=== PATIENT | male | born 1940 | race African-American/Black ===

== ENCOUNTER → 2017-06-23 | Outpatient (CLI) | payer MEDICARE, OTHER ==
--- NOTE | 2017-06-23 10:25 | RADIOLOGY REPORT (SQ) ---
EXAM DESCRIPTION: MRI HEAD WITHOUT COMPLETED DATE/TIME: 06/23/2017 10:13 am REASON FOR STUDY: CEREBRAL INFARCTION, UNSPECIFIED I63.9 CEREBRAL INFARCTION, UNSPECIFIED M48.06 S LYLE STENOSIS, LUMBAR REGION COMPARISON: 02/18/2015. TECHNIQUE: Multiplanar imaging includes non-contrasted T1, T2, FLAIR, and diffusion with ADC map seq uences. Images stored on PACS. LIMITATIONS: None. FINDINGS: ANATOMY: No anomalies. Normal vascular flow voids. Pituitary fossa normal. CSF SPACES: Atrophy induced prominence of ventricles and CSF spaces. CEREBRUM: High signal intensity lesions scattered throughout the white matter on FLAIR imaging with d istribution suggesting micro-vascular ischemic changes. Stable old right frontal lobe infarct. No e vidence of hemorrhage, mass, or extraaxial fluid collection. POSTERIOR FOSSA: No signal alteration. No hemorrhage. No edema, masses or mass effect. Internal ramiro tory canals, cerebello-pontine angles, mastoids normal. DIFFUSION IMAGING: Negative for acute or sub-acute infarction. ORBITS: No masses. Globes normal. PARANASAL SINUSES: No fluid levels. Mild mucosal thickening. OTHER: No other significant finding. IMPRESSION: ATROPHY AND CHRONIC MICRO-VASCULAR ISCHEMIC CHANGES. 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 NO SIGNIFICANT CHANGE AND ACUTE FINDINGS. EVIDENCE OF ACUTE STROKE: NO. TECHNICAL DOCUMENTATION: JOB ID: [id number] [employer]- All Rights Reserved
== END ==
LOC: RAD 09:00
PROVIDERS: ATTEND Internal Medicine
DX: I63.9 Cerebral infarction, unspecified (principal); M48.06 Spinal stenosis, lumbar region
CPT/HCPCS: 70551

== ENCOUNTER → 2018-04-26 | Outpatient (CLI) | payer MEDICARE, OTHER ==
--- NOTE | 2018-04-26 10:30 | RADIOLOGY REPORT (SQ) ---
EXAM DESCRIPTION: ANKLE LEFT AP/LATERAL COMPLETED DATE/TIME: 04/26/2018 9:43 am REASON FOR STUDY: PAIN IN LT ANKLE JTS OF LT FOOT,PAIN IN LT KNEE M25.572 PAIN IN LEFT ANKLE AND J OINTS OF LEFT FOOT M25.562 PAIN IN LEFT KNEE COMPARISON: None. NUMBER OF VIEWS: Three views. TECHNIQUE: AP, lateral, and oblique radiographic images acquired of the left ankle. LIMITATIONS: None. FINDINGS: MINERALIZATION: Normal. BONES: No acute fracture or dislocation. No worrisome bone lesions. JOINTS: No effusions. SOFT TISSUES: Soft tissue swelling more prominent laterally. OTHER: No other significant finding. IMPRESSION: Soft tissue swelling with no fracture. TECHNICAL DOCUMENTATION: JOB ID: [id number] [employer]- All Rights Reserved Reading location - IP/workstation name: [email or web address]
--- NOTE | 2018-04-26 10:34 | RADIOLOGY REPORT (SQ) ---
EXAM DESCRIPTION: KNEE LEFT 2 VIEWS COMPLETED DATE/TIME: 04/26/2018 9:44 am REASON FOR STUDY: PAIN IN LT ANKLE JTS OF LT FOOT,PAIN IN LT KNEE M25.572 PAIN IN LEFT ANKLE AND J OINTS OF LEFT FOOT M25.562 PAIN IN LEFT KNEE COMPARISON: None. NUMBER OF VIEWS: Two views. TECHNIQUE: AP and lateral radiographic images acquired of the left knee. LIMITATIONS: None. FINDINGS: MINERALIZATION: Normal. BONES: No acute fracture or dislocation. No worrisome bone lesions. JOINT: No effusion. SOFT TISSUES: No soft tissue swelling. No radio-opaque foreign body. OTHER: No other significant finding. IMPRESSION: NEGATIVE STUDY OF THE LEFT KNEE. NO RADIOGRAPHIC EVIDENCE OF ACUTE INJURY. TECHNICAL DOCUMENTATION: JOB ID: [id number] [employer]- All Rights Reserved Reading location - IP/workstation name: [email or web address]
== END ==
LOC: OD 09:07
PROVIDERS: ATTEND Internal Medicine
DX: M25.572 Pain in left ankle and joints of left foot (principal)

== ENCOUNTER → 2018-09-25 | Outpatient (CLI) | payer MEDICARE, OTHER ==
--- NOTE | 2018-09-25 13:14 | RADIOLOGY REPORT (SQ) ---
EXAM DESCRIPTION: CT ABD/PELVIS NO ORAL OR IV COMPLETED DATE/TIME: 09/25/2018 12:59 pm REASON FOR STUDY: R31.9 HEMATURIA, UNSPECIFIED R31.9 HEMATURIA, UNSPECIFIED COMPARISON: 11/19/2009. TECHNIQUE: CT scan of the abdomen and pelvis performed without intravenous or oral contrast. Images reviewed with lung, soft tissue, and bone windows. Reconstructed coronal and sagittal MPR images revi ewed. All images stored on PACS. All CT scanners at this facility use dose modulation, iterative reconstruction, and/or weight based d osing when appropriate to reduce radiation dose to as low as reasonably achievable (ALARA). [facility]: Dose Right [facility]: CareDose [facility]: Dose Right [facility]: Teradose 4D [facility]: [employer] RADIATION DOSE: CT Rad equipment meets quality standard of care and radiation dose reduction techniq ues were employed. CTDIvol: 13.4 mGy. DLP: 707 mGy-cm.mGy. LIMITATIONS: None. FINDINGS: LOWER CHEST: No significant findings. No nodules or infiltrates. NON-CONTRASTED LIVER, SPLEEN, ADRENALS: Evaluation limited by lack of IV contrast. No identified sign ificant masses. PANCREAS: No masses. No peripancreatic inflammatory changes. GALLBLADDER: No identified stones by CT criteria. No inflammatory changes to suggest cholecystitis. RIGHT KIDNEY AND URETER: No suspicious masses. Assessment limited by lack of IV contrast. No signif icant calcifications. No hydronephrosis or hydroureter. LEFT KIDNEY AND URETER: No suspicious masses. Assessment limited by lack of IV contrast. No signifi cant calcifications. No hydronephrosis or hydroureter. AORTA AND RETROPERITONEUM: No aneurysm. No retroperitoneal masses or adenopathy. BOWEL AND PERITONEAL CAVITY: Scattered diverticuli in the descending and sigmoid colon. No obvious m asses or inflammatory changes. No free fluid. APPENDIX: Normal. PELVIS, BLADDER, AND ABDOMINAL WALL:No abnormal masses. No free fluid. Bladder normal. BONES: No significant findings. OTHER: No other significant finding. IMPRESSION: DIVERTICULOSIS. NO CT FINDINGS OF DIVERTICULITIS. NO OTHER SIGNIFICANT OR ACUTE PROCES S IN THE ABDOMEN OR PELVIS. COMMENT: Quality ID # [id number]: Final reports with documentation of one or more dose reduction techniques (e.g., Automated exposure control, adjustment of the mA and/or kV according to patient size, use of iterative reconstruction technique) TECHNICAL DOCUMENTATION: JOB ID: [id number] [employer]- All Rights Reserved Reading location - IP/workstation name: [email or web address]
== END ==
LOC: RAD 15:17
PROVIDERS: ATTEND Internal Medicine
DX: K57.30 Diverticulosis of large intestine without perforation or abscess without bleeding (principal); R31.9 Hematuria, unspecified
CPT/HCPCS: 74176

== ENCOUNTER → 2018-10-22 | Outpatient (CLI) | payer MEDICARE, OTHER ==
--- NOTE | 2018-10-22 13:29 | RADIOLOGY REPORT (SQ) ---
EXAM DESCRIPTION: CT ABD/PELVIS COMBO COMPLETED DATE/TIME: 10/22/2018 12:54 pm REASON FOR STUDY: N41.1 CHRONIC PROSTATITIS R30.0 DYSURIA N40.1 BENIGN PROSTATIC HYPERPLASIA R31.0 GROSS HEMATURIA N41.1 CHRONIC PROSTATITIS R30.0 DYSURIA COMPARISON: 09/25/2018 TECHNIQUE: CT scan of the abdomen and pelvis performed with and without intravenous contrast, and wi thout oral contrast. Contrasted imaging performed helical scanning technique and dynamic intravenous contrast injection. Images reviewed with lung, soft tissue, and bone windows. Reconstructed coronal a nd sagittal MPR images reviewed. Delayed images for evaluation of the urinary system also acquired. A ll images stored on PACS. All CT scanners at this facility use dose modulation, iterative reconstruction, and/or weight based d osing when appropriate to reduce radiation dose to as low as reasonably achievable (ALARA). [facility]: Dose Right [facility]: CareDose [facility]: Dose Right [facility]: Teradose 4D [facility]: [employer] CONTRAST TYPE AND DOSE: contrast/concentration: Isovue 350.00 mg/ml; Total Contrast Delivered: 100.0 ml; Total Saline Delivered: 72.0 ml RENAL FUNCTION: Creatinine 0.9 GFR 94 RADIATION DOSE: CT Rad equipment meets quality standard of care and radiation dose reduction techniq ues were employed. CTDIvol: 17.8 - 20.3 mGy. DLP: 3196 mGy-cm. . LIMITATIONS: None. FINDINGS: NON-CONTRASTED IMAGING: No significant renal or bladder calcifications. No other significa nt organ calcifications. POST-CONTRASTED IMAGING: LOWER CHEST: No significant findings. No nodules or infiltrates. LIVER: Normal size. No masses. No dilated ducts. SPLEEN: Normal size. No focal lesions. PANCREAS: No masses. No significant calcifications. No adjacent inflammation or peripancreatic fluid collections. Pancreatic duct not dilated. GALLBLADDER: No identified stones by CT criteria. No inflammatory changes to suggest cholecystitis. ADRENAL GLANDS: No significant masses or asymmetry. RIGHT KIDNEY AND URETER: No solid masses. No significant calcifications. No hydronephrosis or hyd roureter. LEFT KIDNEY AND URETER: No solid masses. No significant calcifications. No hydronephrosis or hydr oureter. AORTA AND VESSELS: No aneurysm. No dissection. Renal arteries, SMA, celiac without stenosis. RETROPERITONEUM: No retroperitoneal adenopathy, hemorrhage or masses. BOWEL AND PERITONEAL CAVITY: Sigmoid diverticulosis. No acute inflammation. APPENDIX: Normal. PELVIS: The prostate gland is enlarged. Urinary bladder is unremarkable. ABDOMINAL WALL: No masses. No hernias. BONES: No significant or acute findings. OTHER: No other significant finding. IMPRESSION: 1. No acute findings. 2. Diverticulosis coli. 3. Prostatic enlargement. TECHNICAL DOCUMENTATION: JOB ID: [id number] Quality ID # [id number]: Final reports with documentation of one or more dose reduction techniques (e.g., Au tomated exposure control, adjustment of the mA and/or kV according to patient size, use of iterative reconstruction technique) 2010 [employer]- All Rights Reserved Reading location - IP/workstation name: [email or web address]
== END ==
LOC: RAD 14:10
PROVIDERS: ATTEND Urology
DX: N41.1 Chronic prostatitis (principal); K57.30 Diverticulosis of large intestine without perforation or abscess without bleeding; N40.2 Nodular prostate without lower urinary tract symptoms; R30.0 Dysuria; R97.20 Elevated prostate specific antigen [PSA]
CPT/HCPCS: 74178; 82565

== ENCOUNTER 2019-03-17 14:37 | Emergency (ER) | payer MEDICARE, OTHER ==
[2019-03-17 14:56] VITALS: BP 125/69
--- NOTE | 2019-03-17 15:20 | ER Document Report ---
ED GI/ - General Chief Complaint: Needs Urinary Cath Replaced Stated Complaint: CATHETER LEAKING Time Seen by Provider: 03/17/19 15:05 Primary Care Provider: LEO GARCIA MD [Primary Care Provider] - Follow up tomorrow Mode of Arrival: Ambulatory Information source: Patient Notes: 78-year-old male presented to ED for leaking Clark catheter. He states he was just discharged on 18th of this month which is 3 days ago. He states that today he noticed that his Clark was leaking. He states they just put a Clark in on the . He states he does not know of any pulling or tugging he is done to his catheter. There is a small amount of drainage in his diaper. Is alert oriented respirations regular and unlabored speaking in full sentences. TRAVEL OUTSIDE OF THE [place] IN LAST 30 DAYS: No - HPI Patient complains to provider of: Clark catheter problem Onset: This morning Timing/Duration: Intermittent Quality of pain: No pain Pain Level: Denies Associated symptoms: Other Exacerbated by: Movement, Walking - Clark leaking Relieved by: Denies Similar symptoms previously: Yes Recently seen / treated by doctor: Yes - Related Data Allergies/Adverse Reactions: lisinopril [Lisinopril] Adverse Reaction (Unknown, Verified 03/17/19 14:42) Aarhwbk-Dzo-Wdz Reductase Inhibitor Adverse Reaction (Unknown, Verified 03/17/19 14:42) Past Medical History - General Information source: Patient - Social History Smoking Status: Former Smoker Cigarette use (# per day): No Frequency of alcohol use: Occasional Drug Abuse: None Family History: Reviewed & Not Pertinent - Past Medical History Cardiac Medical History: Reports: Hx Atrial Fibrillation, Hx Hypercholesterolemia, Hx Hypertension, Hx Heart Murmur Pulmonary Medical History: Reports: Hx Bronchitis EENT Medical History: Reports: None Neurological Medical History: Reports: None Endocrine Medical History: Reports: Hx Diabetes Mellitus Type 2 Renal/ Medical History: Reports: Hx Benign Prostatic Hyperplasia Malignancy Medical History: Reports None GI Medical History: Reports: Hx Gastroesophageal Reflux Disease Musculoskeletal Medical History: Reports Hx Arthritis Skin Medical History: Reports None Psychiatric Medical History: Reports: Hx Depression, Hx Post Traumatic Stress Disorder Traumatic Medical History: Reports: None Infectious Medical History: Reports: None Surgical Hx: Negative Past Surgical History: Reports: None - Immunizations Immunizations up to date: Yes Hx Diphtheria, Pertussis, Tetanus Vaccination: Yes Review of Systems - Review of Systems Constitutional: No symptoms reported EENT: No symptoms reported Cardiovascular: No symptoms reported Respiratory: No symptoms reported Gastrointestinal: No symptoms reported Genitourinary: Other - Clark leaking Male Genitourinary: No symptoms reported Musculoskeletal: No symptoms reported Skin: No symptoms reported Hematologic/Lymphatic: No symptoms reported Neurological/Psychological: No symptoms reported Physical Exam - Vital signs Vitals: Temp Pulse Resp BP Pulse Ox 97.8 F 98 18 125/69 100 03/17/19 14:54 03/17/19 14:54 03/17/19 14:54 03/17/19 14:54 03/17/19 14:54 Interpretation: Normal - General General appearance: Appears well, Alert - HEENT Head: Normocephalic, Atraumatic Eyes: Normal Pupils: PERRL - Respiratory Respiratory status: No respiratory distress Chest status: Nontender Breath sounds: Normal Chest palpation: Normal - Cardiovascular Rhythm: Regular Heart sounds: Normal auscultation Murmur: No - Abdominal Inspection: Normal Distension: No distension Bowel sounds: Normal Tenderness: Nontender Organomegaly: No organomegaly - Genitourinary Notes: Catheter in place and leaking. Tried irrigating the catheter and it did definitely leak around the catheter. - Back Back: Normal, Nontender - Extremities General upper extremity: Normal inspection, Nontender, Normal color, Normal ROM, Normal temperature General lower extremity: Normal inspection, Nontender, Normal color, Normal ROM, Normal temperature, Normal weight bearing. No: Ayanna's sign - Neurological Neuro grossly intact: Yes Cognition: Normal Orientation: AAOx4 [place] Coma Scale Eye Opening: Spontaneous Oscar Coma Scale Verbal: Oriented Oscar Coma Scale Motor: Obeys Commands [place] Coma Scale Total: 15 Speech: Normal Motor strength normal: LUE, RUE, LLE, RLE Sensory: Normal - Psychological Associated symptoms: Normal affect, Normal mood - Skin Skin Temperature: Warm Skin Moisture: Dry Skin Color: Normal Course - Re-evaluation Re-evalutation: 03/17/19 16:32 Clark catheter was removed and a new 18 coud catheter replaced new bag and leg bag had patient states it is feels much better. Patient was instructed on use of leg bag and change from leg bag to bedside bag while at home. Patient verbalized understanding of instructions and patient was discharged home. - Vital Signs Vital signs: Temp Pulse Resp BP Pulse Ox 97.8 F 98 18 125/69 100 03/17/19 14:54 03/17/19 14:54 03/17/19 14:54 03/17/19 14:54 03/17/19 14:54 Discharge - Discharge Clinical Impression: Encounter for Clark catheter replacement, clark leaking Condition: Stable Disposition: HOME, SELF-CARE Additional Instructions: Clark Catheter Care Tube Position: Keep the catheter connected to the drainage tubing at all times. Avoid pulling on the catheter. Keep the drainage tube taped to the mid- thigh, on top of your leg (not underneath it). Be sure there are no kinks or loops in the tube. Keep the drainage bag below the bladder. When in bed, the drainage bag should hang below the abdomen but should not lie on the floor. The drainage bag has hooks at the top so it can be hung on a chair or bed. Daily Cleaning: Wash your hands with soap and water before and after caring for your catheter. Twice a day, clean yourself where the catheter goes into the urethra. Use a warm, soapy wash cloth to clean around the urethral opening and the first few inches of the catheter. Females should wash from front to back to decrease the risk of infection from fecal material. After washing with soap, rinse the area with water. Do not put powder around the catheter. Apply ointment only if instructed by your doctor or nurse. Follow up if you develop fever or chills, flank or abdominal pain, blood in the urine, or if urine is not draining into the catheter. Please change your Clark tubing from the bedside bag to the leg bag during the day and then from the leg bag to the bedside drainage bag at night. This will decrease the pulling and tugging on the catheter. FOLLOW-UP CARE: If you have been referred to a physician for follow-up care, call the physicians office for an appointment as you were instructed or within the next two days. If you experience worsening or a significant change in your symptoms, notify the physician immediately or return to the Emergency Department at any time for re-evaluation. Follow-up with your primary care and your urologist as you have been instructed when you were discharged from the hospital. Referrals: LEO GARCIA MD [Primary Care Provider] - Follow up tomorrow
== END 2019-03-17 17:08 | disposition home or self-care (01) ==
LOC: ER 14:37
DX: T83.038A Leakage of other urinary catheter, initial encounter (principal); X58.XXXA Exposure to other specified factors, initial encounter; I48.91 Unspecified atrial fibrillation; E78.00 Pure hypercholesterolemia, unspecified; I10 Essential (primary) hypertension; E11.9 Type 2 diabetes mellitus without complications
CPT/HCPCS: 99283; C1758

== ENCOUNTER 2019-03-19 18:25 | Inpatient (IN) | payer MEDICARE, OTHER ==
[2019-03-19] MEDS ORDERED: (PENDING PHARMACY ID) (Losartan/Hydrochlorothiazide [Losartan-Hctz 50-12.5 Mg Tab] 1 EACH) PO SCH (21:30)
[2019-03-19] MEDS ORDERED: CARVEDILOL PHOSPHATE 40 MG PO SCH (21:30)
[2019-03-19] MEDS ORDERED: (PENDING PHARMACY ID) (Pravastatin Sodium [Pravachol] 40 MG) PO SCH (22:00)
[2019-03-19] MEDS ORDERED: CIPROFLOXACIN HCL 500 MG TABLET PO SCH (22:00)
[2019-03-19 22:10] LABS: MEAN CORPUSCULAR HEMOGLOBIN 27.4 pg (27.0-33.4); MEAN CORPUSCULAR HGB CONC 34.8 g/dL (32.0-36.0); MEAN CORPUSCULAR VOLUME 79 fl (80-97); PLATELET COUNT 183 10^3/uL (150-450); RED CELL DISTRIBUTION WIDTH 15.7 % (11.5-14.0); WHITE BLOOD COUNT 5.5 10^3/uL (4.0-10.5)
[2019-03-19 22:32] LABS: ALANINE AMINOTRANSFERASE 18 U/L (21-72); ALBUMIN 3.6 g/dL (3.5-5.0); ALKALINE PHOSPHATASE 60 U/L (38-126); ANION GAP 13 (5-19); ASPARTATE AMINO TRANSFERASE 16 U/L (17-59); BILIRUBIN,DIRECT 0.3 mg/dL (0.0-0.4); BILIRUBIN,TOTAL 0.4 mg/dL (0.2-1.3); BLOOD UREA NITROGEN 34 mg/dL (7-20); CALCIUM 8.2 mg/dL (8.4-10.2); CARBON DIOXIDE 27 mmol/L (22-30); CHLORIDE 98 mmol/L (98-107); GLUCOSE 110 mg/dL (75-110); POTASSIUM 3.2 mmol/L (3.6-5.0); SODIUM 137.7 mmol/L (137-145); TOTAL PROTEIN 6.2 g/dL (6.3-8.2)
[2019-03-19] MEDS: ATORVASTATIN CALCIUM 10 MG TABLET PO SCH (23:16)
[2019-03-19 23:54] LABS: PROTHROMBIN TIME 42.9 SEC (11.4-15.4)
[2019-03-20 00:02] LABS: INTERNATIONAL RATION (INR) 4.26; PARTIAL THROMBOPLASTIN TIME 131.3 SEC (23.5-35.8)
[2019-03-20] MEDS ORDERED: PHYTONADIONE INJ 10 MG/1 ML AMPULE SUBCUT ONE (04:15)
--- NOTE | 2019-03-20 06:32 | RADIOLOGY REPORT (SQ) ---
EXAM DESCRIPTION: US RETROPERITONEUM LIMITED COMPLETED DATE/TME: 03/20/2019 00:00 CLINICAL HISTORY: 78 years, Male, ACUTE KIDNEY FAILURE COMPARISON: CT dated 03/14/2019 TECHNIQUE: Grayscale and color images of the retroperitoneum LIMITATIONS: None. FINDINGS: The visualized portions of the abdominal aorta and IVC appear unremarkable. Both kidneys are normal in size, shape, and echotexture. The right kidney measures 11.2 x 7.0 x 5.2 cm. The left kidney measures 12.1 x 7.8 x 7.0 cm. There is mild right and moderate left hydronephrosis. A Lundy catheter is noted within the urinary bladder. There is a lobulated mass along the base of the urinary bladder which measures approximately 3.2 x 2.2 x 1.4 cm. IMPRESSION: Lobulated mass along the base of the bladder, likely from the prostate gland which may be causing an outlet obstruction. Mild right and moderate left hydronephrosis. copyright 2010 [employer]- All Rights Reserved
[2019-03-20] MEDS: HYDROCHLOROTHIAZIDE 12.5 MG TABLET PO SCH (09:33)
[2019-03-20] MEDS: LOSARTAN POTASSIUM 50 MG TABLET PO SCH (09:34)
[2019-03-20] MEDS: SITAGLIPTIN PHOSPHATE 50 MG TABLET PO SCH (09:35)
[2019-03-20] MEDS: FINASTERIDE 5 MG TABLET PO SCH (09:35)
[2019-03-20] MEDS ORDERED: TAMSULOSIN HCL 0.4 MG CAP.SR.24H PO SCH (10:00)
--- NOTE | 2019-03-20 14:02 | PDOC H&P ---
History of Present Illness Admission Date/PCP: 03/19/19 18:25 LEO GARCIA MD History of Present Illness: TRAVIS REYNOSO is a 78 year old male, he has a history of an enlarged prostate gland with obstructive uropathy, he was admitted initially on 03/14/2019 for evaluation of acute kidney injury, he had routine blood work done in the office last week Monday, the serum creatinine was 2.23, the blood work that was done in December, which was 2 months ago was normal, he was admitted for observation and evaluation of this acute kidney injury, a CT scan of the abdomen and pelvis without contrast was obtained, it demonstrated bilateral hydronephrosis and hydroureter with a masslike protrusion of the prostate gland into the base of the bladder. He was treated with insertion of Lundy catheter for relief of obstruction. He has multiple comorbid conditions including chronic atrial fibrillation on anticoagulation with Coumadin, history of CVA with residual weakness, type 2 diabetes mellitus. Since the Lundy catheter was inserted he has difficulty with urinary symptoms, hematuria, I saw him in the office on Monday when he came with his family, he was having difficulty with the Lundy catheter, I spoke to a urologist in [place], he was kind enough to see him in the office, he was seen in the office and the Lundy catheter was removed. He came to the office yesterday because of hematuria and not able to urinate, he was admitted directly from the office to the hospital, the blood work demonstrated a worsening serum creatinine, it was 3 the last time on discharged it was 2.23, the INR is also supratherapeutic, it was 4, he was given vitamin K 10 mg subcu and a three-way Lundy catheter was inserted for continuous bladder irrigation. He has a history of BPH for many years, the appearance of the mass is very suspicious for malignancy, I am calling [facility] urology to have [facility] management mostly because of the worseni ng kidney function and the fact that is having difficulty with the Lundy catheter. Past Medical History Cardiac Medical History: Reports: Atrial Fibrillation, Hyperlipidema, Hypertension, Heart Murmur Pulmonary Medical History: Reports: Bronchitis Neurological Medical History: Reports: Other - History of ischemic CVA many years ago Endocrine Medical History: Reports: Diabetes Mellitus Type 2 GI Medical History: Reports: Gastroesophageal Reflux Disease Musculoskeltal Medical History: Reports: Arthritis Psychiatric Medical History: Reports: Depression, Post Traumatic Stress Disorder Social History Smoking Status: Former Smoker Number of Years Smokin Frequency of Alcohol Use: Occasional Hx Recreational Drug Use: No Drugs: None Hx Prescription Drug Abuse: No Family History Family History: Reviewed & Not Pertinent Parental Family History Reviewed: Yes Children Family History Reviewed: Yes Sibling(s) Family History Reviewed.: Yes Medication/Allergy Home Medications: Aspirin [Aspirin 81 mg Chewable Tablet] 81 mg PO DAILY 05/29/12 Carvedilol Phosphate [Coreg CR 20 mg Ext. Release Capsule] 40 mg PO DAILY 05/29/12 Ciprofloxacin HCl [Cipro 500 mg Tablet] 500 mg PO BID MDD FILLED 03/12 FOR 10 DAY SUPPLY 05/29/12 Oxycodone HCl [Oxycontin] 15 mg PO Q8HP PRN 05/29/12 Warfarin Sodium [Coumadin 5 mg Tablet] 5 mg PO QHS 05/29/12 Pravastatin Sodium [Pravachol] 40 mg PO QHS 02/16/15 Tamsulosin HCl [Flomax] 0.4 mg PO DAILY 02/16/15 Furosemide [Lasix 40 mg Tablet] 40 mg PO QAM #30 tablet 02/24/15 Doxepin HCl [Silenor] 6 mg PO QHS 03/19/19 Finasteride [Proscar 5 mg Tablet] 5 mg PO DAILY 03/19/19 Gabapentin [Neurontin 300 mg Capsule] 300 mg PO Q8 03/19/19 Losartan/Hydrochlorothiazide [Losartan-Hctz 50-12.5 mg Tab] 1 each PO DAILY 03/19/19 Metformin HCl [Glucophage 500 mg Tablet] 1,000 mg PO BIDACBS 03/19/19 Sildenafil Citrate [Viagra] 100 mg PO ASDIR PRN 03/19/19 Sitagliptin Phosphate [Januvia 50 mg Tablet] 50 mg PO DAILY 03/19/19 Allergies/Adverse Reactions: lisinopril [Lisinopril] Adverse Reaction (Unknown, Verified 03/17/19 14:42) Euuuqni-Esg-Yqx Reductase Inhibitor Adverse Reaction (Unknown, Verified 03/17/19 14:42) Review of Systems Constitutional: ABSENT: chills, fever(s), headache(s), weight gain, weight loss Eyes: ABSENT: visual disturbances Ears: ABSENT: hearing changes Cardiovascular: ABSENT: chest pain, dyspnea on exertion, edema, orthropnea, palpitations Respiratory: ABSENT: cough, hemoptysis Gastrointestinal: ABSENT: abdominal pain, constipation, diarrhea, hematemesis, hematochezia, nausea, vomiting Genitourinary: PRESENT: difficulty urinating, hematuria. ABSENT: dysuria Musculoskeletal: ABSENT: joint swelling Integumentary: ABSENT: rash, wounds Neurological: ABSENT: abnormal gait, abnormal speech, confusion, dizziness, foca l weakness, syncope Psychiatric: ABSENT: anxiety, depression, homidical ideation, suicidal ideation Endocrine: ABSENT: cold intolerance, heat intolerance, menstrual abnormalities, polydipsia, polyuria Hematologic/Lymphatic: ABSENT: easy bleeding, easy bruising, lymphadenopathy Physical Exam Vital Signs: Temp Pulse Resp BP Pulse Ox 98.3 F 89 20 122/58 L 100 03/20/19 07:00 03/20/19 07:00 03/20/19 07:00 03/20/19 07:00 03/20/19 07:00 Intake & Output 03/19/19 03/20/19 03/21/19 06:59 06:59 06:59 Intake Total 412 Output Total 37691 Balance -9988 Weight 98.4 kg General appearance: PRESENT: no acute distress, well-developed, well-nourished Head exam: PRESENT: atraumatic, normocephalic Eye exam: PRESENT: conjunctiva pink, EOMI, PERRLA Ear exam: PRESENT: normal external ear exam Mouth exam: PRESENT: moist, tongue midline Neck exam: PRESENT: full ROM Cardiovascular exam: PRESENT: RRR, +S1, +S2 Pulses: PRESENT: normal dorsalis pedis pul, +2 pedal pulses bilateral Vascular exam: PRESENT: normal capillary refill GI/Abdominal exam: PRESENT: normal bowel sounds, soft Rectal exam: PRESENT: deferred Neurological exam: PRESENT: alert, CN II-XII grossly intact Psychiatric exam: PRESENT: appropriate affect, normal mood Skin exam: PRESENT: dry, intact, warm Results Laboratory Results: 03/19/19 21:57 03/19/19 21:57 03/19/19 03/19/19 21:57 21:57 WBC 5.5 RBC 3.30 L Hgb 9.0 L Hct 26.0 L MCV 79 L MCH 27.4 MCHC 34.8 RDW 15.7 H Plt Count 183 Sodium 137.7 Potassium 3.2 L Chloride 98 Carbon Dioxide 27 Anion Gap 13 BUN 34 H Creatinine 3.04 H Est GFR ( Amer) 24 L Est GFR (Non-Af Amer) 20 L Glucose 110 Calcium 8.2 L Total Bilirubin 0.4 AST 16 L ALT 18 L Alkaline Phosphatase 60 Total Protein 6.2 L Albumin 3.6 Impressions: Renal Ultrasound 03/20/19 00:00 IMPRESSION: Lobulated mass along the base of the bladder, likely from the prostate gland which may be causing an outlet obstruction. Mild right and moderate left hydronephrosis. copyright 2010 [employer]- All Rights Reserved Assessment & Plan - Diagnosis (1) Acute kidney injury Is this a current diagnosis for this admission?: Yes Plan: He has worsening acute kidney injury, this is most likely from obstructive uropathy (2) Obstructive uropathy Is this a current diagnosis for this admission?: Yes Plan: He has bilateral hydronephrosis this is from enlarged prostate gland (3) Prostate mass Is this a current diagnosis for this admission?: Yes (4) Warfarin-induced coagulopathy Is this a current diagnosis for this admission?: Yes Plan: , Give vitamin K 10 mg subcu (5) Hematuria Qualifiers: Hematuria type: gross Qualified Code(s): R31.0 - Gross hematuria Is this a current diagnosis for this admission?: Yes Plan: Start CDI
[2019-03-20 14:30] LABS: ABSOLUTE EOSINOPHILS # (AUTO) 0.1 10^3/uL (0.0-0.6); ABSOLUTE LYMPHOCYTES (AUTO) 0.7 10^3/uL (0.5-4.7); ABSOLUTE MONOCYTES (AUTO) 0.6 10^3/uL (0.1-1.4); ABSOLUTE NEUT (AUTO) 4.5 10^3/uL (1.7-8.2); BASOPHILS % (AUTO) 0.4 % (0-2); EOSINOPHILS % (AUTO) 1.2 % (0-6); HEMATOCRIT 24.4 % (37.9-51.0); HEMOGLOBIN 8.5 g/dL (13.5-17.0); LYMPHOCYTES % (AUTO) 11.6 % (13-45); MEAN CORPUSCULAR HEMOGLOBIN 27.1 pg (27.0-33.4); MEAN CORPUSCULAR HGB CONC 34.8 g/dL (32.0-36.0); MEAN CORPUSCULAR VOLUME 78 fl (80-97); MONOCYTES % (AUTO) 9.9 % (3-13); PLATELET COUNT 193 10^3/uL (150-450); RED BLOOD COUNT 3.13 10^6/uL (4.35-5.55); RED CELL DISTRIBUTION WIDTH 15.7 % (11.5-14.0); SEGMENTED NEUTROPHILS % (AUTO) 76.9 % (42-78); TOTAL CELLS COUNTED % (AUTO) 100 %; WHITE BLOOD COUNT 5.9 10^3/uL (4.0-10.5)
[2019-03-20 14:36] LABS: INTERNATIONAL RATION (INR) 3.27; PROTHROMBIN TIME 34.8 SEC (11.4-15.4)
[2019-03-20 15:05] LABS: ALANINE AMINOTRANSFERASE 16 U/L (21-72); ALBUMIN 3.2 g/dL (3.5-5.0); ALKALINE PHOSPHATASE 54 U/L (38-126); ANION GAP 7 (5-19); ASPARTATE AMINO TRANSFERASE 20 U/L (17-59); BILIRUBIN,DIRECT 0.3 mg/dL (0.0-0.4); BILIRUBIN,TOTAL 0.4 mg/dL (0.2-1.3); BLOOD UREA NITROGEN 32 mg/dL (7-20); CARBON DIOXIDE 30 mmol/L (22-30); CHLORIDE 101 mmol/L (98-107); GLUCOSE 152 mg/dL (75-110); SODIUM 138.3 mmol/L (137-145); TOTAL PROTEIN 6.2 g/dL (6.3-8.2)
[2019-03-20 15:14] LABS: POTASSIUM 2.9 mmol/L (3.6-5.0)
[2019-03-20] MEDS: OXYBUTYNIN CHLORIDE 5 MG TABLET PO SCH ×2 (15:21→22:38)
--- NOTE | 2019-03-20 15:51 | PDOC PROGRESS REPORT ---
Subjective Progress Note for:: 03/20/19 Subjective:: Patient was admitted for the management of acute worsening of serum creatinine consistent with acute kidney injury and also hematuria. I spoke to [facility] urology about this patient, my intent was to transfer him to [facility] but the [facility] urologist recommended that it is more appropriate for them to see him outpatient and that should continue the present management, he also stated that [facility] urology office will contact the patient to make arrangement for outpatient office visit Reason For Visit: HEMATURIA,OBSTURCTIVE UROPATHY,BPH Physical Exam Vital Signs: Temp Pulse Resp BP Pulse Ox 98.3 F 101 H 18 129/88 H 100 03/20/19 07:00 03/20/19 11:50 03/20/19 11:50 03/20/19 11:50 03/20/19 11:50 Intake & Output 03/19/19 03/20/19 03/21/19 06:59 06:59 06:59 Intake Total 412 Output Total 69527 Balance -9988 Weight 98.4 kg General appearance: PRESENT: no acute distress Eye exam: PRESENT: PERRLA Cardiovascular exam: PRESENT: +S1, +S2 GI/Abdominal exam: PRESENT: soft Neurological exam: PRESENT: alert Results Laboratory Results: 03/20/19 14:20 03/20/19 14:20 03/19/19 03/19/19 03/20/19 21:57 21:57 14:20 WBC 5.5 5.9 RBC 3.30 L 3.13 L Hgb 9.0 L 8.5 L Hct 26.0 L 24.4 L MCV 79 L 78 L MCH 27.4 27.1 MCHC 34.8 34.8 RDW 15.7 H 15.7 H Plt Count 183 193 Seg Neutrophils % 76.9 Lymphocytes % 11.6 L Monocytes % 9.9 Eosinophils % 1.2 Basophils % 0.4 Absolute Neutrophils 4.5 Absolute Lymphocytes 0.7 Absolute Monocytes 0.6 Absolute Eosinophils 0.1 Absolute Basophils 0.0 Sodium 137.7 Potassium 3.2 L Chloride 98 Carbon Dioxide 27 Anion Gap 13 BUN 34 H Creatinine 3.04 H Est GFR ( Amer) 24 L Est GFR (Non-Af Amer) 20 L Glucose 110 Calcium 8.2 L Total Bilirubin 0.4 AST 16 L ALT 18 L Alkaline Phosphatase 60 Total Protein 6.2 L Albumin 3.6 03/20/19 14:20 WBC RBC Hgb Hct MCV MCH MCHC RDW Plt Count Seg Neutrophils % Lymphocytes % Monocytes % Eosinophils % Basophils % Absolute Neutrophils Absolute Lymphocytes Absolute Monocytes Absolute Eosinophils Absolute Basophils Sodium 138.3 Potassium 2.9 L* Chloride 101 Carbon Dioxide 30 Anion Gap 7 BUN 32 H Creatinine 2.65 H Est GFR ( Amer) 28 L Est GFR (Non-Af Amer) 23 L Glucose 152 H Calcium 8.0 L Total Bilirubin 0.4 AST 20 ALT 16 L Alkaline Phosphatase 54 Total Protein 6.2 L Albumin 3.2 L Impressions: Renal Ultrasound 03/20/19 00:00 IMPRESSION: Lobulated mass along the base of the bladder, likely from the prostate gland which may be causing an outlet obstruction. Mild right and moderate left hydronephrosis. copyright 2010 [employer]- All Rights Reserved Assessment & Plan - Diagnosis (1) Acute kidney injury Is this a current diagnosis for this admission?: Yes Plan: The kidney injury is improving (2) Obstructive uropathy Is this a current diagnosis for this admission?: Yes (3) Prostate mass Is this a current diagnosis for this admission?: Yes (4) Warfarin-induced coagulopathy Is this a current diagnosis for this admission?: Yes Plan: INR is 3.27 (5) Hematuria Qualifiers: Hematuria type: gross Qualified Code(s): R31.0 - Gross hematuria Is this a current diagnosis for this admission?: Yes Plan: Continue CBI
[2019-03-20] MEDS: POTASSIUM CHLORIDE 20 MEQ/50 ML RTU IV SCH ×2 (18:14→19:42)
[2019-03-20] MEDS ORDERED: ACETAMINOPHEN 325 MG TABLET PO PRN (20:39)
[2019-03-20] MEDS ORDERED: RAPAFLO 8 MG PO SCH (21:00)
[2019-03-20] MEDS ORDERED: TAMSULOSIN HCL 0.4 MG CAP.SR.24H PO ONE (21:30)
[2019-03-20] MEDS: CARVEDILOL 12.5 MG TABLET PO SCH (22:38)
[2019-03-20] MEDS: ATORVASTATIN CALCIUM 10 MG TABLET PO SCH (22:38)
[2019-03-21] MEDS: POTASSIUM CHLORIDE 20 MEQ/50 ML RTU IV SCH (01:22)
[2019-03-21] MEDS ORDERED: POTASSIUM CHLORIDE 20 MEQ/50 ML RTU IV SCH (01:30)
[2019-03-21] MEDS: NORMAL SALINE 1000 ML 1,000 ML IV PRN ×2 (06:02→06:57)
[2019-03-21] MEDS: OXYBUTYNIN CHLORIDE 5 MG TABLET PO SCH ×2 (06:02→16:46)
[2019-03-21 10:16] LABS: ALANINE AMINOTRANSFERASE 17 U/L (21-72); ALBUMIN 3.5 g/dL (3.5-5.0); ALKALINE PHOSPHATASE 62 U/L (38-126); ANION GAP 10 (5-19); ASPARTATE AMINO TRANSFERASE 16 U/L (17-59); BILIRUBIN,DIRECT 0.3 mg/dL (0.0-0.4); BILIRUBIN,TOTAL 0.8 mg/dL (0.2-1.3); BLOOD UREA NITROGEN 25 mg/dL (7-20); CALCIUM 8.3 mg/dL (8.4-10.2); CARBON DIOXIDE 26 mmol/L (22-30); CHLORIDE 104 mmol/L (98-107); GLUCOSE 139 mg/dL (75-110); POTASSIUM 3.3 mmol/L (3.6-5.0); SODIUM 139.8 mmol/L (137-145); TOTAL PROTEIN 6.4 g/dL (6.3-8.2)
[2019-03-21] MEDS: CARVEDILOL 12.5 MG TABLET PO SCH (12:28)
[2019-03-21] MEDS: SITAGLIPTIN PHOSPHATE 50 MG TABLET PO SCH (12:29)
[2019-03-21] MEDS: HYDROCHLOROTHIAZIDE 12.5 MG TABLET PO SCH (12:29)
[2019-03-21] MEDS: FINASTERIDE 5 MG TABLET PO SCH (12:29)
[2019-03-21] MEDS: LOSARTAN POTASSIUM 50 MG TABLET PO SCH (12:30)
[2019-03-21] MEDS ORDERED: POTASSIUM CHLORIDE 10 MEQ CAPSULE.ER PO SCH (18:00)
[2019-03-21 18:36] VITALS: BP 122/58
--- NOTE | 2019-03-21 19:44 | PDOC DISCHARGE SUMMARY ---
General - Admit/Disc Date/PCP Admission Date/Primary Care Provider: 03/21/19 13:26 LEO GARCIA MD Discharge Date: 03/21/19 - Discharge Diagnosis (1) Acute kidney injury Is this a current diagnosis for this admission?: Yes (2) Obstructive uropathy Is this a current diagnosis for this admission?: Yes (3) Prostate mass Is this a current diagnosis for this admission?: Yes (4) Warfarin-induced coagulopathy Is this a current diagnosis for this admission?: Yes (5) Hematuria Is this a current diagnosis for this admission?: Yes - Additional Information Discharge Diet: As Tolerated, Diabetic Discharge Activity: Activity As Tolerated, Balance Activity w/Rest Prescriptions: Apixaban [Eliquis 2.5 mg Tablet] 2.5 mg PO BID #60 tablet Oxybutynin Chloride [Ditropan 5 mg Tablet] 5 mg PO Q8 #90 tablet Home Medications: Carvedilol Phosphate [Coreg CR 20 mg Ext. Release Capsule] 40 mg PO DAILY 05/29/12 Ciprofloxacin HCl [Cipro 500 mg Tablet] 500 mg PO BID MDD FILLED 03/12 FOR 10 DAY SUPPLY 05/29/12 Oxycodone HCl [Oxycontin] 15 mg PO Q8HP PRN 05/29/12 Pravastatin Sodium [Pravachol] 40 mg PO QHS 02/16/15 Tamsulosin HCl [Flomax] 0.4 mg PO DAILY 02/16/15 Doxepin HCl [Silenor] 6 mg PO QHS 03/19/19 Finasteride [Proscar 5 mg Tablet] 5 mg PO DAILY 03/19/19 Gabapentin [Neurontin 300 mg Capsule] 300 mg PO Q8 03/19/19 Losartan/Hydrochlorothiazide [Losartan-Hctz 50-12.5 mg Tab] 1 each PO DAILY 03/19/19 Sildenafil Citrate [Viagra] 100 mg PO ASDIR PRN 03/19/19 Sitagliptin Phosphate [Januvia 50 mg Tablet] 50 mg PO DAILY 03/19/19 Apixaban [Eliquis 2.5 mg Tablet] 2.5 mg PO BID #60 tablet 03/21/19 Oxybutynin Chloride [Ditropan 5 mg Tablet] 5 mg PO Q8 #90 tablet 03/21/19 History of Present Illness History of Present Illness: TRAVIS REYNOSO is a 78 year old male, he has a history of an enlarged prostate gland with obstructive uropathy, he was admitted initially on 03/14/2019 for evaluation of acute kidney injury, he had routine blood work done in the office last week Monday, the serum creatinine was 2.23, the blood work that was done in December, which was 2 months ago was normal, he was admitted for observation and evaluation of this acute kidney injury, a CT scan of the abdomen and pelvis without contrast was obtained, it demonstrated bilateral hydronephr osis and hydroureter with a masslike protrusion of the prostate gland into the base of the bladder. He was treated with insertion of Lundy catheter for relief of obstruction. He has multiple comorbid conditions including chronic atrial fibrillation on anticoagulation with Coumadin, history of CVA with residual weakness, type 2 diabetes mellitus. Since the Lundy catheter was inserted he has difficulty with urinary symptoms, hematuria, I saw him in the office on Monday when he came with his family, he was having difficulty with the Lundy catheter, I spoke to a urologist in [place], he was kind enough to see him in the office, he was seen in the office and the Lundy catheter was removed. He came to the office yesterday because of hematuria and not able to urinate, he was admitted directly from the office to the hospital, the blood work demonstrated a worsening serum creatinine, it was 3 the last time on discharged it was 2.23, the INR is also supratherapeutic, it was 4, he was given vitamin K 10 mg subcu and a three-way Lundy catheter was inserted for continuous bladder irrigation. He has a history of BPH for many years, the appearance of the mass is very suspicious for malignancy, I am calling [facility] urology to have him transferred to [facility] for definitive management mostly because of the worsening kidney function and the fact that is having difficulty with the Lundy catheter. Hospital Course Hospital Course: Patient was admitted for the management of acute kidney injury,Hematuria, obstructive uropathy,he was treated with IV fluid,There was improvement of the acute kidney injury. There was Coumadin induced coagulopathy,This was treated with vitamin K,I consulted [facility] urology with the intent To have patient trans andrew to [facility], the urologist recommended that the patient should continue to receive care here and they will be glad to follow patient outpatient,The serum creatinine improved from 3 to 2.5 Physical Exam Vital Signs: Temp Pulse Resp BP Pulse Ox 98.6 F 92 18 122/58 L 99 03/21/19 18:24 03/21/19 18:24 03/21/19 18:24 03/21/19 18:24 03/21/19 18:24 Intake & Output 03/20/19 03/21/19 03/22/19 06:59 06:59 06:59 Intake Total 412 1666 Output Total 30157 47408 Balance -2479 -13154 Weight 98.4 kg 98.4 kg General appearance: PRESENT: no acute distress, well-developed, well-nourished Head exam: PRESENT: atraumatic, normocephalic Eye exam: PRESENT: PERRLA Ear exam: PRESENT: normal external ear exam Mouth exam: PRESENT: moist, tongue midline Neck exam: PRESENT: full ROM Respiratory exam: PRESENT: clear to auscultation heather Cardiovascular exam: PRESENT: RRR, +S1, +S2 Vascular exam: PRESENT: normal capillary refill GI/Abdominal exam: PRESENT: normal bowel sounds, soft Rectal exam: PRESENT: deferred Neurological exam: PRESENT: alert, CN II-XII grossly intact Psychiatric exam: PRESENT: appropriate affect, normal mood Skin exam: PRESENT: dry, intact, warm Results Laboratory Results: 03/20/19 14:20 03/21/19 09:25 03/21/19 09:25 Sodium 139.8 Potassium 3.3 L Chloride 104 Carbon Dioxide 26 Anion Gap 10 BUN 25 H Creatinine 2.50 H Est GFR ( Amer) 30 L Est GFR (Non-Af Amer) 25 L Glucose 139 H Calcium 8.3 L Total Bilirubin 0.8 AST 16 L ALT 17 L Alkaline Phosphatase 62 Total Protein 6.4 Albumin 3.5 Impressions: Renal Ultrasound 03/20/19 00:00 IMPRESSION: Lobulated mass along the base of the bladder, likely from the prostate gland which may be causing an outlet obstruction. Mild right and moderate left hydronephrosis. copyright 2010 [employer]- All Rights Reserved Qualifiers - * PATIENT BEING DISCHARGED WITH ANY OF THE FOLLOWING DIAGNOSIS: No
== END 2019-03-21 20:20 | disposition home or self-care (01) | DRG 726 ==
LOC: 4S 18:25 → INTOOBSV 18:25 → OBSVTOIN 03-21 13:26
PROVIDERS: ADMIT Internal Medicine; ATTEND Internal Medicine
DX: N40.1 Benign prostatic hyperplasia with lower urinary tract symptoms (principal); N17.9 Acute kidney failure, unspecified; I69.359 Hemiplegia and hemiparesis following cerebral infarction affecting unspecified side; N13.8 Other obstructive and reflux uropathy; R31.9 Hematuria, unspecified; T45.515A Adverse effect of anticoagulants, initial encounter; I48.2 Chronic atrial fibrillation; E11.9 Type 2 diabetes mellitus without complications; E78.5 Hyperlipidemia, unspecified; I10 Essential (primary) hypertension; K21.9 Gastro-esophageal reflux disease without esophagitis; F32.9 Major depressive disorder, single episode, unspecified; F43.10 Post-traumatic stress disorder, unspecified; R31.0 Gross hematuria; Z79.891 Long term (current) use of opiate analgesic; Z79.899 Other long term (current) drug therapy; Z87.891 Personal history of nicotine dependence; Z79.82 Long term (current) use of aspirin; Z88.8 Allergy status to other drugs, medicaments and biological substances
CPT/HCPCS: 36415; 76775; 80048; 80053; 80076; 82962; 85025; 85027; 85610; 85730; C1758; J3430; J3480; J7030

== ENCOUNTER 2019-04-01 14:34 | Outpatient (CLI) | payer MEDICARE, OTHER ==
[~2019-04-01 14:34] MED LIST: ACETAMINOPHEN 325 MG TABLET PO PRN; DIPHENHYDRAMINE HCL 25 MG CAPSULE PO PRN; FUROSEMIDE INJ/PF 20 MG/2 ML SDV IV PRN
[2019-04-01 16:39] LABS: ABSOLUTE EOSINOPHILS # (AUTO) 0.1 10^3/uL (0.0-0.6); ABSOLUTE LYMPHOCYTES (AUTO) 0.7 10^3/uL (0.5-4.7); ABSOLUTE MONOCYTES (AUTO) 0.5 10^3/uL (0.1-1.4); ABSOLUTE NEUT (AUTO) 4.4 10^3/uL (1.7-8.2); BASOPHILS % (AUTO) 0.4 % (0-2); HEMATOCRIT 21.4 % (37.9-51.0); LYMPHOCYTES % (AUTO) 11.6 % (13-45); MEAN CORPUSCULAR HEMOGLOBIN 26.1 pg (27.0-33.4); MEAN CORPUSCULAR HGB CONC 33.3 g/dL (32.0-36.0); MEAN CORPUSCULAR VOLUME 78 fl (80-97); MONOCYTES % (AUTO) 9.1 % (3-13); PLATELET COUNT 303 10^3/uL (150-450); RED BLOOD COUNT 2.73 10^6/uL (4.35-5.55); RED CELL DISTRIBUTION WIDTH 15.3 % (11.5-14.0); SEGMENTED NEUTROPHILS % (AUTO) 76.9 % (42-78); TOTAL CELLS COUNTED % (AUTO) 100 %; WHITE BLOOD COUNT 5.7 10^3/uL (4.0-10.5)
[2019-04-01 16:42] LABS: HEMOGLOBIN 7.1 g/dL (13.5-17.0)
[2019-04-01 16:56] LABS: ANION GAP 11 (5-19); BLOOD UREA NITROGEN 47 mg/dL (7-20); CALCIUM 8.6 mg/dL (8.4-10.2); CARBON DIOXIDE 29 mmol/L (22-30); CHLORIDE 100 mmol/L (98-107); GLUCOSE 153 mg/dL (75-110); POTASSIUM 3.2 mmol/L (3.6-5.0); SODIUM 140.4 mmol/L (137-145)
[2019-04-01] MEDS ORDERED: IRON SUCROSE COMPLEX 200 MG in NORMAL SALINE 100 ML IV ONE (19:00)
--- NOTE | 2019-04-01 19:40 | PDOC H&P ---
History of Present Illness Admission Date/PCP: 04/01/19 14:34 LEO GARCIA MD History of Present Illness: TRAVIS REYNOSO is a 78 year old male, patient with severe anemia due to acute blood loss due to hematuria. He has obstructive uropathy with associated acute kidney injury due to enlarged prostate gland, he has indwelling Lundy catheter, he was admitted for blood transfusion because of hemoglobin of 7 he is very symptomatic, with shortness of breath and severe fatigue Past Medical History Cardiac Medical History: Reports: Atrial Fibrillation, Hyperlipidema, Hypertension, Heart Murmur Pulmonary Medical History: Reports: Bronchitis Endocrine Medical History: Reports: Diabetes Mellitus Type 2 GI Medical History: Reports: Gastroesophageal Reflux Disease Musculoskeltal Medical History: Reports: Arthritis Psychiatric Medical History: Reports: Depression, Post Traumatic Stress Disorder Infectious Medical History: Denies: HIV Social History Smoking Status: Former Smoker Frequency of Alcohol Use: Occasional Hx Recreational Drug Use: No Drugs: None Hx Prescription Drug Abuse: No Family History Family History: Reviewed & Not Pertinent Parental Family History Reviewed: Yes Children Family History Reviewed: Yes Sibling(s) Family History Reviewed.: Yes Medication/Allergy Home Medications: Carvedilol Phosphate [Coreg CR 20 mg Ext. Release Capsule] 40 mg PO DAILY 05/29/12 Ciprofloxacin HCl [Cipro 500 mg Tablet] 500 mg PO BID MDD FILLED 03/12 FOR 10 DAY SUPPLY 05/29/12 Oxycodone HCl [Oxycontin] 15 mg PO Q8HP PRN 05/29/12 Pravastatin Sodium [Pravachol] 40 mg PO QHS 02/16/15 Tamsulosin HCl [Flomax] 0.4 mg PO DAILY 02/16/15 Doxepin HCl [Silenor] 6 mg PO QHS 03/19/19 Finasteride [Proscar 5 mg Tablet] 5 mg PO DAILY 03/19/19 Gabapentin [Neurontin 300 mg Capsule] 300 mg PO Q8 03/19/19 Losartan/Hydrochlorothiazide [Losartan-Hctz 50-12.5 mg Tab] 1 each PO DAILY 03/19/19 Sildenafil Citrate [Viagra] 100 mg PO ASDIR PRN 03/19/19 Sitagliptin Phosphate [Januvia 50 mg Tablet] 50 mg PO DAILY 03/19/19 Apixaban [Eliquis 2.5 mg Tablet] 2.5 mg PO BID #60 tablet 03/21/19 Oxybutynin Chloride [Ditropan 5 mg Tablet] 5 mg PO Q8 #90 tablet 03/21/19 Allergies/Adverse Reactions: lisinopril [Lisinopril] Adverse Reaction (Unknown, Verified 03/17/19 14:42) Ulxbqgc-Ibv-Dql Reductase Inhibitor Adverse Reaction (Unknown, Verified 03/17/19 14:42) Review of Systems Constitutional: PRESENT: weakness Eyes: ABSENT: visual disturbances Ears: ABSENT: hearing changes Cardiovascular: ABSENT: chest pain, dyspnea on exertion, edema, orthropnea, palpitations Respiratory: ABSENT: cough, hemoptysis Gastrointestinal: ABSENT: abdominal pain, constipation, diarrhea, hematemesis, hematochezia, nausea, vomiting Genitourinary: PRESENT: hematuria. ABSENT: dysuria Musculoskeletal: ABSENT: joint swelling Integumentary: ABSENT: rash, wounds Neurological: ABSENT: abnormal gait, abnormal speech, confusion, dizziness, focal weakness, syncope Psychiatric: ABSENT: anxiety, depression, homidical ideation, suicidal ideation Endocrine: ABSENT: cold intolerance, heat intolerance, menstrual abnormalities, polydipsia, polyuria Hematologic/Lymphatic: ABSENT: easy bleeding, easy bruising, lymphadenopathy Physical Exam Vital Signs: Temp Pulse Resp BP Pulse Ox 98 F 77 16 116/53 L 100 04/01/19 19:05 04/01/19 19:05 04/01/19 19:05 04/01/19 19:05 04/01/19 19:05 Intake & Output 03/31/19 04/01/19 04/02/19 06:59 06:59 06:59 Intake Total 0 Output Total 640 Balance -640 Weight 217.3 kg General appearance: PRESENT: no acute distress, well-developed, well-nourished Head exam: PRESENT: atraumatic, normocephalic Eye exam: PRESENT: conjunctiva pink, EOMI, PERRLA Ear exam: PRESENT: normal external ear exam Mouth exam: PRESENT: moist, tongue midline Neck exam: PRESENT: full ROM Respiratory exam: PRESENT: clear to auscultation heather Cardiovascular exam: PRESENT: RRR, +S1, +S2 Pulses: PRESENT: normal dorsalis pedis pul, +2 pedal pulses bilateral Vascular exam: PRESENT: normal capillary refill GI/Abdominal exam: PRESENT: normal bowel sounds, soft Rectal exam: PRESENT: deferred Neurological exam: PRESENT: alert, awake, oriented to person, oriented to place, oriented to time, oriented to situation, CN II-XII grossly intact Psychiatric exam: PRESENT: appropriate affect, normal mood Skin exam: PRESENT: dry, intact, warm Results Laboratory Results: 04/01/19 16:20 04/01/19 16:20 04/01/19 04/01/19 04/01/19 16:20 16:20 16:40 WBC 5.7 RBC 2.73 L Hgb 7.1 L Hct 21.4 L MCV 78 L MCH 26.1 L MCHC 33.3 RDW 15.3 H Plt Count 303 Seg Neutrophils % 76.9 Lymphocytes % 11.6 L Monocytes % 9.1 Eosinophils % 2.0 Basophils % 0.4 Absolute Neutrophils 4.4 Absolute Lymphocytes 0.7 Absolute Monocytes 0.5 Absolute Eosinophils 0.1 Absolute Basophils 0.0 Sodium 140.4 Potassium 3.2 L Chloride 100 Carbon Dioxide 29 Anion Gap 11 BUN 47 H Creatinine 2.86 H Est GFR ( Amer) 26 L Est GFR (Non-Af Amer) 21 L Glucose 153 H Calcium 8.6 Blood Type O POSITIVE Antibody Screen NEGATIVE Assessment & Plan - Diagnosis (1) Anemia Qualifiers: Anemia type: other cause Other causes of anemia: acute posthemorrhagic Qualified Code(s): D62 - Acute posthemorrhagic anemia Is this a current diagnosis for this admission?: Yes Plan: Patient is admitted for blood transfusion (2) Hematuria Qualifiers: Hematuria type: unspecified type Qualified Code(s): R31.9 - Hematuria, unspecified Is this a current diagnosis for this admission?: Yes
[2019-04-01] MEDS ORDERED: OXYBUTYNIN CHLORIDE 5 MG TABLET PO ONE (23:30)
[2019-04-01] MEDS ORDERED: APIXABAN 2.5 MG TABLET PO ONE (23:30)
[2019-04-01] MEDS ORDERED: GABAPENTIN 300 MG CAPSULE PO ONE (23:30)
[2019-04-02] MEDS ORDERED: OXYBUTYNIN CHLORIDE 5 MG TABLET PO SCH (06:00)
[2019-04-02] MEDS ORDERED: GABAPENTIN 300 MG CAPSULE PO SCH (06:00)
[2019-04-02 07:07] LABS: ABSOLUTE EOSINOPHILS # (AUTO) 0.2 10^3/uL (0.0-0.6); ABSOLUTE LYMPHOCYTES (AUTO) 0.9 10^3/uL (0.5-4.7); ABSOLUTE MONOCYTES (AUTO) 0.7 10^3/uL (0.1-1.4); ABSOLUTE NEUT (AUTO) 5.7 10^3/uL (1.7-8.2); BASOPHILS % (AUTO) 0.3 % (0-2); EOSINOPHILS % (AUTO) 2.5 % (0-6); HEMATOCRIT 26.6 % (37.9-51.0); LYMPHOCYTES % (AUTO) 12.4 % (13-45); MEAN CORPUSCULAR HEMOGLOBIN 27.2 pg (27.0-33.4); MEAN CORPUSCULAR VOLUME 80 fl (80-97); MONOCYTES % (AUTO) 9.4 % (3-13); PLATELET COUNT 274 10^3/uL (150-450); RED BLOOD COUNT 3.32 10^6/uL (4.35-5.55); RED CELL DISTRIBUTION WIDTH 15.8 % (11.5-14.0); SEGMENTED NEUTROPHILS % (AUTO) 75.4 % (42-78); TOTAL CELLS COUNTED % (AUTO) 100 %; WHITE BLOOD COUNT 7.5 10^3/uL (4.0-10.5)
[2019-04-02 08:29] VITALS: BP 129/56
[2019-04-02] MEDS ORDERED: APIXABAN 2.5 MG TABLET PO SCH (10:00)
--- NOTE | 2019-04-02 18:07 | PDOC DISCHARGE SUMMARY ---
General - Admit/Disc Date/PCP Admission Date/Primary Care Provider: 04/01/19 14:34 LEO GARCIA MD Discharge Date: 04/02/19 - Discharge Diagnosis (1) Anemia Is this a current diagnosis for this admission?: Yes (2) Hematuria Is this a current diagnosis for this admission?: Yes - Additional Information Discharge Diet: As Tolerated Discharge Activity: Activity As Tolerated, Balance Activity w/Rest Home Medications: RX: Carvedilol Phosphate [Coreg CR 20 mg Ext. Release Capsule] 40 mg PO DAILY 05/29/12 RX: Ciprofloxacin HCl [Cipro 500 mg Tablet] 500 mg PO BID MDD FILLED 03/12 FOR 10 DAY SUPPLY 05/29/12 RX: Oxycodone HCl [Oxycontin] 15 mg PO Q8HP PRN 05/29/12 RX: Pravastatin Sodium [Pravachol] 40 mg PO QHS 02/16/15 RX: Tamsulosin HCl [Flomax] 0.4 mg PO DAILY 02/16/15 RX: Doxepin HCl [Silenor] 6 mg PO QHS 03/19/19 RX: Finasteride [Proscar 5 mg Tablet] 5 mg PO DAILY 03/19/19 RX: Gabapentin [Neurontin 300 mg Capsule] 300 mg PO Q8 03/19/19 RX: Losartan/Hydrochlorothiazide [Losartan-Hctz 50-12.5 mg Tab] 1 each PO DAILY 03/19/19 RX: Sildenafil Citrate [Viagra] 100 mg PO ASDIR PRN 03/19/19 RX: Sitagliptin Phosphate [Januvia 50 mg Tablet] 50 mg PO DAILY 03/19/19 Apixaban [Eliquis 2.5 mg Tablet] 2.5 mg PO BID #60 tablet 03/21/19 RX: Oxybutynin Chloride [Ditropan 5 mg Tablet] 5 mg PO Q8 #90 tablet 03/21/19 History of Present Illness History of Present Illness: TRAVIS REYNOSO is a 78 year old male, patient with severe anemia due to acute blood loss due to hematuria. He has obstructive uropathy with associated acute kidney injury due to enlarged prostate gland, he has indwelling Lundy catheter, he was admitted for blood transfusion because of hemoglobin of 7 he is very symptomatic, with shortness of breath and severe fatigue Hospital Course Hospital Course: Patient was admitted for the management of severe anemia, she was transfused with 3 units packed red blood cells Physical Exam Vital Signs: Temp Pulse Resp BP Pulse Ox 98.1 F 82 17 129/56 H 98 04/02/19 08:27 04/02/19 08:27 04/02/19 08:27 04/02/19 08:27 04/02/19 08:27 Intake & Output 04/01/19 04/02/19 04/03/19 06:59 06:59 06:59 Intake Total 1110 Output Total 2440 700 Balance -1330 -700 Weight 99.5 kg General appearance: PRESENT: no acute distress, well-developed, well-nourished Head exam: PRESENT: atraumatic, normocephalic Eye exam: PRESENT: conjunctiva pink, EOMI, PERRLA Ear exam: PRESENT: normal external ear exam Mouth exam: PRESENT: moist, tongue midline Neck exam: PRESENT: full ROM Respiratory exam: PRESENT: clear to auscultation heather Cardiovascular exam: PRESENT: RRR, +S1, +S2 Pulses: PRESENT: normal dorsalis pedis pul, +2 pedal pulses bilateral Vascular exam: PRESENT: normal capillary refill GI/Abdominal exam: PRESENT: normal bowel sounds, soft Rectal exam: PRESENT: deferred Neurological exam: PRESENT: alert, CN II-XII grossly intact Psychiatric exam: PRESENT: appropriate affect, normal mood Skin exam: PRESENT: dry, intact, warm Results Laboratory Results: 04/02/19 06:57 04/01/19 16:20 04/01/19 04/02/19 16:40 06:57 WBC 7.5 RBC 3.32 L Hgb 9.0 L Hct 26.6 L MCV 80 MCH 27.2 MCHC 34.0 RDW 15.8 H Plt Count 274 Seg Neutrophils % 75.4 Lymphocytes % 12.4 L Monocytes % 9.4 Eosinophils % 2.5 Basophils % 0.3 Absolute Neutrophils 5.7 Absolute Lymphocytes 0.9 Absolute Monocytes 0.7 Absolute Eosinophils 0.2 Absolute Basophils 0.0 Blood Type O POSITIVE Antibody Screen NEGATIVE Qualifiers - * PATIENT BEING DISCHARGED WITH ANY OF THE FOLLOWING DIAGNOSIS: No Acute Heart Failure Is this a Heart Failure Patient?: No
[2019-04-02] MEDS ORDERED: DOXEPIN 6 MG PO SCH ×2 (22:00)
== END 2019-04-02 10:55 | disposition home or self-care (01) ==
LOC: 4S 14:34 → UNDOADMOB 14:34 → II 14:34 → 4S 19:53 → II 04-02 10:55 → UNDODISOB 04-02 10:55 → EDSTATUS 04-08 09:12
PROVIDERS: ATTEND Internal Medicine
PROC: 30233N1 Transfusion of Nonautologous Red Blood Cells into Peripheral Vein, Percutaneous Approach (ICD-10-PCS; principal; 2019-04-01)
PROC: 30233N1 Transfusion of Nonautologous Red Blood Cells into Peripheral Vein, Percutaneous Approach (ICD-10-PCS; 2019-04-02)
PROC: 3E033GC Introduction of Other Therapeutic Substance into Peripheral Vein, Percutaneous Approach (ICD-10-PCS; 2019-04-02)
DX: D62 Acute posthemorrhagic anemia (principal); R31.9 Hematuria, unspecified; N13.8 Other obstructive and reflux uropathy; N40.1 Benign prostatic hyperplasia with lower urinary tract symptoms; N17.9 Acute kidney failure, unspecified; E11.9 Type 2 diabetes mellitus without complications; I10 Essential (primary) hypertension; I48.91 Unspecified atrial fibrillation; E78.5 Hyperlipidemia, unspecified; Z79.899 Other long term (current) drug therapy; Z87.891 Personal history of nicotine dependence; Z79.02 Long term (current) use of antithrombotics/antiplatelets; Z79.84 Long term (current) use of oral hypoglycemic drugs
CPT/HCPCS: 86900; 86901; 36415 ×2; 36430; 86850; 85025 ×2; 80048; 86920; G0378 ×2; G0379; P9016 ×2; A9270 ×6; J1756; J1940; J7050; 96365; 96374

== ENCOUNTER 2019-04-10 14:25 | Inpatient (IN) | payer MEDICARE, OTHER ==
--- NOTE | 2019-04-10 14:53 | ER Document Report ---
ED Medical Screen (RME) - General Chief Complaint: Urinary Problem Stated Complaint: URINARY PROBLEMS Time Seen by Provider: 04/10/19 14:48 Primary Care Provider: LEO GARCIA MD [Primary Care Provider] - Follow up as needed Mode of Arrival: Wheelchair Information source: Patient Notes: Patient presents emergency department with reports of urinary concerns. Reports he has an enlarged prostate. A catheter was placed 3 weeks ago. He has noticed decreased urine output this morning reports her worried that the Lundy is clogged. He follows up with a different urologist at the end of this month. Denies other symptoms such as fever vomiting diarrhea. Reports pressure in his abdomen with palpation I have greeted and performed a rapid initial assessment of this patient. A comprehensive ED assessment and evaluation of the patient, analysis of test results and completion of the medical decision making process will be conducted by additional ED providers. Dictation of this chart was performed using voice recognition software; therefore, there may be some unintended grammatical errors. TRAVEL OUTSIDE OF THE [place] IN LAST 30 DAYS: No - Related Data Allergies/Adverse Reactions: lisinopril [Lisinopril] Adverse Reaction (Unknown, Verified 04/10/19 14:29) Eyccqeb-Pqk-Ynw Reductase Inhibitor Adverse Reaction (Unknown, Verified 04/10/19 14:29) Past Medical History - Past Medical History Cardiac Medical History: Reports: Hx Atrial Fibrillation, Hx Hypercholesterolemia, Hx Hypertension, Hx Heart Murmur Denies: Hx Congestive Heart Failure, Hx Coronary Artery Disease, Hx Heart Attack, Hx Peripheral Vascular Disease, Hx Pulmonary Embolism Pulmonary Medical History: Reports: Hx Bronchitis Denies: Hx Asthma, Hx COPD, Hx Pneumonia, Hx Respiratory Failure, Hx Sleep Apnea, Hx Tuberculosis Neurological Medical History: Denies: Hx Seizures Endocrine Medical History: Reports: Hx Diabetes Mellitus Type 2. Denies: Hx Hyperthyroidism, Hx Hypothyroidism Renal/ Medical History: Reports: Hx Benign Prostatic Hyperplasia. Denies: Hx Peritoneal Dialysis Malignancy Medical History: Denies Hx Leukemia, Denies Hx Lung Cancer GI Medical History: Reports: Hx Gastroesophageal Reflux Disease. Denies: Hx Crohn's Disease, Hx Hiatal Hernia Musculoskeltal Medical History: Reports Hx Arthritis, Denies Hx Fibromyalgia, Denies Hx Systemic Lupus Erythematosus Psychiatric Medical History: Reports: Hx Depression, Hx Post Traumatic Stress Disorder Denies: Hx Bipolar Disorder, Hx Dementia Infectious Medical History: Denies: Hx HIV Past Surgical History: Denies: Hx Appendectomy, Hx Cholecystectomy, Hx Colostomy, Hx Coronary Artery Bypass Graft, Hx Gastric Bypass Surgery, Hx Herniorrhaphy, Hx Pacemaker, Hx Tonsillectomy - Immunizations Immunizations up to date: Yes Hx Diphtheria, Pertussis, Tetanus Vaccination: Yes Physical Exam - Vital signs Vitals: Temp Pulse Resp BP Pulse Ox 98.7 F 79 20 108/57 L 100 04/10/19 14:41 04/10/19 14:41 04/10/19 14:41 04/10/19 14:41 04/10/19 14:41 Course - Vital Signs Vital signs: Temp Pulse Resp BP Pulse Ox 98.7 F 79 20 108/57 L 100 04/10/19 14:41 04/10/19 14:41 04/10/19 14:41 04/10/19 14:41 04/10/19 14:41 Doctor's Discharge - Discharge Referrals: LEO GARCIA MD [Primary Care Provider] - Follow up as needed
[2019-04-10 18:02] LABS: AMORPHOUS SEDIMENT,URINE TRACE /HPF; APPEARANCE,URINE CLOUDY; BILIRUBIN,URINE NEGATIVE (NEGATIVE); COLOR,URINE AMBER; GLUCOSE, URINE NEGATIVE (NEGATIVE); KETONES,URINE NEGATIVE (NEGATIVE); LEUKOCYTE ESTERASE,URINE LARGE (NEGATIVE); NITRITE,URINE NEGATIVE (NEGATIVE); PROTEIN,URINE >=500 mg/dL (NEGATIVE); URINE SPECIFIC GRAVITY 1.009; UROBILINOGEN,URINE NEGATIVE mg/dL (<2.0)
[2019-04-10 18:17] LABS: ABSOLUTE EOSINOPHILS # (AUTO) 0.2 10^3/uL (0.0-0.6); ABSOLUTE LYMPHOCYTES (AUTO) 0.8 10^3/uL (0.5-4.7); ABSOLUTE MONOCYTES (AUTO) 0.5 10^3/uL (0.1-1.4); ABSOLUTE NEUT (AUTO) 4.4 10^3/uL (1.7-8.2); BASOPHILS % (AUTO) 0.3 % (0-2); EOSINOPHILS % (AUTO) 2.6 % (0-6); HEMATOCRIT 25.6 % (37.9-51.0); HEMOGLOBIN 8.7 g/dL (13.5-17.0); MEAN CORPUSCULAR HEMOGLOBIN 27.1 pg (27.0-33.4); MEAN CORPUSCULAR HGB CONC 34.1 g/dL (32.0-36.0); MEAN CORPUSCULAR VOLUME 80 fl (80-97); MONOCYTES % (AUTO) 9.2 % (3-13); PLATELET COUNT 185 10^3/uL (150-450); RED BLOOD COUNT 3.22 10^6/uL (4.35-5.55); RED CELL DISTRIBUTION WIDTH 15.5 % (11.5-14.0); SEGMENTED NEUTROPHILS % (AUTO) 74.9 % (42-78); TOTAL CELLS COUNTED % (AUTO) 100 %; WHITE BLOOD COUNT 5.8 10^3/uL (4.0-10.5)
[2019-04-10 18:42] LABS: ALANINE AMINOTRANSFERASE 20 U/L (21-72); ALKALINE PHOSPHATASE 56 U/L (38-126); ANION GAP 10 (5-19); ASPARTATE AMINO TRANSFERASE 12 U/L (17-59); BILIRUBIN,DIRECT 0.2 mg/dL (0.0-0.4); BILIRUBIN,TOTAL 0.5 mg/dL (0.2-1.3); BLOOD UREA NITROGEN 57 mg/dL (7-20); CALCIUM 8.1 mg/dL (8.4-10.2); CARBON DIOXIDE 27 mmol/L (22-30); CHLORIDE 103 mmol/L (98-107); GLUCOSE 97 mg/dL (75-110); POTASSIUM 3.8 mmol/L (3.6-5.0); SODIUM 140.3 mmol/L (137-145); TOTAL PROTEIN 5.7 g/dL (6.3-8.2)
--- NOTE | 2019-04-10 19:17 | ER Document Report ---
ED General - General Chief Complaint: Urinary Problem Stated Complaint: URINARY PROBLEMS Time Seen by Provider: 04/10/19 14:48 Mode of Arrival: Wheelchair Notes: 78-year-old male to the emergency department chief complaint of decreased urinary output. Patient states that he has an indwelling Lundy catheter. Noticed that he has been having any urine coming out for the last 2 days. Drinking plenty of fluids. Denies any significant pain. Has an indwelling Lundy catheter due to obstructive uropathy from an enlarged prostate. Being followed currently by Dr. العلي. Has been seen by specialists and is suppos ed to be seen at [facility]. TRAVEL OUTSIDE OF THE [place] IN LAST 30 DAYS: No - HPI Onset: Yesterday Onset/Duration: Gradual Quality of pain: No pain Severity: Moderate - Related Data Allergies/Adverse Reactions: lisinopril [Lisinopril] Adverse Reaction (Unknown, Verified 04/10/19 14:29) Aatadxk-Iot-Bei Reductase Inhibitor Adverse Reaction (Unknown, Verified 04/10/19 14:29) Past Medical History - General Information source: Patient - Social History Smoking Status: Never Smoker Frequency of alcohol use: None Drug Abuse: None Family History: Reviewed & Not Pertinent Patient has suicidal ideation: No Patient has homicidal ideation: No - Past Medical History Cardiac Medical History: Reports: Hx Atrial Fibrillation, Hx Hypercholesterolemia, Hx Hypertension, Hx Heart Murmur Denies: Hx Congestive Heart Failure, Hx Coronary Artery Disease, Hx Heart Attack, Hx Peripheral Vascular Disease, Hx Pulmonary Embolism Pulmonary Medical History: Reports: Hx Bronchitis Denies: Hx Asthma, Hx COPD, Hx Pneumonia, Hx Respiratory Failure, Hx Sleep Apnea, Hx Tuberculosis Neurological Medical History: Denies: Hx Seizures Endocrine Medical History: Reports: Hx Diabetes Mellitus Type 2. Denies: Hx Hyperthyroidism, Hx Hypothyroidism Renal/ Medical History: Reports: Hx Benign Prostatic Hyperplasia. Denies: Hx Peritoneal Dialysis Malignancy Medical History: Denies Hx Leukemia, Denies Hx Lung Cancer GI Medical History: Reports: Hx Gastroesophageal Reflux Disease. Denies: Hx Crohn's Disease, Hx Hiatal Hernia Musculoskeletal Medical History: Reports Hx Arthritis, Denies Hx Fibromyalgia, Denies Hx Systemic Lupus Erythematosus Psychiatric Medical History: Reports: Hx Depression, Hx Post Traumatic Stress Disorder Denies: Hx Bipolar Disorder, Hx Dementia Infectious Medical History: Denies: Hx HIV Past Surgical History: Denies: Hx Appendectomy, Hx Cholecystectomy, Hx Colostomy, Hx Coronary Artery Bypass Graft, Hx Gastric Bypass Surgery, Hx Herniorrhaphy, Hx Pacemaker, Hx Tonsillectomy - Immunizations Immunizations up to date: Yes Hx Diphtheria, Pertussis, Tetanus Vaccination: Yes Review of Systems - Review of Systems Notes: Constitutional: denies: Chills, Diaphoresis, Fever, Malaise, Weakness EENT: denies: Eye discharge, Blurred vision, Tearing, Double vision, Nose congestion, Nose discharge, Throat swelling, Mouth pain Cardiovascular: denies: Palpitations, Heart racing, Orthopnea, Dyspnea, Chest pain Respiratory: denies: Cough, Hurts to breathe, Wheezing, Shortness of breath Gastrointestinal: denies: Abdominal pain, Diarrhea, Nausea, Vomiting, Black stools, bright red blood in stool Genitourinary: denies: Burning, Dysuria, Discharge, Frequency, Flank pain, Hematuria. Decreased urinary output Musculoskeletal: denies: Joint pain, Joint swelling, Muscle pain, Muscle stiffness, back pain chronic lower extremity edema Hematologic/Lymphatic: denies: Anemia, Easy bleeding, Easy bruising, Blood clots Neurological/Psychological: denies: Confusion, Dementia, Depression, Loss of consciousness Skin: No lesions, no masses, no skin breakdown, no abscesses Physical Exam - Vital signs Vitals: Temp Pulse Resp BP Pulse Ox 98.7 F 79 20 108/57 L 100 04/10/19 14:41 04/10/19 14:41 04/10/19 14:41 04/10/19 14:41 04/10/19 14:41 Interpretation: Normal - General General appearance: Appears well, Alert - HEENT Head: Normocephalic, Atraumatic Eyes: Normal Pupils: PERRL - Respiratory Respiratory status: No respiratory distress Chest status: Nontender Breath sounds: Normal Chest palpation: Normal - Cardiovascular Rhythm: Regular Heart sounds: Normal auscultation Murmur: No - Abdominal Inspection: Normal Distension: No distension Bowel sounds: Normal Tenderness: Nontender Organomegaly: No organomegaly - Back Back: Normal, Nontender - Extremities General upper extremity: Normal inspection, Nontender, Normal color, Normal ROM, Normal temperature General lower extremity: Normal inspection, Nontender, Edema, Normal color, Normal ROM, Normal temperature. No: Ayanna's sign - Neurological Neuro grossly intact: Yes Cognition: Normal Orientation: AAOx4 [place] Coma Scale Eye Opening: Spontaneous [place] Coma Scale Verbal: Oriented [place] Coma Scale Motor: Obeys Commands [place] Coma Scale Total: 15 Speech: Normal Motor strength normal: LUE, RUE, LLE, RLE Sensory: Normal - Psychological Associated symptoms: Normal affect, Normal mood - Skin Skin Temperature: Warm Skin Moisture: Dry Skin Color: Normal Course - Re-evaluation Re-evalutation: 04/10/19 19:49 Bedside ultrasound performed to see if he had a dilated bladder. He has a decompressed bladder with a Lundy in place. A quick ultrasound of the right kidney did not show any signs of significant hydronephrosis. Patient's labs were returned which showed panic creatinine of over 6. This is a acute change. Ordered a CT scan of the abdomen and pelvis without contrast. Started on IV fluids. Consult the patient's primary care doctor. His electrolytes are unremarkable and his EKG does not show any significant pathology. Will admit f or IV hydration at this time. 04/10/19 19:50 Laboratory 04/10/19 04/10/19 04/10/19 17:25 18:05 18:05 WBC 5.8 RBC 3.22 L Hgb 8.7 L Hct 25.6 L MCV 80 MCH 27.1 MCHC 34.1 RDW 15.5 H Plt Count 185 Seg Neutrophils % 74.9 Lymphocytes % 13.0 Monocytes % 9.2 Eosinophils % 2.6 Basophils % 0.3 Absolute Neutrophils 4.4 Absolute Lymphocytes 0.8 Absolute Monocytes 0.5 Absolute Eosinophils 0.2 Absolute Basophils 0.0 Sodium 140.3 Potassium 3.8 Chloride 103 Carbon Dioxide 27 Anion Gap 10 BUN 57 H Creatinine 6.89 H Est GFR ( Amer) 9 L Est GFR (Non-Af Amer) 8 L Glucose 97 Calcium 8.1 L Total Bilirubin 0.5 Direct Bilirubin 0.2 Neonat Total Bilirubin Not Reportable Neonat Direct Bilirubin Not Reportable Neonat Indirect Bili Not Reportable AST 12 L ALT 20 L Alkaline Phosphatase 56 Total Protein 5.7 L Albumin 3.0 L Urine Color VIBHA Urine Appearance CLOUDY Urine pH 7.0 Ur Specific [place] 1.009 Urine Protein >=500 H Urine Glucose (UA) NEGATIVE Urine Ketones NEGATIVE Urine Blood MODERATE H Urine Nitrite NEGATIVE Urine Bilirubin NEGATIVE Urine Urobilinogen NEGATIVE Ur Leukocyte Esterase LARGE H Urine WBC (Auto) 19 Urine RBC (Auto) 9 Urine Bacteria (Auto) 1+ Amorphous Sediment Auto TRACE Urine Mucus (Auto) MOD Urine Ascorbic Acid NEGATIVE - Vital Signs Vital signs: Temp Pulse Resp BP Pulse Ox 97.6 F 79 18 125/76 95 04/10/19 19:12 04/10/19 14:41 04/10/19 20:35 04/10/19 20:35 04/10/19 20:35 - Laboratory Result Diagrams: 04/10/19 18:05 04/10/19 18:05 Laboratory results interpreted by me: 04/10/19 04/10/19 04/10/19 17:25 18:05 18:05 RBC 3.22 L Hgb 8.7 L Hct 25.6 L RDW 15.5 H BUN 57 H Creatinine 6.89 H Est GFR ( Amer) 9 L Est GFR (Non-Af Amer) 8 L Calcium 8.1 L AST 12 L ALT 20 L Creatine Kinase Total Protein 5.7 L Albumin 3.0 L Urine Protein >=500 H Urine Blood MODERATE H Ur Leukocyte Esterase LARGE H 04/10/19 18:05 RBC Hgb Hct RDW BUN Creatinine Est GFR ( Amer) Est GFR (Non-Af Amer) Calcium AST ALT Creatine Kinase 49 L Total Protein Albumin Urine Protein Urine Blood Ur Leukocyte Esterase Discharge - Discharge Clinical Impression: Acute renal failure Qualifiers: Acute renal failure type: unspecified Qualified Code(s): N17.9 - Acute kidney failure, unspecified Condition: Good Disposition: ADMITTED INPATIENT Admitting Provider: [facility] Admitted: [facility]
[2019-04-10] MEDS ORDERED: NORMAL SALINE 500 ML IV ONE (19:24)
[2019-04-10] MEDS ORDERED: NORMAL SALINE 1000 ML 1,000 ML IV ONE (19:28)
[2019-04-10 20:33] LABS: INTERNATIONAL RATION (INR) 1.34; PROTHROMBIN TIME 17.3 SEC (11.4-15.4)
[2019-04-10 20:34] LABS: PARTIAL THROMBOPLASTIN TIME 42.4 SEC (23.5-35.8)
[2019-04-10 20:41] LABS: LIPASE 56.4 U/L (23-300); PHOSPHORUS 6.4 mg/dL (2.5-4.5)
--- NOTE | 2019-04-10 20:42 | RADIOLOGY REPORT (SQ) ---
EXAM DESCRIPTION: CT ABDOMEN PELVIS WITHOUT IV CONTRAST COMPLETED DATE/TME: 04/10/2019 00:00 CLINICAL HISTORY: 78 years Male DECREASED URINE OUTPUT COMPARISON: 03/14/2019 TECHNIQUE: Contiguous axial images obtained through the abdomen and pelvis without IV contrast. Reformatted images obtained. This exam was performed according to our department optimization program which includes automated exposure control, adjustment of the mA and/or kv according to patient size and/or use of iterative reconstruction technique. FINDINGS: Basilar calcification in aorta and its branches including the coronary arteries. Small amount of atelectasis in the lung bases. The liver appears unremarkable. The spleen and pancreas appear unremarkable. No adrenal masses. There is bilateral hydronephrosis which is similar to the patient's previous examination. The urinary bladder is incompletely distended with a Lundy catheter in place and surrounding inflammatory changes. Prostate is enlarged. Hydronephrosis may be as a result of encroachment on the UVJ by the enlarged prostate. The possibility of underlying bladder mass with resultant ureteral obstruction is not excluded. The gallbladder is visualized. No aneurysmal dilatation of the aorta. No bowel obstruction. Unremarkable appendix. Diverticulosis without evidence of diverticulitis. No free pelvic fluid. IMPRESSION: There is mild bilateral hydronephrosis which is similar to the patient's previous examination. This could be as a result of the inflammation in the bladder, encroachment on the ureterovesical junction by enlarged prostate or the possibility of underlying bladder mass The urinary bladder is incompletely distended with surrounding inflammatory change which may reflect cystitis. Enlarged prostate Additional changes as above
[2019-04-10 20:57] LABS: FREE T4 (FREE THYROXINE) 0.9 ng/dL (0.78-2.19)
[2019-04-10 21:11] LABS: THYROID STIMULATING HORMONE 2.32 uIU/mL (0.47-4.68)
[2019-04-10 22:20] LABS: URINE AMPHETAMINES SCREEN NEGATIVE; URINE BARBITURATES SCREEN NEGATIVE; URINE BENZODIAZEPINES SCREEN NEGATIVE; URINE COCAINE SCREEN NEGATIVE; URINE MARIJUANA (THC) SCREEN NEGATIVE; URINE METHADONE SCREEN NEGATIVE; URINE PHENCYCLIDINE SCREEN NEGATIVE
[2019-04-11 06:33] LABS: ABSOLUTE EOSINOPHILS # (AUTO) 0.2 10^3/uL (0.0-0.6); ABSOLUTE LYMPHOCYTES (AUTO) 0.8 10^3/uL (0.5-4.7); ABSOLUTE MONOCYTES (AUTO) 0.5 10^3/uL (0.1-1.4); ABSOLUTE NEUT (AUTO) 4.3 10^3/uL (1.7-8.2); BASOPHILS % (AUTO) 0.5 % (0-2); HEMATOCRIT 23.1 % (37.9-51.0); MEAN CORPUSCULAR HEMOGLOBIN 26.7 pg (27.0-33.4); MEAN CORPUSCULAR HGB CONC 34.2 g/dL (32.0-36.0); MEAN CORPUSCULAR VOLUME 78 fl (80-97); MONOCYTES % (AUTO) 9.3 % (3-13); PLATELET COUNT 170 10^3/uL (150-450); RED BLOOD COUNT 2.97 10^6/uL (4.35-5.55); RED CELL DISTRIBUTION WIDTH 15.5 % (11.5-14.0); SEGMENTED NEUTROPHILS % (AUTO) 74.2 % (42-78); TOTAL CELLS COUNTED % (AUTO) 100 %; WHITE BLOOD COUNT 5.8 10^3/uL (4.0-10.5)
--- NOTE | 2019-04-11 06:34 | EKG REPORT ---
SEVERITY:- ABNORMAL ECG - ATRIAL FIBRILLATION LEFT AXIS DEVIATION : Confirmed by: Wally Hensley MD 11-Apr-2019 06:33:58
[2019-04-11 06:35] LABS: HEMOGLOBIN 7.9 g/dL (13.5-17.0)
[2019-04-11 06:38] LABS: INTERNATIONAL RATION (INR) 1.27; PROTHROMBIN TIME 16.6 SEC (11.4-15.4)
[2019-04-11 06:54] LABS: ALANINE AMINOTRANSFERASE 11 U/L (21-72); ALBUMIN 2.6 g/dL (3.5-5.0); ALKALINE PHOSPHATASE 52 U/L (38-126); ANION GAP 14 (5-19); ASPARTATE AMINO TRANSFERASE 12 U/L (17-59); BILIRUBIN,DIRECT 0.3 mg/dL (0.0-0.4); BILIRUBIN,TOTAL 0.5 mg/dL (0.2-1.3); BLOOD UREA NITROGEN 61 mg/dL (7-20); CALCIUM 7.6 mg/dL (8.4-10.2); CARBON DIOXIDE 22 mmol/L (22-30); CHLORIDE 105 mmol/L (98-107); CHOLESTEROL 104.02 mg/dL (0-200); GLUCOSE 118 mg/dL (75-110); POTASSIUM 3.3 mmol/L (3.6-5.0); SODIUM 140.7 mmol/L (137-145); TOTAL PROTEIN 5.2 g/dL (6.3-8.2); TRIGLYCERIDES 73 mg/dL (<150)
[2019-04-11 07:05] LABS: DIRECT LDL 59 mg/dL (<100)
[2019-04-11] MEDS ORDERED: DEXTROSE 40% GEL 15 GM TUBE PO PRN (10:00)
[2019-04-11] MEDS ORDERED: DEXTROSE 50%-WATER SYRINGE 25 GM/50 ML DOSE IV PRN (10:00)
[2019-04-11] MEDS ORDERED: DEXTROSE 40% GEL 15 GM TUBE X 2 PO PRN (10:00)
[2019-04-11] MEDS ORDERED: DEXTROSE 50%-WATER SYRINGE 12.5 GM/25 ML DOSE IV PRN (10:00)
[2019-04-11] MEDS ORDERED: GLUCAGON,HUMAN RECOMB 1 MG INJ IM PRN (10:00)
[2019-04-11] MEDS: FINASTERIDE 5 MG TABLET PO SCH (10:03)
[2019-04-11] MEDS ORDERED: OXYCODONE HCL IR 5 MG TABLET PO PRN (10:20)
[2019-04-11] MEDS: CEFTRIAXONE SODIUM 1,500 MG in DEXTROSE 5%-WATER 100 ML IV SCH (10:53)
[2019-04-11] MEDS: NORMAL SALINE 1000 ML 1,000 ML IV PRN ×2 (11:00→17:43)
[2019-04-11] MEDS: INSULIN LISPRO 100 UNIT/ML 3 ML VIAL SUBCUT SCH ×3 (11:56→22:45)
[2019-04-11 15:42] LABS: ANION GAP 12 (5-19); BLOOD UREA NITROGEN 59 mg/dL (7-20); CALCIUM 7.7 mg/dL (8.4-10.2); CARBON DIOXIDE 22 mmol/L (22-30); CHLORIDE 105 mmol/L (98-107); GLUCOSE 102 mg/dL (75-110); POTASSIUM 3.6 mmol/L (3.6-5.0); SODIUM 138.5 mmol/L (137-145)
[2019-04-11 19:07] LABS: ANION GAP 14 (5-19); BLOOD UREA NITROGEN 61 mg/dL (7-20); CALCIUM 7.6 mg/dL (8.4-10.2); CARBON DIOXIDE 20 mmol/L (22-30); CHLORIDE 106 mmol/L (98-107); GLUCOSE 96 mg/dL (75-110); POTASSIUM 3.7 mmol/L (3.6-5.0)
--- NOTE | 2019-04-11 20:11 | PDOC H&P ---
History of Present Illness Admission Date/PCP: 04/10/19 19:43 LEO GARCIA MD History of Present Illness: TRAVIS REYNOSO is a 78 year old male,He has obstructive uropathy with hydroureter and hydronephrosis due to enlarged prostate gland with associated acute kidney injury. He has indwelling Lundy catheter, is supposed to see urology at [facility] in few weeks time, he came to emergency room last night because of decreased urinary output. He stated that he has been having minimal urinary output in the urine bag for the last 2 days despite drinking adequately. The lab work that was done in the emergency room demonstrated serum creatinine of 6 but there was no acidosis there is no hyperkalemia, there is no evidence of volume overload, there is no indication for immediate renal replacement therapy.CAT scan of the abdomen and pelvis without IV contrast was obtained, it demonstrated bilateral hydronephrosis which was said to be similar to the prior examination, the urinary bladder is incompletely distended with a Lundy catheter in place and surrounding further changes there is an enlarged prostate gland Past Medical History Cardiac Medical History: Reports: Atrial Fibrillation, Hyperlipidema, Hypertension, Heart Murmur Pulmonary Medical History: Reports: Bronchitis Neurological Medical History: Reports: Ischemic CVA Endocrine Medical History: Reports: Diabetes Mellitus Type 2 GI Medical History: Reports: Gastroesophageal Reflux Disease Musculoskeltal Medical History: Reports: Arthritis Psychiatric Medical History: Reports: Depression, Post Traumatic Stress Disorder Social History Smoking Status: Former Smoker Frequency of Alcohol Use: Occasional Hx Recreational Drug Use: No Drugs: None Hx Prescription Drug Abuse: No - Advance Directive Resuscitation Status: Full Code Family History Family History: Reviewed & Not Pertinent Parental Family History Reviewed: Yes Children Family History Reviewed: Yes Sibling(s) Family History Reviewed.: Yes Medication/Allergy Home Medications: Apixaban [Eliquis 2.5 mg Tablet] 2.5 mg PO BID 04/10/19 Aspirin [Adult Low Dose Aspirin EC] 81 mg PO DAILY 04/10/19 Carvedilol Phosphate [Coreg CR 40 mg Ext. Release Capsule] 40 mg PO DAILY 04/10/19 Doxepin HCl [Silenor] 6 mg PO DAILY 04/10/19 Finasteride [Proscar 5 mg Tablet] 5 mg PO DAILY 04/10/19 Furosemide [Lasix 40 mg Tablet] 40 mg PO DAILY 04/10/19 Gabapentin [Neurontin 300 mg Capsule] 300 mg PO Q8 04/10/19 Losartan/Hydrochlorothiazide [Hyzaar 50-12.5 Tablet] 1 tab PO DAILY 04/10/19 Metformin HCl [Glucophage] 1,000 mg PO BID 04/10/19 Oxybutynin Chloride [Ditropan 5 mg Tablet] 5 mg PO Q8 04/10/19 Oxycodone HCl 15 mg PO Q8HP PRN 04/10/19 Pravastatin Sodium [Pravachol] 40 mg PO QPM 04/10/19 Silodosin [Rapaflo] 8 mg PO DAILY 04/10/19 Sitagliptin Phosphate [Januvia 50 mg Tablet] 50 mg PO DAILY 04/10/19 Tamsulosin HCl [Flomax 0.4 mg Cap.sr] 0.4 mg PO QPM 04/10/19 Allergies/Adverse Reactions: lisinopril [Lisinopril] Adverse Reaction (Unknown, Verified 04/10/19 14:29) Oyhfygv-Dul-Gqp Reductase Inhibitor Adverse Reaction (Unknown, Verified 04/10/19 14:29) Review of Systems Constitutional: ABSENT: chills, fever(s), headache(s), weight gain, weight loss Eyes: ABSENT: visual disturbances Ears: ABSENT: hearing changes Cardiovascular: ABSENT: chest pain, dyspnea on exertion, edema, orthropnea, palpitations Respiratory: ABSENT: cough, hemoptysis Gastrointestinal: ABSENT: abdominal pain, constipation, diarrhea, hematemesis, hematochezia, nausea, vomiting Genitourinary: PRESENT: difficulty urinating Musculoskeletal: ABSENT: joint swelling Integumentary: ABSENT: rash, wounds Neurological: ABSENT: abnormal gait, abnormal speech, confusion, dizziness, focal weakness, syncope Psychiatric: ABSENT: anxiety, depression, homidical ideation, suicidal ideation Endocrine: ABSENT: cold intolerance, heat intolerance, menstrual abnormalities, polydipsia, polyuria Hematologic/Lymphatic: ABSENT: easy bleeding, easy bruising, lymphadenopathy Physical Exam Vital Signs: Temp Pulse Resp BP Pulse Ox 97.8 F 82 18 126/68 H 100 04/11/19 15:24 04/11/19 15:24 04/11/19 15:24 04/11/19 15:24 04/11/19 15:24 Intake & Output 04/10/19 04/11/19 04/12/19 06:59 06:59 06:59 Intake Total 1500 1250 Output Total 0 50 Balance 1500 1200 Weight 99.9 kg General appearance: PRESENT: no acute distress, well-developed, well-nourished Head exam: PRESENT: atraumatic, normocephalic Eye exam: PRESENT: conjunctiva pink, EOMI, PERRLA Ear exam: PRESENT: normal external ear exam Mouth exam: PRESENT: moist, tongue midline Neck exam: PRESENT: full ROM Respiratory exam: PRESENT: clear to auscultation heather Cardiovascular exam: PRESENT: RRR, +S1, +S2 Vascular exam: PRESENT: normal capillary refill GI/Abdominal exam: PRESENT: normal bowel sounds, soft Rectal exam: PRESENT: deferred Neurological exam: PRESENT: alert, CN II-XII grossly intact Psychiatric exam: PRESENT: appropriate affect, normal mood Skin exam: PRESENT: dry, intact, warm Results Laboratory Results: 04/11/19 06:13 04/11/19 18:24 04/10/19 04/10/19 04/10/19 18:05 18:05 20:30 WBC RBC Hgb Hct MCV MCH MCHC RDW Plt Count Seg Neutrophils % Lymphocytes % Monocytes % Eosinophils % Basophils % Absolute Neutrophils Absolute Lymphocytes Absolute Monocytes Absolute Eosinophils Absolute Basophils Sodium Potassium Chloride Carbon Dioxide Anion Gap BUN Creatinine Est GFR ( Amer) Est GFR (Non-Af Amer) Glucose Calcium Phosphorus 6.4 H Magnesium 1.8 Total Bilirubin AST ALT Alkaline Phosphatase Ammonia Cancelled Total Protein Albumin Triglycerides Cholesterol LDL Cholesterol Direct VLDL Cholesterol HDL Cholesterol Amylase 69 Lipase 56.4 TSH 2.32 Free T4 0.90 04/10/19 04/11/19 04/11/19 22:23 06:13 06:13 WBC 5.8 RBC 2.97 L Hgb 7.9 L Hct 23.1 L MCV 78 L MCH 26.7 L MCHC 34.2 RDW 15.5 H Plt Count 170 Seg Neutrophils % 74.2 Lymphocytes % 13.0 Monocytes % 9.3 Eosinophils % 3.0 Basophils % 0.5 Absolute Neutrophils 4.3 Absolute Lymphocytes 0.8 Absolute Monocytes 0.5 Absolute Eosinophils 0.2 Absolute Basophils 0.0 Sodium 140.7 Potassium 3.3 L Chloride 105 Carbon Dioxide 22 Anion Gap 14 BUN 61 H Creatinine 7.39 H Est GFR ( Amer) 9 L Est GFR (Non-Af Amer) 7 L Glucose 118 H Calcium 7.6 L Phosphorus Magnesium Total Bilirubin 0.5 AST 12 L ALT 11 L Alkaline Phosphatase 52 Ammonia < 8.7 L Total Protein 5.2 L Albumin 2.6 L Triglycerides 73 Cholesterol 104.02 LDL Cholesterol Direct 59 VLDL Cholesterol 15.0 HDL Cholesterol 33 L Amylase Lipase TSH Free T4 04/11/19 04/11/19 14:39 18:24 WBC RBC Hgb Hct MCV MCH MCHC RDW Plt Count Seg Neutrophils % Lymphocytes % Monocytes % Eosinophils % Basophils % Absolute Neutrophils Absolute Lymphocytes Absolute Monocytes Absolute Eosinophils Absolute Basophils Sodium 138.5 140.0 Potassium 3.6 3.7 Chloride 105 106 Carbon Dioxide 22 20 L Anion Gap 12 14 BUN 59 H 61 H Creatinine 8.39 H 8.45 H Est GFR ( Amer) 8 L 7 L Est GFR (Non-Af Amer) 6 L 6 L Glucose 102 96 Calcium 7.7 L 7.6 L Phosphorus Magnesium Total Bilirubin AST ALT Alkaline Phosphatase Ammonia Total Protein Albumin Triglycerides Cholesterol LDL Cholesterol Direct VLDL Cholesterol HDL Cholesterol Amylase Lipase TSH Free T4 04/10/19 04/10/19 04/10/19 18:05 18:05 18:05 Creatine Kinase 49 L CK-MB (CK-2) 0.57 Troponin I < 0.012 04/11/19 04/11/19 00:29 06:13 Creatine Kinase CK-MB (CK-2) Troponin I < 0.012 < 0.012 Assessment & Plan - Diagnosis (1) Acute kidney injury Is this a current diagnosis for this admission?: Yes Plan: He has oliguric acute kidney injury probably due to ATN from obstructive uropathy, start Lasix infusion, normal saline 150 cc/hr. there is no immediate need for renal replacement therapy. (2) Obstructive uropathy Is this a current diagnosis for this admission?: Yes Plan: This is from an enlarged prostate gland with hydroureter and hydronephrosis
[2019-04-11] MEDS: NORMAL SALINE 250 ML with FUROSEMIDE 250 MG IV PRN ×2 (20:30)
[2019-04-11 23:39] LABS: ANION GAP 12 (5-19); BLOOD UREA NITROGEN 62 mg/dL (7-20); CALCIUM 7.7 mg/dL (8.4-10.2); CARBON DIOXIDE 21 mmol/L (22-30); CHLORIDE 107 mmol/L (98-107); GLUCOSE 109 mg/dL (75-110); POTASSIUM 3.8 mmol/L (3.6-5.0); SODIUM 139.5 mmol/L (137-145)
[2019-04-12] MEDS: NORMAL SALINE 1000 ML 1,000 ML IV PRN ×3 (00:47→13:38)
[2019-04-12 02:50] LABS: ANION GAP 14 (5-19); BLOOD UREA NITROGEN 61 mg/dL (7-20); CALCIUM 7.9 mg/dL (8.4-10.2); CARBON DIOXIDE 21 mmol/L (22-30); CHLORIDE 106 mmol/L (98-107); GLUCOSE 97 mg/dL (75-110); POTASSIUM 3.8 mmol/L (3.6-5.0); SODIUM 140.6 mmol/L (137-145)
[2019-04-12 07:34] LABS: ABSOLUTE EOSINOPHILS # (AUTO) 0.1 10^3/uL (0.0-0.6); ABSOLUTE LYMPHOCYTES (AUTO) 0.6 10^3/uL (0.5-4.7); ABSOLUTE MONOCYTES (AUTO) 0.5 10^3/uL (0.1-1.4); ABSOLUTE NEUT (AUTO) 4.4 10^3/uL (1.7-8.2); BASOPHILS % (AUTO) 0.3 % (0-2); EOSINOPHILS % (AUTO) 2.4 % (0-6); HEMATOCRIT 25.6 % (37.9-51.0); HEMOGLOBIN 8.7 g/dL (13.5-17.0); LYMPHOCYTES % (AUTO) 10.7 % (13-45); MEAN CORPUSCULAR HEMOGLOBIN 26.6 pg (27.0-33.4); MEAN CORPUSCULAR HGB CONC 33.9 g/dL (32.0-36.0); MEAN CORPUSCULAR VOLUME 79 fl (80-97); MONOCYTES % (AUTO) 8.9 % (3-13); PLATELET COUNT 181 10^3/uL (150-450); RED BLOOD COUNT 3.26 10^6/uL (4.35-5.55); RED CELL DISTRIBUTION WIDTH 15.3 % (11.5-14.0); SEGMENTED NEUTROPHILS % (AUTO) 77.7 % (42-78); TOTAL CELLS COUNTED % (AUTO) 100 %; WHITE BLOOD COUNT 5.6 10^3/uL (4.0-10.5)
[2019-04-12 07:43] LABS: INTERNATIONAL RATION (INR) 1.28; PROTHROMBIN TIME 16.7 SEC (11.4-15.4)
[2019-04-12 07:58] LABS: ALANINE AMINOTRANSFERASE 21 U/L (21-72); ALBUMIN 2.7 g/dL (3.5-5.0); ALKALINE PHOSPHATASE 54 U/L (38-126); ANION GAP 14 (5-19); ASPARTATE AMINO TRANSFERASE 12 U/L (17-59); BILIRUBIN,DIRECT 0.4 mg/dL (0.0-0.4); BILIRUBIN,TOTAL 0.5 mg/dL (0.2-1.3); BLOOD UREA NITROGEN 59 mg/dL (7-20); CALCIUM 7.7 mg/dL (8.4-10.2); CARBON DIOXIDE 19 mmol/L (22-30); CHLORIDE 108 mmol/L (98-107); GLUCOSE 86 mg/dL (75-110); POTASSIUM 3.6 mmol/L (3.6-5.0); SODIUM 140.8 mmol/L (137-145); TOTAL PROTEIN 5.4 g/dL (6.3-8.2)
[2019-04-12] MEDS: INSULIN LISPRO 100 UNIT/ML 3 ML VIAL SUBCUT SCH ×3 (07:59→16:50)
[2019-04-12] MEDS: FINASTERIDE 5 MG TABLET PO SCH (09:16)
[2019-04-12] MEDS: NORMAL SALINE 250 ML with FUROSEMIDE 250 MG IV PRN ×2 (09:16)
[2019-04-12] MEDS: CEFTRIAXONE SODIUM 1,500 MG in DEXTROSE 5%-WATER 100 ML IV SCH (09:25)
[2019-04-12 10:55] LABS: ANION GAP 12 (5-19); BLOOD UREA NITROGEN 62 mg/dL (7-20); CALCIUM 7.6 mg/dL (8.4-10.2); CARBON DIOXIDE 19 mmol/L (22-30); CHLORIDE 108 mmol/L (98-107); GLUCOSE 123 mg/dL (75-110); POTASSIUM 3.6 mmol/L (3.6-5.0); SODIUM 138.5 mmol/L (137-145)
--- NOTE | 2019-04-12 15:04 | PDOC CONSULTATION ---
Consultation Consult Date: 04/12/19 Provider Consulted: LEO GARCIA Consult reason:: I was asked by Dr. Garcia to see the patient because of worsening kidney function. History of Present Illness Admission Date/PCP: 04/10/19 19:43 LEO GARCIA MD History of Present Illness: TRAVIS REYNOSO is a 78 year old male with history of atrial fibrillation, hypertension, diabetes mellitus type 2, CVA, recent finding of hydronephrosis with enlarged prostate who presented in the emergency room 2 days ago because he has severely diminished urine output on his urine bag. According to Dr. Malia ricketts the patient's kidney function was normal sometimes in December 2018. In February 2019 he noted an elevation of creatinine to around [address] scan was obtained which showed bilateral hydronephrosis. A Lundy catheter was inserted however the patient started bleeding because he was on anticoagulation for his atrial fibrillation. He was referred to the urologist in [place] and the physician automotive service assistant saw the patient will remove the catheter because of the bleeding. Nothing further was done but the urology office unfortunately. Lundy catheter was reinserted and Dr. Garcia has been trying to get the patient to see a urologist at [facility] which so far has not happened until he presented here in the emergency room. When he presented 2 days ago he came in with more elevated BUN of 57 and a creatinine of 6.89. On March 21 he had a BUN of 25 and creatinine of 2.5. Today he has a BUN of 62 and creatinine of 9.19 with EGFR of only 7. He was started on a Lasix drip and made about 1200 mL of urine yesterday but today he is almost anuric. Patient has proteinuria on his urinalysis. He also has urinary tract infection with urine culture growing gram-negative red so far. Currently the patient is just complaining of discomfort due to the Lundy catheter. He does not have any appetite at all for the last couple months since all this problem started. He drinks about 750 mL of water daily. He feels tired and fatigued. Otherwise he denies any shortness of breath, nausea or vomiting. Past Medical History Cardiac Medical History: Reports: Atrial Fibrillation, Heart Murmur, Hyperlipidemia Pulmonary Medical History: Reports: Bronchitis Neurological Medical History: Reports: Ischemic CVA, Other - History of 2 CVA's in 2003. Restless leg syndrome Endocrine Medical History: Reports: Diabetes Mellitus Type 2 Renal/ Medical History: Reports: Benign Prostatic Hyperplasia GI Medical History: Reports: Gastroesophageal Reflux Disease Musculoskeltal Medical History: Reports: Arthritis Psychiatric Medical History: Reports: Depression, General Anxiety Disorder, Post Traumatic Stress Disorder Hematology Medical History: Reports Anemia Past Surgical History Past Surgical History: Reports: None Social History Information Source: Patient Smoking Status: Former Smoker Frequency of Alcohol Use: Occasional Hx Recreational Drug Use: No Drugs: None Hx Prescription Drug Abuse: No - Advance Directive Resuscitation Status: Full Code Family History Family History: Malignancy - Prostate cancer in his father, Other - CHF on his sister Parental Family History Reviewed: Yes Children Family History Reviewed: Unknown Sibling(s) Family History Reviewed.: Yes Medication/Allergy Home Medications: Apixaban [Eliquis 2.5 mg Tablet] 2.5 mg PO BID 04/10/19 Aspirin [Adult Low Dose Aspirin EC] 81 mg PO DAILY 04/10/19 Carvedilol Phosphate [Coreg CR 40 mg Ext. Release Capsule] 40 mg PO DAILY 04/10/19 Doxepin HCl [Silenor] 6 mg PO DAILY 04/10/19 Finasteride [Proscar 5 mg Tablet] 5 mg PO DAILY 04/10/19 Furosemide [Lasix 40 mg Tablet] 40 mg PO DAILY 04/10/19 Gabapentin [Neurontin 300 mg Capsule] 300 mg PO Q8 04/10/19 Losartan/Hydrochlorothiazide [Hyzaar 50-12.5 Tablet] 1 tab PO DAILY 04/10/19 Metformin HCl [Glucophage] 1,000 mg PO BID 04/10/19 Oxybutynin Chloride [Ditropan 5 mg Tablet] 5 mg PO Q8 04/10/19 Oxycodone HCl 15 mg PO Q8HP PRN 04/10/19 Pravastatin Sodium [Pravachol] 40 mg PO QPM 04/10/19 Silodosin [Rapaflo] 8 mg PO DAILY 04/10/19 Sitagliptin Phosphate [Januvia 50 mg Tablet] 50 mg PO DAILY 04/10/19 Tamsulosin HCl [Flomax 0.4 mg Cap.sr] 0.4 mg PO QPM 04/10/19 Allergies/Adverse Reactions: lisinopril [Lisinopril] Adverse Reaction (Unknown, Verified 04/10/19 14:29) Iebbodr-Two-Lgm Reductase Inhibitor Adverse Reaction (Unknown, Verified 04/10/19 14:29) Review of Systems All systems: reviewed and no additional remarkable complaints except as stated Review of Systems: Constitutional: ABSENT: chills, fever(s), headache(s), weight gain, weight loss; reports appetite loss and fatigue Eyes: ABSENT: visual disturbances Ears: ABSENT: hearing changes Cardiovascular: ABSENT: chest pain, dyspnea on exertion, edema, orthropnea, palpitations Respiratory: ABSENT: cough, dyspnea, hemoptysis Gastrointestinal: ABSENT: abdominal pain, constipation, diarrhea, hematemesis, hematochezia, nausea, vomiting Genitourinary: ABSENT: dysuria, hematuria; oligo anuria Musculoskeletal: ABSENT: joint swelling Integumentary: ABSENT: rash, wounds Neurological: ABSENT: abnormal gait, abnormal speech, confusion, dizziness, focal weakness, numbness, syncope Psychiatric: ABSENT: anxiety, depression Endocrine: ABSENT: cold intolerance, heat intolerance, polydipsia, polyuria Hematologic/Lymphatic: ABSENT: easy bleeding, easy bruising, lymphadenopathy Physical Exam Vital Signs: Temp Pulse Resp BP Pulse Ox 98.4 F 86 16 141/68 H 98 04/12/19 11:49 04/12/19 11:49 04/12/19 11:49 04/12/19 11:49 04/12/19 11:49 Intake & Output 04/11/19 04/12/19 04/13/19 06:59 06:59 06:59 Intake Total 1500 2490 2275 Output Total 0 1200 Balance 1500 1290 2275 Weight 99.9 kg 103 kg Exam: General appearance: No acute distress, cooperative, well-developed, well- nourished Head exam: PRESENT: atraumatic, normocephalic Eye exam: PRESENT: Conjunctiva pale, EOMI, PERRLA. ABSENT: conjunctival injection, scleral icterus Mouth exam: PRESENT: moist, neck supple, tongue midline Neck exam: PRESENT: full ROM. ABSENT: carotid bruit, JVD, lymphadenopathy, thyromegaly Respiratory exam: PRESENT: clear to auscultation bilaterally. ABSENT: rales, rhonchi, stridor, wheezes Cardiovascular exam: PRESENT: Irregularly irregular +S1, +S2. ABSENT: systolic murmur Pulses: PRESENT: normal radial pulses, normal dorsalis pedis pulses GI/Abdominal exam: PRESENT: normal bowel sounds, soft. Lundy catheter in place ABSENT: guarding, mass, tenderness Rectal exam: Deferred Extremities exam: PRESENT: full ROM. ABSENT: calf tenderness, pedal edema Musculoskeletal: PRESENT: full ROM. ABSENT: deformity Neurological exam: PRESENT: alert, Awake, Oriented to person, Oriented to place, Oriented to time, reflexes normal, CN II-XII grossly intact. ABSENT: motor sensory deficit Psychiatric exam: PRESENT: appropriate affect, normal mood. ABSENT: homicidal ideation, suicidal ideation Skin exam: PRESENT: intact, dry, warm. ABSENT: rash Results Laboratory Results: 04/12/19 06:47 04/12/19 10:24 04/11/19 04/11/19 04/11/19 14:39 18:24 22:52 WBC RBC Hgb Hct MCV MCH MCHC RDW Plt Count Seg Neutrophils % Lymphocytes % Monocytes % Eosinophils % Basophils % Absolute Neutrophils Absolute Lymphocytes Absolute Monocytes Absolute Eosinophils Absolute Basophils Sodium 138.5 140.0 139.5 Potassium 3.6 3.7 3.8 Chloride 105 106 107 Carbon Dioxide 22 20 L 21 L Anion Gap 12 14 12 BUN 59 H 61 H 62 H Creatinine 8.39 H 8.45 H 8.49 H Est GFR ( Amer) 8 L 7 L 7 L Est GFR (Non-Af Amer) 6 L 6 L 6 L Glucose 102 96 109 Calcium 7.7 L 7.6 L 7.7 L Total Bilirubin AST ALT Alkaline Phosphatase Total Protein Albumin 04/12/19 04/12/19 04/12/19 02:12 06:47 06:47 WBC 5.6 RBC 3.26 L Hgb 8.7 L Hct 25.6 L MCV 79 L MCH 26.6 L MCHC 33.9 RDW 15.3 H Plt Count 181 Seg Neutrophils % 77.7 Lymphocytes % 10.7 L Monocytes % 8.9 Eosinophils % 2.4 Basophils % 0.3 Absolute Neutrophils 4.4 Absolute Lymphocytes 0.6 Absolute Monocytes 0.5 Absolute Eosinophils 0.1 Absolute Basophils 0.0 Sodium 140.6 140.8 Potassium 3.8 3.6 Chloride 106 108 H Carbon Dioxide 21 L 19 L Anion Gap 14 14 BUN 61 H 59 H Creatinine 8.76 H 9.12 H Est GFR ( Amer) 7 L 7 L Est GFR (Non-Af Amer) 6 L 6 L Glucose 97 86 Calcium 7.9 L 7.7 L Total Bilirubin 0.5 AST 12 L ALT 21 Alkaline Phosphatase 54 Total Protein 5.4 L Albumin 2.7 L 04/12/19 10:24 WBC RBC Hgb Hct MCV MCH MCHC RDW Plt Count Seg Neutrophils % Lymphocytes % Monocytes % Eosinophils % Basophils % Absolute Neutrophils Absolute Lymphocytes Absolute Monocytes Absolute Eosinophils Absolute Basophils Sodium 138.5 Potassium 3.6 Chloride 108 H Carbon Dioxide 19 L Anion Gap 12 BUN 62 H Creatinine 9.19 H Est GFR ( Amer) 7 L Est GFR (Non-Af Amer) 6 L Glucose 123 H Calcium 7.6 L Total Bilirubin AST ALT Alkaline Phosphatase Total Protein Albumin 04/10/19 04/10/19 04/10/19 18:05 18:05 18:05 Creatine Kinase 49 L CK-MB (CK-2) 0.57 Troponin I < 0.012 04/11/19 04/11/19 00:29 06:13 Creatine Kinase CK-MB (CK-2) Troponin I < 0.012 < 0.012 Assessment & Plan - Diagnosis (1) Acute kidney injury Is this a current diagnosis for this admission?: Yes Plan: This is likely secondary to subacute obstructive uropathy with a finding of bilateral hydronephrosis. Given that the patient is already on Lundy catheter and is still oligo anuric the obstruction might be above the level of the bladder. Since we do not have urology service in the hospital the patient needs to be transferred as soon as possible. He may need a percutaneous nephrostomy tube to relieve the obstruction and to hopefully improve the kidney function without requiring renal replacement therapy. I have spoken to Dr. Garcia twice today regarding this recommendation. He is working on finding a tertiary care facility who can accept the patient as soon as possible. At this time there is no emergent need for renal replacement therapy but if he continues to be oligo- anuric he will not require it very soon. Unfortunately due to staffing issues in the hospital we are already on full capacity for dialysis patients at this point and if ever he would need renal replacement therapy he will not be able to be accommodated as well. (2) Obstructive uropathy Is this a current diagnosis for this admission?: Yes Plan: Associated with bilateral hydronephrosis with possible ureteral obstruction of unknown cause. (3) Urinary tract infection Is this a current diagnosis for this admission?: Yes Plan: Patient on ceftriaxone. (4) Metabolic acidosis Is this a current diagnosis for this admission?: Yes Plan: Monitor closely. Again this is due to AK I and obstructive uropathy. (6) Hyperphosphatemia Is this a current diagnosis for this admission?: Yes (7) Anemia Qualifiers: Anemia type: other cause Other causes of anemia: acute posthemorrhagic Qualified Code(s): D62 - Acute posthemorrhagic anemia Is this a current diagnosis for this admission?: Yes - Notes Notes: Thank you very much for this consultation. Discussed recommendation with Dr. Garcia. Also discussed assessment and recommendation with the patient and his stepson at bedside, Philippe. They understood the recommendations. - Time Time Spent: Greater than 70 Minutes
[2019-04-12 15:50] LABS: ANION GAP 14 (5-19); BLOOD UREA NITROGEN 61 mg/dL (7-20); CALCIUM 7.6 mg/dL (8.4-10.2); CARBON DIOXIDE 19 mmol/L (22-30); CHLORIDE 106 mmol/L (98-107); GLUCOSE 125 mg/dL (75-110); POTASSIUM 3.8 mmol/L (3.6-5.0); SODIUM 139.2 mmol/L (137-145)
--- NOTE | 2019-04-12 17:03 | PDOC TRANSFER SUMMARY ---
General Admission Date/PCP: 04/10/19 19:43 LEO GARCIA MD Resuscitation Status: Full Code - Transfer Diagnosis (1) Acute kidney injury Is this a current diagnosis for this admission?: Yes (2) Obstructive uropathy Is this a current diagnosis for this admission?: Yes (3) Chronic atrial fibrillation Is this a current diagnosis for this admission?: Yes (4) Prostate mass Is this a current diagnosis for this admission?: Yes - Transfer Medications Home Medications: Apixaban [Eliquis 2.5 mg Tablet] 2.5 mg PO BID 04/10/19 Aspirin [Adult Low Dose Aspirin EC] 81 mg PO DAILY 04/10/19 Carvedilol Phosphate [Coreg CR 40 mg Ext. Release Capsule] 40 mg PO DAILY Doxepin HCl [Silenor] 6 mg PO DAILY 04/10/19 Finasteride [Proscar 5 mg Tablet] 5 mg PO DAILY 04/10/19 Furosemide [Lasix 40 mg Tablet] 40 mg PO DAILY 04/10/19 Gabapentin [Neurontin 300 mg Capsule] 300 mg PO Q8 04/10/19 Losartan/Hydrochlorothiazide [Hyzaar 50-12.5 Tablet] 1 tab PO DAILY 04/10/19 Metformin HCl [Glucophage] 1,000 mg PO BID 04/10/19 Oxybutynin Chloride [Ditropan 5 mg Tablet] 5 mg PO Q8 04/10/19 Oxycodone HCl 15 mg PO Q8HP PRN 04/10/19 Pravastatin Sodium [Pravachol] 40 mg PO QPM 04/10/19 Silodosin [Rapaflo] 8 mg PO DAILY 04/10/19 Sitagliptin Phosphate [Januvia 50 mg Tablet] 50 mg PO DAILY 04/10/19 Tamsulosin HCl [Flomax 0.4 mg Cap.sr] 0.4 mg PO QPM 04/10/19 Transfer Medications: Current Medications Dextrose (Dextrose Inj 50% Syringe (25 Gm/50 Ml)) 12.5 gm IV PRN PRN; Protocol PRN Reason: FOR BG 50-69 IN ALERT PATIENT Stop: 05/11/19 09:59 Dextrose (Dextrose Inj 50% Syringe (25 Gm/50 Ml)) 25 gm IV PRN PRN; Protocol PRN Reason: PER PROTOCOL Stop: 05/11/19 09:59 Finasteride (Proscar 5 Mg Tablet) 5 mg PO DAILY [facility] Stop: 05/11/19 09:59 Last Admin: 04/12/19 09:16 Dose: 5 mg Documented by: Glucagon (Glucagen Inj 1 Mg Vial) 1 mg IM PRN PRN; Protocol PRN Reason: EVALUATE FOR BG < 70 Stop: 05/11/19 09:59 Glucose (Glutose 40% Gel 15 Gm Tube) 15 gm PO PRN PRN; Protocol PRN Reason: FOR BG 50-69 IN ALERT PATIENT Stop: 05/11/19 09:59 Glucose (Glutose 40% Gel 15 Gm Tube) 30 gm PO PRN PRN; Protocol PRN Reason: FOR BG < 50 IN ALERT PATIENT Stop: 05/11/19 09:59 Ceftriaxone Sodium 1,500 mg/ (Dextrose) 100 mls @ 200 mls/hr IV DAILY [facility] Stop: 04/18/19 09:59 Last Infusion: 04/12/19 10:56 Dose: Infused Documented by: Furosemide 250 mg/ Sodium (Chloride) 250 mls @ 20 mls/hr IV CONTINUOUS PRN PRN Reason: THIS MED IS NOT "PRN" Stop: 05/11/19 17:40 Last Admin: 04/12/19 09:16 Dose: 20 mg/hr, 20 mls/hr Documented by: Insulin Human Lispro (Humalog Insulin 100 Unit/1 Ml 3 Ml Vial) 0 - 12 unit [facility]; Protocol Stop: 05/11/19 10:59 Last Admin: 04/12/19 16:50 Dose: Not Given Documented by: Oxycodone HCl (Oxy-Ir 5 Mg Tablet) 15 mg PO Q8HP PRN PRN Reason: SEVERE PAIN Stop: 04/18/19 10:19 - Allergies Allergies/Adverse Reactions: lisinopril [Lisinopril] Adverse Reaction (Unknown, Verified 04/10/19 14:29) Lwgcccy-Yaz-Yed Reductase Inhibitor Adverse Reaction (Unknown, Verified 04/10/19 14:29) Hospital Course Hospital Course: Patient is a 78-year-old male with multiple comorbid conditions including chronic atrial fibrillation on chronic anticoagulation, history of CVA, history of BPH, 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 This was diagnosed back in February 2019, he has indwelling Lundy catheter, he was supposed to follow with [facility] urology the next few weeks, 2 days ago he developed oliguria/anuria, he came to the emergency room for evaluation of the symptoms.Initial blood work that was done demonstrated serum creatinine of 6 there was no acidosis there was no hyperkalemia there is no evidence of volume overload, a CAT scan of the abdomen and pelvis with IV contrast was obtained, it demonstrated bilateral hydronephrosis which was said to be similar to the prior examination, the urinary bladder is incompletely distended with a Lundy catheter in place. Patient was admitted to the hospital, he was started on normal saline at 150 cc/h with furosemide infusion. I consulted nephrology, the nephrology is in agreement that patient will need urologic evaluation with possible surgery, with or without nephrostomy tube to relieve obstruction.There is no urology on staff at this hospital, I called [facility] they are kind enough to accept patient in transfer Physical Exam Vital Signs: Temp Pulse Resp BP Pulse Ox 98.5 F 97 16 156/79 H 98 04/12/19 16:00 04/12/19 16:00 04/12/19 16:00 04/12/19 16:00 04/12/19 16:00 Intake & Output 04/11/19 04/12/19 04/13/19 06:59 06:59 06:59 Intake Total 1500 2490 2470 Output Total 0 1200 Balance 1500 1290 2470 Weight 99.9 kg 103 kg General appearance: PRESENT: no acute distress Head exam: PRESENT: atraumatic, normocephalic Eye exam: PRESENT: conjunctiva pink, EOMI, PERRLA Ear exam: PRESENT: normal external ear exam Mouth exam: PRESENT: moist, tongue midline Respiratory exam: PRESENT: clear to auscultation heather Cardiovascular exam: PRESENT: RRR, +S1, +S2 Pulses: PRESENT: normal dorsalis pedis pul Vascular exam: PRESENT: normal capillary refill GI/Abdominal exam: PRESENT: normal bowel sounds, soft Rectal exam: PRESENT: deferred Extremities exam: PRESENT: full ROM Neurological exam: PRESENT: alert, awake, oriented to person, oriented to place, oriented to time, oriented to situation, CN II-XII grossly intact Psychiatric exam: PRESENT: appropriate affect, normal mood Skin exam: PRESENT: dry, intact, warm Results Laboratory Results: 04/12/19 06:47 04/12/19 15:06 04/11/19 04/11/19 04/12/19 18:24 22:52 02:12 WBC RBC Hgb Hct MCV MCH MCHC RDW Plt Count Seg Neutrophils % Lymphocytes % Monocytes % Eosinophils % Basophils % Absolute Neutrophils Absolute Lymphocytes Absolute Monocytes Absolute Eosinophils Absolute Basophils Sodium 140.0 139.5 140.6 Potassium 3.7 3.8 3.8 Chloride 106 107 106 Carbon Dioxide 20 L 21 L 21 L Anion Gap 14 12 14 BUN 61 H 62 H 61 H Creatinine 8.45 H 8.49 H 8.76 H Est GFR ( Amer) 7 L 7 L 7 L Est GFR (Non-Af Amer) 6 L 6 L 6 L Glucose 96 109 97 Calcium 7.6 L 7.7 L 7.9 L Total Bilirubin AST ALT Alkaline Phosphatase Total Protein Albumin 04/12/19 04/12/19 04/12/19 06:47 06:47 10:24 WBC 5.6 RBC 3.26 L Hgb 8.7 L Hct 25.6 L MCV 79 L MCH 26.6 L MCHC 33.9 RDW 15.3 H Plt Count 181 Seg Neutrophils % 77.7 Lymphocytes % 10.7 L Monocytes % 8.9 Eosinophils % 2.4 Basophils % 0.3 Absolute Neutrophils 4.4 Absolute Lymphocytes 0.6 Absolute Monocytes 0.5 Absolute Eosinophils 0.1 Absolute Basophils 0.0 Sodium 140.8 138.5 Potassium 3.6 3.6 Chloride 108 H 108 H Carbon Dioxide 19 L 19 L Anion Gap 14 12 BUN 59 H 62 H Creatinine 9.12 H 9.19 H Est GFR ( Amer) 7 L 7 L Est GFR (Non-Af Amer) 6 L 6 L Glucose 86 123 H Calcium 7.7 L 7.6 L Total Bilirubin 0.5 AST 12 L ALT 21 Alkaline Phosphatase 54 Total Protein 5.4 L Albumin 2.7 L 04/12/19 15:06 WBC RBC Hgb Hct MCV MCH MCHC RDW Plt Count Seg Neutrophils % Lymphocytes % Monocytes % Eosinophils % Basophils % Absolute Neutrophils Absolute Lymphocytes Absolute Monocytes Absolute Eosinophils Absolute Basophils Sodium 139.2 Potassium 3.8 Chloride 106 Carbon Dioxide 19 L Anion Gap 14 BUN 61 H Creatinine 8.32 H Est GFR ( Amer) 8 L Est GFR (Non-Af Amer) 6 L Glucose 125 H Calcium 7.6 L Total Bilirubin AST ALT Alkaline Phosphatase Total Protein Albumin 04/10/19 04/10/19 04/10/19 18:05 18:05 18:05 Creatine Kinase 49 L CK-MB (CK-2) 0.57 Troponin I < 0.012 04/11/19 04/11/19 00:29 06:13 Creatine Kinase CK-MB (CK-2) Troponin I < 0.012 < 0.012
[2019-04-12 19:20] VITALS: BP 156/91
[2019-04-12 19:46] LABS: ANION GAP 14 (5-19); BLOOD UREA NITROGEN 65 mg/dL (7-20); CALCIUM 7.9 mg/dL (8.4-10.2); CARBON DIOXIDE 20 mmol/L (22-30); CHLORIDE 105 mmol/L (98-107); GLUCOSE 109 mg/dL (75-110); POTASSIUM 3.9 mmol/L (3.6-5.0); SODIUM 139.4 mmol/L (137-145)
== END 2019-04-12 20:10 | disposition short-term general hospital (02) | DRG 694 ==
LOC: ER 14:25 → EH 19:43 → 3N 21:20
PROVIDERS: ADMIT Internal Medicine; ATTEND Internal Medicine
DX: N13.1 Hydronephrosis with ureteral stricture, not elsewhere classified (principal); I50.32 Chronic diastolic (congestive) heart failure; N13.8 Other obstructive and reflux uropathy; E87.2 Acidosis; N17.9 Acute kidney failure, unspecified; N39.0 Urinary tract infection, site not specified; I11.0 Hypertensive heart disease with heart failure; I48.2 Chronic atrial fibrillation; E78.5 Hyperlipidemia, unspecified; Z86.73 Personal history of transient ischemic attack (TIA), and cerebral infarction without residual deficits; F41.1 Generalized anxiety disorder; N40.1 Benign prostatic hyperplasia with lower urinary tract symptoms; E11.42 Type 2 diabetes mellitus with diabetic polyneuropathy; Z80.42 Family history of malignant neoplasm of prostate; D64.9 Anemia, unspecified; E83.39 Other disorders of phosphorus metabolism; K21.9 Gastro-esophageal reflux disease without esophagitis; M19.90 Unspecified osteoarthritis, unspecified site; F32.9 Major depressive disorder, single episode, unspecified; F43.10 Post-traumatic stress disorder, unspecified; Z87.891 Personal history of nicotine dependence; Z79.82 Long term (current) use of aspirin; Z79.84 Long term (current) use of oral hypoglycemic drugs; Z79.02 Long term (current) use of antithrombotics/antiplatelets; Z79.899 Other long term (current) drug therapy; Z88.8 Allergy status to other drugs, medicaments and biological substances
CPT/HCPCS: 36415; 74176; 80048; 80053; 80061; 80076; 80307; 81001; 82140; 82150; 82550; 82553; 82962; 83036; 83690; 83735; 84100; 84439; 84443; 84484; 85025; 85610; 85730; 87040; 87086; 87088; 87186; 93005; 93010; 99284; J0696; J1940; J7030; J7040; J7050; J7060

== ENCOUNTER 2019-04-28 16:44 | Inpatient (IN) | payer MEDICARE, OTHER ==
--- NOTE | 2019-04-28 17:08 | ER Document Report ---
ED Medical Screen (RME) - General Chief Complaint: S/S of Possible Stroke Stated Complaint: POSSIBLE STROKE Time Seen by Provider: 04/28/19 16:55 Primary Care Provider: LEO GARCIA MD [Primary Care Provider] - Follow up as needed Mode of Arrival: Wheelchair Notes: Patient presents with a complaint of decreased energy and generalized weakness. Family states that yesterday he had some nausea and vomiting and had an episode in which he had slurred speech and could not talk easily that started yesterday around 3 PM. states that today whenever patient woke up he was unable to walk. Patient does have a history of previous CVA with left-sided weakness and typically ambulates with a walker. Patient complains of left lateral neck tenderness. Patient denies any headache chest pain abdominal pain or back pain at this time. Last known well was before 3 PM yesterday. Patient is on Eliquis. Patient was recently discharged from [facility] after acute kidney failure due to obstructive uropathy. Patient hypotensive at this time. hx: Diabetes, cholesterol, GERD, A. fib, CHF, enlarged prostate I have greeted and performed a rapid initial assessment of this patient. A comprehensive ED assessment and evaluation of the patient, analysis of test results and completion of the medical decision making process will be conducted by additional ED providers. TRAVEL OUTSIDE OF THE [place] IN LAST 30 DAYS: No - Related Data Allergies/Adverse Reactions: lisinopril [Lisinopril] Adverse Reaction (Unknown, Verified 04/28/19 16:47) Erqrhlw-Rvn-Bhd Reductase Inhibitor Adverse Reaction (Unknown, Verified 04/28/19 16:47) Past Medical History - Past Medical History Cardiac Medical History: Reports: Hx Atrial Fibrillation, Hx Hypercholesterolemia, Hx Hypertension, Hx Heart Murmur Denies: Hx Congestive Heart Failure, Hx Coronary Artery Disease, Hx Heart Attack, Hx Peripheral Vascular Disease, Hx Pulmonary Embolism Pulmonary Medical History: Reports: Hx Bronchitis Denies: Hx Asthma, Hx COPD, Hx Pneumonia, Hx Respiratory Failure, Hx Sleep Apnea, Hx Tuberculosis Neurological Medical History: Denies: Hx Seizures Endocrine Medical History: Reports: Hx Diabetes Mellitus Type 2. Denies: Hx Hyperthyroidism, Hx Hypothyroidism Renal/ Medical History: Reports: Hx Benign Prostatic Hyperplasia. Denies: Hx Peritoneal Dialysis Malignancy Medical History: Denies Hx Leukemia, Denies Hx Lung Cancer GI Medical History: Reports: Hx Gastroesophageal Reflux Disease. Denies: Hx Crohn's Disease, Hx Hiatal Hernia Musculoskeltal Medical History: Reports Hx Arthritis, Denies Hx Fibromyalgia, Denies Hx Systemic Lupus Erythematosus Psychiatric Medical History: Reports: Hx Depression, Hx Post Traumatic Stress Disorder Denies: Hx Bipolar Disorder, Hx Dementia Infectious Medical History: Denies: Hx HIV Past Surgical History: Denies: Hx Appendectomy, Hx Cholecystectomy, Hx Colostomy, Hx Coronary Artery Bypass Graft, Hx Gastric Bypass Surgery, Hx Herniorrhaphy, Hx Pacemaker, Hx Tonsillectomy - Immunizations Immunizations up to date: Yes Hx Diphtheria, Pertussis, Tetanus Vaccination: Yes Physical Exam - Vital signs Vitals: Temp Pulse Resp BP Pulse Ox 98.3 F 79 16 84/47 L 96 04/28/19 16:53 04/28/19 16:53 04/28/19 16:53 04/28/19 16:53 04/28/19 16:53 - Neurological Oscar Coma Scale Eye Opening: Spontaneous Oscar Coma Scale Verbal: Oriented Oscar Coma Scale Motor: Obeys Commands Oscar Coma Scale Total: 15 Motor strength normal: RUE, RLE. No: LUE, LLE Course - Vital Signs Vital signs: Temp Pulse Resp BP Pulse Ox 98.3 F 79 16 84/47 L 96 04/28/19 16:53 04/28/19 16:53 04/28/19 16:53 04/28/19 16:53 04/28/19 16:53 Doctor's Discharge - Discharge Referrals: LEO GARCIA MD [Primary Care Provider] - Follow up as needed
[2019-04-28] MEDS ORDERED: NORMAL SALINE 500 ML IV ONE (17:12)
--- NOTE | 2019-04-28 17:39 | RADIOLOGY REPORT (SQ) ---
EXAM DESCRIPTION: CT HEAD WITHOUT COMPLETED DATE/TIME: 04/28/2019 5:18 pm REASON FOR STUDY: weak, diff walking COMPARISON: 06/23/2017 MRI TECHNIQUE: Axial images acquired through the brain without intravenous contrast. Images reviewed wi th bone, brain and subdural windows. Images stored on PACS. All CT scanners at this facility use dose modulation, iterative reconstruction, and/or weight based d osing when appropriate to reduce radiation dose to as low as reasonably achievable (ALARA). [facility]: Dose Right [facility]: CareDose [facility]: Dose Right [facility]: Teradose 4D [facility]: Smart [employer] RADIATION DOSE: CT Rad equipment meets quality standard of care and radiation dose reduction techniq ues were employed. CTDIvol: 53.2 mGy. DLP: 991 mGy-cm. mGy. LIMITATIONS: None. FINDINGS: VENTRICLES: Age-appropriate. CEREBRUM: No masses. No hemorrhage. No midline shift. Similar Areas of low density in the white ma tter due to chronic ischemic change. No evidence for acute infarction. CEREBELLUM: No masses. No hemorrhage. No alteration of density. No evidence for acute infarction. EXTRAAXIAL SPACES: Mild age-related involutional change. No fluid collections. No masses. ORBITS AND GLOBE: No intra- or extraconal masses. Normal contour of globe without masses. CALVARIUM: No fracture. PARANASAL SINUSES: No fluid or mucosal thickening. SOFT TISSUES: No mass or hematoma. OTHER: No other significant finding. IMPRESSION: No acute findings. EVIDENCE OF ACUTE STROKE: NO. TECHNICAL DOCUMENTATION: JOB ID: [id number] Quality ID # [id number]: Final reports with documentation of one or more dose reduction techniques (e.g., Au tomated exposure control, adjustment of the mA and/or kV according to patient size, use of iterative reconstruction technique) 2010 [employer]- All Rights Reserved Reading location - IP/workstation name: [email or web address]
--- NOTE | 2019-04-28 17:39 | RADIOLOGY REPORT (SQ) ---
EXAM DESCRIPTION: CHEST SINGLE VIEW COMPLETED DATE/TIME: 04/28/2019 5:19 pm REASON FOR STUDY: weak, diff walking COMPARISON: Chest x-ray 02/19/2015. EXAM PARAMETERS: NUMBER OF VIEWS: One view. TECHNIQUE: Single frontal radiographic view of the chest acquired. RADIATION DOSE: NA LIMITATIONS: None. FINDINGS: LUNGS AND PLEURA: No consolidation, pneumothorax or pleural effusion. MEDIASTINUM AND HILAR STRUCTURES: No masses. Contour normal. HEART AND VASCULAR STRUCTURES: The heart is mildly enlarged. There is no overt vascular congestion. BONES: No acute findings. HARDWARE: None in the chest. IMPRESSION: Mild cardiomegaly. No consolidation or pleural effusion. TECHNICAL DOCUMENTATION: JOB ID: [id number] 2010 [employer]- All Rights Reserved Reading location - IP/workstation name: [email or web address]
[2019-04-28 17:44] LABS: ABSOLUTE EOSINOPHILS # (AUTO) 0.2 10^3/uL (0.0-0.6); ABSOLUTE MONOCYTES (AUTO) 0.6 10^3/uL (0.1-1.4); ABSOLUTE NEUT (AUTO) 3.8 10^3/uL (1.7-8.2); BASOPHILS % (AUTO) 0.5 % (0-2); EOSINOPHILS % (AUTO) 3.1 % (0-6); HEMATOCRIT 24.2 % (37.9-51.0); HEMOGLOBIN 8.2 g/dL (13.5-17.0); LYMPHOCYTES % (AUTO) 17.2 % (13-45); MEAN CORPUSCULAR HEMOGLOBIN 26.2 pg (27.0-33.4); MEAN CORPUSCULAR VOLUME 77 fl (80-97); MONOCYTES % (AUTO) 10.8 % (3-13); PLATELET COUNT 230 10^3/uL (150-450); RED BLOOD COUNT 3.13 10^6/uL (4.35-5.55); RED CELL DISTRIBUTION WIDTH 15.9 % (11.5-14.0); SEGMENTED NEUTROPHILS % (AUTO) 68.4 % (42-78); TOTAL CELLS COUNTED % (AUTO) 100 %; WHITE BLOOD COUNT 5.6 10^3/uL (4.0-10.5)
[2019-04-28 17:47] LABS: INTERNATIONAL RATION (INR) 1.18; PROTHROMBIN TIME 15.6 SEC (11.4-15.4)
[2019-04-28 17:48] LABS: PARTIAL THROMBOPLASTIN TIME 35.1 SEC (23.5-35.8)
[2019-04-28 18:05] LABS: ALANINE AMINOTRANSFERASE 17 U/L (21-72); ALBUMIN 3.1 g/dL (3.5-5.0); ALKALINE PHOSPHATASE 58 U/L (38-126); ANION GAP 11 (5-19); ASPARTATE AMINO TRANSFERASE 13 U/L (17-59); BILIRUBIN,DIRECT 0.2 mg/dL (0.0-0.4); BILIRUBIN,TOTAL 0.4 mg/dL (0.2-1.3); BLOOD UREA NITROGEN 29 mg/dL (7-20); CALCIUM 8.2 mg/dL (8.4-10.2); CARBON DIOXIDE 25 mmol/L (22-30); CHLORIDE 103 mmol/L (98-107); CREATINE KINASE 62 U/L (55-170); GLUCOSE 143 mg/dL (75-110); POTASSIUM 3.1 mmol/L (3.6-5.0); SODIUM 139.1 mmol/L (137-145); TOTAL PROTEIN 5.9 g/dL (6.3-8.2)
[2019-04-28] MEDS ORDERED: POTASSIUM CHLORIDE 10 MEQ CAPSULE.ER PO ONE (18:12)
[2019-04-28 18:15] LABS: CREATINE KINASE MB 0.45 ng/mL (<4.55); TROPONIN I < 0.012 ng/mL
[2019-04-28 19:07] LABS: AMORPHOUS SEDIMENT,URINE TRACE /HPF; APPEARANCE,URINE SLIGHTLY-CLOUDY; BILIRUBIN,URINE NEGATIVE (NEGATIVE); COLOR,URINE ORANGE; GLUCOSE, URINE NEGATIVE (NEGATIVE); KETONES,URINE NEGATIVE (NEGATIVE); LEUKOCYTE ESTERASE,URINE MODERATE (NEGATIVE); NITRITE,URINE POSITIVE (NEGATIVE); PROTEIN,URINE 100 mg/dL (NEGATIVE); URINE SPECIFIC GRAVITY 1.016
[2019-04-28 19:16] LABS: AMORPHOUS SEDIMENT,URINE TRACE /HPF; APPEARANCE,URINE CLOUDY; BILIRUBIN,URINE NEGATIVE (NEGATIVE); GLUCOSE, URINE NEGATIVE (NEGATIVE); KETONES,URINE NEGATIVE (NEGATIVE); LEUKOCYTE ESTERASE,URINE LARGE (NEGATIVE); NITRITE,URINE NEGATIVE (NEGATIVE); PROTEIN,URINE 30 mg/dL (NEGATIVE); URINE SPECIFIC GRAVITY 1.005; UROBILINOGEN,URINE NEGATIVE mg/dL (<2.0)
[2019-04-28 19:17] LABS: COLOR,URINE DARK YELLOW
[2019-04-28] MEDS ORDERED: CEFTRIAXONE 1 GM/D5W RTU 1 GM/50 ML RTUPB IV ONE (19:46)
--- NOTE | 2019-04-28 20:11 | RADIOLOGY REPORT (SQ) ---
EXAM DESCRIPTION: CT ABDOMEN PELVIS WITHOUT IV CONTRAST COMPLETED DATE/TME: 04/28/2019 18:13 CLINICAL HISTORY: 78 years Male b/l nephrostomy tubes COMPARISON: 04/10/2019. TECHNIQUE: Contiguous axial images obtained through the abdomen and pelvis without IV contrast. Reformatted images obtained. This exam was performed according to our department optimization program which includes automated exposure control, adjustment of the mA and/or kv according to patient size and/or use of iterative reconstruction technique. FINDINGS: Trace pericardial effusion. Mild cardiac enlargement. The liver appears unremarkable. Spleen is normal in size. There is a small amount of peripheral calcification along the spleen unchanged from previous studies. Unremarkable pancreas. No adrenal masses. There are bilateral percutaneous nephrostomy catheters. Urinary bladder is incompletely distended with wall thickening and surrounding stranding. Findings may reflect cystitis. The possibility of bladder wall mass is not excluded. Prostate is enlarged. Inflammatory changes surround both prostate and urinary bladder which may reflect cystitis or prostatitis No renal stones are noted. The gallbladder is visualized. No aneurysmal dilatation of the aorta. No bowel obstruction. Unremarkable appendix. No significant fluid in the pelvis. IMPRESSION: Enlargement of the prostate with inflammatory change surrounding both prostate and the urinary bladder. Question prostatitis and cystitis. This appearance is similar to the previous examination. Underlying carcinoma cannot be excluded on the basis of this exam There has been placement of bilateral nephrostomy catheters with interval decompression of the renal collecting systems when compared to the prior Vascular calcification Additional changes as above
--- NOTE | 2019-04-28 21:08 | ER Document Report ---
ED General - General Chief Complaint: S/S of Possible Stroke Stated Complaint: POSSIBLE STROKE Time Seen by Provider: 04/28/19 16:55 Mode of Arrival: Wheelchair Information source: Patient, Relative Notes: This is a 78-year-old man with a complicated medical history including CVA with left hemiparesis, prostate cancer with an obstructive uropathy causing acute renal failure (status post bilateral nephrostomy tubes), hypertension. Patient was recently hospitalized at [place] where the nephrostomy tubes were put in in the setting of acute renal failure and is renal function improved sig nificantly. Family states that he has been weak since leaving the hospital in [place] but started having vomiting yesterday and today when he tried to get out of the bed he had worsening weakness of the left side and was unable to stand which is what he is normally able to do. Patient states his been taking his blood pressure medicine. He denies any fever. He denies any back pain. TRAVEL OUTSIDE OF THE [place] IN LAST 30 DAYS: No - HPI Onset: Yesterday Onset/Duration: Gradual Quality of pain: No pain Severity: None Pain Level: Denies Associated symptoms: denies: Chest pain, Fever, Shortness of breath Exacerbated by: Denies Relieved by: Denies Similar symptoms previously: Yes Recently seen / treated by doctor: Yes - Related Data Allergies/Adverse Reactions: lisinopril [Lisinopril] Adverse Reaction (Unknown, Verified 04/28/19 16:47) Eaqekzs-Xax-Aof Reductase Inhibitor Adverse Reaction (Unknown, Verified 04/28/19 16:47) Past Medical History - General Information source: Patient, Relative - Social History Smoking Status: Unknown if Ever Smoked Cigarette use (# per day): No Chew tobacco use (# tins/day): No Frequency of alcohol use: None Drug Abuse: None Lives with: Family Family History: Reviewed & Not Pertinent Patient has suicidal ideation: No Patient has homicidal ideation: No - Past Medical History Cardiac Medical History: Reports: Hx Atrial Fibrillation, Hx Hypercholesterolemia, Hx Hypertension, Hx Heart Murmur Denies: Hx Congestive Heart Failure, Hx Coronary Artery Disease, Hx Heart At tack, Hx Peripheral Vascular Disease, Hx Pulmonary Embolism Pulmonary Medical History: Reports: Hx Bronchitis Denies: Hx Asthma, Hx COPD, Hx Pneumonia, Hx Respiratory Failure, Hx Sleep Apnea, Hx Tuberculosis Neurological Medical History: Denies: Hx Seizures Endocrine Medical History: Reports: Hx Diabetes Mellitus Type 2. Denies: Hx Hyperthyroidism, Hx Hypothyroidism Renal/ Medical History: Reports: Hx Benign Prostatic Hyperplasia. Denies: Hx Peritoneal Dialysis Malignancy Medical History: Denies Hx Leukemia, Denies Hx Lung Cancer GI Medical History: Reports: Hx Gastroesophageal Reflux Disease. Denies: Hx Crohn's Disease, Hx Hiatal Hernia Musculoskeletal Medical History: Reports Hx Arthritis, Denies Hx Fibromyalgia, Denies Hx Systemic Lupus Erythematosus Psychiatric Medical History: Reports: Hx Depression, Hx Post Traumatic Stress Disorder Denies: Hx Bipolar Disorder, Hx Dementia Infectious Medical History: Denies: Hx HIV Past Surgical History: Denies: Hx Appendectomy, Hx Cholecystectomy, Hx Colostomy, Hx Coronary Artery Bypass Graft, Hx Gastric Bypass Surgery, Hx Herniorrhaphy, Hx Pacemaker, Hx Tonsillectomy - Immunizations Immunizations up to date: Yes Hx Diphtheria, Pertussis, Tetanus Vaccination: Yes Review of Systems - Review of Systems Constitutional: denies: Chills, Fever EENT: No symptoms reported Cardiovascular: See HPI, Lightheaded. denies: Chest pain Respiratory: No symptoms reported Gastrointestinal: Nausea, Vomiting. denies: Abdominal pain Genitourinary: No symptoms reported Male Genitourinary: No symptoms reported Musculoskeletal: No symptoms reported Skin: No symptoms reported Hematologic/Lymphatic: No symptoms reported Neurological/Psychological: See HPI Physical Exam - Vital signs Vitals: Temp Pulse Resp BP Pulse Ox 98.3 F 79 16 84/47 L 96 04/28/19 16:53 04/28/19 16:53 04/28/19 16:53 04/28/19 16:53 04/28/19 16:53 Notes: Physical exam: GENERAL: Patient is alert and oriented x3, he appears very weak, he is hypotensive at 80/60. HEAD: Atraumatic, normocephalic. EYES: Pupils equal round and reactive to light, extraocular movements intact, sclera anicteric, conjunctiva are normal. ENT: TMs normal, nares patent, oropharynx clear without exudates. Moist mucous membranes. NECK: Normal range of motion, supple without obvious mass or JVD. LUNGS: Breath sounds clear to auscultation bilaterally and equal. No wheezes rales or rhonchi. HEART: Regular rate and rhythm without murmurs, rubs or gallops. ABDOMEN: Soft, normoactive bowel sounds. No tenderness to palpation. No guarding, no rebound. No masses appreciated. Back: Bilateral nephrostomy tube sites appear clear. Dressings look clean. EXTREMITIES: Normal range of motion, no pitting or edema. No clubbing or cyanosis. NEUROLOGICAL: Cranial nerves II through XII grossly intact. Patient does have left-sided weakness at baseline he states that the weakness is worse. PSYCH: Normal mood, normal affect. SKIN: Warm, Dry, normal turgor, no rashes or lesions noted. Course - Re-evaluation Re-evalutation: 04/28/19 22:31 Note: I think the patient is volume depleted in the setting of nausea and vomiting and is continued to take his blood pressure medicines. I think he has had decreased p.o. intake since leaving the hospital in [place]. He denies a ny significant back pain. He had vomiting yesterday and was unable to stand today. He states that the weakness on the left side is worse. It is possible he could have extended his infarct. The CT of the head shows nothing acute at this time. In any event, there is no indication for thrombolytics at this time. However, the patient is hypotensive he has improved with fluid. Given a history of heart disease, we will replace his fluids slowly to avoid any decompensated heart failure. We will hold his blood pressure medicines. I do not think he is septic, but he does have some white cells in the urine and he was given some IV ceftriaxone. - Vital Signs Vital signs: Temp Pulse Resp BP Pulse Ox 98.3 F 67 23 H 82/52 L 100 04/28/19 16:53 04/28/19 17:47 04/28/19 17:47 04/28/19 17:47 04/28/19 17:47 - Laboratory Result Diagrams: 04/28/19 17:33 04/28/19 17:33 Laboratory results interpreted by me: 04/28/19 04/28/19 04/28/19 17:33 17:33 17:33 RBC 3.13 L Hgb 8.2 L Hct 24.2 L MCV 77 L MCH 26.2 L RDW 15.9 H PT 15.6 H Potassium 3.1 L BUN 29 H Creatinine 2.26 H Est GFR ( Amer) 34 L Est GFR (Non-Af Amer) 28 L Glucose 143 H Calcium 8.2 L AST 13 L ALT 17 L Total Protein 5.9 L Albumin 3.1 L Urine Protein Urine Blood Urine Nitrite Urine Urobilinogen Ur Leukocyte Esterase 04/28/19 04/28/19 18:25 18:25 RBC Hgb Hct MCV MCH RDW PT Potassium BUN Creatinine Est GFR ( Amer) Est GFR (Non-Af Amer) Glucose Calcium AST ALT Total Protein Albumin Urine Protein 100 H 30 H Urine Blood MODERATE H MODERATE H Urine Nitrite POSITIVE H Urine Urobilinogen 2.0 H Ur Leukocyte Esterase MODERATE H LARGE H - Diagnostic Test Radiology reviewed: Image reviewed, Reports reviewed - CT of the abdomen shows no acute process. CT of the abdomen shows prostatic enlargement with most likely cancer which is been known. He does have bilateral nephrostomy tubes. - EKG Interpretation by Ga Rate: Normal Rhythm: NSR - EKG shows atrial fibrillation with a ventricular rate of 66, no acute ST-T wave changes. Patient has a history of atrial fibrillation. Critical Care Note - Critical Care Note Total time excluding time spent on procedures (mins): 60 Discharge - Discharge Clinical Impression: Generalized weakness, Hypotension, UTI, Hypokalemia Condition: Serious Disposition: ADMITTED INPATIENT Admitting Provider: Zohra Rodríguez is covering tonight Unit Admitted: [facility]
[2019-04-28] MEDS ORDERED: ONDANSETRON HCL INJ/PF 4 MG/2 ML SDV IV PRN (21:19)
[2019-04-28] MEDS ORDERED: NORMAL SALINE 1000 ML 1,000 ML IV PRN (21:19)
[2019-04-28] MEDS ORDERED: ACETAMINOPHEN 325 MG TABLET PO PRN (21:19)
[2019-04-28] MEDS ORDERED: DEXTROSE 50%-WATER 25 GM/50 ML DISP.SYRIN IV PRN ×2 (21:30)
[2019-04-28] MEDS ORDERED: DEXTROSE 40% GEL 15 GM TUBE PO PRN ×2 (21:30)
[2019-04-28] MEDS ORDERED: GLUCAGON,HUMAN RECOMB 1 MG INJ IM PRN (21:30)
--- NOTE | 2019-04-28 23:31 | EKG REPORT ---
SEVERITY:- ABNORMAL ECG - ATRIAL FIBRILLATION, V-RATE 53-81 LEFT AXIS DEVIATION CONSIDER ANTERIOR INFARCT BORDERLINE T ABNORMALITIES, INFERIOR LEADS : Confirmed by: Radha Lang MD 28-Apr-2019 23:29:42
[2019-04-29 00:59] LABS: CREATINE KINASE MB 0.41 ng/mL (<4.55); TROPONIN I < 0.012 ng/mL
[2019-04-29] MEDS: INSULIN LISPRO 100 UNIT/ML 3 ML VIAL SUBCUT SCH ×5 (01:37→22:00)
[2019-04-29] MEDS: CEFEPIME 1 GM/D5W RTU 1 GM/50 ML RTUPB IV SCH ×3 (01:52→22:06)
[2019-04-29] MEDS: PANTOPRAZOLE SODIUM 40 MG TABLET.DR PO SCH ×2 (05:55→17:35)
[2019-04-29 07:27] LABS: ANION GAP 8 (5-19); BLOOD UREA NITROGEN 24 mg/dL (7-20); CALCIUM 8.1 mg/dL (8.4-10.2); CARBON DIOXIDE 25 mmol/L (22-30); CHLORIDE 107 mmol/L (98-107); GLUCOSE 109 mg/dL (75-110); PHOSPHORUS 2.7 mg/dL (2.5-4.5); POTASSIUM 3.7 mmol/L (3.6-5.0); SODIUM 140.4 mmol/L (137-145)
--- NOTE | 2019-04-29 07:27 | EKG REPORT ---
SEVERITY:- ABNORMAL ECG - ATRIAL FIBRILLATION, V-RATE 60-99 VENTRICULAR PREMATURE COMPLEX LEFT AXIS DEVIATION BORDERLINE T ABNORMALITIES, INFERIOR LEADS BORDERLINE PROLONGED QT INTERVAL : Confirmed by: Wally Hensley MD 29-Apr-2019 07:26:23
[2019-04-29 07:34] LABS: CREATINE KINASE MB 0.39 ng/mL (<4.55)
[2019-04-29 07:42] LABS: TROPONIN I < 0.012 ng/mL
[2019-04-29] MEDS: DOCUSATE SODIUM 100 MG CAPSULE PO SCH (09:52)
[2019-04-29] MEDS ORDERED: ENOXAPARIN SODIUM INJ 30 MG/0.3 ML DISP.SYRIN SUBCUT SCH (10:00)
[2019-04-29] MEDS ORDERED: ACETAMINOPHEN 325 MG TABLET PO PRN (10:30)
[2019-04-29] MEDS ORDERED: ONDANSETRON HCL INJ/PF 4 MG/2 ML SDV IV PRN (10:30)
--- NOTE | 2019-04-29 12:08 | RADIOLOGY REPORT (SQ) ---
EXAM DESCRIPTION: MRI HEAD WITHOUT COMPLETED DATE/TIME: 04/29/2019 11:49 am REASON FOR STUDY: weakness/h/stroke COMPARISON: 06/23/2017 TECHNIQUE: Multiplanar imaging includes non-contrasted T1, T2, FLAIR, and diffusion with ADC map seq uences. Images stored on PACS. LIMITATIONS: None. FINDINGS: ANATOMY: No anomalies. Normal vascular flow voids. Pituitary fossa normal. CSF SPACES: Atrophy induced prominence of ventricles and CSF spaces. CEREBRUM: High signal intensity lesions scattered throughout the white matter on FLAIR imaging consis tent with similar chronic ischemic changes. No evidence of hemorrhage, mass, or extraaxial fluid col lection. POSTERIOR FOSSA: No signal alteration. No hemorrhage. No edema, masses or mass effect. Internal ramiro tory canals, cerebello-pontine angles, mastoids normal. DIFFUSION IMAGING: Negative for acute or sub-acute infarction. ORBITS: No masses. Globes normal. PARANASAL SINUSES: No fluid levels. Mucosa normal. OTHER: No other significant finding. IMPRESSION: Negative for acute or sub-acute infarction. EVIDENCE OF ACUTE STROKE: NO. TECHNICAL DOCUMENTATION: JOB ID: [id number] Somewhere- All Rights Reserved Reading location - IP/workstation name: [email or web address]
[2019-04-29 13:42] LABS: CREATINE KINASE MB 0.29 ng/mL (<4.55)
[2019-04-29 13:45] LABS: TROPONIN I < 0.012 ng/mL
--- NOTE | 2019-04-29 19:48 | PDOC H&P ---
History of Present Illness Admission Date/PCP: 04/28/19 22:11 LEO GARCIA MD History of Present Illness: TRAVIS REYNOSO is a 78 year old male.Patient is well-known to me he was recently transferred to [facility] for the management of obstructive uropathy due to enlarged prostate gland with associated acute kidney injury, he had bilateral nephrostomy tube inserted, the kidney function has improved significantly. He was discharged from [place] couple of days ago, on discharge was advised rehabilitation in a fdc home because of severe deconditioning but patient declined. He came to emergency room for evaluation of vomiting, generalized body weakness and immobility. He has a history of CVA with residual left-sided weakness, there was concern for CVA when he arrived in the ER. In the emergency room CTA without contrast was obtained there was no acute CVA demonstrated on the CAT scan, it showed mild age-related involutional change there was no fluid collections no masses. MRI of the head was done as well that was from this morning it was negative for acute CVA or subacute cerebral infarction. When patient arrived in the ER, the blood pressure recorded was 80 systolic with associated acute kidney injury Past Medical History Cardiac Medical History: Reports: Atrial Fibrillation, Hyperlipidema, Hypertension, Heart Murmur Pulmonary Medical History: Reports: Bronchitis Endocrine Medical History: Reports: Diabetes Mellitus Type 2 Renal/ Medical History: Reports: Other - Enlarged prostate gland GI Medical History: Reports: Gastroesophageal Reflux Disease Musculoskeltal Medical History: Reports: Arthritis Psychiatric Medical History: Reports: Depression, Post Traumatic Stress Disorder Hematology: Reports: Anemia Infectious Medical History: Denies: HIV Social History Lives with: Family Smoking Status: Former Smoker Last Time Smoked: 40 years ago Frequency of Alcohol Use: Occasional Hx Recreational Drug Use: No Drugs: None Hx Prescription Drug Abuse: No Family History Family History: Reviewed & Not Pertinent Parental Family History Reviewed: Yes Children Family History Reviewed: Yes Sibling(s) Family History Reviewed.: Yes Medication/Allergy Home Medications: Apixaban [Eliquis 2.5 mg Tablet] 2.5 mg PO Q12 04/29/19 Aspirin [Adult Low Dose Aspirin EC] 81 mg PO DAILY 04/29/19 Carvedilol Phosphate [Coreg CR 40 mg Ext. Release Capsule] 40 mg PO DAILY 04/29/19 Doxepin HCl [Silenor] 6 mg PO QHS 04/29/19 Finasteride [Proscar 5 mg Tablet] 5 mg PO DAILY 04/29/19 Gabapentin [Neurontin 300 mg Capsule] 300 mg PO Q12 04/29/19 Losartan Potassium [Cozaar 50 mg Tablet] 50 mg PO DAILY 04/29/19 Multivit,Tx with Iron,Minerals [Thera-M] 1 tab PO WSUPPER 04/29/19 Oxycodone HCl 15 mg PO Q8HP PRN 04/29/19 Sildenafil Citrate [Viagra] 100 mg PO ASDIR PRN 04/29/19 Silodosin [Rapaflo] 8 mg PO DAILY 04/29/19 Sitagliptin Phosphate [Januvia 50 mg Tablet] 50 mg PO DAILY 04/29/19 Sodium Bicarbonate [Sodium Bicarbonate 650 mg Tablet] 650 mg PO [id number] MDD FILLED ON 04-24-19 04/29/19 Solifenacin Succinate [Vesicare] 5 mg PO DAILY 04/29/19 Allergies/Adverse Reactions: lisinopril [Lisinopril] Adverse Reaction (Unknown, Verified 04/28/19 16:47) Hmiefnu-Tvx-Fhe Reductase Inhibitor Adverse Reaction (Unknown, Verified 04/28/19 16:47) Review of Systems Constitutional: ABSENT: chills, fever(s), headache(s), weight gain, weight loss Eyes: ABSENT: visual disturbances Ears: ABSENT: hearing changes Cardiovascular: ABSENT: chest pain, dyspnea on exertion, edema, orthropnea, palpitations Respiratory: ABSENT: cough, hemoptysis Gastrointestinal: PRESENT: vomiting Genitourinary: ABSENT: dysuria, hematuria Musculoskeletal: ABSENT: joint swelling Integumentary: ABSENT: rash, wounds Neurological: PRESENT: weakness. ABSENT: abnormal gait, abnormal speech, confusion, dizziness, focal weakness, syncope Psychiatric: ABSENT: anxiety, depression, homidical ideation, suicidal ideation Endocrine: ABSENT: cold intolerance, heat intolerance, menstrual abnormalities, polydipsia, polyuria Hematologic/Lymphatic: ABSENT: easy bleeding, easy bruising, lymphadenopathy Physical Exam Vital Signs: Temp Pulse Resp BP Pulse Ox 97.7 F 81 16 100/51 L 98 04/29/19 16:19 04/29/19 16:19 04/29/19 16:19 04/29/19 16:19 04/29/19 16:19 Intake & Output 04/28/19 04/29/1904/30/19 06:59 06:59 06:59 Intake Total 600 370 Output Total 700 1080 Balance -100 -710 Weight 91.8 kg General appearance: PRESENT: no acute distress Head exam: PRESENT: atraumatic, normocephalic Eye exam: PRESENT: PERRLA Ear exam: PRESENT: normal external ear exam Mouth exam: PRESENT: moist, tongue midline Neck exam: PRESENT: full ROM Respiratory exam: PRESENT: clear to auscultation heather Cardiovascular exam: PRESENT: RRR, +S1, +S2 Vascular exam: PRESENT: normal capillary refill GI/Abdominal exam: PRESENT: normal bowel sounds, soft Rectal exam: PRESENT: deferred Neurological exam: PRESENT: alert, motor sensory deficit Psychiatric exam: PRESENT: appropriate affect, normal mood Skin exam: PRESENT: dry, intact, warm Results Laboratory Results: 04/28/19 17:33 04/29/19 06:22 04/28/19 04/29/19 21:28 06:22 Sodium 140.4 Potassium 3.7 Chloride 107 Carbon Dioxide 25 Anion Gap 8 BUN 24 H Creatinine 1.82 H Est GFR ( Amer) 44 L Est GFR (Non-Af Amer) 36 L Glucose 109 Lactic Acid 1.0 Calcium 8.1 L Phosphorus 2.7 Magnesium 1.6 04/28/19 04/28/19 04/29/19 17:33 17:33 00:16 Creatine Kinase 62 52 L CK-MB (CK-2) 0.45 Troponin I < 0.012 04/29/19 04/29/19 04/29/19 00:16 06:22 06:22 Creatine Kinase 50 L CK-MB (CK-2) 0.41 0.39 Troponin I < 0.012 < 0.012 04/29/19 04/29/19 13:05 13:05 Creatine Kinase 48 L CK-MB (CK-2) 0.29 Troponin I < 0.012 Impressions: Chest X-Ray 04/28/19 17:03 IMPRESSION: Mild cardiomegaly. No consolidation or pleural effusion. Head CT 04/28/19 17:03 IMPRESSION: No acute findings. EVIDENCE OF ACUTE STROKE: NO. Abdomen/Pelvis CT 04/28/19 18:13 IMPRESSION: Enlargement of the prostate with inflammatory change surrounding both prostate and the urinary bladder. Question prostatitis and cystitis. This appearance is similar to the previous examination. Underlying carcinoma cannot be excluded on the basis of this exam There has been placement of bilateral nephrostomy catheters with interval decompression of the renal collecting systems when compared to the prior Vascular calcification Additional changes as above Head MRI 04/29/19 00:00 IMPRESSION: Negative for acute or sub-acute infarction. EVIDENCE OF ACUTE STROKE: NO. Assessment & Plan - Diagnosis (1) Hypotension Qualifiers: Hypotension type: unspecified hypotension type Qualified Code(s): I95.9 - Hypotension, unspecified Is this a current diagnosis for this admission?: Yes Plan: The etiology of the low blood pressure is multifactorial including vomiting, inadequate intake, blood pressure medications (2) Obstructive uropathy Is this a current diagnosis for this admission?: Yes Plan: Patient status post nephrostomy tube, seen to be functioning (3) Acute kidney injury Is this a current diagnosis for this admission?: Yes Plan: This most likely prerenal
[2019-04-29] MEDS ORDERED: (PENDING PHARMACY ID) (Silodosin [Rapaflo] 8 MG) PO SCH (20:00)
[2019-04-29] MEDS ORDERED: APIXABAN 2.5 MG TABLET PO SCH (20:00)
[2019-04-29] MEDS ORDERED: (PENDING PHARMACY ID) (Solifenacin Succinate [Vesicare] 5 MG) PO SCH (20:00)
[2019-04-29] MEDS ORDERED: (PENDING PHARMACY ID) (Doxepin Hcl [Silenor] 6 MG) PO SCH (22:00)
[2019-04-29] MEDS: GABAPENTIN 300 MG CAPSULE PO SCH (22:06)
[2019-04-29] MEDS: TOLTERODINE TARTRATE 1 MG TABLET PO SCH (22:06)
[2019-04-29] MEDS: APIXABAN 2.5 MG TABLET PO SCH (22:06)
[2019-04-30] MEDS: NORMAL SALINE 1000 ML 1,000 ML IV PRN ×2 (02:07→13:28)
[2019-04-30] MEDS: PANTOPRAZOLE SODIUM 40 MG TABLET.DR PO SCH ×2 (05:53→17:54)
[2019-04-30] MEDS: INSULIN LISPRO 100 UNIT/ML 3 ML VIAL SUBCUT SCH ×4 (07:42→21:48)
[2019-04-30] MEDS: FINASTERIDE 5 MG TABLET PO SCH (09:02)
[2019-04-30] MEDS: TOLTERODINE TARTRATE 1 MG TABLET PO SCH ×2 (09:10→22:22)
[2019-04-30] MEDS: CEFEPIME 1 GM/D5W RTU 1 GM/50 ML RTUPB IV SCH ×2 (09:10→22:20)
[2019-04-30] MEDS: GABAPENTIN 300 MG CAPSULE PO SCH ×2 (09:10→22:22)
[2019-04-30] MEDS: APIXABAN 2.5 MG TABLET PO SCH ×2 (09:10→22:22)
[2019-04-30] MEDS: DOCUSATE SODIUM 100 MG CAPSULE PO SCH (09:10)
[2019-04-30 16:15] LABS: ABSOLUTE EOSINOPHILS # (AUTO) 0.2 10^3/uL (0.0-0.6); ABSOLUTE LYMPHOCYTES (AUTO) 0.6 10^3/uL (0.5-4.7); ABSOLUTE MONOCYTES (AUTO) 0.6 10^3/uL (0.1-1.4); ABSOLUTE NEUT (AUTO) 3.7 10^3/uL (1.7-8.2); BASOPHILS % (AUTO) 0.3 % (0-2); EOSINOPHILS % (AUTO) 3.3 % (0-6); HEMATOCRIT 22.2 % (37.9-51.0); LYMPHOCYTES % (AUTO) 12.4 % (13-45); MEAN CORPUSCULAR HEMOGLOBIN 26.1 pg (27.0-33.4); MEAN CORPUSCULAR HGB CONC 33.8 g/dL (32.0-36.0); MEAN CORPUSCULAR VOLUME 77 fl (80-97); MONOCYTES % (AUTO) 11.2 % (3-13); PLATELET COUNT 204 10^3/uL (150-450); RED BLOOD COUNT 2.86 10^6/uL (4.35-5.55); RED CELL DISTRIBUTION WIDTH 16.5 % (11.5-14.0); SEGMENTED NEUTROPHILS % (AUTO) 72.8 % (42-78); TOTAL CELLS COUNTED % (AUTO) 100 %; WHITE BLOOD COUNT 5.1 10^3/uL (4.0-10.5)
[2019-04-30 16:25] LABS: HEMOGLOBIN 7.5 g/dL (13.5-17.0)
[2019-04-30 16:34] LABS: ALANINE AMINOTRANSFERASE 16 U/L (21-72); ALBUMIN 2.7 g/dL (3.5-5.0); ALKALINE PHOSPHATASE 51 U/L (38-126); ANION GAP 6 (5-19); ASPARTATE AMINO TRANSFERASE 12 U/L (17-59); BILIRUBIN,DIRECT 0.3 mg/dL (0.0-0.4); BILIRUBIN,TOTAL 0.4 mg/dL (0.2-1.3); BLOOD UREA NITROGEN 14 mg/dL (7-20); CALCIUM 7.9 mg/dL (8.4-10.2); CARBON DIOXIDE 26 mmol/L (22-30); CHLORIDE 106 mmol/L (98-107); GLUCOSE 110 mg/dL (75-110); POTASSIUM 3.5 mmol/L (3.6-5.0); SODIUM 138.3 mmol/L (137-145); TOTAL PROTEIN 5.2 g/dL (6.3-8.2)
--- NOTE | 2019-04-30 18:33 | PDOC PROGRESS REPORT ---
Subjective Progress Note for:: 04/30/19 Subjective:: Patient was seen by the bedside he lives better today compared to yesterday, the nephrostomy tube is functioning, the serum creatinine is improving Reason For Visit: HYPOTENSION,WEAKNESS Physical Exam Vital Signs: Temp Pulse Resp BP Pulse Ox 98.5 F 93 20 119/50 L 100 04/30/19 03:19 04/30/19 14:00 04/30/19 03:19 04/30/19 03:19 04/30/19 03:19 Intake & Output 04/29/19 04/30/19 05/01/19 06:59 06:59 06:59 Intake Total 600 1780 1050 Output Total 700 2955 Balance -100 -1175 1050 Weight 91.8 kg 93.4 kg General appearance: PRESENT: no acute distress Eye exam: PRESENT: PERRLA Respiratory exam: PRESENT: clear to auscultation heather Cardiovascular exam: PRESENT: +S1, +S2 GI/Abdominal exam: PRESENT: soft Neurological exam: PRESENT: alert Results Laboratory Results: 04/30/19 16:00 04/30/19 16:00 04/30/19 04/30/19 16:00 16:00 WBC 5.1 RBC 2.86 L Hgb 7.5 L Hct 22.2 L MCV 77 L MCH 26.1 L MCHC 33.8 RDW 16.5 H Plt Count 204 Seg Neutrophils % 72.8 Lymphocytes % 12.4 L Monocytes % 11.2 Eosinophils % 3.3 Basophils % 0.3 Absolute Neutrophils 3.7 Absolute Lymphocytes 0.6 Absolute Monocytes 0.6 Absolute Eosinophils 0.2 Absolute Basophils 0.0 Sodium 138.3 Potassium 3.5 L Chloride 106 Carbon Dioxide 26 Anion Gap 6 BUN 14 Creatinine 1.60 H Est GFR ( Amer) 51 L Est GFR (Non-Af Amer) 42 L Glucose 110 Calcium 7.9 L Total Bilirubin 0.4 AST 12 L ALT 16 L Alkaline Phosphatase 51 Total Protein 5.2 L Albumin 2.7 L 04/28/19 04/28/19 04/29/19 17:33 17:33 00:16 Creatine Kinase 62 52 L CK-MB (CK-2) 0.45 Troponin I < 0.012 04/29/19 04/29/19 04/29/19 00:16 06:22 06:22 Creatine Kinase 50 L CK-MB (CK-2) 0.41 0.39 Troponin I < 0.012 < 0.012 04/29/19 04/29/19 13:05 13:05 Creatine Kinase 48 L CK-MB (CK-2) 0.29 Troponin I < 0.012 Impressions: Chest X-Ray 04/28/19 17:03 IMPRESSION: Mild cardiomegaly. No consolidation or pleural effusion. Head CT 04/28/19 17:03 IMPRESSION: No acute findings. EVIDENCE OF ACUTE STROKE: NO. Abdomen/Pelvis CT 04/28/19 18:13 IMPRESSION: Enlargement of the prostate with inflammatory change surrounding both prostate and the urinary bladder. Question prostatitis and cystitis. This appearance is similar to the previous examination. Underlying carcinoma cannot be excluded on the basis of this exam There has been placement of bilateral nephrostomy catheters with interval decompression of the renal collecting systems when compared to the prior Vascular calcification Additional changes as above Head MRI 04/29/19 00:00 IMPRESSION: Negative for acute or sub-acute infarction. EVIDENCE OF ACUTE STROKE: NO. Assessment & Plan - Diagnosis (1) Hypotension Qualifiers: Hypotension type: unspecified hypotension type Qualified Code(s): I95.9 - Hypotension, unspecified Is this a current diagnosis for this admission?: Yes Plan: Reduce infusion rate of normal saline (2) Obstructive uropathy Is this a current diagnosis for this admission?: Yes (3) Acute kidney injury Is this a current diagnosis for this admission?: Yes Plan: improving (4) Anemia, blood loss Is this a current diagnosis for this admission?: Yes Plan: Transfuse 2 U PRBC
[2019-04-30] MEDS: CARVEDILOL PHOSPHATE 40 MG PO SCH (22:22)
[2019-05-01] MEDS: PANTOPRAZOLE SODIUM 40 MG TABLET.DR PO SCH ×2 (05:24→17:50)
[2019-05-01] MEDS: INSULIN LISPRO 100 UNIT/ML 3 ML VIAL SUBCUT SCH ×4 (08:15→21:23)
[2019-05-01] MEDS: DOCUSATE SODIUM 100 MG CAPSULE PO SCH (09:19)
[2019-05-01] MEDS: TOLTERODINE TARTRATE 1 MG TABLET PO SCH ×2 (09:19→21:38)
[2019-05-01] MEDS: APIXABAN 2.5 MG TABLET PO SCH ×2 (09:19→21:38)
[2019-05-01] MEDS: GABAPENTIN 300 MG CAPSULE PO SCH ×2 (09:19→21:38)
[2019-05-01] MEDS: FINASTERIDE 5 MG TABLET PO SCH (09:19)
[2019-05-01] MEDS: CEFEPIME 1 GM/D5W RTU 1 GM/50 ML RTUPB IV SCH ×2 (09:19→21:24)
[2019-05-01] MEDS: CARVEDILOL PHOSPHATE 40 MG PO SCH (09:20)
[2019-05-01] MEDS ORDERED: CARVEDILOL PHOSPHATE 40 MG PO SCH (10:00)
[2019-05-01 10:03] LABS: ABSOLUTE EOSINOPHILS # (AUTO) 0.2 10^3/uL (0.0-0.6); ABSOLUTE LYMPHOCYTES (AUTO) 0.8 10^3/uL (0.5-4.7); ABSOLUTE MONOCYTES (AUTO) 0.5 10^3/uL (0.1-1.4); ABSOLUTE NEUT (AUTO) 3.6 10^3/uL (1.7-8.2); BASOPHILS % (AUTO) 0.4 % (0-2); EOSINOPHILS % (AUTO) 3.6 % (0-6); HEMATOCRIT 26.2 % (37.9-51.0); HEMOGLOBIN 8.9 g/dL (13.5-17.0); LYMPHOCYTES % (AUTO) 14.9 % (13-45); MEAN CORPUSCULAR HEMOGLOBIN 26.9 pg (27.0-33.4); MEAN CORPUSCULAR HGB CONC 34.2 g/dL (32.0-36.0); MEAN CORPUSCULAR VOLUME 79 fl (80-97); MONOCYTES % (AUTO) 10.1 % (3-13); PLATELET COUNT 199 10^3/uL (150-450); RED BLOOD COUNT 3.32 10^6/uL (4.35-5.55); RED CELL DISTRIBUTION WIDTH 16.8 % (11.5-14.0); TOTAL CELLS COUNTED % (AUTO) 100 %; WHITE BLOOD COUNT 5.1 10^3/uL (4.0-10.5)
[2019-05-01 10:25] LABS: ALANINE AMINOTRANSFERASE 17 U/L (21-72); ALBUMIN 2.7 g/dL (3.5-5.0); ALKALINE PHOSPHATASE 55 U/L (38-126); ANION GAP 7 (5-19); ASPARTATE AMINO TRANSFERASE 12 U/L (17-59); BILIRUBIN,DIRECT 0.2 mg/dL (0.0-0.4); BILIRUBIN,TOTAL 0.9 mg/dL (0.2-1.3); BLOOD UREA NITROGEN 12 mg/dL (7-20); CALCIUM 8.1 mg/dL (8.4-10.2); CARBON DIOXIDE 26 mmol/L (22-30); CHLORIDE 106 mmol/L (98-107); GLUCOSE 102 mg/dL (75-110); POTASSIUM 3.5 mmol/L (3.6-5.0); SODIUM 139.3 mmol/L (137-145); TOTAL PROTEIN 5.3 g/dL (6.3-8.2)
--- NOTE | 2019-05-01 13:22 | PDOC TRANSFER SUMMARY ---
General - Admit/Disc Date/PCP Admission Date/Primary Care Provider: 04/28/19 22:11 LEO GARCIA MD Discharge Date: 05/01/19 - Discharge Diagnosis (1) Hypotension Is this a current diagnosis for this admission?: Yes (2) Obstructive uropathy Is this a current diagnosis for this admission?: Yes (3) Acute kidney injury Is this a current diagnosis for this admission?: Yes (4) Anemia, blood loss Is this a current diagnosis for this admission?: Yes (5) Urinary tract infection Is this a current diagnosis for this admission?: Yes - Additional Information Prescriptions: Oxycodone HCl 15 mg PO Q8HP PRN #90 tablet PRN Reason: Severe Pain Levofloxacin [Levaquin 750 mg Tablet] 750 mg PO DAILY #5 tab Home Medications: Apixaban [Eliquis 2.5 mg Tablet] 2.5 mg PO Q12 04/29/19 Carvedilol Phosphate [Coreg CR 40 mg Ext. Release Capsule] 40 mg PO DAILY 04/29/19 Doxepin HCl [Silenor] 6 mg PO QHS 04/29/19 Finasteride [Proscar 5 mg Tablet] 5 mg PO DAILY 04/29/19 Gabapentin [Neurontin 300 mg Capsule] 300 mg PO Q12 04/29/19 Losartan Potassium [Cozaar 50 mg Tablet] 50 mg PO DAILY 04/29/19 Multivit,Tx with Iron,Minerals [Thera-M] 1 tab PO WSUPPER 04/29/19 Sildenafil Citrate [Viagra] 100 mg PO ASDIR PRN 04/29/19 Silodosin [Rapaflo] 8 mg PO DAILY 04/29/19 Sitagliptin Phosphate [Januvia 50 mg Tablet] 50 mg PO DAILY 04/29/19 Sodium Bicarbonate [Sodium Bicarbonate 650 mg Tablet] 650 mg PO [id number] MDD FILLED ON 04-24-19 04/29/19 Solifenacin Succinate [Vesicare] 5 mg PO DAILY 04/29/19 Apixaban [Eliquis 2.5 mg Tablet] 2.5 mg PO Q12 tablet 05/01/19 Levofloxacin [Levaquin 750 mg Tablet] 750 mg PO DAILY #5 tab 05/01/19 Oxycodone HCl 15 mg PO Q8HP PRN #90 tablet 05/01/19 History of Present Illness Admission Date/PCP: 04/28/19 22:11 LEO GARCIA MD History of Present Illness: TRAVIS REYNOSO is a 78 year old male.Patient is well-known to me he was recently transferred to [facility] for the management of obstructive uropathy due to enlarged prostate gland with associated acute kidney injury, he had bilateral nephrostomy tube inserted, the kidney function has improved significantly. He was discharged from [place] couple of days ago, on discharge was advised rehabilitation in a care home home because of severe deconditioning but patient declined. He came to emergency room for evaluation of vomiting, generalized body weakness and immobility. He has a history of CVA with residual left-sided weakness, there was concern for CVA when he arrived in the ER. In the emergency room CTA without contrast was obtained there was no acute CVA demonstrated on the CAT scan, it showed mild age-related involutional change there was no fluid collections no masses. MRI of the head was done as well that was from this morning it was negative for acute CVA or subacute cerebral infarction. When patient arrived in the ER, the blood pressure recorded was 80 systolic with associated acute kidney injury Hospital Course Hospital Course: Patient was admitted for the management of hypotension, acute kidney injury, anemia, urinary tract infection. The urine culture grew Pseudomonas, he was empirically treated with intravenous cefepime. He had low blood pressure on admission with acute kidney injury this was treated successfully with normal saline with normalization of blood pressure, the acute kidney injury is most likely from prerenal azotemia. He has bilateral nephrostomy tube for the management of obstructive uropathy ,before this admission he had a prolonged hospitalization with associated deconditioning, he has been transferred to group home for rehabilitation. Physical Exam Vital Signs: Temp Pulse Resp BP Pulse Ox 98.6 F 86 18 109/52 L 99 05/01/19 11:48 05/01/19 11:48 05/01/19 11:48 05/01/19 11:48 05/01/19 11:48 Intake & Output 04/30/19 05/01/19 05/02/19 06:59 06:59 06:59 Intake Total 1780 4030 50 Output Total 2955 2275 Balance -1175 1755 50 Weight 93.4 kg General appearance: PRESENT: no acute distress Eye exam: PRESENT: PERRLA Respiratory exam: PRESENT: clear to auscultation heather Cardiovascular exam: PRESENT: +S1, +S2 GI/Abdominal exam: PRESENT: soft Neurological exam: PRESENT: alert, CN II-XII grossly intact Results Laboratory Results: 05/01/19 09:38 05/01/19 09:38 04/30/19 04/30/19 04/30/19 16:00 16:00 19:00 WBC 5.1 RBC 2.86 L Hgb 7.5 L Hct 22.2 L MCV 77 L MCH 26.1 L MCHC 33.8 RDW 16.5 H Plt Count 204 Seg Neutrophils % 72.8 Lymphocytes % 12.4 L Monocytes % 11.2 Eosinophils % 3.3 Basophils % 0.3 Absolute Neutrophils 3.7 Absolute Lymphocytes 0.6 Absolute Monocytes 0.6 Absolute Eosinophils 0.2 Absolute Basophils 0.0 Sodium 138.3 Potassium 3.5 L Chloride 106 Carbon Dioxide 26 Anion Gap 6 BUN 14 Creatinine 1.60 H Est GFR ( Amer) 51 L Est GFR (Non-Af Amer) 42 L Glucose 110 Calcium 7.9 L Total Bilirubin 0.4 AST 12 L ALT 16 L Alkaline Phosphatase 51 Total Protein 5.2 L Albumin 2.7 L Blood Type O POSITIVE Antibody Screen NEGATIVE 05/01/19 05/01/19 09:38 09:38 WBC 5.1 RBC 3.32 L Hgb 8.9 L Hct 26.2 L MCV 79 L MCH 26.9 L MCHC 34.2 RDW 16.8 H Plt Count 199 Seg Neutrophils % 71.0 Lymphocytes % 14.9 Monocytes % 10.1 Eosinophils % 3.6 Basophils % 0.4 Absolute Neutrophils 3.6 Absolute Lymphocytes 0.8 Absolute Monocytes 0.5 Absolute Eosinophils 0.2 Absolute Basophils 0.0 Sodium 139.3 Potassium 3.5 L Chloride 106 Carbon Dioxide 26 Anion Gap 7 BUN 12 Creatinine 1.42 H Est GFR ( Amer) 58 L Est GFR (Non-Af Amer) 48 L Glucose 102 Calcium 8.1 L Total Bilirubin 0.9 AST 12 L ALT 17 L Alkaline Phosphatase 55 Total Protein 5.3 L Albumin 2.7 L Blood Type Antibody Screen 04/28/19 04/28/19 04/29/19 17:33 17:33 00:16 Creatine Kinase 62 52 L CK-MB (CK-2) 0.45 Troponin I < 0.012 06/02/1204/29/19 04/29/19 00:16 06:22 06:22 Creatine Kinase 50 L CK-MB (CK-2) 0.41 0.39 Troponin I < 0.012 < 0.012 04/29/19 04/29/19 13:05 13:05 Creatine Kinase 48 L CK-MB (CK-2) 0.29 Troponin I < 0.012 Impressions: Chest X-Ray 04/28/19 17:03 IMPRESSION: Mild cardiomegaly. No consolidation or pleural effusion. Head CT 04/28/19 17:03 IMPRESSION: No acute findings. EVIDENCE OF ACUTE STROKE: NO. Abdomen/Pelvis CT 04/28/19 18:13 IMPRESSION: Enlargement of the prostate with inflammatory change surrounding both prostate and the urinary bladder. Question prostatitis and cystitis. This appearance is similar to the previous examination. Underlying carcinoma cannot be excluded on the basis of this exam There has been placement of bilateral nephrostomy catheters with interval decompression of the renal collecting systems when compared to the prior Vascular calcification Additional changes as above Head MRI 04/29/19 00:00 IMPRESSION: Negative for acute or sub-acute infarction. EVIDENCE OF ACUTE STROKE: NO. Qualifiers - * PATIENT BEING DISCHARGED WITH ANY OF THE FOLLOWING DIAGNOSIS: No Acute Heart Failure Is this a Heart Failure Patient?: No
[2019-05-01 16:17] VITALS: BP 109/58
== END 2019-05-01 22:25 | DRG 315 ==
LOC: ER 16:44 → EH 22:11 → 3N 04-29 01:17
PROVIDERS: ADMIT Internal Medicine; ATTEND Internal Medicine
PROC: 30233N1 Transfusion of Nonautologous Red Blood Cells into Peripheral Vein, Percutaneous Approach (ICD-10-PCS; principal; 2019-04-30)
DX: I95.9 Hypotension, unspecified (principal); N17.9 Acute kidney failure, unspecified; N39.0 Urinary tract infection, site not specified; I69.354 Hemiplegia and hemiparesis following cerebral infarction affecting left non-dominant side; B95.2 Enterococcus as the cause of diseases classified elsewhere; B96.5 Pseudomonas (aeruginosa) (mallei) (pseudomallei) as the cause of diseases classified elsewhere; N13.9 Obstructive and reflux uropathy, unspecified; D50.0 Iron deficiency anemia secondary to blood loss (chronic); E78.5 Hyperlipidemia, unspecified; I10 Essential (primary) hypertension; I48.91 Unspecified atrial fibrillation; E11.9 Type 2 diabetes mellitus without complications; N40.1 Benign prostatic hyperplasia with lower urinary tract symptoms; K21.9 Gastro-esophageal reflux disease without esophagitis; F32.9 Major depressive disorder, single episode, unspecified; F43.10 Post-traumatic stress disorder, unspecified; Z79.899 Other long term (current) drug therapy; Z79.01 Long term (current) use of anticoagulants; Z79.891 Long term (current) use of opiate analgesic; Z87.891 Personal history of nicotine dependence; Z79.82 Long term (current) use of aspirin; Z88.8 Allergy status to other drugs, medicaments and biological substances
CPT/HCPCS: 36415; 36430; 70450; 70551; 71045; 74176; 80048; 80053; 81001; 82550; 82553; 82962; 83605; 83735; 84100; 84484; 85025; 85610; 85730; 86850; 86900; 86901; 86920; 87040; 87086; 87088; 87186; 93005; 93010; 96361; 96365; 99291; J0692; J0696; J1815; J3490; J7030; J7040; P9016

== ENCOUNTER 2019-07-03 13:23 | Emergency (ER) | payer MEDICARE, OTHER ==
--- NOTE | 2019-07-03 14:15 | ER Document Report ---
ED Medical Screen (RME) - General Chief Complaint: Urinary Problem Stated Complaint: URINARY PROBLEM Time Seen by Provider: 07/03/19 14:04 Primary Care Provider: LEO GARCIA MD [Primary Care Provider] - Follow up as needed Mode of Arrival: Wheelchair Information source: Patient, Relative Notes: This 78-year-old male presents to the emergency department with reports he is noticed blood and pus in his nephrostomy bags. Patient reports he has 2 nephrostomies that were placed in [place] by Dr. Reynolds at [facility] [phone]. Patient is able to void but reports he has to push so hard when he voids that causes him to be incontinent of stool. He denies fever. Reports he vomited one time this past week. Denies abdominal pain complains of pelvic bladder pressure. I have greeted and performed a rapid initial assessment of this patient. A comprehensive ED assessment and evaluation of the patient, analysis of test results and completion of the medical decision making process will be conducted by additional ED providers. Dictation of this chart was performed using voice recognition software; therefore, there may be some unintended grammatical errors. TRAVEL OUTSIDE OF THE [place] IN LAST 30 DAYS: No - Related Data Allergies/Adverse Reactions: lisinopril [Lisinopril] Adverse Reaction (Unknown, Verified 07/03/19 13:25) Vbeewrs-Wol-Csk Reductase Inhibitor Adverse Reaction (Unknown, Verified 07/03/19 13:25) Past Medical History - Past Medical History Cardiac Medical History: Reports: Hx Atrial Fibrillation, Hx Hypercholesterolemia, Hx Hypertension, Hx Heart Murmur Denies: Hx Congestive Heart Failure, Hx Coronary Artery Disease, Hx Heart Attack, Hx Peripheral Vascular Disease, Hx Pulmonary Embolism Pulmonary Medical History: Reports: Hx Bronchitis Denies: Hx Asthma, Hx COPD, Hx Pneumonia, Hx Respiratory Failure, Hx Sleep Apnea, Hx Tuberculosis Neurological Medical History: Denies: Hx Seizures Endocrine Medical History: Reports: Hx Diabetes Mellitus Type 2. Denies: Hx Hyperthyroidism, Hx Hypothyroidism Renal/ Medical History: Reports: Hx Benign Prostatic Hyperplasia. Denies: Hx Peritoneal Dialysis Malignancy Medical History: Denies Hx Leukemia, Denies Hx Lung Cancer GI Medical History: Reports: Hx Gastroesophageal Reflux Disease. Denies: Hx Crohn's Disease, Hx Hiatal Hernia Musculoskeltal Medical History: Reports Hx Arthritis, Denies Hx Fibromyalgia, Denies Hx Systemic Lupus Erythematosus Psychiatric Medical History: Reports: Hx Depression, Hx Post Traumatic Stress Disorder Denies: Hx Bipolar Disorder, Hx Dementia Infectious Medical History: Denies: Hx HIV Past Surgical History: Denies: Hx Appendectomy, Hx Cholecystectomy, Hx Colostomy, Hx Coronary Artery Bypass Graft, Hx Gastric Bypass Surgery, Hx Herniorrhaphy, Hx Pacemaker, Hx Tonsillectomy - Immunizations Immunizations up to date: Yes Hx Diphtheria, Pertussis, Tetanus Vaccination: Yes Physical Exam - Vital signs Vitals: Temp Pulse Resp BP Pulse Ox 98.2 F 96 16 106/53 L 98 07/03/19 13:31 07/03/19 13:31 07/03/19 13:31 07/03/19 13:31 07/03/19 13:31 Course - Vital Signs Vital signs: Temp Pulse Resp BP Pulse Ox 98.2 F 96 16 106/53 L 98 07/03/19 13:31 07/03/19 13:31 07/03/19 13:31 07/03/19 13:31 07/03/19 13:31 Doctor's Discharge - Discharge Referrals: LEO GARCIA MD [Primary Care Provider] - Follow up as needed
[2019-07-03 14:56] LABS: ABSOLUTE EOSINOPHILS # (AUTO) 0.1 10^3/uL (0.0-0.6); ABSOLUTE LYMPHOCYTES (AUTO) 0.8 10^3/uL (0.5-4.7); ABSOLUTE MONOCYTES (AUTO) 0.9 10^3/uL (0.1-1.4); ABSOLUTE NEUT (AUTO) 5.1 10^3/uL (1.7-8.2); BASOPHILS % (AUTO) 0.2 % (0-2); EOSINOPHILS % (AUTO) 1.8 % (0-6); HEMATOCRIT 27.6 % (37.9-51.0); HEMOGLOBIN 9.1 g/dL (13.5-17.0); LYMPHOCYTES % (AUTO) 12.1 % (13-45); MEAN CORPUSCULAR HEMOGLOBIN 25.9 pg (27.0-33.4); MEAN CORPUSCULAR HGB CONC 33.1 g/dL (32.0-36.0); MEAN CORPUSCULAR VOLUME 78 fl (80-97); MONOCYTES % (AUTO) 12.4 % (3-13); PLATELET COUNT 231 10^3/uL (150-450); RED BLOOD COUNT 3.52 10^6/uL (4.35-5.55); SEGMENTED NEUTROPHILS % (AUTO) 73.5 % (42-78); TOTAL CELLS COUNTED % (AUTO) 100 %; WHITE BLOOD COUNT 6.9 10^3/uL (4.0-10.5)
[2019-07-03 15:13] LABS: ALBUMIN 3.2 g/dL (3.5-5.0); ALKALINE PHOSPHATASE 78 U/L (38-126); ANION GAP 9 (5-19); ASPARTATE AMINO TRANSFERASE 17 U/L (17-59); BILIRUBIN,DIRECT 0.4 mg/dL (0.0-0.4); BILIRUBIN,TOTAL 0.8 mg/dL (0.2-1.3); BLOOD UREA NITROGEN 18 mg/dL (7-20); CALCIUM 8.4 mg/dL (8.4-10.2); CARBON DIOXIDE 30 mmol/L (22-30); CHLORIDE 98 mmol/L (98-107); GLUCOSE 174 mg/dL (75-110); POTASSIUM 3.4 mmol/L (3.6-5.0); TOTAL PROTEIN 5.9 g/dL (6.3-8.2)
--- NOTE | 2019-07-03 15:37 | ER Document Report ---
ED General - General Chief Complaint: Urinary Problem Stated Complaint: URINARY PROBLEM Time Seen by Provider: 07/03/19 14:04 Primary Care Provider: LEO GARCIA MD [Primary Care Provider] - Follow up as needed Mode of Arrival: Wheelchair TRAVEL OUTSIDE OF THE [place] IN LAST 30 DAYS: No - HPI Notes: 78-year-old male to the emergency department with complaints of purulent and bloody discharge into his nephrostomy tubes since Monday. He states that he saw about 2 episodes of this and then states that his urine has been dark in color. He denies any fevers, chills, chest pain, back pain, nausea, vomiting, headache, passing out, syncope. He is supposed to see his urologist who placed these tubes Dr. Reynoso at [facility] next week and make a plan to have them removed. He is not currently on any antibiotics. He is diabetic - Related Data Allergies/Adverse Reactions: lisinopril [Lisinopril] Adverse Reaction (Unknown, Verified 07/03/19 13:25) Luyzipy-Jgz-Hxu Reductase Inhibitor Adverse Reaction (Unknown, Verified 07/03/19 13:25) Past Medical History - General Information source: Patient, Relative - Social History Smoking Status: Former Smoker Frequency of alcohol use: None Drug Abuse: None Family History: Reviewed & Not Pertinent Patient has suicidal ideation: No Patient has homicidal ideation: No - Past Medical History Cardiac Medical History: Reports: Hx Atrial Fibrillation, Hx Hypercholest erolemia, Hx Hypertension, Hx Heart Murmur Denies: Hx Congestive Heart Failure, Hx Coronary Artery Disease, Hx Heart Attack, Hx Peripheral Vascular Disease, Hx Pulmonary Embolism Pulmonary Medical History: Reports: Hx Bronchitis Denies: Hx Asthma, Hx COPD, Hx Pneumonia, Hx Respiratory Failure, Hx Sleep Apnea, Hx Tuberculosis Neurological Medical History: Denies: Hx Seizures Endocrine Medical History: Reports: Hx Diabetes Mellitus Type 2. Denies: Hx Hyperthyroidism, Hx Hypothyroidism Renal/ Medical History: Reports: Hx Benign Prostatic Hyperplasia. Denies: Hx Peritoneal Dialysis Malignancy Medical History: Denies Hx Leukemia, Denies Hx Lung Cancer GI Medical History: Reports: Hx Gastroesophageal Reflux Disease. Denies: Hx Crohn's Disease, Hx Hiatal Hernia Musculoskeletal Medical History: Reports Hx Arthritis, Denies Hx Fibromyalgia, Denies Hx Systemic Lupus Erythematosus Psychiatric Medical History: Reports: Hx Depression, Hx Post Traumatic Stress Disorder Denies: Hx Bipolar Disorder, Hx Dementia Infectious Medical History: Denies: Hx HIV Past Surgical History: Reports: Hx Kidney (Renal Surgery). Denies: Hx Appendectomy, Hx Cholecystectomy, Hx Colostomy, Hx Coronary Artery Bypass Graft, Hx Gastric Bypass Surgery, Hx Herniorrhaphy, Hx Pacemaker, Hx Tonsillectomy - Immunizations Immunizations up to date: Yes Hx Diphtheria, Pertussis, Tetanus Vaccination: Yes Review of Systems - Review of Systems Constitutional: denies: Chills, Fever, Weakness EENT: No symptoms reported Cardiovascular: denies: Chest pain, Palpitations, Dyspnea, Syncope, Dizziness, Lightheaded Respiratory: denies: Cough, Short of breath Gastrointestinal: denies: Abdominal pain, Diarrhea, Nausea, Vomiting Genitourinary: Other - Purulent and bloody urine in his nephrostomy bags. Musculoskeletal: denies: Back pain Skin: No symptoms reported Hematologic/Lymphatic: No symptoms reported Neurological/Psychological: No symptoms reported -: Yes All other systems reviewed and negative Physical Exam - Vital signs Vitals: Temp Pulse Resp BP Pulse Ox 98.2 F 96 16 106/53 L 98 07/03/19 13:31 07/03/19 13:31 07/03/19 13:31 07/03/19 13:31 07/03/19 13:31 Interpretation: Normal - General General appearance: Alert In distress: None Notes: Chronically ill-appearing. - HEENT Head: Normocephalic, Atraumatic Eyes: Normal Pupils: PERRL - Respiratory Respiratory status: No respiratory distress Chest status: Nontender Breath sounds: Normal Chest palpation: Normal - Cardiovascular Rhythm: Regular Heart sounds: Normal auscultation Murmur: No - Abdominal Inspection: Normal Distension: No distension Bowel sounds: Normal Tenderness: Nontender Organomegaly: No organomegaly - Back Back: Other - There are nephrostomy tubes bilaterally. The left next urostomy dressing is urine soaked with slight bloody appearance. The actual site looks good and no purulence is seen in the tube. The right urostomy site has a clean dressing and has no redness or appearance of drainage. - Neurological Neuro grossly intact: Yes Cognition: Normal Orientation: AAOx4 [place] Coma Scale Eye Opening: Spontaneous [place] Coma Scale Verbal: Oriented [place] Coma Scale Motor: Obeys Commands [place] Coma Scale Total: 15 Speech: Normal Motor strength normal: LUE, RUE, LLE, RLE Sensory: Normal - Psychological Associated symptoms: Normal affect, Normal mood - Skin Skin Temperature: Warm Skin Moisture: Dry Skin Color: Normal Course - Re-evaluation Re-evalutation: 07/03/[address] Duran, ER attending. We agree that urology should be consulted. Spoke with Dr. Polanco, urologist covering for Dr. Reynoso. We discussed patient's white count, vital signs, renal function, urinalysis, and physical exam findings for left nephrostomy tube infection. Given the patient does not have a leukocytosis, and his vital signs are reassuring, he would like to try the patient on some oral outpatient antibiotics. He would like for the patient to have Rocephin tonight and then to be started on Bactrim outpatient. He will plan to call the patient tomorrow to follow-up with him. Rounded on the patient and his . They agree with the plan for outpatient oral antibiotics and know that Dr. Polanco or his PA will call tomorrow to check on them. They have been encouraged to return if any worsening symptoms such as fever, worsening pain, worsening of infection, chest pain, back pain or any other concerns they agree with the plan. Approached by staff nurse midwife about patient's line. They have been able to get blood cultures and lactic acid but have not been able to obtain a line for IV Rocephin and fluids. Do think it is reasonable to give IM Rocephin instead of IV. We will give the IM Rocephin and then discharged home with Bactrim. Patient agrees with the plan. Impression: UTI, infected nephrostomy tube. We will follow the plan as outlined above. Dr. Polanco plans to call the patient tomorrow. I have encouraged patient to return if worse. Patient and family agree with the plan. 07/03/19 19:37 Laboratory 07/03/19 07/03/19 07/03/19 14:30 14:30 17:02 WBC 6.9 RBC 3.52 L Hgb 9.1 L Hct 27.6 L MCV 78 L MCH 25.9 L MCHC 33.1 RDW 17.0 H Plt Count 231 Seg Neutrophils % 73.5 Lymphocytes % 12.1 L Monocytes % 12.4 Eosinophils % 1.8 Basophils % 0.2 Absolute Neutrophils 5.1 Absolute Lymphocytes 0.8 Absolute Monocytes 0.9 Absolute Eosinophils 0.1 Absolute Basophils 0.0 Sodium 136.5 L Potassium 3.4 L Chloride 98 Carbon Dioxide 30 Anion Gap 9 BUN 18 Creatinine 1.72 H Est GFR ( Amer) 47 L Est GFR (Non-Af Amer) 39 L Glucose 174 H Lactic Acid Calcium 8.4 Total Bilirubin 0.8 Direct Bilirubin 0.4 Neonat Total Bilirubin Not Reportable Neonat Direct Bilirubin Not Reportable Neonat Indirect Bili Not Reportable AST 17 ALT 12 Alkaline Phosphatase 78 Total Protein 5.9 L Albumin 3.2 L Urine Color YELLOW Urine Appearance SLIGHTLY-CLOUDY Urine pH 6.0 Ur Specific [place] 1.014 Urine Protein 30 H Urine Glucose (UA) NEGATIVE Urine Ketones NEGATIVE Urine Blood SMALL H Urine Nitrite NEGATIVE Urine Bilirubin NEGATIVE Urine Urobilinogen 2.0 H Ur Leukocyte Esterase LARGE H Urine WBC (Auto) 46 Urine RBC (Auto) 9 Urine Bacteria (Auto) 2+ Urine WBC Clumps Squamous Epi Cells Auto <1 U Non-Squamous Epis Auto Urine Mucus (Auto) RARE Urine Ascorbic Acid NEGATIVE 07/03/19 07/03/19 17:02 18:10 WBC RBC Hgb Hct MCV MCH MCHC RDW Plt Count Seg Neutrophils % Lymphocytes % Monocytes % Eosinophils % Basophils % Absolute Neutrophils Absolute Lymphocytes Absolute Monocytes Absolute Eosinophils Absolute Basophils Sodium Potassium Chloride Carbon Dioxide Anion Gap BUN Creatinine Est GFR ( Amer) Est GFR (Non-Af Amer) Glucose Lactic Acid 1.0 Calcium Total Bilirubin Direct Bilirubin Neonat Total Bilirubin Neonat Direct Bilirubin Neonat Indirect Bili AST ALT Alkaline Phosphatase Total Protein Albumin Urine Color YELLOW Urine Appearance TURBID Urine pH 8.0 Ur Specific [place] 1.005 Urine Protein >=500 H Urine Glucose (UA) NEGATIVE Urine Ketones NEGATIVE Urine Blood MODERATE H Urine Nitrite NEGATIVE Urine Bilirubin NEGATIVE Urine Urobilinogen NEGATIVE Ur Leukocyte Esterase LARGE H Urine WBC (Auto) 173 Urine RBC (Auto) 40 Urine Bacteria (Auto) 2+ Urine WBC Clumps MANY Squamous Epi Cells Auto 9 U Non-Squamous Epis Auto 2 Urine Mucus (Auto) RARE Urine Ascorbic Acid NEGATIVE 07/03/19 19:39 - Vital Signs Vital signs: Temp Pulse Resp BP Pulse Ox 98.2 F 96 16 106/53 L 98 07/03/19 13:31 07/03/19 13:31 07/03/19 13:31 07/03/19 13:31 07/03/19 13:31 - Laboratory Result Diagrams: 07/03/19 14:30 07/03/19 14:30 Laboratory results interpreted by me: 07/03/19 07/03/19 07/03/19 14:30 14:30 17:02 RBC 3.52 L Hgb 9.1 L Hct 27.6 L MCV 78 L MCH 25.9 L RDW 17.0 H Lymphocytes % 12.1 L Sodium 136.5 L Potassium 3.4 L Creatinine 1.72 H Est GFR ( Amer) 47 L Est GFR (Non-Af Amer) 39 L Glucose 174 H Total Protein 5.9 L Albumin 3.2 L Urine Protein 30 H Urine Blood SMALL H Urine Urobilinogen 2.0 H Ur Leukocyte Esterase LARGE H 07/03/19 17:02 RBC Hgb Hct MCV MCH RDW Lymphocytes % Sodium Potassium Creatinine Est GFR ( Amer) Est GFR (Non-Af Amer) Glucose Total Protein Albumin Urine Protein >=500 H Urine Blood MODERATE H Urine Urobilinogen Ur Leukocyte Esterase LARGE H Discharge - Discharge Clinical Impression: UTI (urinary tract infection) Qualifiers: Urinary tract infection type: acute cystitis Hematuria presence: with hematuria Qualified Code(s): N30.01 - Acute cystitis with hematuria Infection associated with nephrostomy catheter Qualifiers: Encounter type: initial encounter Qualified Code(s): T83.512A - Infection and inflammatory reaction due to nephrostomy catheter, initial encounter Condition: Stable Disposition: HOME, SELF-CARE Instructions: Urinary Tract Infection ([facility]), Trimethoprim-Sulfa ([facility]) Additional Instructions: DR. POLANCO WHO IS TAKING CALL FOR DR. REYNOSO WILL HAVE HIS PA CALL YOU TOMORROW FOR FURTHER FOLLOW UP. TAKE ALL ANTIBIOTICS PRESCRIBED. RETURN IMMEDIATELY IF WORSENING SYMPTOMS SUCH FEVER, INTRACTABLE VOMITING, CHEST PAIN, SHORTNESS OF BREATH, OR ANY OTHER CONCERNS. Prescriptions: Sulfamethoxazole/Trimethoprim [Bactrim Ds Tablet] 1 each PO BID #20 tablet Referrals: LEO GARCIA MD [Primary Care Provider] - Follow up in 3-5 days
[2019-07-03 17:43] LABS: APPEARANCE,URINE SLIGHTLY-CLOUDY; BILIRUBIN,URINE NEGATIVE (NEGATIVE); COLOR,URINE YELLOW; GLUCOSE, URINE NEGATIVE (NEGATIVE); KETONES,URINE NEGATIVE (NEGATIVE); LEUKOCYTE ESTERASE,URINE LARGE (NEGATIVE); NITRITE,URINE NEGATIVE (NEGATIVE); PROTEIN,URINE 30 mg/dL (NEGATIVE); URINE SPECIFIC GRAVITY 1.014
[2019-07-03 17:49] LABS: APPEARANCE,URINE TURBID; BILIRUBIN,URINE NEGATIVE (NEGATIVE); GLUCOSE, URINE NEGATIVE (NEGATIVE); KETONES,URINE NEGATIVE (NEGATIVE); LEUKOCYTE ESTERASE,URINE LARGE (NEGATIVE); NITRITE,URINE NEGATIVE (NEGATIVE); PROTEIN,URINE >=500 mg/dL (NEGATIVE); URINE SPECIFIC GRAVITY 1.005; UROBILINOGEN,URINE NEGATIVE mg/dL (<2.0)
[2019-07-03 17:53] LABS: COLOR,URINE YELLOW
[2019-07-03] MEDS: NORMAL SALINE 1000 ML 1,000 ML IV ONE ×2 (18:16→19:15)
[2019-07-03] MEDS ORDERED: CEFTRIAXONE 1 GM/D5W RTU 1 GM/50 ML RTUPB IV ONE (18:21)
[2019-07-03] MEDS ORDERED: CEFTRIAXONE INJ 1000 MG VIAL IM ONE (18:27)
[2019-07-03 19:56] VITALS: BP 106/56
== END 2019-07-03 19:57 | disposition home or self-care (01) ==
LOC: ER 13:23
DX: N30.01 Acute cystitis with hematuria (principal); T83.512A Infection and inflammatory reaction due to nephrostomy catheter, initial encounter; I48.91 Unspecified atrial fibrillation; I10 Essential (primary) hypertension; E11.9 Type 2 diabetes mellitus without complications
CPT/HCPCS: 36415; 87040; 87086; 87070; 87205; 85025; 87075; 87077; 87088; 80053; 81001; 83605; J0696; 87186; J7030

== ENCOUNTER 2019-08-16 17:36 | Inpatient (IN) | payer MEDICARE, OTHER ==
[2019-08-16 19:32] LABS: ABSOLUTE EOSINOPHILS # (AUTO) 0.1 10^3/uL (0.0-0.6); ABSOLUTE MONOCYTES (AUTO) 0.5 10^3/uL (0.1-1.4); ABSOLUTE NEUT (AUTO) 2.6 10^3/uL (1.7-8.2); BASOPHILS % (AUTO) 0.5 % (0-2); EOSINOPHILS % (AUTO) 2.9 % (0-6); HEMATOCRIT 27.1 % (37.9-51.0); HEMOGLOBIN 8.9 g/dL (13.5-17.0); LYMPHOCYTES % (AUTO) 23.6 % (13-45); MEAN CORPUSCULAR HEMOGLOBIN 25.1 pg (27.0-33.4); MEAN CORPUSCULAR HGB CONC 33.1 g/dL (32.0-36.0); MEAN CORPUSCULAR VOLUME 76 fl (80-97); MONOCYTES % (AUTO) 10.7 % (3-13); PLATELET COUNT 219 10^3/uL (150-450); RED BLOOD COUNT 3.56 10^6/uL (4.35-5.55); RED CELL DISTRIBUTION WIDTH 17.2 % (11.5-14.0); SEGMENTED NEUTROPHILS % (AUTO) 62.3 % (42-78); TOTAL CELLS COUNTED % (AUTO) 100 %; WHITE BLOOD COUNT 4.2 10^3/uL (4.0-10.5)
[2019-08-16 19:52] LABS: ALBUMIN 3.2 g/dL (3.5-5.0); ALKALINE PHOSPHATASE 69 U/L (38-126); ANION GAP 9 (5-19); ASPARTATE AMINO TRANSFERASE 13 U/L (17-59); BILIRUBIN,DIRECT 0.2 mg/dL (0.0-0.4); BILIRUBIN,TOTAL 0.6 mg/dL (0.2-1.3); BLOOD UREA NITROGEN 14 mg/dL (7-20); CALCIUM 8.4 mg/dL (8.4-10.2); CARBON DIOXIDE 27 mmol/L (22-30); CHLORIDE 100 mmol/L (98-107); GLUCOSE 201 mg/dL (75-110); POTASSIUM 3.2 mmol/L (3.6-5.0); TOTAL PROTEIN 6.2 g/dL (6.3-8.2)
[2019-08-16] MEDS: NORMAL SALINE 1000 ML 1,000 ML IV PRN (20:19)
[2019-08-16 21:16] LABS: APPEARANCE,URINE TURBID; BILIRUBIN,URINE NEGATIVE (NEGATIVE); COLOR,URINE DARK YELLOW; GLUCOSE, URINE NEGATIVE (NEGATIVE); KETONES,URINE NEGATIVE (NEGATIVE); LEUKOCYTE ESTERASE,URINE LARGE (NEGATIVE); NITRITE,URINE NEGATIVE (NEGATIVE); PROTEIN,URINE >=500 mg/dL (NEGATIVE); UROBILINOGEN,URINE NEGATIVE mg/dL (<2.0)
[2019-08-16 21:17] LABS: APPEARANCE,URINE CLOUDY; BILIRUBIN,URINE NEGATIVE (NEGATIVE); COLOR,URINE RED; GLUCOSE, URINE NEGATIVE (NEGATIVE); KETONES,URINE NEGATIVE (NEGATIVE); LEUKOCYTE ESTERASE,URINE LARGE (NEGATIVE); NITRITE,URINE NEGATIVE (NEGATIVE); PROTEIN,URINE 100 mg/dL (NEGATIVE); URINE SPECIFIC GRAVITY 1.011
[2019-08-16] MEDS ORDERED: (PENDING PHARMACY ID) (Sildenafil Citrate [Viagra] 100 MG) PO PRN (22:06)
[2019-08-16] MEDS ORDERED: OXYCODONE HCL IR 5 MG TABLET PO PRN (22:30)
[2019-08-16] MEDS ORDERED: GABAPENTIN 300 MG CAPSULE PO ONE (23:00)
[2019-08-16] MEDS ORDERED: TOLTERODINE TARTRATE 1 MG TABLET PO ONE (23:00)
--- NOTE | 2019-08-16 23:10 | PDOC H&P ---
History of Present Illness Admission Date/PCP: 08/16/19 17:36 LEO GARCIA MD History of Present Illness: TRAVIS REYNOSO is a 78 year old male He has bilateral nephrostomy tube due to obstructive uropathy. He came to the office today for evaluation of hematuria, there was blood in the right nephrostomy tube bag. Patient was pale clinically on examination in the office I felt the patient may need blood transfusion ,he was admitted directly from the office to the hospital. The initial hemogram revealed hemoglobin of 8.9 Past Medical History Cardiac Medical History: Reports: Atrial Fibrillation, Hyperlipidema, Hypertension, Heart Murmur Pulmonary Medical History: Reports: Bronchitis Endocrine Medical History: Reports: Diabetes Mellitus Type 2 GI Medical History: Reports: Gastroesophageal Reflux Disease Musculoskeltal Medical History: Reports: Arthritis Psychiatric Medical History: Reports: Depression, Post Traumatic Stress Disorder Hematology: Reports: Anemia Infectious Medical History: Denies: HIV Social History Smoking Status: Never Smoker Frequency of Alcohol Use: None Hx Recreational Drug Use: No Drugs: None Hx Prescription Drug Abuse: No Family History Family History: Reviewed & Not Pertinent Parental Family History Reviewed: Yes Children Family History Reviewed: Yes Sibling(s) Family History Reviewed.: Yes Medication/Allergy Home Medications: Apixaban [Eliquis 2.5 mg Tablet] 2.5 mg PO Q12 08/16/19 Carvedilol Phosphate [Coreg CR 40 mg Ext. Release Capsule] 40 mg PO DAILY 08/16/19 Doxepin HCl [Silenor] 6 mg PO QHS 08/16/19 Finasteride [Proscar 5 mg Tablet] 5 mg PO DAILY 08/16/19 Gabapentin [Neurontin 300 mg Capsule] 300 mg PO Q12 08/16/19 Losartan Potassium [Cozaar 50 mg Tablet] 50 mg PO DAILY 08/16/19 Multivit,Tx with Iron,Minerals [Thera-M] 1 tab PO WSUPPER 08/16/19 Oxycodone HCl 15 mg PO Q8HP PRN 08/16/19 Sildenafil Citrate [Viagra] 100 mg PO ASDIR PRN 08/16/19 Silodosin [Rapaflo] 8 mg PO DAILY 08/16/19 Sitagliptin Phosphate [Januvia 50 mg Tablet] 50 mg PO DAILY 08/16/19 Solifenacin Succinate [Vesicare] 5 mg PO DAILY 08/16/19 Allergies/Adverse Reactions: lisinopril [Lisinopril] Adverse Reaction (Unknown, Verified 07/03/19 13:25) Dxmnrrn-Ctv-Afj Reductase Inhibitor Adverse Reaction (Unknown, Verified 07/03/19 13:25) Review of Systems Constitutional: ABSENT: chills, fever(s), headache(s), weight gain, weight loss Eyes: ABSENT: visual disturbances Ears: ABSENT: hearing changes Cardiovascular: ABSENT: chest pain, dyspnea on exertion, edema, orthropnea, palp itations Respiratory: ABSENT: cough, hemoptysis Gastrointestinal: ABSENT: abdominal pain, constipation, diarrhea, hematemesis, hematochezia, nausea, vomiting Genitourinary: PRESENT: hematuria Musculoskeletal: ABSENT: joint swelling Integumentary: ABSENT: rash, wounds Neurological: ABSENT: abnormal gait, abnormal speech, confusion, dizziness, focal weakness, syncope Psychiatric: ABSENT: anxiety, depression, homidical ideation, suicidal ideation Endocrine: ABSENT: cold intolerance, heat intolerance, menstrual abnormalities, polydipsia, polyuria Hematologic/Lymphatic: ABSENT: easy bleeding, easy bruising, lymphadenopathy Physical Exam Vital Signs: Temp Pulse Resp BP Pulse Ox 97.8 F 82 113/54 L 100 08/16/19 18:03 08/16/19 18:03 08/16/19 18:03 08/16/19 18:03 Intake & Output 08/15/19 08/16/19 08/17/19 06:59 06:59 06:59 Weight 87.5 kg General appearance: PRESENT: no acute distress Head exam: PRESENT: atraumatic, normocephalic Eye exam: PRESENT: PERRLA Ear exam: PRESENT: normal external ear exam Mouth exam: PRESENT: moist, tongue midline Neck exam: PRESENT: full ROM Cardiovascular exam: PRESENT: RRR, +S1, +S2 Vascular exam: PRESENT: normal capillary refill GI/Abdominal exam: PRESENT: normal bowel sounds, soft, other - Bilateral ne phrostomy tube Rectal exam: PRESENT: deferred Neurological exam: PRESENT: alert, CN II-XII grossly intact Psychiatric exam: PRESENT: appropriate affect, normal mood Skin exam: PRESENT: dry, intact, warm Results Laboratory Results: 08/16/19 19:18 08/16/19 19:18 08/16/19 08/16/19 08/16/19 19:18 19:18 20:05 WBC 4.2 RBC 3.56 L Hgb 8.9 L Hct 27.1 L MCV 76 L MCH 25.1 L MCHC 33.1 RDW 17.2 H Plt Count 219 Seg Neutrophils % 62.3 Sodium 135.7 L Potassium 3.2 L Chloride 100 Carbon Dioxide 27 Anion Gap 9 BUN 14 Creatinine 1.32 H Est GFR ( Amer) > 60 Glucose 201 H Calcium 8.4 Total Bilirubin 0.6 AST 13 L Alkaline Phosphatase 69 Total Protein 6.2 L Albumin 3.2 L Urine Color DARK YELLOW Urine Appearance TURBID Urine pH 8.0 Ur Specific [place] 1.010 Urine Protein >=500 H Urine Glucose (UA) NEGATIVE Urine Ketones NEGATIVE Urine Blood LARGE H Urine Nitrite NEGATIVE Ur Leukocyte Esterase LARGE H Urine WBC (Auto) >182 Urine RBC (Auto) >182 08/16/19 20:05 WBC RBC Hgb Hct MCV MCH MCHC RDW Plt Count Seg Neutrophils % Sodium Potassium Chloride Carbon Dioxide Anion Gap BUN Creatinine Est GFR ( Amer) Glucose Calcium Total Bilirubin AST Alkaline Phosphatase Total Protein Albumin Urine Color RED Urine Appearance CLOUDY Urine pH 7.0 Ur Specific [place] 1.011 Urine Protein 100 H Urine Glucose (UA) NEGATIVE Urine Ketones NEGATIVE Urine Blood LARGE H Urine Nitrite NEGATIVE Ur Leukocyte Esterase LARGE H Urine WBC (Auto) >182 Urine RBC (Auto) >182 Assessment & Plan - Diagnosis (1) Hematuria Qualifiers: Hematuria type: unspecified type Qualified Code(s): R31.9 - Hematuria, unspecified Is this a current diagnosis for this admission?: Yes (2) Anemia due to acute blood loss Is this a current diagnosis for this admission?: Yes
[2019-08-17] MEDS ORDERED: POTASSIUM CHLORIDE 20 MEQ PACKET PO ONE (08:41)
[2019-08-17] MEDS ORDERED: DEXTROSE 50%-WATER 25 GM/50 ML DISP.SYRIN IV PRN ×2 (08:45)
[2019-08-17] MEDS ORDERED: GLUCAGON,HUMAN RECOMB 1 MG INJ IM PRN (08:45)
[2019-08-17] MEDS ORDERED: DEXTROSE 40% GEL 15 GM TUBE PO PRN ×2 (08:45)
--- NOTE | 2019-08-17 09:53 | PDOC PROGRESS REPORT ---
Subjective Progress Note for:: 08/17/19 Subjective:: Patient was admitted directly from Dr. العلي for the hematuria on the right nephrostomy tubes Patient has a history of obstructive uropathy and status post bilateral nephrostomy tubes placed in the [facility] Patient's denied any abdominal pain no nausea no vomiting no fever no chills Reason For Visit: HEMATOMA Physical Exam Vital Signs: Temp Pulse Resp BP Pulse Ox 98.8 F 85 18 111/60 97 08/17/19 08:44 08/17/19 08:44 08/17/19 08:44 08/17/19 08:44 08/17/19 08:44 Intake & Output 08/16/19 08/17/19 08/18/19 06:59 06:59 06:59 Intake Total 191 Output Total 1105 Balance -914 Weight 89 kg General appearance: PRESENT: no acute distress, well-developed, well-nourished Head exam: PRESENT: atraumatic, normocephalic Eye exam: PRESENT: conjunctiva pink, EOMI, PERRLA. ABSENT: scleral icterus Ear exam: PRESENT: normal external ear exam Mouth exam: PRESENT: moist, tongue midline Neck exam: PRESENT: full ROM. ABSENT: carotid bruit, JVD, lymphadenopathy, thyromegaly Respiratory exam: PRESENT: clear to auscultation heather Cardiovascular exam: PRESENT: RRR. ABSENT: diastolic murmur, rubs, systolic murmur Pulses: PRESENT: normal dorsalis pedis pul, +2 pedal pulses bilateral Vascular exam: PRESENT: normal capillary refill GI/Abdominal exam: PRESENT: normal bowel sounds, soft. ABSENT: distended, guarding, mass, organolmegaly, rebound, tenderness Additonal comments: Right side of the nephrostomy tube is blood is present left-sided nephrostomy tube is no blood Rectal exam: PRESENT: deferred Neurological exam: PRESENT: alert, awake, oriented to person, oriented to place, oriented to time, oriented to situation, CN II-XII grossly intact. ABSENT: motor sensory deficit Psychiatric exam: PRESENT: appropriate affect, normal mood. ABSENT: homicidal ideation, suicidal ideation Skin exam: PRESENT: dry, intact, warm. ABSENT: cyanosis, rash Results Laboratory Results: 08/16/19 19:18 08/16/19 19:18 08/16/19 08/16/19 08/16/19 19:18 19:18 20:05 WBC 4.2 RBC 3.56 L Hgb 8.9 L Hct 27.1 L MCV 76 L MCH 25.1 L MCHC 33.1 RDW 17.2 H Plt Count 219 Seg Neutrophils % 62.3 Sodium 135.7 L Potassium 3.2 L Chloride 100 Carbon Dioxide 27 Anion Gap 9 BUN 14 Creatinine 1.32 H Est GFR ( Amer) > 60 Glucose 201 H Calcium 8.4 Total Bilirubin 0.6 AST 13 L Alkaline Phosphatase 69 Total Protein 6.2 L Albumin 3.2 L Urine Color DARK YELLOW Urine Appearance TURBID Urine pH 8.0 Ur Specific [place] 1.010 Urine Protein >=500 H Urine Glucose (UA) NEGATIVE Urine Ketones NEGATIVE Urine Blood LARGE H Urine Nitrite NEGATIVE Ur Leukocyte Esterase LARGE H Urine WBC (Auto) >182 Urine RBC (Auto) >182 08/16/19 20:05 WBC RBC Hgb Hct MCV MCH MCHC RDW Plt Count Seg Neutrophils % Sodium Potassium Chloride Carbon Dioxide Anion Gap BUN Creatinine Est GFR ( Amer) Glucose Calcium Total Bilirubin AST Alkaline Phosphatase Total Protein Albumin Urine Color RED Urine Appearance CLOUDY Urine pH 7.0 Ur Specific [place] 1.011 Urine Protein 100 H Urine Glucose (UA) NEGATIVE Urine Ketones NEGATIVE Urine Blood LARGE H Urine Nitrite NEGATIVE Ur Leukocyte Esterase LARGE H Urine WBC (Auto) >182 Urine RBC (Auto) >182 Assessment & Plan - Diagnosis (1) Anemia due to acute blood loss Is this a current diagnosis for this admission?: Yes Plan: Recheck the CBC need a blood transfusion if is less than 7 (2) Hematuria Qualifiers: Hematuria type: unspecified type Qualified Code(s): R31.9 - Hematuria, unspecified Is this a current diagnosis for this admission?: Yes Plan: Contact the patient's urology for further guidelines with the patient is to go back to the [facility] or not Urine culture Start the patient on IV Rocephin (3) Chronic atrial fibrillation Is this a current diagnosis for this admission?: Yes Plan: Currently hold the Eliquis due to the hematuria (4) Chronic diastolic heart failure Is this a current diagnosis for this admission?: Yes (5) Obstructive uropathy Is this a current diagnosis for this admission?: Yes Plan: Post bilateral nephropathy - Time Time Spent with patient: 15-24 minutes Medications reviewed and adjusted accordingly: Yes Anticipated discharge: Other Within: Other - Plan Summary Plan Summary: Will page the Dr. Reynolds patient's urologist wait for the response
[2019-08-17] MEDS ORDERED: (PENDING PHARMACY ID) (Silodosin [Rapaflo] 8 MG) PO SCH (10:00)
[2019-08-17] MEDS ORDERED: CARVEDILOL PHOSPHATE 40 MG PO SCH (10:00)
[2019-08-17] MEDS ORDERED: APIXABAN 2.5 MG TABLET PO SCH (10:00)
[2019-08-17 10:10] LABS: ABSOLUTE EOSINOPHILS # (AUTO) 0.1 10^3/uL (0.0-0.6); ABSOLUTE LYMPHOCYTES (AUTO) 0.9 10^3/uL (0.5-4.7); ABSOLUTE MONOCYTES (AUTO) 0.5 10^3/uL (0.1-1.4); ABSOLUTE NEUT (AUTO) 2.9 10^3/uL (1.7-8.2); BASOPHILS % (AUTO) 0.4 % (0-2); HEMATOCRIT 25.6 % (37.9-51.0); HEMOGLOBIN 8.5 g/dL (13.5-17.0); LYMPHOCYTES % (AUTO) 21.2 % (13-45); MEAN CORPUSCULAR HEMOGLOBIN 25.2 pg (27.0-33.4); MEAN CORPUSCULAR HGB CONC 33.4 g/dL (32.0-36.0); MEAN CORPUSCULAR VOLUME 76 fl (80-97); MONOCYTES % (AUTO) 11.4 % (3-13); PLATELET COUNT 215 10^3/uL (150-450); RED BLOOD COUNT 3.39 10^6/uL (4.35-5.55); RED CELL DISTRIBUTION WIDTH 17.1 % (11.5-14.0); TOTAL CELLS COUNTED % (AUTO) 100 %; WHITE BLOOD COUNT 4.5 10^3/uL (4.0-10.5)
[2019-08-17] MEDS: SITAGLIPTIN PHOSPHATE 50 MG TABLET PO SCH (10:26)
[2019-08-17] MEDS: LOSARTAN POTASSIUM 50 MG TABLET PO SCH (10:27)
[2019-08-17] MEDS: GABAPENTIN 300 MG CAPSULE PO SCH ×2 (10:27→21:44)
[2019-08-17] MEDS: TOLTERODINE TARTRATE 1 MG TABLET PO SCH ×2 (10:27→21:45)
[2019-08-17] MEDS: FINASTERIDE 5 MG TABLET PO SCH (10:27)
--- NOTE | 2019-08-17 10:36 | RADIOLOGY REPORT (SQ) ---
EXAM DESCRIPTION: CT ABD/PELVIS NO ORAL OR IV COMPLETED DATE/TIME: 08/16/2019 8:53 pm REASON FOR STUDY: pain R10.9 UNSPECIFIED ABDOMINAL PAIN COMPARISON: 04/28/2019. TECHNIQUE: CT scan of the abdomen and pelvis performed without intravenous or oral contrast. Images reviewed with lung, soft tissue, and bone windows. Reconstructed coronal and sagittal MPR images revi ewed. All images stored on PACS. All CT scanners at this facility use dose modulation, iterative reconstruction, and/or weight based d osing when appropriate to reduce radiation dose to as low as reasonably achievable (ALARA). [facility]: Dose Right [facility]: CareDose [facility]: Dose Right [facility]: Teradose 4D [facility]: Smart [employer] Systems RADIATION DOSE: CT Rad equipment meets quality standard of care and radiation dose reduction techniq ues were employed. CTDIvol: 10.3 mGy. DLP: 530 mGy-cm.mGy. LIMITATIONS: None. FINDINGS: LOWER CHEST: Chronic subpleural interstitial changes. NON-CONTRASTED LIVER, SPLEEN, ADRENALS: Liver: The liver demonstrates mild fatty infiltration. Sple en: Calcification along splenic capsule could represent old posttraumatic change. Adrenals: No abn ormality. PANCREAS: No masses. No peripancreatic inflammatory changes. GALLBLADDER: No identified stones by CT criteria. No inflammatory changes to suggest cholecystitis. RIGHT KIDNEY AND URETER: Right nephrostomy tube remains in good position. No hydronephrosis. LEFT KIDNEY AND URETER: Left nephrostomy tube remains in good position. No hydronephrosis. AORTA AND RETROPERITONEUM: No aneurysm. No retroperitoneal masses or adenopathy. BOWEL AND PERITONEAL CAVITY: Constipation. PELVIS, BLADDER, AND ABDOMINAL WALL:Prostate and seminal vesicles: Prostatomegaly. The prostate is i rregular in contour extending along the posterolateral wall of the bladder bilaterally. The possibil ity of prostate carcinoma would not be excluded. Clinical correlation needed. Urinary bladder: Thi ckened urinary bladder wall. The possibility of changes secondary to cystitis and/or muscular hypert rophy from bladder outlet obstruction not excluded. BONES: Lumbar spondylosis. Degenerative disc disease L4 -5. No blastic or lytic lesions seen. OTHER: Small nodes in region of the right common iliac and external iliac vessels. Umbilical hernia containing loop of small bowel. . IMPRESSION: 1. On comparison to the prior study of 04/28/2019, there is no significant change in andrea ed prostatomegaly with significant thickening of the bladder wall. The possibility of prostate carci noma or prostatitis not excluded. Thickening of bladder wall could be attributed to cystitis or musc ular hypertrophy secondary to bladder outlet obstruction. Status post bilateral nephrostomies. 2. Constipation. Small umbilical hernia containing loop of small bowel. COMMENT: Quality ID # [id number]: Final reports with documentation of one or more dose reduction techniques (e.g., Automated exposure control, adjustment of the mA and/or kV according to patient size, use of iterative reconstruction technique) TECHNICAL DOCUMENTATION: JOB ID: [id number] 2010 [employer]- All Rights Reserved Reading location - IP/workstation name: [email or web address]
[2019-08-17] MEDS: INSULIN LISPRO 100 UNIT/ML 3 ML VIAL SUBCUT SCH ×3 (11:28→21:47)
[2019-08-17] MEDS: CEFTRIAXONE 1 GM/D5W RTU 1 GM/50 ML RTUPB IV SCH (13:18)
[2019-08-17] MEDS: CARVEDILOL 12.5 MG TABLET PO SCH ×2 (14:30→21:45)
[2019-08-17] MEDS: NORMAL SALINE 1000 ML 1,000 ML IV PRN (16:04)
[2019-08-17] MEDS: MULTIVITAMIN TABLET PO SCH (16:47)
[2019-08-17] MEDS ORDERED: (PENDING PHARMACY ID) (Doxepin Hcl [Silenor] 6 MG) PO SCH (22:00)
[2019-08-18 05:28] LABS: ABSOLUTE EOSINOPHILS # (AUTO) 0.1 10^3/uL (0.0-0.6); ABSOLUTE LYMPHOCYTES (AUTO) 1.1 10^3/uL (0.5-4.7); ABSOLUTE MONOCYTES (AUTO) 0.5 10^3/uL (0.1-1.4); ABSOLUTE NEUT (AUTO) 3.1 10^3/uL (1.7-8.2); BASOPHILS % (AUTO) 0.5 % (0-2); EOSINOPHILS % (AUTO) 3.1 % (0-6); HEMATOCRIT 25.9 % (37.9-51.0); HEMOGLOBIN 8.6 g/dL (13.5-17.0); LYMPHOCYTES % (AUTO) 22.2 % (13-45); MEAN CORPUSCULAR HGB CONC 33.2 g/dL (32.0-36.0); MEAN CORPUSCULAR VOLUME 75 fl (80-97); MONOCYTES % (AUTO) 10.7 % (3-13); PLATELET COUNT 201 10^3/uL (150-450); RED BLOOD COUNT 3.45 10^6/uL (4.35-5.55); SEGMENTED NEUTROPHILS % (AUTO) 63.5 % (42-78); TOTAL CELLS COUNTED % (AUTO) 100 %; WHITE BLOOD COUNT 4.9 10^3/uL (4.0-10.5)
[2019-08-18 05:50] LABS: BLOOD UREA NITROGEN 12 mg/dL (7-20); CALCIUM 8.3 mg/dL (8.4-10.2); CARBON DIOXIDE 31 mmol/L (22-30); CHLORIDE 103 mmol/L (98-107); GLUCOSE 97 mg/dL (75-110); POTASSIUM 3.8 mmol/L (3.6-5.0)
[2019-08-18 05:54] LABS: ANION GAP 3 (5-19)
[2019-08-18] MEDS: INSULIN LISPRO 100 UNIT/ML 3 ML VIAL SUBCUT SCH ×4 (08:30→21:51)
--- NOTE | 2019-08-18 09:42 | PDOC PROGRESS REPORT ---
Subjective Progress Note for:: 08/18/19 Subjective:: Patient is currently doing fair Right nephrostomy tube still is blood is present Left is clear No fever no chills Patient was slight discomfort on the right side the flank area Patient is denied any chest pain no short of breath Patient's Eliquis currently hold as per discussed with the urologist at the [facility] yesterday Reason For Visit: HEMATOMA Physical Exam Vital Signs: Temp Pulse Resp BP Pulse Ox 98.4 F 84 16 122/68 96 08/18/19 08:10 08/18/19 08:10 08/18/19 08:10 08/18/19 08:10 08/18/19 08:10 Intake & Output 08/17/19 08/18/19 08/19/19 06:59 06:59 06:59 Intake Total 191 1790 Output Total 1105 1425 Balance -914 365 Weight 89 kg 88.1 kg General appearance: PRESENT: no acute distress, well-developed, well-nourished Head exam: PRESENT: atraumatic, normocephalic Eye exam: PRESENT: conjunctiva pink, EOMI, PERRLA. ABSENT: scleral icterus Ear exam: PRESENT: normal external ear exam Mouth exam: PRESENT: moist, tongue midline Neck exam: PRESENT: full ROM. ABSENT: carotid bruit, JVD, lymphadenopathy, thyromegaly Respiratory exam: PRESENT: clear to auscultation heather Cardiovascular exam: PRESENT: RRR. ABSENT: diastolic murmur, rubs, systolic murmur Pulses: PRESENT: normal dorsalis pedis pul, +2 pedal pulses bilateral Vascular exam: PRESENT: normal capillary refill GI/Abdominal exam: PRESENT: normal bowel sounds, soft. ABSENT: distended, guarding, mass, organolmegaly, rebound, tenderness Additonal comments: Right nephrostomy tube is still draining but some blood-tinged color and left nephrostomy tube is clear Rectal exam: PRESENT: deferred Neurological exam: PRESENT: alert, awake, oriented to person, oriented to place, oriented to time, oriented to situation, CN II-XII grossly intact. ABSENT: motor sensory deficit Psychiatric exam: PRESENT: appropriate affect, normal mood. ABSENT: homicidal ideation, suicidal ideation Skin exam: PRESENT: dry, intact, warm. ABSENT: cyanosis, rash Results Laboratory Results: 08/18/19 04:48 08/18/19 04:48 08/17/19 08/18/19 08/18/19 09:20 04:48 04:48 WBC 4.5 4.9 RBC 3.39 L 3.45 L Hgb 8.5 L 8.6 L Hct 25.6 L 25.9 L MCV 76 L 75 L MCH 25.2 L 25.0 L MCHC 33.4 33.2 RDW 17.1 H 17.0 H Plt Count 215 201 Seg Neutrophils % 64.0 63.5 Sodium 137.1 Potassium 3.8 Chloride 103 Carbon Dioxide 31 H Anion Gap 3 L BUN 12 Creatinine 1.31 H Est GFR ( Amer) > 60 Glucose 97 Calcium 8.3 L Impressions: Abdomen/Pelvis CT 08/16/19 18:28 IMPRESSION: 1. On comparison to the prior study of 04/28/2019, there is no significant change in marked prostatomegaly with significant thickening of the bladder wall. The possibility of prostate carcinoma or prostatitis not excluded. Thickening of bladder wall could be attributed to cystitis or muscular hypertrophy secondary to bladder outlet obstruction. Status post bilateral nephrostomies. 2. Constipation. Small umbilical hernia containing loop of small bowel. Assessment & Plan - Diagnosis (1) Anemia due to acute blood loss Is this a current diagnosis for this admission?: Yes (2) Hematuria Qualifiers: Hematuria type: unspecified type Qualified Code(s): R31.9 - Hematuria, unspecified Is this a current diagnosis for this admission?: Yes (3) Chronic atrial fibrillation Is this a current diagnosis for this admission?: Yes (4) Chronic diastolic heart failure Is this a current diagnosis for this admission?: Yes (5) Obstructive uropathy Is this a current diagnosis for this admission?: Yes - Time Time Spent with patient: 25-34 minutes Medications reviewed and adjusted accordingly: Yes Anticipated discharge: Other Within: Other - Plan Summary Plan Summary: Continues to IV antibiotics Patient's hemoglobin is still stable Continues to hold the Eliquis Wait for the culture May be reconsidered talk to the urologist tomorrow while the patient's regular urologist Dr. Reynolds comes and see further instructions from him
[2019-08-18] MEDS: LOSARTAN POTASSIUM 50 MG TABLET PO SCH (10:23)
[2019-08-18] MEDS: CARVEDILOL 12.5 MG TABLET PO SCH ×2 (10:23→21:50)
[2019-08-18] MEDS: TOLTERODINE TARTRATE 1 MG TABLET PO SCH ×2 (10:23→21:50)
[2019-08-18] MEDS: SITAGLIPTIN PHOSPHATE 50 MG TABLET PO SCH (10:23)
[2019-08-18] MEDS: FINASTERIDE 5 MG TABLET PO SCH (10:23)
[2019-08-18] MEDS: GABAPENTIN 300 MG CAPSULE PO SCH ×2 (10:23→21:50)
[2019-08-18] MEDS: CEFTRIAXONE 1 GM/D5W RTU 1 GM/50 ML RTUPB IV SCH (10:25)
[2019-08-18] MEDS: NORMAL SALINE 1000 ML 1,000 ML IV PRN (10:26)
[2019-08-18] MEDS: MULTIVITAMIN TABLET PO SCH (17:48)
[2019-08-19 06:22] LABS: ABSOLUTE EOSINOPHILS # (AUTO) 0.2 10^3/uL (0.0-0.6); ABSOLUTE MONOCYTES (AUTO) 0.5 10^3/uL (0.1-1.4); BASOPHILS % (AUTO) 0.5 % (0-2); EOSINOPHILS % (AUTO) 3.8 % (0-6); HEMATOCRIT 26.5 % (37.9-51.0); HEMOGLOBIN 8.9 g/dL (13.5-17.0); MEAN CORPUSCULAR HEMOGLOBIN 25.3 pg (27.0-33.4); MEAN CORPUSCULAR HGB CONC 33.7 g/dL (32.0-36.0); MEAN CORPUSCULAR VOLUME 75 fl (80-97); PLATELET COUNT 212 10^3/uL (150-450); RED BLOOD COUNT 3.53 10^6/uL (4.35-5.55); SEGMENTED NEUTROPHILS % (AUTO) 63.7 % (42-78); TOTAL CELLS COUNTED % (AUTO) 100 %; WHITE BLOOD COUNT 4.7 10^3/uL (4.0-10.5)
[2019-08-19 06:40] LABS: ANION GAP 9 (5-19); BLOOD UREA NITROGEN 14 mg/dL (7-20); CALCIUM 8.3 mg/dL (8.4-10.2); CARBON DIOXIDE 25 mmol/L (22-30); CHLORIDE 104 mmol/L (98-107); GLUCOSE 102 mg/dL (75-110)
[2019-08-19] MEDS: INSULIN LISPRO 100 UNIT/ML 3 ML VIAL SUBCUT SCH ×3 (08:39→17:00)
[2019-08-19] MEDS: NORMAL SALINE 1000 ML 1,000 ML IV PRN (08:40)
[2019-08-19] MEDS: SITAGLIPTIN PHOSPHATE 50 MG TABLET PO SCH (11:04)
[2019-08-19] MEDS: CARVEDILOL 12.5 MG TABLET PO SCH (11:04)
[2019-08-19] MEDS: GABAPENTIN 300 MG CAPSULE PO SCH (11:04)
[2019-08-19] MEDS: FINASTERIDE 5 MG TABLET PO SCH (11:05)
[2019-08-19] MEDS: LOSARTAN POTASSIUM 50 MG TABLET PO SCH (11:05)
[2019-08-19] MEDS: TOLTERODINE TARTRATE 1 MG TABLET PO SCH (11:06)
[2019-08-19] MEDS: CEFTRIAXONE 1 GM/D5W RTU 1 GM/50 ML RTUPB IV SCH (11:06)
[2019-08-19 16:55] VITALS: BP 136/62
[2019-08-19] MEDS: MULTIVITAMIN TABLET PO SCH (17:11)
--- NOTE | 2019-08-19 20:06 | PDOC DISCHARGE SUMMARY ---
General - Admit/Disc Date/PCP Admission Date/Primary Care Provider: 08/19/19 09:41 LEO GARCIA MD Discharge Date: 08/19/19 - Discharge Diagnosis (1) Hematuria Is this a current diagnosis for this admission?: Yes (2) Anemia due to acute blood loss Is this a current diagnosis for this admission?: Yes (3) UTI due to extended-spectrum beta lactamase (ESBL) producing Escherichia coli Is this a current diagnosis for this admission?: Yes (4) Chronic atrial fibrillation Is this a current diagnosis for this admission?: Yes (5) Obstructive uropathy Is this a current diagnosis for this admission?: Yes - Additional Information Prescriptions: RX: Nitrofurantoin Macrocrystal [Macrodantin] 100 mg PO BID #20 capsule Home Medications: RX: Carvedilol Phosphate [Coreg CR 40 mg Ext. Release Capsule] 40 mg PO DAILY 08/16/19 RX: Doxepin HCl [Silenor] 6 mg PO QHS 08/16/19 RX: Finasteride [Proscar 5 mg Tablet] 5 mg PO DAILY 08/16/19 RX: Gabapentin [Neurontin 300 mg Capsule] 300 mg PO Q12 08/16/19 RX: Losartan Potassium [Cozaar 50 mg Tablet] 50 mg PO DAILY 08/16/19 RX: Multivit,Tx with Iron,Minerals [Thera-M] 1 tab PO WSUPPER 08/16/19 RX: Oxycodone HCl 15 mg PO Q8HP PRN 08/16/19 RX: Sildenafil Citrate [Viagra] 100 mg PO ASDIR PRN 08/16/19 RX: Silodosin [Rapaflo] 8 mg PO DAILY 08/16/19 RX: Sitagliptin Phosphate [Januvia 50 mg Tablet] 50 mg PO DAILY 08/16/19 RX: Solifenacin Succinate [Vesicare] 5 mg PO DAILY 08/16/19 RX: Nitrofurantoin Macrocrystal [Macrodantin] 100 mg PO BID #20 capsule 08/19/19 History of Present Illness History of Present Illness: TRAVIS REYNOSO is a 78 year old male He has bilateral nephrostomy tube due to obstructive uropathy. He came to the office today for evaluation of hematuria, there was blood in the right nephrostomy tube bag. Patient was pale clinically on examination in the office I felt the patient may need blood transfusion ,he was admitted directly from the office to the hospital. The initial hemogram revealed hemoglobin of 8.9 Hospital Course Hospital Course: Patient was admitted for evaluation and management of hematuria, he has bilateral nephrostomy tube due to obstructive uropathy, he is scheduled for elective prostatectomy. A CT scan of the abdomen and pelvis without contrast was obtained, the right nephrostomy tube remains in good position there was no hydronephrosis, the left nephrostomy tube remains in good position there was no hydronephrosis. The urine culture grew ESBL E. coli, sensitive to nitrofurantoi n, he was initially on admission empirically treated with intravenous ceftriaxone.The urine culture grew both Pseudomonas and ESBL E. coli, the Pseudomonas was sensitive to ceftriaxone.Patient with a history of chronic atrial fibrillation, on anticoagulant with Eliquis, the Eliquis was held because of the hematuria. I saw patient today on the floor, he looks much better, he has anemia but he did not require blood transfusion, the hemoglobin was in the average of 8.9.Patient will be discharged home today to continue nitrofurantoin for 10 days Physical Exam Vital Signs: Temp Pulse Resp BP Pulse Ox 97.5 F 78 18 136/62 H 97 08/19/19 15:45 08/19/19 15:45 08/19/19 15:45 08/19/19 15:45 08/19/19 15:45 Intake & Output 08/18/19 08/19/19 08/20/19 06:59 06:59 06:59 Intake Total 1790 1808 1470 Output Total 1425 1350 750 Balance 365 458 720 Weight 88.1 kg 89 kg General appearance: PRESENT: no acute distress Head exam: PRESENT: atraumatic, normocephalic Eye exam: PRESENT: PERRLA Ear exam: PRESENT: normal external ear exam Neck exam: PRESENT: full ROM Respiratory exam: PRESENT: clear to auscultation heather Cardiovascular exam: PRESENT: RRR, +S1, +S2 Vascular exam: PRESENT: normal capillary refill GI/Abdominal exam: PRESENT: normal bowel sounds, soft Rectal exam: PRESENT: deferred Neurological exam: PRESENT: alert, CN II-XII grossly intact Psychiatric exam: PRESENT: appropriate affect, normal mood Skin exam: PRESENT: dry, intact, warm Results Laboratory Results: 08/19/19 05:49 08/19/19 05:49 08/19/19 08/19/19 05:49 05:49 WBC 4.7 RBC 3.53 L Hgb 8.9 L Hct 26.5 L MCV 75 L MCH 25.3 L MCHC 33.7 RDW 17.0 H Plt Count 212 Seg Neutrophils % 63.7 Sodium 138.1 Potassium 4.0 Chloride 104 Carbon Dioxide 25 Anion Gap 9 BUN 14 Creatinine 1.33 H Est GFR ( Amer) > 60 Glucose 102 Calcium 8.3 L 08/16/19 20:05 Nephrostomy - Both Urine Culture - Final Pseudomonas Aeruginosa Escherichia Coli Esbl Impressions: Abdomen/Pelvis CT 08/16/19 18:28 IMPRESSION: 1. On comparison to the prior study of 04/28/2019, there is no signi ficant change in marked prostatomegaly with significant thickening of the bladder wall. The possibility of prostate carcinoma or prostatitis not excluded. Thickening of bladder wall could be attributed to cystitis or muscular hypertrophy secondary to bladder outlet obstruction. Status post bilateral nephrostomies. 2. Constipation. Small umbilical hernia containing loop of small bowel. Qualifiers PATIENT BEING DISCHARGED WITH ANY OF THE FOLLOWING DIAGNOSIS: No VTE patient discharged on overlapping Therapy?: Yes Stroke Pt being discharged on Anti-thrombolytic therapy?: No Reason(s) for not prescribing Anti-thrombolytic therapy:: Not indicated Stroke Pt being discharged on Anti-coagulation therapy?: No Reason(s) for not prescribing Anti-coagulation therapy:: Not indicated Stroke Pt being discharged on Statins?: No Reason(s) for not prescribing Statins therapy:: Not indicated UT Pt being discharged on Aspirin therapy?: No Reason(s) for not prescribing Aspirin therapy:: Not indicated UT Pt being discharged on Statins?: No Reason(s) for not prescribing Statin therapy:: Not indicated UT Pt discharged ACEI/ARBS?: No Reason(s) for not prescribing ACEI/ARBS:: Not indicated Acute Heart Failure - Is this a Heart Failure Patient?: No Follow-up Appointment scheduled within 7 days?: Yes
== END 2019-08-19 18:41 | disposition home or self-care (01) | DRG 690 ==
LOC: 3W 17:36 → OBSVTOIN 08-19 09:41
PROVIDERS: ADMIT Internal Medicine; ATTEND Internal Medicine
DX: N39.0 Urinary tract infection, site not specified (principal); D62 Acute posthemorrhagic anemia; I50.32 Chronic diastolic (congestive) heart failure; I48.2 Chronic atrial fibrillation; I11.0 Hypertensive heart disease with heart failure; Z93.6 Other artificial openings of urinary tract status; B96.5 Pseudomonas (aeruginosa) (mallei) (pseudomallei) as the cause of diseases classified elsewhere; E11.9 Type 2 diabetes mellitus without complications; N13.9 Obstructive and reflux uropathy, unspecified; D64.9 Anemia, unspecified; R31.9 Hematuria, unspecified; B96.20 Unspecified Escherichia coli [E. coli] as the cause of diseases classified elsewhere; E78.5 Hyperlipidemia, unspecified; K21.9 Gastro-esophageal reflux disease without esophagitis; M19.90 Unspecified osteoarthritis, unspecified site; F43.10 Post-traumatic stress disorder, unspecified; Z79.01 Long term (current) use of anticoagulants; Z79.84 Long term (current) use of oral hypoglycemic drugs; Z88.8 Allergy status to other drugs, medicaments and biological substances
CPT/HCPCS: 36415; 74176; 80048; 80076; 81001; 82962; 85025; 87040; 87086; 87088; 87186; G0378; G0379; J0696; J1815; J3490; J7030

== ENCOUNTER 2019-09-11 08:31 | Outpatient (CLI) | payer MEDICARE, OTHER ==
[2019-09-11 11:03] LABS: HEMATOCRIT 24.5 % (37.9-51.0); HEMOGLOBIN 8.2 g/dL (13.5-17.0); MEAN CORPUSCULAR HEMOGLOBIN 25.4 pg (27.0-33.4); MEAN CORPUSCULAR HGB CONC 33.4 g/dL (32.0-36.0); MEAN CORPUSCULAR VOLUME 76 fl (80-97); PLATELET COUNT 257 10^3/uL (150-450); RED BLOOD COUNT 3.23 10^6/uL (4.35-5.55); RED CELL DISTRIBUTION WIDTH 17.4 % (11.5-14.0); WHITE BLOOD COUNT 5.7 10^3/uL (4.0-10.5)
[2019-09-11 16:11] VITALS: BP 134/58
[2019-09-11] MEDS ORDERED: TOLTERODINE TARTRATE 1 MG TABLET PO ONE (17:30)
[2019-09-11] MEDS ORDERED: SITAGLIPTIN PHOSPHATE 50 MG TABLET PO ONE (17:30)
[2019-09-11] MEDS ORDERED: GABAPENTIN 300 MG CAPSULE PO ONE (17:30)
[2019-09-11] MEDS ORDERED: FINASTERIDE 5 MG TABLET PO ONE (17:30)
[2019-09-11 18:09] LABS: HEMATOCRIT 27.2 % (37.9-51.0); HEMOGLOBIN 9.3 g/dL (13.5-17.0); MEAN CORPUSCULAR HEMOGLOBIN 26.2 pg (27.0-33.4); MEAN CORPUSCULAR HGB CONC 34.1 g/dL (32.0-36.0); MEAN CORPUSCULAR VOLUME 77 fl (80-97); PLATELET COUNT 241 10^3/uL (150-450); RED BLOOD COUNT 3.53 10^6/uL (4.35-5.55); RED CELL DISTRIBUTION WIDTH 17.9 % (11.5-14.0); WHITE BLOOD COUNT 5.8 10^3/uL (4.0-10.5)
== END 2019-09-11 19:45 ==
LOC: II 08:31 → 2S 08:38 → II 19:45
PROVIDERS: ATTEND Internal Medicine
PROC: 30233N1 Transfusion of Nonautologous Red Blood Cells into Peripheral Vein, Percutaneous Approach (ICD-10-PCS; principal; 2019-09-11)
DX: D64.9 Anemia, unspecified (principal)
CPT/HCPCS: 86900; 86901; 36415; 36430; 86850; 85027; 86920; P9016; A9270 ×4

== ENCOUNTER → 2019-10-06 | Outpatient (CLI) | payer MEDICARE, OTHER ==
--- NOTE | 2019-10-07 10:30 | RADIOLOGY REPORT (SQ) ---
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 RADIONUCLIDE AND DOSE: 10 mCi F18 FDG The route of agent administration: Intravenous FASTING BLOOD SUGAR: 89 mg/dl CONTRAST TYPE AND DOSE: No CT contrast given. TECHNIQUE: Blood glucose level was verified. Above dose of FDG was injected intravenously. 2-D seg mented attenuation correction images were obtained from the base of the skull to the midthighs. Nonc ontrast CT images were obtained for attenuation correction and fusion with emission images. CT image s were performed without oral or intravenous contrast and are not sensitive for parenchymal lesions. A series of overlapping emission PET images were obtained. Images reviewed and manipulated at [facility] work station by the radiologist. Images stored on PACS. LIMITATIONS: None. FINDINGS: HEAD AND NECK: No areas of abnormal metabolic activity in the soft tissues of the head and neck. CHEST: No areas of abnormal metabolic activity in the chest. ABDOMEN AND PELVIS: No areas of abnormal metabolic activity in the abdomen or pelvis. There is gener ally diffuse activity in the prostate with mean SUV 3.56. Expected physiologic activity is present i n the genitourinary system and bowel. PROXIMAL LOWER EXTREMITIES: No areas of abnormal metabolic activity in the soft tissues of the lower extremities. BONES: There is a focal sclerotic lesion in the right iliac bone adjacent to the sacroiliac joint (ax ial series 3, image 159). This has increased in size when compared to previous CT scans (08/16/2019, 04/28/2019, 03/14/2019, and 10/22/2018). Mean SUV 3.64. No other abnormal metabolic activity in the vi sualized skeleton. ADDITIONAL CT FINDINGS: Bilateral nephrostomy tubes. No additional significant findings on the nonco ntrast CT images. OTHER: Background blood pool activity mean SUV 1.89. Background liver activity mean SUV 1.63. No ot her significant findings. IMPRESSION: 1. FOCAL SCLEROTIC LESION IN THE RIGHT ILIAC BONE DESCRIBED WHICH HAS PROGRESSED FROM PRIOR CT SCA NS. CONCERNING FOR METASTATIC LESION. NO OTHER SIGNIFICANT BONY FINDINGS. 2. GENERAL DIFFUSE INCREASED ACTIVITY IN THE PROSTATE, NONSPECIFIC. 3. THE REMAINDER OF THE PET SCAN IS OTHERWISE UNREMARKABLE. NO OTHER AREAS OF ABNORMAL ACTIVITY. TECHNICAL DOCUMENTATION: JOB ID: [id number]- All Rights Reserved Reading location - IP/workstation name: [email or web address]
== END ==
LOC: RAD 16:45
DX: C61 Malignant neoplasm of prostate (principal)
CPT/HCPCS: 78815; A9552

== ENCOUNTER 2019-10-23 12:52 | Emergency (ER) | payer MEDICARE, OTHER ==
[2019-10-23 13:00] VITALS: BP 149/71
--- NOTE | 2019-10-23 13:03 | ER Document Report ---
HPI - HPI Patient complains to provider of: de access port Time Seen by Provider: 10/23/19 12:57 Onset: Yesterday Quality of pain: No pain Severity: None Context: Patient presents for removal of Rand needle. Patient had a port recently placed and accessed. Patient did have his port heparinized yesterday although the staff failed to the access the device. Patient was sent here per the cancer center at [facility]. Associated Symptoms: None Exacerbated by: Denies Relieved by: Denies Similar symptoms previously: No Recently seen / treated by doctor: Yes - ROS ROS below otherwise negative: Yes Systems Reviewed and Negative: Yes All other systems reviewed and negative - CONSTITUTIONAL Constitutional: DENIES: Fever, Chills - CARDIOVASCULAR Cardiovascular: DENIES: Chest pain - REPRODUCTIVE Reproductive: DENIES: : - DERM Skin Color: Normal Skin Problems: None Past Medical History - General Information source: Patient - Social History Smoking Status: Never Smoker Frequency of alcohol use: None Drug Abuse: None Occupation: Retired Family History: Reviewed & Not Pertinent - Past Medical History Cardiac Medical History: Reports: Hx Atrial Fibrillation, Hx Hyperchole sterolemia, Hx Hypertension, Hx Heart Murmur Pulmonary Medical History: Reports: Hx Bronchitis Neurological Medical History: Denies: Hx Parkinson's Disease Endocrine Medical History: Reports: Hx Diabetes Mellitus Type 2 Renal/ Medical History: Reports: Hx Benign Prostatic Hyperplasia. Denies: Hx Peritoneal Dialysis Malignancy Medical History: Reports Hx Prostate Cancer GI Medical History: Reports: Hx Gastroesophageal Reflux Disease Musculoskeletal Medical History: Reports Hx Arthritis, Denies Hx Systemic Lupus Erythematosus Psychiatric Medical History: Reports: Hx Depression, Hx Post Traumatic Stress Disorder Infectious Medical History: Denies: Hx HIV Past Surgical History: Reports: Hx Kidney (Renal Surgery) - Immunizations Immunizations up to date: Yes Hx Diphtheria, Pertussis, Tetanus Vaccination: Yes Vertical Provider Document - CONSTITUTIONAL Agree With Documented VS: Yes Exam Limitations: No Limitations General Appearance: WD/WN, No Apparent Distress - INFECTION CONTROL TRAVEL OUTSIDE OF THE [place] IN LAST 30 DAYS: No - HEENT HEENT: Atraumatic, Normocephalic - NECK Neck: Normal Inspection - RESPIRATORY Respiratory: No Respiratory Distress - GI/ABDOMEN Gastrointestinal: Abdomen Soft - MUSCULOSKELETAL/EXTREMETIES Musculoskeletal/Extremeties: MAEW - NEURO Level of Consciousness: Awake, Alert, Appropriate - DERM Integumentary: Warm Notes: Patient with a port that is accessed with a Rand needle with Tegaderm dressing in place. Course - Re-evaluation Re-evalutation: 10/23/19 13:11 MARISSA Kamara spoke with the cancer coordinator at [facility] who states that patient did have his port heparinized yesterday and all he requires is the needle to be removed today. No additional flush is recommended at this time. - Vital Signs Vital signs: Temp Pulse Resp BP Pulse Ox 98 F 86 16 149/71 H 100 10/23/19 12:59 10/23/19 12:59 10/23/19 12:59 10/23/19 12:59 10/23/19 12:59 Discharge - Discharge Clinical Impression: Encounter to deaess implanted intravenous (IV) port Condition: Stable Disposition: HOME, SELF-CARE Additional Instructions: Return immediately for any new or worsening symptoms Followup with your primary care provider, call tomorrow to make a followup appointment Referrals: KINSEY PICKETT MD [NO LOCAL MD] - Follow up as needed
== END 2019-10-23 13:25 | disposition home or self-care (01) ==
LOC: ER 12:52
DX: Z45.2 Encounter for adjustment and management of vascular access device (principal); I10 Essential (primary) hypertension; E11.9 Type 2 diabetes mellitus without complications
CPT/HCPCS: 99283

== ENCOUNTER 2019-11-08 08:38 | Inpatient (IN) | payer MEDICARE, OTHER ==
[2019-11-08 09:31] LABS: VENOUS BLOOD BASE EXCESS 1.8 mmol/L; VENOUS BLOOD HCO3 25.9 mmol/L (20-32); VENOUS BLOOD PCO2 38.4 mmHg (35-63); VENOUS BLOOD PH 7.45 (7.30-7.42)
[2019-11-08 09:37] LABS: ABSOLUTE LYMPHOCYTES (AUTO) 0.4 10^3/uL (0.5-4.7); ABSOLUTE MONOCYTES (AUTO) 0.1 10^3/uL (0.1-1.4); ABSOLUTE NEUT (AUTO) 0.4 10^3/uL (1.7-8.2); BASOPHILS % (AUTO) 0.4 % (0-2); EOSINOPHILS % (AUTO) 0.5 % (0-6); HEMATOCRIT 23.6 % (37.9-51.0); LYMPHOCYTES % (AUTO) 44.9 % (13-45); MEAN CORPUSCULAR HEMOGLOBIN 26.7 pg (27.0-33.4); MEAN CORPUSCULAR HGB CONC 33.8 g/dL (32.0-36.0); MEAN CORPUSCULAR VOLUME 79 fl (80-97); MONOCYTES % (AUTO) 11.4 % (3-13); RED BLOOD COUNT 2.98 10^6/uL (4.35-5.55); RED CELL DISTRIBUTION WIDTH 17.8 % (11.5-14.0); SEGMENTED NEUTROPHILS % (AUTO) 42.8 % (42-78); TOTAL CELLS COUNTED % (AUTO) 100 %
[2019-11-08 09:39] LABS: INTERNATIONAL RATION (INR) 1.46; PROTHROMBIN TIME 17.9 SEC (11.4-15.4)
[2019-11-08 09:59] LABS: PLATELET COUNT 54 10^3/uL (150-450)
[2019-11-08 10:07] LABS: ALBUMIN 3.4 g/dL (3.5-5.0); ALKALINE PHOSPHATASE 105 U/L (38-126); ANION GAP 9 (5-19); ASPARTATE AMINO TRANSFERASE 22 U/L (17-59); BILIRUBIN,DIRECT 0.4 mg/dL (0.0-0.4); BILIRUBIN,TOTAL 1.2 mg/dL (0.2-1.3); BLOOD UREA NITROGEN 29 mg/dL (7-20); CALCIUM 8.6 mg/dL (8.4-10.2); CARBON DIOXIDE 24 mmol/L (22-30); CHLORIDE 102 mmol/L (98-107); GLUCOSE 160 mg/dL (75-110); POTASSIUM 3.5 mmol/L (3.6-5.0); TOTAL PROTEIN 6.6 g/dL (6.3-8.2)
[2019-11-08 10:16] LABS: ANISOCYTOSIS 1+; OVALOCYTES 1+; POLYCHROMASIA SLIGHT
[2019-11-08 10:20] LABS: PLATELET COMMENT DECREASED
[2019-11-08] MEDS ORDERED: RINGERS SOLUTION,LACTATED 1,000 ML IV PRN (10:26)
[2019-11-08] MEDS ORDERED: RINGERS SOLUTION,LACTATED 1,000 ML IV ONE ×2 (10:26→20:15)
[2019-11-08] MEDS ORDERED: ACETAMINOPHEN 325 MG TABLET PO ONE (10:26)
[2019-11-08 10:28] LABS: WHITE BLOOD COUNT 0.9 10^3/uL (4.0-10.5)
[2019-11-08] MEDS ORDERED: CEFEPIME 2 GM/D5W RTU 2 GM/50 ML RTUPB IV SCH ×2 (10:30→15:30)
[2019-11-08] MEDS ORDERED: VANCOMYCIN HCL INJ 1000 MG VIAL IV ONE (10:30)
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
[2019-11-08 10:47] LABS: CREATINE KINASE 76 U/L (55-170)
[2019-11-08 10:49] LABS: SALICYLATE < 1.0 mg/dL (2.0-20.0)
[2019-11-08 10:51] LABS: AMORPHOUS SEDIMENT,URINE TRACE /HPF; APPEARANCE,URINE SLIGHTLY-CLOUDY; BILIRUBIN,URINE NEGATIVE (NEGATIVE); COLOR,URINE YELLOW; GLUCOSE, URINE NEGATIVE (NEGATIVE); KETONES,URINE NEGATIVE (NEGATIVE); LEUKOCYTE ESTERASE,URINE MODERATE (NEGATIVE); NITRITE,URINE NEGATIVE (NEGATIVE); PROTEIN,URINE 100 mg/dL (NEGATIVE); URINE SPECIFIC GRAVITY 1.011
[2019-11-08 10:52] LABS: APPEARANCE,URINE SLIGHTLY-CLOUDY; BILIRUBIN,URINE NEGATIVE (NEGATIVE); COLOR,URINE YELLOW; GLUCOSE, URINE NEGATIVE (NEGATIVE); KETONES,URINE NEGATIVE (NEGATIVE); LEUKOCYTE ESTERASE,URINE LARGE (NEGATIVE); NITRITE,URINE NEGATIVE (NEGATIVE); PROTEIN,URINE 100 mg/dL (NEGATIVE)
--- NOTE | 2019-11-08 10:52 | RADIOLOGY REPORT (SQ) ---
EXAM DESCRIPTION: CT HEAD WITHOUT COMPLETED DATE/TIME: 11/08/2019 10:44 am REASON FOR STUDY: Altered mental status COMPARISON: 11/08/2019 TECHNIQUE: Axial images acquired through the brain without intravenous contrast. Images reviewed wi th bone, brain and subdural windows. Additional sagittal and coronal reconstructions were generated. Images stored on PACS. All CT scanners at this facility use dose modulation, iterative reconstruction, and/or weight based d osing when appropriate to reduce radiation dose to as low as reasonably achievable (ALARA). [facility]: Dose Right [facility]: CareDose [facility]: Dose Right [facility]: Teradose 4D [facility]: Liquid5 RADIATION DOSE: CT Rad equipment meets quality standard of care and radiation dose reduction techniq ues were employed. CTDIvol: 53.2 mGy. DLP: 1017 mGy-cm.mGy. LIMITATIONS: None. FINDINGS: VENTRICLES: Prominent. CEREBRUM: No masses. No hemorrhage. No midline shift. Areas of low density in the white matter mos t likely due to chronic micro-vascular ischemic change. No evidence for acute infarction. 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 CEREBELLUM: No masses. No hemorrhage. No alteration of density. No evidence for acute infarction. EXTRAAXIAL SPACES: Age-related involutional change. No fluid collections. No masses. ORBITS AND GLOBE: No intra- or extraconal masses. Normal contour of globe without masses. CALVARIUM: No fracture. PARANASAL SINUSES: No fluid or mucosal thickening. SOFT TISSUES: No mass or hematoma. OTHER: No other significant finding. IMPRESSION: CHRONIC CHANGES OF ATROPHY AND MICROVASCULAR ISCHEMIA. NO ACUTE PROCESS. EVIDENCE OF ACUTE STROKE: NO. TECHNICAL DOCUMENTATION: JOB ID: [id number] Quality ID # [id number]: Final reports with documentation of one or more dose reduction techniques (e.g., Au tomated exposure control, adjustment of the mA and/or kV according to patient size, use of iterative reconstruction technique) 2010 [employer]- All Rights Reserved Reading location - IP/workstation name: [email or web address]
--- NOTE | 2019-11-08 10:55 | RADIOLOGY REPORT (SQ) ---
EXAM DESCRIPTION: CHEST SINGLE VIEW COMPLETED DATE/TIME: 11/08/2019 10:48 am REASON FOR STUDY: Fever COMPARISON: 04/28/2019 EXAM PARAMETERS: NUMBER OF VIEWS: One view. TECHNIQUE: Single frontal radiographic view of the chest acquired. RADIATION DOSE: NA LIMITATIONS: None. FINDINGS: LUNGS AND PLEURA: No opacities, masses or pneumothorax. No pleural effusion. MEDIASTINUM AND HILAR STRUCTURES: No masses. Contour normal. HEART AND VASCULAR STRUCTURES: Heart normal in size. Normal vasculature. BONES: No acute findings. HARDWARE: [id number] is in place. OTHER: No other significant finding. IMPRESSION: NO ACUTE RADIOGRAPHIC FINDING IN THE CHEST. TECHNICAL DOCUMENTATION: JOB ID: [id number] [employer]- All Rights Reserved Reading location - IP/workstation name: [email or web address]
[2019-11-08] MEDS ORDERED: ENOXAPARIN SODIUM INJ 40 MG/0.4 ML DISP.SYRIN SUBCUT SCH (15:00)
[2019-11-08] MEDS ORDERED: VANCOMYCIN HCL 0 MG in DEXTROSE 5%-WATER 250 ML IV NR (15:15)
[2019-11-08 16:08] LABS: PROTHROMBIN TIME 19.2 SEC (11.4-15.4)
[2019-11-08 16:09] LABS: PARTIAL THROMBOPLASTIN TIME 42.8 SEC (23.5-35.8)
[2019-11-08] MEDS: OXYCODONE-ACETAMINOPHEN 5-325 MG TABLET PO PRN (16:22)
[2019-11-08 16:31] LABS: CREATINE KINASE MB 1.82 ng/mL (<4.55); TROPONIN I 0.033 ng/mL
[2019-11-08 16:34] LABS: FREE T4 (FREE THYROXINE) 0.94 ng/dL (0.78-2.19)
[2019-11-08 16:48] LABS: THYROID STIMULATING HORMONE 0.61 uIU/mL (0.47-4.68)
[2019-11-08 17:25] LABS: APPEARANCE,URINE SLIGHTLY-CLOUDY; BILIRUBIN,URINE NEGATIVE (NEGATIVE); COLOR,URINE YELLOW; GLUCOSE, URINE NEGATIVE (NEGATIVE); KETONES,URINE TRACE mg/dL (NEGATIVE); LEUKOCYTE ESTERASE,URINE MODERATE (NEGATIVE); NITRITE,URINE NEGATIVE (NEGATIVE); PROTEIN,URINE 100 mg/dL (NEGATIVE); URINE SPECIFIC GRAVITY 1.011; UROBILINOGEN,URINE NEGATIVE mg/dL (<2.0)
[2019-11-08] MEDS ORDERED: (PENDING PHARMACY ID) (Lidocaine/Prilocaine [Emla Cream] 1 APPLIC) TOP PRN (17:35)
[2019-11-08] MEDS ORDERED: CARVEDILOL PHOSPHATE 40 MG PO SCH (17:45)
[2019-11-08] MEDS ORDERED: (PENDING PHARMACY ID) (Solifenacin Succinate [Vesicare] 5 MG) PO SCH (17:45)
[2019-11-08] MEDS ORDERED: (PENDING PHARMACY ID) (Losartan/Hydrochlorothiazide [Losartan-Hctz 50-12.5 Mg Tab] 1 TAB) PO SCH (17:45)
[2019-11-08] MEDS ORDERED: OXYCODONE HCL IR 5 MG TABLET PO PRN (17:57)
[2019-11-08] MEDS ORDERED: APIXABAN 2.5 MG TABLET PO SCH (18:45)
[2019-11-08 19:19] LABS: AMYLASE 56 U/L (30-110); ANION GAP 10 (5-19); BLOOD UREA NITROGEN 28 mg/dL (7-20); CALCIUM 8.5 mg/dL (8.4-10.2); CARBON DIOXIDE 25 mmol/L (22-30); CHLORIDE 100 mmol/L (98-107); GLUCOSE 135 mg/dL (75-110); PHOSPHORUS 3.9 mg/dL (2.5-4.5); POTASSIUM 3.6 mmol/L (3.6-5.0)
[2019-11-08] MEDS: CARVEDILOL 12.5 MG TABLET PO SCH (19:25)
[2019-11-08] MEDS: LOSARTAN POTASSIUM 50 MG TABLET PO SCH (19:25)
[2019-11-08] MEDS: HYDROCHLOROTHIAZIDE 12.5 MG TABLET PO SCH (19:25)
[2019-11-08] MEDS: MULTIVITAMIN TABLET PO SCH (19:26)
[2019-11-08] MEDS: RINGERS SOLUTION,LACTATED 1,000 ML IV PRN (19:26)
[2019-11-08] MEDS: FINASTERIDE 5 MG TABLET PO SCH (19:26)
[2019-11-08] MEDS: TOLTERODINE TARTRATE 1 MG TABLET PO SCH (19:26)
[2019-11-08] MEDS: ALLOPURINOL 300 MG TABLET PO SCH (19:26)
[2019-11-08] MEDS: GABAPENTIN 300 MG CAPSULE PO SCH (19:26)
[2019-11-08] MEDS: TAMSULOSIN HCL 0.4 MG CAP.SR.24H PO SCH (19:26)
[2019-11-08] MEDS ORDERED: ACETAMINOPHEN 325 MG TABLET PO PRN (19:44)
--- NOTE | 2019-11-08 20:02 | PDOC H&P ---
History of Present Illness Admission Date/PCP: 11/08/19 12:45 LEO GARCIA MD History of Present Illness: TRAVIS REYNOSO is a 79 year old male, He has a history of stage IV prostate cancer on active chemotherapy, last chemotherapy was last week he goes to [facility] oncology, history of obstructive uropathy with bilateral nephrostomy tube, he was brought to the emergency room for evaluation of altered mental status, he was found to be hypotensive, febrile,. The hemogram demonstrated absolute neutropenia, 400, I saw patient on the floor, he is very stuporous, difficult to arouse.He was found to be hypotensive when he arrived in the ER, the recorded blood pressure was 79 /48, he was treated with IV fluid therapy. Past Medical History Cardiac Medical History: Reports: Atrial Fibrillation, Hyperlipidema, Hypertensi on, Heart Murmur Pulmonary Medical History: Reports: Bronchitis Endocrine Medical History: Reports: Diabetes Mellitus Type 2 GI Medical History: Reports: Gastroesophageal Reflux Disease Musculoskeltal Medical History: Reports: Arthritis Psychiatric Medical History: Reports: Depression, Post Traumatic Stress Disorder Hematology: Reports: Anemia Social History Smoking Status: Former Smoker Electronic Cigarette use?: No Frequency of Alcohol Use: None Hx Recreational Drug Use: No Drugs: None Hx Prescription Drug Abuse: Yes Family History Family History: Reviewed & Not Pertinent Parental Family History Reviewed: Yes Children Family History Reviewed: Yes Sibling(s) Family History Reviewed.: Yes Medication/Allergy Home Medications: Carvedilol Phosphate [Coreg CR 40 mg Ext. Release Capsule] 40 mg PO DAILY 08/16/19 Gabapentin [Neurontin 300 mg Capsule] 300 mg PO Q12 08/16/19 Oxycodone HCl 15 mg PO Q8HP PRN 08/16/19 Sildenafil Citrate [Viagra] 100 mg PO ASDIR PRN 08/16/19 Solifenacin Succinate [Vesicare] 5 mg PO DAILY 08/16/19 Allopurinol [Zyloprim 300 mg Tablet] 300 mg PO DAILY 11/08/19 Apixaban [Eliquis 2.5 mg Tablet] 2.5 mg PO BID 11/08/19 Aspirin [Ecotrin 81 mg EC Tablet] 81 mg PO DAILY 11/08/19 Doxepin HCl [Sinequan 10 Mg Capsule] 10 mg PO QHS 11/08/19 Finasteride [Proscar 5 mg Tablet] 5 mg PO DAILY 11/08/19 Lidocaine/Prilocaine [Emla Cream] 1 applic TP ASDIR PRN 11/08/19 Losartan/Hydrochlorothiazide [Losartan-Hctz 50-12.5 mg Tab] 1 tab PO DAILY 11/08/19 Multivitamin [Tab-A-Tree (Multiple Vitamin) Tablet] 1 tab PO DAILY 11/08/19 Pravastatin Sodium 40 mg PO QHS 11/08/19 Tamsulosin HCl [Flomax 0.4 mg Cap.sr] 0.4 mg PO DAILY 11/08/19 Allergies/Adverse Reactions: lisinopril [Lisinopril] Adverse Reaction (Unknown, Verified 10/23/19 12:58) Ctrosqp-Jgd-Lbb Reductase Inhibitor Adverse Reaction (Unknown, Verified 10/23/19 12:58) Review of Systems ROS unobtainable: Due to mental status Constitutional: PRESENT: chills, fatigue, fever(s) Respiratory: ABSENT: as per HPI, cough, dyspnea, hemoptysis, sputum, other Genitourinary: ABSENT: dysuria, hematuria Musculoskeletal: ABSENT: joint swelling Integumentary: ABSENT: rash, wounds Hematologic/Lymphatic: ABSENT: easy bleeding, easy bruising, lymphadenopathy Physical Exam Vital Signs: Temp Pulse Resp BP Pulse Ox 98.4 F 73 18 104/51 L 100 11/08/19 14:20 11/08/19 14:21 11/08/19 14:20 11/08/19 14:20 11/08/19 14:20 Intake & Output 11/07/19 11/08/19 11/09/19 06:59 06:59 06:59 Intake Total 1290 Output Total 600 Balance 690 Weight 87.7 kg General appearance: PRESENT: no acute distress Head exam: PRESENT: atraumatic, normocephalic Eye exam: PRESENT: PERRLA Ear exam: PRESENT: normal external ear exam Neck exam: PRESENT: full ROM Respiratory exam: PRESENT: clear to auscultation heather Cardiovascular exam: PRESENT: RRR, +S1, +S2 Vascular exam: PRESENT: normal capillary refill GI/Abdominal exam: PRESENT: normal bowel sounds, soft Rectal exam: PRESENT: deferred Neurological exam: PRESENT: other - Stuporous difficulty arousing Skin exam: PRESENT: dry, intact, warm Results Laboratory Results: 11/08/19 09:10 11/08/19 15:30 11/08/19 11/08/19 11/08/19 09:10 09:10 09:10 WBC 0.9 L* RBC 2.98 L Hgb 8.0 L Hct 23.6 L MCV 79 L MCH 26.7 L MCHC 33.8 RDW 17.8 H Plt Count 54 L Seg Neutrophils % 42.8 VBG pH 7.45 H VBG pCO2 38.4 VBG HCO3 25.9 VBG Base Excess 1.8 Sodium 135.4 L Potassium 3.5 L Chloride 102 Carbon Dioxide 24 Anion Gap 9 BUN 29 H Creatinine 1.54 H Est GFR ( Amer) 53 L Glucose 160 H Calcium 8.6 Phosphorus Magnesium Total Bilirubin 1.2 AST 22 Alkaline Phosphatase 105 Ammonia Total Protein 6.6 Albumin 3.4 L Amylase Lipase TSH Free T4 Urine Color Urine Appearance Urine pH Ur Specific [place] Urine Protein Urine Glucose (UA) Urine Ketones Urine Blood Urine Nitrite Ur Leukocyte Esterase Urine WBC (Auto) Urine RBC (Auto) 11/08/19 11/08/19 11/08/19 09:55 10:21 15:30 WBC RBC Hgb Hct MCV MCH MCHC RDW Plt Count Seg Neutrophils % VBG pH VBG pCO2 VBG HCO3 VBG Base Excess Sodium 134.9 L Potassium 3.6 Chloride 100 Carbon Dioxide 25 Anion Gap 10 BUN 28 H Creatinine 1.52 H Est GFR ( Amer) 54 L Glucose 135 H Calcium 8.5 Phosphorus 3.9 Magnesium 1.6 Total Bilirubin AST Alkaline Phosphatase Ammonia Total Protein Albumin Amylase 56 Lipase 49.2 TSH Free T4 Urine Color YELLOW YELLOW Urine Appearance SLIGHTLY-CLOUDY SLIGHTLY-CLOUDY Urine pH 8.0 6.0 Ur Specific [place] 1.010 1.011 Urine Protein 100 H 100 H Urine Glucose (UA) NEGATIVE NEGATIVE Urine Ketones NEGATIVE NEGATIVE Urine Blood SMALL H LARGE H Urine Nitrite NEGATIVE NEGATIVE Ur Leukocyte Esterase LARGE H MODERATE H Urine WBC (Auto) 40 45 Urine RBC (Auto) 28 >182 11/08/19 11/08/19 11/08/19 15:30 15:30 16:28 WBC RBC Hgb Hct MCV MCH MCHC RDW Plt Count Seg Neutrophils % VBG pH VBG pCO2 VBG HCO3 VBG Base Excess Sodium Potassium Chloride Carbon Dioxide Anion Gap BUN Creatinine Est GFR ( Amer) Glucose Calcium Phosphorus Magnesium Total Bilirubin AST Alkaline Phosphatase Ammonia < 8.7 L Total Protein Albumin Amylase Lipase TSH 0.61 Free T4 0.94 Urine Color YELLOW Urine Appearance SLIGHTLY-CLOUDY Urine pH 6.0 Ur Specific [place] 1.011 Urine Protein 100 H Urine Glucose (UA) NEGATIVE Urine Ketones TRACE H Urine Blood LARGE H Urine Nitrite NEGATIVE Ur Leukocyte Esterase MODERATE H Urine WBC (Auto) 51 Urine RBC (Auto) 24 11/08/19 11/08/19 11/08/19 09:10 15:30 15:30 Creatine Kinase 76 107 CK-MB (CK-2) Troponin I NT-Pro-B Natriuret Pep 8200 H 11/08/19 15:30 Creatine Kinase CK-MB (CK-2) 1.82 Troponin I 0.033 NT-Pro-B Natriuret Pep Impressions: Chest X-Ray 11/08/19 10:25 IMPRESSION: NO ACUTE RADIOGRAPHIC FINDING IN THE CHEST. Head CT 11/08/19 10:25 IMPRESSION: CHRONIC CHANGES OF ATROPHY AND MICROVASCULAR ISCHEMIA. NO ACUTE PROCESS. EVIDENCE OF ACUTE STROKE: NO. Assessment & Plan - Diagnosis (1) Neutropenic fever Is this a current diagnosis for this admission?: Yes Plan: He has neutropenic fever, the potential etiology, urinary tract infection, the chest x-ray is negative, he has bilateral nephrostomy tube.He will be treated empirically with IV antibiotic, cefepime and vancomycin this combination will cover a broad spectrum of bacteria including gram-negative organisms, gram- positive organisms, MRSA (2) Hypotension Qualifiers: Hypotension type: other hypotension type Qualified Code(s): I95.89 - Other hypotension Is this a current diagnosis for this admission?: Yes Plan: The blood pressure was responsive to fluid challenge, maintenance fluid therapy will continue with Ringer's lactate (3) Adenocarcinoma of prostate, stage 4 Is this a current diagnosis for this admission?: Yes Plan: He has stage IV prostate cancer he had chemotherapy last Monday couple of days ago, he has bone mets (4) Obstructive uropathy Is this a current diagnosis for this admission?: Yes Plan: He has obstructive uropathy secondary to enlarged prostate gland (5) Acute kidney injury Is this a current diagnosis for this admission?: Yes (6) Metabolic encephalopathy Is this a current diagnosis for this admission?: Yes
[2019-11-08] MEDS: CEFEPIME HCL 2 GM in DEXTROSE 5%-WATER 50 ML IV SCH (21:31)
[2019-11-08] MEDS: ATORVASTATIN CALCIUM 10 MG TABLET PO SCH (21:31)
[2019-11-08] MEDS: DOXEPIN HCL 10 MG CAPSULE PO SCH (21:31)
--- NOTE | 2019-11-08 21:37 | EKG REPORT ---
SEVERITY:- ABNORMAL ECG - ATRIAL FIBRILLATION, V-RATE 72-127 LEFT AXIS DEVIATION BORDERLINE PROLONGED QT INTERVAL : Confirmed by: Wally Hensley MD 08-Nov-2019 21:36:42
[2019-11-08] MEDS ORDERED: (PENDING PHARMACY ID) (Pravastatin Sodium [Pravastatin Sodium] 40 MG) PO SCH (22:00)
[2019-11-08 22:32] LABS: CREATINE KINASE MB 1.1 ng/mL (<4.55); TROPONIN I 0.035 ng/mL
[2019-11-09] MEDS: OXYCODONE-ACETAMINOPHEN 5-325 MG TABLET PO PRN ×3 (03:46→21:20)
[2019-11-09 04:01] LABS: CREATINE KINASE MB 1.35 ng/mL (<4.55); TROPONIN I 0.029 ng/mL
[2019-11-09 04:40] LABS: HEMATOCRIT 20.6 % (37.9-51.0); MEAN CORPUSCULAR HEMOGLOBIN 26.6 pg (27.0-33.4); MEAN CORPUSCULAR HGB CONC 33.7 g/dL (32.0-36.0); MEAN CORPUSCULAR VOLUME 79 fl (80-97); RED BLOOD COUNT 2.61 10^6/uL (4.35-5.55); RED CELL DISTRIBUTION WIDTH 18.2 % (11.5-14.0)
[2019-11-09 04:48] LABS: ALBUMIN 2.8 g/dL (3.5-5.0); ALKALINE PHOSPHATASE 85 U/L (38-126); ASPARTATE AMINO TRANSFERASE 24 U/L (17-59); BILIRUBIN,DIRECT 0.4 mg/dL (0.0-0.4); CHOLESTEROL 92.57 mg/dL (0-200); TOTAL PROTEIN 5.6 g/dL (6.3-8.2); TRIGLYCERIDES 72 mg/dL (<150)
[2019-11-09 04:57] LABS: HEMOGLOBIN 6.9 g/dL (13.5-17.0)
[2019-11-09 04:58] LABS: PLATELET COUNT 39 10^3/uL (150-450); WHITE BLOOD COUNT 1.6 10^3/uL (4.0-10.5)
[2019-11-09 05:00] LABS: DIRECT LDL 33 mg/dL (<100)
[2019-11-09 05:09] LABS: ABSOLUTE LYMPHOCYTES# (MANUAL) 0.7 10^3/uL (0.5-4.7); ABSOLUTE MONOCYTES # (MANUAL) 0.1 10^3/uL (0.1-1.4); BAND NEUTROPHILS % (MANUAL) 8 % (3-5); BASOPHILS % (MANUAL) 0 % (0-2); EOSINOPHILS % (MANUAL) 0 % (0-6); LYMPHOCYTES % (MANUAL) 42 % (13-45); MONOCYTES % (MANUAL) 6 % (3-13); SEGMENTED NEUTROPHILS % (MAN) 44 % (42-78); TOTAL CELLS COUNTED 50
[2019-11-09 05:12] LABS: ANISOCYTOSIS 1+; HYPOCHROMASIA 2+; PLATELET COMMENT DECREASED
[2019-11-09] MEDS: CARVEDILOL 12.5 MG TABLET PO SCH ×2 (05:21→17:08)
[2019-11-09] MEDS: TOLTERODINE TARTRATE 1 MG TABLET PO SCH ×2 (05:25→17:11)
[2019-11-09] MEDS: GABAPENTIN 300 MG CAPSULE PO SCH ×2 (05:25→17:11)
[2019-11-09] MEDS: RINGERS SOLUTION,LACTATED 1,000 ML IV PRN (05:25)
--- NOTE | 2019-11-09 09:56 | PDOC PROGRESS REPORT ---
Subjective Progress Note for:: 11/09/19 Subjective:: Patient was admitted because of the hypotension's neutropenic fever and septicemia patient's was giving the 1 L bolus yesterday last night and patient is currently on LR 150 blood pressure is holding about 90 patient is more alert awake oriented today Patient hemoglobin is 6.9 platelet count is low Patient does have a stage IV cancer with obstructive uropathy status post nephrostomy tubes currently active chemotherapy per [facility] Patient is denied any chest pain no short of breath Patient was on Eliquis today we will order currently hold it due to the low platelet count and low hemoglobin Reason For Visit: BRONCHITIS,UTI,HYPOTENSION,STAGE 4 CA, Physical Exam Vital Signs: Temp Pulse Resp BP Pulse Ox 98.4 F 108 H 18 90/51 L 99 11/09/19 07:17 11/09/19 07:17 11/09/19 07:17 11/09/19 07:17 11/09/19 07:17 Intake & Output 11/08/19 11/09/19 11/10/19 06:59 06:59 06:59 Intake Total 4670 Output Total 1500 Balance 3170 Weight 95.4 kg General appearance: PRESENT: no acute distress, well-developed, well-nourished Head exam: PRESENT: atraumatic, normocephalic Eye exam: PRESENT: conjunctiva pink, EOMI, PERRLA. ABSENT: scleral icterus Ear exam: PRESENT: normal external ear exam Mouth exam: PRESENT: moist, tongue midline Neck exam: PRESENT: full ROM. ABSENT: carotid bruit, JVD, lymphadenopathy, thyromegaly Respiratory exam: PRESENT: clear to auscultation heather Cardiovascular exam: PRESENT: RRR. ABSENT: diastolic murmur, rubs, systolic murmur Vascular exam: PRESENT: normal capillary refill GI/Abdominal exam: PRESENT: normal bowel sounds, soft. ABSENT: distended, guarding, mass, organolmegaly, rebound, tenderness Additonal comments: Nephrostomy tube is working Rectal exam: PRESENT: deferred Neurological exam: PRESENT: alert, awake, oriented to person, oriented to place, oriented to time, oriented to situation, CN II-XII grossly intact. ABSENT: motor sensory deficit Psychiatric exam: PRESENT: appropriate affect, normal mood. ABSENT: homicidal i deation, suicidal ideation Skin exam: PRESENT: dry, intact, warm. ABSENT: cyanosis, rash Results Laboratory Results: 11/09/19 04:00 11/08/19 15:30 11/08/19 11/08/19 11/08/19 09:10 09:10 09:55 WBC 0.9 L* RBC 2.98 L Hgb 8.0 L Hct 23.6 L MCV 79 L MCH 26.7 L MCHC 33.8 RDW 17.8 H Plt Count 54 L Seg Neutrophils % 42.8 Sodium 135.4 L Potassium 3.5 L Chloride 102 Carbon Dioxide 24 Anion Gap 9 BUN 29 H Creatinine 1.54 H Est GFR ( Amer) 53 L Glucose 160 H Calcium 8.6 Phosphorus Magnesium Total Bilirubin 1.2 AST 22 Alkaline Phosphatase 105 Ammonia Total Protein 6.6 Albumin 3.4 L Triglycerides Cholesterol LDL Cholesterol Direct VLDL Cholesterol HDL Cholesterol Amylase Lipase TSH Free T4 Urine Color YELLOW Urine Appearance SLIGHTLY-CLOUDY Urine pH 8.0 Ur Specific [place] 1.010 Urine Protein 100 H Urine Glucose (UA) NEGATIVE Urine Ketones NEGATIVE Urine Blood SMALL H Urine Nitrite NEGATIVE Ur Leukocyte Esterase LARGE H Urine WBC (Auto) 40 Urine RBC (Auto) 28 11/08/19 11/08/19 11/08/19 10:21 15:30 15:30 WBC RBC Hgb Hct MCV MCH MCHC RDW Plt Count Seg Neutrophils % Sodium 134.9 L Potassium 3.6 Chloride 100 Carbon Dioxide 25 Anion Gap 10 BUN 28 H Creatinine 1.52 H Est GFR ( Amer) 54 L Glucose 135 H Calcium 8.5 Phosphorus 3.9 Magnesium 1.6 Total Bilirubin AST Alkaline Phosphatase Ammonia < 8.7 L Total Protein Albumin Triglycerides Cholesterol LDL Cholesterol Direct VLDL Cholesterol HDL Cholesterol Amylase 56 Lipase 49.2 TSH Free T4 Urine Color YELLOW Urine Appearance SLIGHTLY-CLOUDY Urine pH 6.0 Ur Specific [place] 1.011 Urine Protein 100 H Urine Glucose (UA) NEGATIVE Urine Ketones NEGATIVE Urine Blood LARGE H Urine Nitrite NEGATIVE Ur Leukocyte Esterase MODERATE H Urine WBC (Auto) 45 Urine RBC (Auto) >182 11/08/19 11/08/19 11/09/19 15:30 16:28 04:00 WBC 1.6 L RBC 2.61 L Hgb 6.9 L Hct 20.6 L MCV 79 L MCH 26.6 L MCHC 33.7 RDW 18.2 H Plt Count 39 L Seg Neutrophils % Not Reportable Sodium Potassium Chloride Carbon Dioxide Anion Gap BUN Creatinine Est GFR ( Amer) Glucose Calcium Phosphorus Magnesium Total Bilirubin AST Alkaline Phosphatase Ammonia Total Protein Albumin Triglycerides Cholesterol LDL Cholesterol Direct VLDL Cholesterol HDL Cholesterol Amylase Lipase TSH 0.61 Free T4 0.94 Urine Color YELLOW Urine Appearance SLIGHTLY-CLOUDY Urine pH 6.0 Ur Specific [place] 1.011 Urine Protein 100 H Urine Glucose (UA) NEGATIVE Urine Ketones TRACE H Urine Blood LARGE H Urine Nitrite NEGATIVE Ur Leukocyte Esterase MODERATE H Urine WBC (Auto) 51 Urine RBC (Auto) 24 11/09/19 04:00 WBC RBC Hgb Hct MCV MCH MCHC RDW Plt Count Seg Neutrophils % Sodium Potassium Chloride Carbon Dioxide Anion Gap BUN Creatinine Est GFR ( Amer) Glucose Calcium Phosphorus Magnesium Total Bilirubin 1.0 AST 24 Alkaline Phosphatase 85 Ammonia Total Protein 5.6 L Albumin 2.8 L Triglycerides 72 Cholesterol 92.57 LDL Cholesterol Direct 33 VLDL Cholesterol 14.0 HDL Cholesterol 35 L Amylase Lipase TSH Free T4 Urine Color Urine Appearance Urine pH Ur Specific [place] Urine Protein Urine Glucose (UA) Urine Ketones Urine Blood Urine Nitrite Ur Leukocyte Esterase Urine WBC (Auto) Urine RBC (Auto) 11/08/19 11/08/19 11/08/19 09:10 15:30 15:30 Creatine Kinase 76 107 CK-MB (CK-2) Troponin I NT-Pro-B Natriuret Pep 8200 H 11/08/19 11/08/19 11/08/19 15:30 21:28 21:28 Creatine Kinase 151 CK-MB (CK-2) 1.82 1.10 Troponin I 0.033 0.035 NT-Pro-B Natriuret Pep 11/09/19 11/09/19 03:25 03:25 Creatine Kinase 176 H CK-MB (CK-2) 1.35 Troponin I 0.029 NT-Pro-B Natriuret Pep Impressions: Chest X-Ray 11/08/19 10:25 IMPRESSION: NO ACUTE RADIOGRAPHIC FINDING IN THE CHEST. Head CT 11/08/19 10:25 IMPRESSION: CHRONIC CHANGES OF ATROPHY AND MICROVASCULAR ISCHEMIA. NO ACUTE PROCESS. EVIDENCE OF ACUTE STROKE: NO. Assessment & Plan - Diagnosis (1) Hypotension Qualifiers: Hypotension type: other hypotension type Qualified Code(s): I95.89 - Other hypotension Is this a current diagnosis for this admission?: Yes Plan: Most likely due to the septicemia currently continues IV fluid broad-spectrum antibiotics if is going down will be put in ICU for the pressure (2) Acute kidney injury Is this a current diagnosis for this admission?: Yes Plan: To the hypotension's septic (3) Adenocarcinoma of prostate, stage 4 Is this a current diagnosis for this admission?: Yes Plan: Currently follow with the [facility] oncology (4) Metabolic encephalopathy Is this a current diagnosis for this admission?: Yes Plan: Cheryl all improving (5) Neutropenic fever Is this a current diagnosis for this admission?: Yes Plan: Continues IV antibiotics broad-spectrum (6) Obstructive uropathy Is this a current diagnosis for this admission?: Yes Plan: Status post nephrostomy tubes (7) Pancytopenia Is this a current diagnosis for this admission?: Yes Plan: Consult the oncology patient's primary require blood transfusions due to the hypotension's due to the active chemotherapy (8) Sepsis associated hypotension Is this a current diagnosis for this admission?: Yes Plan: Continues the IV antibiotics and IV fluid - Time Time Spent with patient: 25-34 minutes Level of Care: IMCU Medications reviewed and adjusted accordingly: Yes Anticipated discharge: Other Within: Other - Plan Summary Plan Summary: Extensive discussions with the patient's currently with the overall conditions will discuss with the patient's family nobody here right now about this poor prognosis we continues the broad-spectrum IV antibiotics IV fluid and also c onsult the oncology
[2019-11-09] MEDS ORDERED: NORMAL SALINE 250 ML IV PRN ×2 (10:23)
[2019-11-09] MEDS: TAMSULOSIN HCL 0.4 MG CAP.SR.24H PO SCH (10:53)
[2019-11-09] MEDS: LOSARTAN POTASSIUM 50 MG TABLET PO SCH (10:53)
[2019-11-09] MEDS: HYDROCHLOROTHIAZIDE 12.5 MG TABLET PO SCH (10:53)
[2019-11-09] MEDS: CEFEPIME HCL 2 GM in DEXTROSE 5%-WATER 50 ML IV SCH ×2 (10:53→21:16)
[2019-11-09] MEDS: ALLOPURINOL 300 MG TABLET PO SCH (10:53)
[2019-11-09] MEDS: MULTIVITAMIN TABLET PO SCH (10:53)
[2019-11-09] MEDS: FINASTERIDE 5 MG TABLET PO SCH (10:53)
--- NOTE | 2019-11-09 11:18 | PDOC CONSULTATION ---
Consultation Consult Date: 11/09/19 Attending physician:: CHARLENE MARTINEZ Provider Consulted: KYLAH BANUELOS Consult reason:: Patient with recently diagnosed prostate cancer, hydronephrosis, here with sepsis History of Present Illness Admission Date/PCP: 11/08/19 12:45 LEO GARCIA MD Patient complains of: Confusion, weakness, dizziness History of Present Illness: TRAVIS REYNOSO is a 79 year old male with known history of stage IV prostate cancer, primarily has been followed in [place]. It appears that he presented earlier this year with recurrent obstructive uropathy, with bilateral hydronephrosis and ultimately was transferred to [place] in March. At that time his PSA had risen to the 10 range. We do not have the records from [place] but per history he was diagnosed there with stage IV prostate cancer. However on multiple CT abdomen pelvis imaging here there did not seem to be evidence of bone metastasis. However no bone scan was done locally. The patient himself was unsure about the stage IV diagnosis but he is accompanied by a family member at bedside who did go to the most recent appointment with Dr. Martin Milton of the [place] [facility] program, and he was explicitly told that he does have stage IV disease. 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 Multiple brain imaging recently has not shown any evidence of disease in the brain. But the patient does not seem to remember much. Regardless, he just was started on his first cycle of probable Taxotere chemotherapy just last week. He presents with weakness, hypotension, tachycardia, fever. Blood cultures thus far has indicated GPC's in 1 of 2 blood cultures. He is on cefepime and vancomycin appropriately. His hemoglobin is fallen down to 6.9 and platelet count is fallen down to 39 consistent with the pancytopenia probably from the prostate cancer, treatment and sepsis, probable DIC also. Past Medical History Cardiac Medical History: Reports: Atrial Fibrillation, Hyperlipidema, Hypertension, Heart Murmur Pulmonary Medical History: Reports: Bronchitis Endocrine Medical History: Reports: Diabetes Mellitus Type 2 Malignancy Medical History: Reports: Other - Prostate cancer, stage IV GI Medical History: Reports: Gastroesophageal Reflux Disease Musculoskeltal Medical History: Reports: Arthritis Psychiatric Medical History: Reports: Depression, Post Traumatic Stress Disorder Hematology: Reports: Anemia Infectious Medical History: Denies: HIV Past Surgical History Past Surgical History: Reports: Other - Prostate biopsy, port placement Social History Information Source: Patient, Relative Smoking Status: Former Smoker Electronic Cigarette use?: No Frequency of Alcohol Use: None Hx Recreational Drug Use: No Drugs: None Hx Prescription Drug Abuse: Yes - Advance Directive Resuscitation Status: Full Code Family History Family History: Reviewed & Not Pertinent Parental Family History Reviewed: Yes Children Family History Reviewed: Yes Sibling(s) Family History Reviewed.: Yes Medication/Allergy Home Medications: Carvedilol Phosphate [Coreg CR 40 mg Ext. Release Capsule] 40 mg PO DAILY 08/16/19 Gabapentin [Neurontin 300 mg Capsule] 300 mg PO Q12 08/16/19 Oxycodone HCl 15 mg PO Q8HP PRN 08/16/19 Sildenafil Citrate [Viagra] 100 mg PO ASDIR PRN 08/16/19 Solifenacin Succinate [Vesicare] 5 mg PO DAILY 08/16/19 Allopurinol [Zyloprim 300 mg Tablet] 300 mg PO DAILY 11/08/19 Apixaban [Eliquis 2.5 mg Tablet] 2.5 mg PO BID 11/08/19 Aspirin [Ecotrin 81 mg EC Tablet] 81 mg PO DAILY 11/08/19 Doxepin HCl [Sinequan 10 Mg Capsule] 10 mg PO QHS 11/08/19 Finasteride [Proscar 5 mg Tablet] 5 mg PO DAILY 11/08/19 Lidocaine/Prilocaine [Emla Cream] 1 applic TP ASDIR PRN 11/08/19 Losartan/Hydrochlorothiazide [Losartan-Hctz 50-12.5 mg Tab] 1 tab PO DAILY 11/08/19 Multivitamin [Tab-A-Tree (Multiple Vitamin) Tablet] 1 tab PO DAILY 11/08/19 Pravastatin Sodium 40 mg PO QHS 11/08/19 Tamsulosin HCl [Flomax 0.4 mg Cap.sr] 0.4 mg PO DAILY 11/08/19 Allergies/Adverse Reactions: lisinopril [Lisinopril] Adverse Reaction (Unknown, Verified 10/23/19 12:58) [id number]-[id number] Reductase Inhibitor Adverse Reaction (Unknown, Verified 10/23/19 12:58) Review of Systems Constitutional: ABSENT: chills, fever(s), headache(s), weight gain, weight loss Eyes: ABSENT: visual disturbances Ears: ABSENT: hearing changes Cardiovascular: ABSENT: chest pain, dyspnea on exertion, edema, orthropnea, palpitations Respiratory: ABSENT: cough, hemoptysis Gastrointestinal: ABSENT: abdominal pain, constipation, diarrhea, hematemesis, hematochezia, nausea, vomiting Genitourinary: ABSENT: dysuria, hematuria Musculoskeletal: ABSENT: joint swelling Integumentary: ABSENT: rash, wounds Neurological: ABSENT: abnormal gait, abnormal speech, confusion, dizziness, focal weakness, syncope Psychiatric: ABSENT: anxiety, depression, homidical ideation, suicidal ideation Endocrine: ABSENT: cold intolerance, heat intolerance, polydipsia, polyuria Hematologic/Lymphatic: ABSENT: easy bleeding, easy bruising Physical Exam Vital Signs: Temp Pulse Resp BP Pulse Ox 98.4 F 108 H 18 90/51 L 99 11/09/19 07:17 11/09/19 07:17 11/09/19 07:17 11/09/19 07:17 11/09/19 07:17 Intake & Output 11/08/19 11/09/19 11/10/19 06:59 06:59 06:59 Intake Total 4670 Output Total 1500 Balance 3170 Weight 95.4 kg General appearance: PRESENT: no acute distress, well-developed, well-nourished Head exam: PRESENT: atraumatic, normocephalic Eye exam: PRESENT: conjunctiva pink, EOMI, PERRLA. ABSENT: scleral icterus Ear exam: PRESENT: normal external ear exam Mouth exam: PRESENT: moist, tongue midline Neck exam: ABSENT: carotid bruit, JVD, lymphadenopathy, thyromegaly Respiratory exam: PRESENT: clear to auscultation heather. ABSENT: rales, rhonchi, wheezes Cardiovascular exam: PRESENT: RRR. ABSENT: diastolic murmur, rubs, systolic murmur Pulses: PRESENT: normal dorsalis pedis pul Vascular exam: PRESENT: normal capillary refill GI/Abdominal exam: PRESENT: normal bowel sounds, soft. ABSENT: distended, gua rding, mass, organolmegaly, rebound, tenderness Rectal exam: PRESENT: deferred Extremities exam: PRESENT: full ROM. ABSENT: calf tenderness, clubbing, pedal edema Neurological exam: PRESENT: alert, awake, oriented to person, oriented to place, oriented to time, oriented to situation, CN II-XII grossly intact. ABSENT: harvey r sensory deficit Psychiatric exam: PRESENT: appropriate affect, normal mood. ABSENT: homicidal ideation, suicidal ideation Skin exam: PRESENT: dry, intact, warm. ABSENT: cyanosis, rash Results Laboratory Results: 11/09/19 04:00 11/08/19 15:30 11/08/19 11/08/19 11/08/19 15:30 15:30 15:30 WBC RBC Hgb Hct MCV MCH MCHC RDW Plt Count Seg Neutrophils % Sodium 134.9 L Potassium 3.6 Chloride 100 Carbon Dioxide 25 Anion Gap 10 BUN 28 H Creatinine 1.52 H Est GFR ( Amer) 54 L Glucose 135 H Calcium 8.5 Phosphorus 3.9 Magnesium 1.6 Total Bilirubin AST Alkaline Phosphatase Ammonia < 8.7 L Total Protein Albumin Triglycerides Cholesterol LDL Cholesterol Direct VLDL Cholesterol HDL Cholesterol Amylase 56 Lipase 49.2 TSH 0.61 Free T4 0.94 Urine Color Urine Appearance Urine pH Ur Specific [place] Urine Protein Urine Glucose (UA) Urine Ketones Urine Blood Urine Nitrite Ur Leukocyte Esterase Urine WBC (Auto) Urine RBC (Auto) 11/08/19 11/09/19 11/09/19 16:28 04:00 04:00 WBC 1.6 L RBC 2.61 L Hgb 6.9 L Hct 20.6 L MCV 79 L MCH 26.6 L MCHC 33.7 RDW 18.2 H Plt Count 39 L Seg Neutrophils % Not Reportable Sodium Potassium Chloride Carbon Dioxide Anion Gap BUN Creatinine Est GFR ( Amer) Glucose Calcium Phosphorus Magnesium Total Bilirubin 1.0 AST 24 Alkaline Phosphatase 85 Ammonia Total Protein 5.6 L Albumin 2.8 L Triglycerides 72 Cholesterol 92.57 LDL Cholesterol Direct 33 VLDL Cholesterol 14.0 HDL Cholesterol 35 L Amylase Lipase TSH Free T4 Urine Color YELLOW Urine Appearance SLIGHTLY-CLOUDY Urine pH 6.0 Ur Specific [place] 1.011 Urine Protein 100 H Urine Glucose (UA) NEGATIVE Urine Ketones TRACE H Urine Blood LARGE H Urine Nitrite NEGATIVE Ur Leukocyte Esterase MODERATE H Urine WBC (Auto) 51 Urine RBC (Auto) 24 11/08/19 11/08/19 11/08/19 09:10 15:30 15:30 Creatine Kinase 76 107 CK-MB (CK-2) Troponin I NT-Pro-B Natriuret Pep 8200 H 11/08/19 11/08/19 11/08/19 15:30 21:28 21:28 Creatine Kinase 151 CK-MB (CK-2) 1.82 1.10 Troponin I 0.033 0.035 NT-Pro-B Natriuret Pep 11/09/19 11/09/19 03:25 03:25 Creatine Kinase 176 H CK-MB (CK-2) 1.35 Troponin I 0.029 NT-Pro-B Natriuret Pep Impressions: Chest X-Ray 11/08/19 10:25 IMPRESSION: NO ACUTE RADIOGRAPHIC FINDING IN THE CHEST. Head CT 11/08/19 10:25 IMPRESSION: CHRONIC CHANGES OF ATROPHY AND MICROVASCULAR ISCHEMIA. NO ACUTE PROCESS. EVIDENCE OF ACUTE STROKE: NO. Assessment & Plan - Diagnosis (1) Adenocarcinoma of prostate, stage 4 Is this a current diagnosis for this admission?: Yes Plan: Stage IV prostate cancer, patient was actually going to be seeing us this upcoming week because his oncologist in [place] was going to have us give him fluids in office. We will get further records. I will communicate with his oncologist as well. (2) Pancytopenia Is this a current diagnosis for this admission?: Yes Plan: Related both to the presentation of sepsis as well as the prostate cancer as well as the chemotherapy, agree with 2 units of packed red blood cell today, he is not actively bleeding so hold on transfusion of platelets unless platelet falls below 15. He probably did get Neulasta in [place]. So hold on growth factor support for now. (3) Sepsis Qualifiers: Sepsis type: sepsis due to unspecified organism Sepsis acute organ dysfunction status: with acute organ dysfunction Severe sepsis acute organ dysfunction type: encephalopathy Severe sepsis shock status: without septic shock Qualified Code(s): A41.9 - Sepsis, unspecified organism; R65.20 - Severe sepsis without septic shock; G93.40 - Encephalopathy, unspecified Is this a current diagnosis for this admission?: Yes Plan: Sepsis, patient is on appropriate IV antibiotics, appropriate fluid rehydration. - Time Time Spent: Greater than 70 Minutes - Inpatient Certification Based on my medical assessment, after consideration of the patient's comorbidities, presenting symptoms, or acuity I expect that the services needed warrant INPATIENT care.: Yes I certify that my determination is in accordance with my understanding of Medicare's requirements for reasonable and necessary INPATIENT services [42 CFR 412.3e].: Yes Medical Necessity: Need For IV Fluids, Need For Continuous Telemetry Monitoring, Need for IV Antibiotics, Risk of Complication if Not Cared For in Hospital
[2019-11-09] MEDS: VANCOMYCIN HCL 1,500 MG in DEXTROSE 5%-WATER 250 ML IV SCH (11:42)
[2019-11-09] MEDS: NORMAL SALINE 1000 ML 1,000 ML IV PRN (20:30)
[2019-11-09] MEDS: ATORVASTATIN CALCIUM 10 MG TABLET PO SCH (21:16)
[2019-11-09] MEDS: DOXEPIN HCL 10 MG CAPSULE PO SCH (21:17)
[2019-11-09 22:02] LABS: HEMATOCRIT 25.7 % (37.9-51.0); HEMOGLOBIN 8.8 g/dL (13.5-17.0); MEAN CORPUSCULAR HEMOGLOBIN 27.7 pg (27.0-33.4); MEAN CORPUSCULAR HGB CONC 34.3 g/dL (32.0-36.0); MEAN CORPUSCULAR VOLUME 81 fl (80-97); RED BLOOD COUNT 3.19 10^6/uL (4.35-5.55); RED CELL DISTRIBUTION WIDTH 17.6 % (11.5-14.0); WHITE BLOOD COUNT 3.2 10^3/uL (4.0-10.5)
[2019-11-09 22:04] LABS: PLATELET COUNT 38 10^3/uL (150-450)
[2019-11-10] MEDS: CARVEDILOL 12.5 MG TABLET PO SCH ×2 (05:39→17:15)
[2019-11-10] MEDS: TOLTERODINE TARTRATE 1 MG TABLET PO SCH ×2 (05:41→17:19)
[2019-11-10] MEDS: GABAPENTIN 300 MG CAPSULE PO SCH ×2 (05:41→17:19)
[2019-11-10] MEDS: NORMAL SALINE 1000 ML 1,000 ML IV PRN (06:13)
[2019-11-10 06:37] LABS: HEMATOCRIT 24.6 % (37.9-51.0); HEMOGLOBIN 8.4 g/dL (13.5-17.0); MEAN CORPUSCULAR HEMOGLOBIN 27.4 pg (27.0-33.4); MEAN CORPUSCULAR HGB CONC 34.3 g/dL (32.0-36.0); MEAN CORPUSCULAR VOLUME 80 fl (80-97); RED BLOOD COUNT 3.07 10^6/uL (4.35-5.55); RED CELL DISTRIBUTION WIDTH 17.3 % (11.5-14.0); WHITE BLOOD COUNT 4.1 10^3/uL (4.0-10.5)
[2019-11-10 06:40] LABS: PLATELET COUNT 41 10^3/uL (150-450)
[2019-11-10 06:46] LABS: ALBUMIN 2.6 g/dL (3.5-5.0); ALKALINE PHOSPHATASE 94 U/L (38-126); ANION GAP 6 (5-19); ASPARTATE AMINO TRANSFERASE 25 U/L (17-59); BILIRUBIN,DIRECT 0.4 mg/dL (0.0-0.4); BILIRUBIN,TOTAL 0.8 mg/dL (0.2-1.3); BLOOD UREA NITROGEN 26 mg/dL (7-20); CALCIUM 7.8 mg/dL (8.4-10.2); CARBON DIOXIDE 25 mmol/L (22-30); CHLORIDE 106 mmol/L (98-107); GLUCOSE 91 mg/dL (75-110); POTASSIUM 3.5 mmol/L (3.6-5.0); TOTAL PROTEIN 5.4 g/dL (6.3-8.2)
[2019-11-10 07:48] LABS: ABSOLUTE LYMPHOCYTES# (MANUAL) 0.5 10^3/uL (0.5-4.7); ABSOLUTE MONOCYTES # (MANUAL) 0.5 10^3/uL (0.1-1.4); BAND NEUTROPHILS % (MANUAL) 7 % (3-5); BASOPHILS % (MANUAL) 0 % (0-2); EOSINOPHILS % (MANUAL) 1 % (0-6); LYMPHOCYTES % (MANUAL) 12 % (13-45); METAMYELOCYTES % (MANUAL) 1 % (0-1); MONOCYTES % (MANUAL) 11 % (3-13); SEGMENTED NEUTROPHILS % (MAN) 68 % (42-78); TOTAL CELLS COUNTED 100
[2019-11-10 07:54] LABS: POLYCHROMASIA SLIGHT
[2019-11-10 07:55] LABS: ANISOCYTOSIS 1+; OVALOCYTES 1+; PLATELET COMMENT DECREASED; POIKILOCYTOSIS 1+
[2019-11-10] MEDS: HYDROCHLOROTHIAZIDE 12.5 MG TABLET PO SCH (10:28)
[2019-11-10] MEDS: FINASTERIDE 5 MG TABLET PO SCH (10:30)
[2019-11-10] MEDS: ALLOPURINOL 300 MG TABLET PO SCH (10:30)
[2019-11-10] MEDS: TAMSULOSIN HCL 0.4 MG CAP.SR.24H PO SCH (10:31)
[2019-11-10] MEDS: MULTIVITAMIN TABLET PO SCH (10:31)
--- NOTE | 2019-11-10 10:53 | PDOC PROGRESS REPORT ---
Subjective Progress Note for:: 11/10/19 Subjective:: Patient is feeling much better today Patient is received the 2 units of the bloods Patient urine cultures grew up the ESBL was sensitive to the Primaxin's Patient still with some low-grade fever Patient's denied any chest pain denied any shortness of breath Patient is blood pressure is all stable Patient is currently want a full code but if something get prolonged do not want to continues to prolong Reason For Visit: BRONCHITIS,UTI,HYPOTENSION,STAGE 4 CA, Physical Exam Vital Signs: Temp Pulse Resp BP Pulse Ox 99.7 F 104 H 18 112/57 L 100 11/10/19 08:52 11/10/19 08:52 11/10/19 08:52 11/10/19 08:52 11/10/19 08:52 Intake & Output 11/09/19 11/10/19 11/11/19 06:59 06:59 06:59 Intake Total 4670 3612 Output Total 1500 945 Balance 3170 2667 Weight 95.4 kg 95 kg General appearance: PRESENT: no acute distress, well-developed, well-nourished Head exam: PRESENT: atraumatic, normocephalic Eye exam: PRESENT: conjunctiva pink, EOMI, PERRLA. ABSENT: scleral icterus Ear exam: PRESENT: normal external ear exam Mouth exam: PRESENT: moist, tongue midline Neck exam: PRESENT: full ROM. ABSENT: carotid bruit, JVD, lymphadenopathy, thyromegaly Respiratory exam: PRESENT: clear to auscultation heather Cardiovascular exam: PRESENT: RRR. ABSENT: diastolic murmur, rubs, systolic murmur Pulses: PRESENT: normal dorsalis pedis pul, +2 pedal pulses bilateral Vascular exam: PRESENT: normal capillary refill GI/Abdominal exam: PRESENT: normal bowel sounds, soft. ABSENT: distended, guarding, mass, organolmegaly, rebound, tenderness Additonal comments: Both nephrostomy tube is working Rectal exam: PRESENT: deferred Neurological exam: PRESENT: alert, awake, oriented to person, oriented to place, oriented to time, oriented to situation, CN II-XII grossly intact. ABSENT: motor sensory deficit Psychiatric exam: PRESENT: appropriate affect, normal mood. ABSENT: homicidal ideation, suicidal ideation Skin exam: PRESENT: dry, intact, warm. ABSENT: cyanosis, rash Results Laboratory Results: 11/10/19 05:50 11/10/19 05:50 11/09/19 11/09/19 11/10/19 10:50 21:40 05:50 WBC 3.2 L 4.1 RBC 3.19 L 3.07 L Hgb 8.8 L 8.4 L Hct 25.7 L 24.6 L MCV 81 80 MCH 27.7 27.4 MCHC 34.3 34.3 RDW 17.6 H 17.3 H Plt Count 38 L 41 L Seg Neutrophils % Not Reportable Sodium Potassium Chloride Carbon Dioxide Anion Gap BUN Creatinine Est GFR ( Amer) Glucose Calcium Total Bilirubin AST Alkaline Phosphatase Total Protein Albumin Blood Type O POSITIVE Antibody Screen NEGATIVE 11/10/19 05:50 WBC RBC Hgb Hct MCV MCH MCHC RDW Plt Count Seg Neutrophils % Sodium 137.0 Potassium 3.5 L Chloride 106 Carbon Dioxide 25 Anion Gap 6 BUN 26 H Creatinine 1.71 H Est GFR ( Amer) 47 L Glucose 91 Calcium 7.8 L Total Bilirubin 0.8 AST 25 Alkaline Phosphatase 94 Total Protein 5.4 L Albumin 2.6 L Blood Type Antibody Screen 11/08/19 11/08/19 11/08/19 09:10 15:30 15:30 Creatine Kinase 76 107 CK-MB (CK-2) Troponin I NT-Pro-B Natriuret Pep 8200 H 11/08/19 11/08/19 11/08/19 15:30 21:28 21:28 Creatine Kinase 151 CK-MB (CK-2) 1.82 1.10 Troponin I 0.033 0.035 NT-Pro-B Natriuret Pep 11/09/19 11/09/19 03:25 03:25 Creatine Kinase 176 H CK-MB (CK-2) 1.35 Troponin I 0.029 NT-Pro-B Natriuret Pep Impressions: Chest X-Ray 11/08/19 10:25 IMPRESSION: NO ACUTE RADIOGRAPHIC FINDING IN THE CHEST. Head CT 11/08/19 10:25 IMPRESSION: CHRONIC CHANGES OF ATROPHY AND MICROVASCULAR ISCHEMIA. NO ACUTE PROCESS. EVIDENCE OF ACUTE STROKE: NO. Assessment & Plan - Diagnosis (1) Hypotension Qualifiers: Hypotension type: other hypotension type Qualified Code(s): I95.89 - Other hypotension Is this a current diagnosis for this admission?: Yes Plan: Currently all stable continues IV fluid (2) Acute kidney injury Is this a current diagnosis for this admission?: Yes Plan: To the hypotension's septic (3) Adenocarcinoma of prostate, stage 4 Is this a current diagnosis for this admission?: Yes Plan: Follow with oncology (4) Metabolic encephalopathy Is this a current diagnosis for this admission?: Yes Plan: Currently all resolved (5) Neutropenic fever Is this a current diagnosis for this admission?: Yes Plan: contto current medications (6) Obstructive uropathy Is this a current diagnosis for this admission?: Yes Plan: Status post nephrostomy tubes (7) Pancytopenia Is this a current diagnosis for this admission?: Yes Plan: Patient received the 2 units of the blood platelet count is 38 not active bleeding (8) Sepsis associated hypotension Is this a current diagnosis for this admission?: Yes Plan: Continues the IV antibiotics and IV fluid (9) Urinary tract infection due to ESBL Klebsiella Is this a current diagnosis for this admission?: Yes Plan: Start the patient on the Primaxin - Time Time Spent with patient: 15-24 minutes Level of Care: IMCU Medications reviewed and adjusted accordingly: Yes Anticipated discharge: Home with Homehealth Within: Other - Plan Summary Plan Summary: We DC the cefepime start the patient on Primaxin
[2019-11-10] MEDS ORDERED: IMIPENEM/CILASTATIN SODIUM 500 MG in NORMAL SALINE 100 ML IV SCH (12:00)
[2019-11-10] MEDS: VANCOMYCIN HCL 1,500 MG in DEXTROSE 5%-WATER 250 ML IV SCH (12:26)
[2019-11-10] MEDS: IMIPENEM/CILASTATIN SODIUM 500 MG in NORMAL SALINE 100 ML IV SCH ×2 (16:15→22:15)
[2019-11-10] MEDS: POTASSI CL 20 MEQ/NS 1L 1,000 ML IV PRN (17:19)
[2019-11-10] MEDS: ATORVASTATIN CALCIUM 10 MG TABLET PO SCH (22:15)
[2019-11-10] MEDS: DOXEPIN HCL 10 MG CAPSULE PO SCH (22:15)
[2019-11-11] MEDS: OXYCODONE-ACETAMINOPHEN 5-325 MG TABLET PO PRN ×4 (00:30→21:44)
[2019-11-11] MEDS: IMIPENEM/CILASTATIN SODIUM 500 MG in NORMAL SALINE 100 ML IV SCH ×4 (03:32→21:37)
[2019-11-11] MEDS: POTASSI CL 20 MEQ/NS 1L 1,000 ML IV PRN ×3 (03:32→23:29)
[2019-11-11] MEDS: CARVEDILOL 12.5 MG TABLET PO SCH ×2 (05:10→17:18)
[2019-11-11] MEDS: GABAPENTIN 300 MG CAPSULE PO SCH ×2 (05:10→17:17)
[2019-11-11] MEDS: TOLTERODINE TARTRATE 1 MG TABLET PO SCH ×2 (05:10→17:17)
[2019-11-11 06:19] LABS: HEMOGLOBIN 8.5 g/dL (13.5-17.0); MEAN CORPUSCULAR HEMOGLOBIN 27.4 pg (27.0-33.4); MEAN CORPUSCULAR HGB CONC 34.1 g/dL (32.0-36.0); MEAN CORPUSCULAR VOLUME 81 fl (80-97); WHITE BLOOD COUNT 6.6 10^3/uL (4.0-10.5)
[2019-11-11 06:39] LABS: ALBUMIN 2.8 g/dL (3.5-5.0); ALKALINE PHOSPHATASE 116 U/L (38-126); ANION GAP 10 (5-19); ASPARTATE AMINO TRANSFERASE 25 U/L (17-59); BILIRUBIN,DIRECT 0.3 mg/dL (0.0-0.4); BILIRUBIN,TOTAL 0.5 mg/dL (0.2-1.3); BLOOD UREA NITROGEN 20 mg/dL (7-20); CARBON DIOXIDE 24 mmol/L (22-30); CHLORIDE 106 mmol/L (98-107); GLUCOSE 99 mg/dL (75-110); POTASSIUM 3.7 mmol/L (3.6-5.0); TOTAL PROTEIN 5.8 g/dL (6.3-8.2)
[2019-11-11 06:46] LABS: PLATELET COUNT 53 10^3/uL (150-450)
[2019-11-11 06:50] LABS: ABSOLUTE LYMPHOCYTES# (MANUAL) 1.9 10^3/uL (0.5-4.7); ABSOLUTE MONOCYTES # (MANUAL) 0.6 10^3/uL (0.1-1.4); BAND NEUTROPHILS % (MANUAL) 4 % (3-5); BASOPHILS % (MANUAL) 0 % (0-2); EOSINOPHILS % (MANUAL) 0 % (0-6); LYMPHOCYTES % (MANUAL) 29 % (13-45); MONOCYTES % (MANUAL) 9 % (3-13); SEGMENTED NEUTROPHILS % (MAN) 58 % (42-78); TOTAL CELLS COUNTED 100
[2019-11-11 06:52] LABS: ANISOCYTOSIS 1+
[2019-11-11 06:53] LABS: PLATELET COMMENT DECREASED
--- NOTE | 2019-11-11 08:38 | PDOC PROGRESS REPORT ---
Subjective Progress Note for:: 11/11/19 Subjective:: Mental status improved, he is sitting up in a chair this morning. Reviewed microbiology, patient has 2 GNR's, one is ESBL, he is switched from cefepime to imipenem because of that, continues on vancomycin because blood culture did show 1 of 2 cultures with GPC. Platelet count is better at 54 today. Hemoglobin overall generally stable. Reason For Visit: BRONCHITIS,UTI,HYPOTENSION,STAGE 4 CA, Physical Exam Vital Signs: Temp Pulse Resp BP Pulse Ox 98.7 F 86 18 111/66 98 11/11/19 03:22 11/11/19 07:00 11/11/19 03:22 11/11/19 03:22 11/11/19 03:22 Intake & Output 11/10/19 11/11/19 11/12/19 06:59 06:59 06:59 Intake Total 3612 3190 Output Total 945 2650 Balance 2667 540 Weight 95 kg 96.3 kg General appearance: PRESENT: no acute distress, well-developed, well-nourished Head exam: PRESENT: atraumatic, normocephalic Eye exam: PRESENT: conjunctiva pink, EOMI, PERRLA. ABSENT: scleral icterus Ear exam: PRESENT: normal external ear exam Mouth exam: PRESENT: moist, tongue midline Neck exam: ABSENT: carotid bruit, JVD, lymphadenopathy, thyromegaly Respiratory exam: PRESENT: clear to auscultation heather. ABSENT: rales, rhonchi, wheezes Cardiovascular exam: PRESENT: RRR. ABSENT: diastolic murmur, rubs, systolic murmur Pulses: PRESENT: normal dorsalis pedis pul Vascular exam: PRESENT: normal capillary refill GI/Abdominal exam: PRESENT: normal bowel sounds, soft. ABSENT: distended, guarding, mass, organolmegaly, rebound, tenderness Rectal exam: PRESENT: deferred Extremities exam: PRESENT: full ROM. ABSENT: calf tenderness, clubbing, pedal edema Neurological exam: PRESENT: alert, awake, oriented to person, oriented to place, oriented to time, oriented to situation, CN II-XII grossly intact. ABSENT: motor sensory deficit Psychiatric exam: PRESENT: appropriate affect, normal mood. ABSENT: homicidal ideation, suicidal ideation Skin exam: PRESENT: dry, intact, warm. ABSENT: cyanosis, rash Results Laboratory Results: 11/11/19 05:15 12/16/19 05:15 11/11/19 11/11/19 05:15 05:15 WBC 6.6 RBC 3.10 L Hgb 8.5 L Hct 25.0 L MCV 81 MCH 27.4 MCHC 34.1 RDW 18.0 H Plt Count 53 L Seg Neutrophils % Not Reportable Sodium 140.0 Potassium 3.7 Chloride 106 Carbon Dioxide 24 Anion Gap 10 BUN 20 Creatinine 1.71 H Est GFR ( Amer) 47 L Glucose 99 Calcium 8.0 L Total Bilirubin 0.5 AST 25 Alkaline Phosphatase 116 Total Protein 5.8 L Albumin 2.8 L 11/08/19 11/08/19 11/08/19 09:10 15:30 15:30 Creatine Kinase 76 107 CK-MB (CK-2) Troponin I NT-Pro-B Natriuret Pep 8200 H 11/08/19 11/08/19 11/08/19 15:30 21:28 21:28 Creatine Kinase 151 CK-MB (CK-2) 1.82 1.10 Troponin I 0.033 0.035 NT-Pro-B Natriuret Pep 11/09/19 11/09/19 03:25 03:25 Creatine Kinase 176 H CK-MB (CK-2) 1.35 Troponin I 0.029 NT-Pro-B Natriuret Pep Impressions: Chest X-Ray 11/08/19 10:25 IMPRESSION: NO ACUTE RADIOGRAPHIC FINDING IN THE CHEST. Head CT 11/08/19 10:25 IMPRESSION: CHRONIC CHANGES OF ATROPHY AND MICROVASCULAR ISCHEMIA. NO ACUTE PROCESS. EVIDENCE OF ACUTE STROKE: NO. Assessment & Plan - Diagnosis (1) Adenocarcinoma of prostate, stage 4 Is this a current diagnosis for this admission?: Yes Plan: Status post first cycle of chemotherapy, resulting in pancytopenia, continue with monitoring. I have communicated with Dr. Clements at [facility]. (2) Pancytopenia Is this a current diagnosis for this admission?: Yes Plan: White count has recovered, platelets are improved. Will hopefully continue to improve as infection continues to improve. (3) Sepsis Qualifiers: Sepsis type: sepsis due to unspecified organism Sepsis acute organ dysfunction status: with acute organ dysfunction Severe sepsis acute organ dysfunction type: encephalopathy Severe sepsis shock status: without septic shock Qualified Code(s): A41.9 - Sepsis, unspecified organism; R65.20 - Severe sepsis without septic shock; G93.40 - Encephalopathy, unspecified Is this a current diagnosis for this admission?: Yes Plan: GPC is thus far with the sepsis, ESBL and Pseudomonas in urine. Appropriate antibiotics thus far, ultimately once GPC's are typed, then decision could be made on the vancomycin. May benefit from infectious disease consult. - Time Time Spent with patient: 35 or more minutes - Inpatient Certification Based on my medical assessment, after consideration of the patient's comorbid ities, presenting symptoms, or acuity I expect that the services needed warrant INPATIENT care.: Yes I certify that my determination is in accordance with my understanding of Medicare's requirements for reasonable and necessary INPATIENT services [42 CFR 412.3e].: Yes Medical Necessity: Risk of Complication if Not Cared For in Hospital
[2019-11-11] MEDS: TAMSULOSIN HCL 0.4 MG CAP.SR.24H PO SCH (09:03)
[2019-11-11] MEDS: HYDROCHLOROTHIAZIDE 12.5 MG TABLET PO SCH (09:03)
[2019-11-11] MEDS: MULTIVITAMIN TABLET PO SCH (09:03)
[2019-11-11] MEDS: FINASTERIDE 5 MG TABLET PO SCH (09:03)
[2019-11-11] MEDS: ALLOPURINOL 300 MG TABLET PO SCH (09:03)
[2019-11-11] MEDS: VANCOMYCIN HCL 1,500 MG in DEXTROSE 5%-WATER 250 ML IV SCH (11:02)
[2019-11-11 13:55] LABS: PATH REVIEW PATHOLOGIST REVIEWED
--- NOTE | 2019-11-11 20:49 | PDOC PROGRESS REPORT ---
Subjective Progress Note for:: 11/11/19 Subjective:: Patient was seen by the bedside, the blood culture grew Streptococcus mitis, A member of Streptococcus viridans sensitive to meropenem, intermediate resistant to vancomycin, the urine culture is polymicrobial, ESBL E. coli and Pseudomonas, already started on appropriate antibiotic imipenem, patient seen by the bedside is more alert oriented more coherent in high spirits Reason For Visit: BRONCHITIS,UTI,HYPOTENSION,STAGE 4 CA, Physical Exam Vital Signs: Temp Pulse Resp BP Pulse Ox 98.1 F 79 16 132/48 H 100 11/11/19 16:28 11/11/19 16:28 11/11/19 16:28 11/11/19 16:28 11/11/19 16:28 Intake & Output 11/10/19 11/11/19 11/12/19 06:59 06:59 06:59 Intake Total 3612 3190 1610 Output Total 945 2650 775 Balance 2667 540 835 Weight 95 kg 96.3 kg General appearance: PRESENT: no acute distress Eye exam: PRESENT: PERRLA Respiratory exam: PRESENT: clear to auscultation heather Cardiovascular exam: PRESENT: +S1, +S2 GI/Abdominal exam: PRESENT: soft Neurological exam: PRESENT: alert Results Laboratory Results: 11/11/19 05:15 11/11/19 05:15 11/08/19 11/11/19 11/11/19 09:10 05:15 05:15 WBC 0.9 L* 6.6 RBC 3.10 L Hgb 8.5 L Hct 25.0 L MCV 81 MCH 27.4 MCHC 34.1 RDW 18.0 H Plt Count 53 L Seg Neutrophils % Not Reportable Sodium 140.0 Potassium 3.7 Chloride 106 Carbon Dioxide 24 Anion Gap 10 BUN 20 Creatinine 1.71 H Est GFR ( Amer) 47 L Glucose 99 Calcium 8.0 L Total Bilirubin 0.5 AST 25 Alkaline Phosphatase 116 Total Protein 5.8 L Albumin 2.8 L 11/08/19 11:06 Blood Blood Culture - Final Streptococcus Mitis 11/08/19 16:28 Nephrostomy - Right Urine Culture - Final Pseudomonas Aeruginosa Escherichia Coli Esbl 11/08/19 11/08/19 11/08/19 09:10 15:30 15:30 Creatine Kinase 76 107 CK-MB (CK-2) Troponin I NT-Pro-B Natriuret Pep 8200 H 11/08/19 11/08/19 11/08/19 15:30 21:28 21:28 Creatine Kinase 151 CK-MB (CK-2) 1.82 1.10 Troponin I 0.033 0.035 NT-Pro-B Natriuret Pep 11/09/19 11/09/19 03:25 03:25 Creatine Kinase 176 H CK-MB (CK-2) 1.35 Troponin I 0.029 NT-Pro-B Natriuret Pep Impressions: Chest X-Ray 11/08/19 10:25 IMPRESSION: NO ACUTE RADIOGRAPHIC FINDING IN THE CHEST. Head CT 11/08/19 10:25 IMPRESSION: CHRONIC CHANGES OF ATROPHY AND MICROVASCULAR ISCHEMIA. NO ACUTE PROCESS. EVIDENCE OF ACUTE STROKE: NO. Assessment & Plan - Diagnosis (1) Neutropenic fever Is this a current diagnosis for this admission?: Yes Plan: White blood cell count is improved (2) Hypotension Qualifiers: Hypotension type: other hypotension type Qualified Code(s): I95.89 - Other hypotension Is this a current diagnosis for this admission?: Yes (3) Adenocarcinoma of prostate, stage 4 Is this a current diagnosis for this admission?: Yes (4) Obstructive uropathy Is this a current diagnosis for this admission?: Yes (5) Acute kidney injury Is this a current diagnosis for this admission?: Yes (6) Metabolic encephalopathy Is this a current diagnosis for this admission?: Yes (7) UTI due to extended-spectrum beta lactamase (ESBL) producing Escherichia coli Is this a current diagnosis for this admission?: Yes Plan: Continue Imipenem (8) Pseudomonas urinary tract infection Is this a current diagnosis for this admission?: Yes Plan: Continue imipenem (9) Infection due to Streptococcus mitis group Is this a current diagnosis for this admission?: Yes (10) Sepsis Qualifiers: Sepsis type: Streptococcus, other Sepsis acute organ dysfunction status: with acute organ dysfunction Severe sepsis acute organ dysfunction type: acute renal failure Acute renal failure type: with acute tubular necrosis Severe sepsis shock status: with septic shock Qualified Code(s): A40.8 - Other streptococcal sepsis; R65.21 - Severe sepsis with septic shock; N17.0 - Acute kidney failure with tubular necrosis Is this a current diagnosis for this admission?: Yes Plan: The blood culture grew Streptococcus mitis a member of Streptococcus viridans, he has oral lesion most likely the source of the bacteremia, the Streptococcus viridans is usually mouth colonizer The organism is sensitive to meropenem patient already on imipenem, will DC vancomycin at this point (11) Acute kidney injury Is this a current diagnosis for this admission?: Yes (12) Pancytopenia Is this a current diagnosis for this admission?: Yes Plan: Patient was transfused with 2 units of red blood cells - Time Time Spent with patient: 35 or more minutes Level of Care: IMCU
--- NOTE | 2019-11-11 21:33 | RADIOLOGY REPORT (SQ) ---
EXAM DESCRIPTION: MR BRAIN WITHOUT THEN WITH IV CONTRAST COMPLETED DATE/TME: 11/11/2019 00:00 CLINICAL HISTORY: 79 years, Male, ca prostate stage 4 COMPARISON: CT head performed on 11/08/2019; MR brain dated 04/29/2019; MR brain dated 06/23/2017. TECHNIQUE: Multiplanar, multisequence MR images of the brain were obtained both prior to and after the uneventful administration of intravenous contrast. Images stored on PACS. LIMITATIONS: None. FINDINGS: Midline structures show no suspicious abnormality. Diffusion weighted images reveal no foci of diffusion restriction. Assessment of the brain parenchyma reveals mild periventricular and patchy subcortical white matter low attenuation. A more confluent area of hypodensity is noted about the high right parietal lobe towards the vertex, indicating a zone of encephalomalacia. There is a more focal area of CSF signal located about the right croft radiata which corresponds to a remote lacunar infarct. Otherwise, ventricles and sulcal spaces are moderately enlarged. No extra-axial fluid collections are identified. Globes and orbits show no suspicious abnormality. Mild mucosal thickening is noted about both maxillary antra. Remaining paranasal sinuses and mastoid air cells are clear. Susceptibility weighted images reveal no foci of abnormal susceptibility artifact. Postcontrast images reveal no foci of abnormal enhancement. However, there is a focus of ovoid enhancement located about the right pterygoid musculature on image 22 of series 12 measuring 1.8 x 0.6 cm in size. This demonstrates hyperintense T2/FLAIR signal, and was present on the previous MR brain dated 04/29/2019. However, this appears somewhat more conspicuous/larger when compared to the previous examinations dating back to 06/23/2017. IMPRESSION: No acute intracranial hemorrhage, mass, or evidence of acute infarct. Mild chronic microvascular ischemic change with zone of encephalomalacia about the right frontal lobe towards the vertex. Additional remote lacunar infarct within the right croft radiata. Moderate generalized atrophy. Elongated focus of signal abnormality located about the right pterygoid musculature with concomitant confluent enhancement. This appears more conspicuous than compared to the previous MR dated 04/29/2019 as well as 06/23/2017. The etiology of this finding is indeterminate as it did not demonstrate any FDG avidity on the previous PET/CT dated 10/06/2019. However, a schwannoma is a primary consideration given the uniform enhancement and hyperintense T2/FLAIR signal characteristics of the lesion. copyright 2010 [employer]- All Rights Reserved
[2019-11-11] MEDS: ATORVASTATIN CALCIUM 10 MG TABLET PO SCH (21:37)
[2019-11-11] MEDS: DOXEPIN HCL 10 MG CAPSULE PO SCH (21:37)
[2019-11-12] MEDS: IMIPENEM/CILASTATIN SODIUM 500 MG in NORMAL SALINE 100 ML IV SCH ×4 (02:08→21:07)
[2019-11-12] MEDS: CARVEDILOL 12.5 MG TABLET PO SCH ×2 (05:11→17:01)
[2019-11-12] MEDS: GABAPENTIN 300 MG CAPSULE PO SCH ×2 (05:14→17:01)
[2019-11-12] MEDS: TOLTERODINE TARTRATE 1 MG TABLET PO SCH ×2 (05:14→17:01)
[2019-11-12 05:53] LABS: ANION GAP 10 (5-19); BLOOD UREA NITROGEN 16 mg/dL (7-20); CALCIUM 8.2 mg/dL (8.4-10.2); CARBON DIOXIDE 24 mmol/L (22-30); CHLORIDE 106 mmol/L (98-107); GLUCOSE 104 mg/dL (75-110); POTASSIUM 3.8 mmol/L (3.6-5.0)
[2019-11-12] MEDS: HYDROCHLOROTHIAZIDE 12.5 MG TABLET PO SCH (10:01)
[2019-11-12] MEDS: TAMSULOSIN HCL 0.4 MG CAP.SR.24H PO SCH (10:01)
[2019-11-12] MEDS: FINASTERIDE 5 MG TABLET PO SCH (10:01)
[2019-11-12] MEDS: ALLOPURINOL 300 MG TABLET PO SCH (10:02)
[2019-11-12] MEDS: MULTIVITAMIN TABLET PO SCH (10:02)
[2019-11-12] MEDS: POTASSI CL 20 MEQ/NS 1L 1,000 ML IV PRN (12:11)
--- NOTE | 2019-11-12 12:35 | PDOC PROGRESS REPORT ---
Subjective Progress Note for:: 11/12/19 Subjective:: Patient is feeling better, as evidenced by his complaining about the staff. No health concerns voiced to me today. Reason For Visit: BRONCHITIS,UTI,HYPOTENSION,STAGE 4 CA, Physical Exam Vital Signs: Temp Pulse Resp BP Pulse Ox 98.4 F 85 16 123/57 L 96 11/12/19 08:19 11/12/19 08:19 11/12/19 08:19 11/12/19 08:19 11/12/19 08:19 Intake & Output 11/11/19 11/12/19 11/13/19 06:59 06:59 06:59 Intake Total 3190 2600 Output Total 2650 1650 Balance 540 950 Weight 96.3 kg 99.4 kg General appearance: PRESENT: no acute distress, well-developed, well-nourished Head exam: PRESENT: normocephalic Eye exam: PRESENT: EOMI Respiratory exam: PRESENT: clear to auscultation heather, unlabored Cardiovascular exam: PRESENT: RRR GI/Abdominal exam: PRESENT: soft. ABSENT: tenderness Extremities exam: ABSENT: pedal edema Neurological exam: PRESENT: alert, awake Psychiatric exam: PRESENT: appropriate affect Skin exam: PRESENT: normal color Results Laboratory Results: 11/11/19 05:15 11/12/19 04:40 11/08/19 11/12/19 09:10 04:40 WBC 0.9 L* Sodium 139.6 Potassium 3.8 Chloride 106 Carbon Dioxide 24 Anion Gap 10 BUN 16 Creatinine 1.48 H Est GFR ( Amer) 55 L Glucose 104 Calcium 8.2 L 11/08/19 11:06 Blood Blood Culture - Final Streptococcus Mitis 11/08/19 16:28 Nephrostomy - Right Urine Culture - Final Pseudomonas Aeruginosa Escherichia Coli Esbl 11/08/19 11/08/19 11/08/19 09:10 15:30 15:30 Creatine Kinase 76 107 CK-MB (CK-2) Troponin I NT-Pro-B Natriuret Pep 8200 H 11/08/19 11/08/19 11/08/19 15:30 21:28 21:28 Creatine Kinase 151 CK-MB (CK-2) 1.82 1.10 Troponin I 0.033 0.035 NT-Pro-B Natriuret Pep 11/09/19 11/09/19 03:25 03:25 Creatine Kinase 176 H CK-MB (CK-2) 1.35 Troponin I 0.029 NT-Pro-B Natriuret Pep Impressions: Chest X-Ray 11/08/19 10:25 IMPRESSION: NO ACUTE RADIOGRAPHIC FINDING IN THE CHEST. Head CT 11/08/19 10:25 IMPRESSION: CHRONIC CHANGES OF ATROPHY AND MICROVASCULAR ISCHEMIA. NO ACUTE PROCESS. EVIDENCE OF ACUTE STROKE: NO. Head MRI 11/11/19 00:00 IMPRESSION: No acute intracranial hemorrhage, mass, or evidence of acute infarct. Mild chronic microvascular ischemic change with zone of encephalomalacia about the right frontal lobe towards the vertex. Additional remote lacunar infarct within the right croft radiata. Moderate generalized atrophy. Elongated focus of signal abnormality located about the right pterygoid musculature with concomitant confluent enhancement. This appears more conspicuous than compared to the previous MR dated 04/29/2019 as well as 06/23/2017. The etiology of this finding is indeterminate as it did not demonstrate any FDG avidity on the previous PET/CT dated 10/06/2019. However, a schwannoma is a primary consideration given the uniform enhancement and hyperintense T2/FLAIR signal characteristics of the lesion. copyright 2010 [employer]- All Rights Reserved Assessment & Plan - Diagnosis (1) Adenocarcinoma of prostate, stage 4 Is this a current diagnosis for this admission?: Yes Plan: Treatment currently on hold. His chemo did cause pancytopenia. (2) Infection due to Streptococcus mitis group Is this a current diagnosis for this admission?: Yes Plan: Most recent cultures now growing pseudomonas. (3) Neutropenic fever Is this a current diagnosis for this admission?: Yes Plan: Now resolved. Patient will follow in [place] with his primary oncologist on discharge. - Time Time Spent with patient: Less than 15 minutes
[2019-11-12] MEDS: DOXEPIN HCL 10 MG CAPSULE PO SCH (21:07)
[2019-11-12] MEDS: ATORVASTATIN CALCIUM 10 MG TABLET PO SCH (21:07)
--- NOTE | 2019-11-12 22:42 | PDOC PROGRESS REPORT ---
Subjective Progress Note for:: 11/12/19 Subjective:: Patient was seen by the bedside, the blood culture grew Streptococcus mitis, A member of Streptococcus viridans sensitive to meropenem, intermediate resistant to vancomycin, the urine culture is polymicrobial, ESBL E. coli and Pseudomonas, already started on appropriate antibiotic imipenem, patient seen by the bedside ,he has no new complaints Reason For Visit: BRONCHITIS,UTI,HYPOTENSION,STAGE 4 CA, Physical Exam Vital Signs: Temp Pulse Resp BP Pulse Ox 98.5 F 79 16 139/74 H 99 11/12/19 13:30 11/12/19 19:00 11/12/19 13:30 11/12/19 13:30 11/12/19 13:30 Intake & Output 11/11/19 11/12/19 11/13/19 06:59 06:59 06:59 Intake Total 3190 2600 1600 Output Total 2650 1650 1050 Balance 540 950 550 Weight 96.3 kg 99.4 kg General appearance: PRESENT: no acute distress Eye exam: PRESENT: PERRLA Respiratory exam: PRESENT: clear to auscultation heather Cardiovascular exam: PRESENT: +S1, +S2 GI/Abdominal exam: PRESENT: soft Neurological exam: PRESENT: alert Results Laboratory Results: 11/11/19 05:15 11/12/19 04:40 11/12/19 04:40 Sodium 139.6 Potassium 3.8 Chloride 106 Carbon Dioxide 24 Anion Gap 10 BUN 16 Creatinine 1.48 H Est GFR ( Amer) 55 L Glucose 104 Calcium 8.2 L 11/08/19 11/08/19 11/08/19 09:10 15:30 15:30 Creatine Kinase 76 107 CK-MB (CK-2) Troponin I NT-Pro-B Natriuret Pep 8200 H 11/08/19 11/08/19 11/08/19 15:30 21:28 21:28 Creatine Kinase 151 CK-MB (CK-2) 1.82 1.10 Troponin I 0.033 0.035 NT-Pro-B Natriuret Pep 11/09/19 11/09/19 03:25 03:25 Creatine Kinase 176 H CK-MB (CK-2) 1.35 Troponin I 0.029 NT-Pro-B Natriuret Pep Impressions: Chest X-Ray 11/08/19 10:25 IMPRESSION: NO ACUTE RADIOGRAPHIC FINDING IN THE CHEST. Head CT 11/08/19 10:25 IMPRESSION: CHRONIC CHANGES OF ATROPHY AND MICROVASCULAR ISCHEMIA. NO ACUTE PROCESS. EVIDENCE OF ACUTE STROKE: NO. Head MRI 11/11/19 00:00 IMPRESSION: No acute intracranial hemorrhage, mass, or evidence of acute infarct. Mild chronic microvascular ischemic change with zone of encephalomalacia about the right frontal lobe towards the vertex. Additional remote lacunar infarct within the right croft radiata. Moderate generalized atrophy. Elongated focus of signal abnormality located about the right pterygoid musculature with concomitant confluent enhancement. This appears more conspicuous than compared to the previous MR dated 04/29/2019 as well as 06/23/2017. The etiology of this finding is indeterminate as it did not demonstrate any FDG avidity on the previous PET/CT dated 10/06/2019. However, a schwannoma is a primary consideration given the uniform enhancement and hyperintense T2/FLAIR signal characteristics of the lesion. copyright 2010 [employer]- All Rights Reserved Assessment & Plan - Diagnosis (1) Neutropenic fever Is this a current diagnosis for this admission?: Yes (2) Hypotension Qualifiers: Hypotension type: other hypotension type Qualified Code(s): I95.89 - Other hypotension Is this a current diagnosis for this admission?: Yes (3) Adenocarcinoma of prostate, stage 4 Is this a current diagnosis for this admission?: Yes (4) Obstructive uropathy Is this a current diagnosis for this admission?: Yes (5) Acute kidney injury Is this a current diagnosis for this admission?: Yes (6) Metabolic encephalopathy Is this a current diagnosis for this admission?: Yes (7) UTI due to extended-spectrum beta lactamase (ESBL) producing Escherichia coli Is this a current diagnosis for this admission?: Yes (8) Pseudomonas urinary tract infection Is this a current diagnosis for this admission?: Yes (9) Infection due to Streptococcus mitis group Is this a current diagnosis for this admission?: Yes (10) Sepsis Qualifiers: Sepsis type: Streptococcus, other Sepsis acute organ dysfunction status: with acute organ dysfunction Severe sepsis acute organ dysfunction type: acute renal failure Acute renal failure type: with acute tubular necrosis Severe sepsis shock status: with septic shock Qualified Code(s): A40.8 - Other streptococcal sepsis; R65.21 - Severe sepsis with septic shock; N17.0 - Acute kidney failure with tubular necrosis Is this a current diagnosis for this admission?: Yes (11) Acute kidney injury Is this a current diagnosis for this admission?: Yes (12) Pancytopenia Is this a current diagnosis for this admission?: Yes - Time Time Spent with patient: 35 or more minutes - Plan Summary Plan Summary: He will continue present IV antibiotic and other management plan
[2019-11-13] MEDS: POTASSI CL 20 MEQ/NS 1L 1,000 ML IV PRN ×2 (00:43→15:29)
[2019-11-13] MEDS: OXYCODONE-ACETAMINOPHEN 5-325 MG TABLET PO PRN (00:48)
[2019-11-13] MEDS: IMIPENEM/CILASTATIN SODIUM 500 MG in NORMAL SALINE 100 ML IV SCH ×4 (02:44→20:42)
[2019-11-13] MEDS: CARVEDILOL 12.5 MG TABLET PO SCH ×2 (05:00→18:39)
[2019-11-13] MEDS: GABAPENTIN 300 MG CAPSULE PO SCH ×2 (05:04→18:39)
[2019-11-13] MEDS: TOLTERODINE TARTRATE 1 MG TABLET PO SCH ×2 (05:04→18:39)
--- NOTE | 2019-11-13 08:38 | PDOC PROGRESS REPORT ---
Subjective Progress Note for:: 11/13/19 Subjective:: Patient is getting stronger and feeling better, walked yesterday, reviewed all microbiology with the patient as well as discussed it with Dr. العلي, we are going to repeat blood culture and urine culture today. We will get infectious disease consult to see which antibiotic and what length of therapy would be needed. He probably will need IV antibiotic I would guess, maybe he would be a candidate for something like once daily ertapenem. Imipenem may be a difficult antibiotic to do at home every 6 hours. Reason For Visit: BRONCHITIS,UTI,HYPOTENSION,STAGE 4 CA, Physical Exam Vital Signs: Temp Pulse Resp BP Pulse Ox 97.4 F 82 19 114/49 L 96 11/13/19 04:02 11/13/19 07:00 11/13/19 04:02 11/13/19 04:02 11/13/19 04:02 Intake & Output 11/12/19 11/13/19 11/14/19 06:59 06:59 06:59 Intake Total 2600 2600 Output Total 1650 2075 Balance 950 525 Weight 99.4 kg 98.5 kg General appearance: PRESENT: no acute distress, well-developed, well-nourished Head exam: PRESENT: atraumatic, normocephalic Eye exam: PRESENT: conjunctiva pink, EOMI, PERRLA. ABSENT: scleral icterus Ear exam: PRESENT: normal external ear exam Mouth exam: PRESENT: moist, tongue midline Neck exam: ABSENT: carotid bruit, JVD, lymphadenopathy, thyromegaly Respiratory exam: PRESENT: clear to auscultation heather. ABSENT: rales, rhonchi, wheezes Cardiovascular exam: PRESENT: RRR. ABSENT: diastolic murmur, rubs, systolic murmur Pulses: PRESENT: normal dorsalis pedis pul Vascular exam: PRESENT: normal capillary refill GI/Abdominal exam: PRESENT: normal bowel sounds, soft. ABSENT: distended, guarding, mass, organolmegaly, rebound, tenderness Rectal exam: PRESENT: deferred Extremities exam: PRESENT: full ROM. ABSENT: calf tenderness, clubbing, pedal edema Neurological exam: PRESENT: alert, awake, oriented to person, oriented to place, oriented to time, oriented to situation, CN II-XII grossly intact. ABSENT: motor sensory deficit Psychiatric exam: PRESENT: appropriate affect, normal mood. ABSENT: homicidal ideation, suicidal ideation Skin exam: PRESENT: dry, intact, warm. ABSENT: cyanosis, rash Results Laboratory Results: 11/11/19 05:15 11/12/19 04:40 11/08/19 11/08/19 11/08/19 09:10 15:30 15:30 Creatine Kinase 76 107 CK-MB (CK-2) Troponin I NT-Pro-B Natriuret Pep 8200 H 11/08/19 11/08/19 11/08/19 15:30 21:28 21:28 Creatine Kinase 151 CK-MB (CK-2) 1.82 1.10 Troponin I 0.033 0.035 NT-Pro-B Natriuret Pep 11/09/19 11/09/19 03:25 03:25 Creatine Kinase 176 H CK-MB (CK-2) 1.35 Troponin I 0.029 NT-Pro-B Natriuret Pep Impressions: Chest X-Ray 11/08/19 10:25 IMPRESSION: NO ACUTE RADIOGRAPHIC FINDING IN THE CHEST. Head CT 11/08/19 10:25 IMPRESSION: CHRONIC CHANGES OF ATROPHY AND MICROVASCULAR ISCHEMIA. NO ACUTE PROCESS. EVIDENCE OF ACUTE STROKE: NO. Head MRI 11/11/19 00:00 IMPRESSION: No acute intracranial hemorrhage, mass, or evidence of acute infarct. Mild chronic microvascular ischemic change with zone of encephalomalacia about the right frontal lobe towards the vertex. Additional remote lacunar infarct within the right croft radiata. Moderate generalized atrophy. Elongated focus of signal abnormality located about the right pterygoid musculature with concomitant confluent enhancement. This appears more conspicuous than compared to the previous MR dated 04/29/2019 as well as 06/23/2017. The etiology of this finding is indeterminate as it did not demonstrate any FDG avidity on the previous PET/CT dated 10/06/2019. However, a schwannoma is a primary consideration given the uniform enhancement and hyperintense T2/FLAIR signal characteristics of the lesion. copyright 2010 [employer]- All Rights Reserved Assessment & Plan - Diagnosis (1) Adenocarcinoma of prostate, stage 4 Is this a current diagnosis for this admission?: Yes Plan: Still pancytopenic but improving, should recover over the next 1 to 2 weeks. Further treatment as an outpatient. (2) Pancytopenia Is this a current diagnosis for this admission?: Yes Plan: Improving (3) Sepsis Qualifiers: Sepsis type: sepsis due to unspecified organism Sepsis acute organ dysfunction status: with acute organ dysfunction Severe sepsis acute organ dysfunction type: encephalopathy Severe sepsis shock status: without septic s hock Qualified Code(s): A41.9 - Sepsis, unspecified organism; R65.20 - Severe sepsis without septic shock; G93.40 - Encephalopathy, unspecified Is this a current diagnosis for this admission?: Yes Plan: Plan as in HPI - Time Time Spent with patient: 35 or more minutes
[2019-11-13] MEDS: TAMSULOSIN HCL 0.4 MG CAP.SR.24H PO SCH (10:30)
[2019-11-13] MEDS: ALLOPURINOL 300 MG TABLET PO SCH (10:30)
[2019-11-13] MEDS: MULTIVITAMIN TABLET PO SCH (10:30)
[2019-11-13] MEDS: FINASTERIDE 5 MG TABLET PO SCH (10:30)
[2019-11-13] MEDS: HYDROCHLOROTHIAZIDE 12.5 MG TABLET PO SCH (10:30)
--- NOTE | 2019-11-13 16:43 | PDOC PROGRESS REPORT ---
Subjective Progress Note for:: 11/13/19 Subjective:: Patient seen by the bedside, the urine culture grew ESBL E. coli, Pseudomonas blood culture grew Streptococcus Mittie, or pathogen sensitive to ertapenem. He has a complicated UTI recommended treatment for complicated UTI is 1 g ertapenem for 10 to 14 days.. Patient presently on imipenem this was started on 09/10/2019, which is just 3 days of treatment he needs to have antibiotic for at least 7 more days. Patient is improved he wants to go home, he can be disc harged home tomorrow on IV antibiotic ertapenem IV daily for 7 days, will request discharge planning to arrange for home infusion Reason For Visit: BRONCHITIS,UTI,HYPOTENSION,STAGE 4 CA, Physical Exam Vital Signs: Temp Pulse Resp BP Pulse Ox 98.2 F 74 16 145/69 H 99 11/13/19 12:44 11/13/19 14:00 11/13/19 12:44 11/13/19 12:44 11/13/19 12:44 Intake & Output 11/12/19 11/13/19 11/14/19 06:59 06:59 06:59 Intake Total 2600 2600 1000 Output Total 1650 2075 Balance 000 312 3692 Weight 99.4 kg 98.5 kg General appearance: PRESENT: no acute distress Eye exam: PRESENT: PERRLA Respiratory exam: PRESENT: clear to auscultation heather Cardiovascular exam: PRESENT: +S1, +S2 GI/Abdominal exam: PRESENT: soft Neurological exam: PRESENT: alert, CN II-XII grossly intact Results Laboratory Results: 11/11/19 05:15 11/12/19 04:40 11/08/19 09:10 Blood Blood Culture - Final NO GROWTH IN 5 DAYS 11/08/19 11/08/19 11/08/19 09:10 15:30 15:30 Creatine Kinase 76 107 CK-MB (CK-2) Troponin I NT-Pro-B Natriuret Pep 8200 H 11/08/19 11/08/19 11/08/19 15:30 21:28 21:28 Creatine Kinase 151 CK-MB (CK-2) 1.82 1.10 Troponin I 0.033 0.035 NT-Pro-B Natriuret Pep 11/09/19 11/09/19 03:25 03:25 Creatine Kinase 176 H CK-MB (CK-2) 1.35 Troponin I 0.029 NT-Pro-B Natriuret Pep Impressions: Chest X-Ray 11/08/19 10:25 IMPRESSION: NO ACUTE RADIOGRAPHIC FINDING IN THE CHEST. Head CT 11/08/19 10:25 IMPRESSION: CHRONIC CHANGES OF ATROPHY AND MICROVASCULAR ISCHEMIA. NO ACUTE PROCESS. EVIDENCE OF ACUTE STROKE: NO. Head MRI 11/11/19 00:00 IMPRESSION: No acute intracranial hemorrhage, mass, or evidence of acute infarct. Mild chronic microvascular ischemic change with zone of encephalomalacia about the right frontal lobe towards the vertex. Additional remote lacunar infarct within the right croft radiata. Moderate generalized atrophy. Elongated focus of signal abnormality located about the right pterygoid musculature with concomitant confluent enhancement. This appears more conspicuous than compared to the previous MR dated 04/29/2019 as well as 06/23/2017. The etiology of this finding is indeterminate as it did not demonstrate any FDG avidity on the previous PET/CT dated 10/06/2019. However, a schwannoma is a primary consideration given the uniform enhancement and hyperintense T2/FLAIR signal characteristics of the lesion. copyright 2011 [employer]- All Rights Reserved Assessment & Plan - Diagnosis (1) Neutropenic fever Is this a current diagnosis for this admission?: Yes (2) Hypotension Qualifiers: Hypotension type: other hypotension type Qualified Code(s): I95.89 - Other hypotension Is this a current diagnosis for this admission?: Yes (3) Adenocarcinoma of prostate, stage 4 Is this a current diagnosis for this admission?: Yes (4) Obstructive uropathy Is this a current diagnosis for this admission?: Yes (5) Acute kidney injury Is this a current diagnosis for this admission?: Yes (6) Metabolic encephalopathy Is this a current diagnosis for this admission?: Yes (7) UTI due to extended-spectrum beta lactamase (ESBL) producing Escherichia coli Is this a current diagnosis for this admission?: Yes Plan: Start ertapenem 1 g IV daily (8) Pseudomonas urinary tract infection Is this a current diagnosis for this admission?: Yes (9) Infection due to Streptococcus mitis group Is this a current diagnosis for this admission?: Yes (10) Sepsis Qualifiers: Sepsis type: Streptococcus, other Sepsis acute organ dysfunction status: with acute organ dysfunction Severe sepsis acute organ dysfunction type: acute renal failure Acute renal failure type: with acute tubular necrosis Severe sepsis shock status: with septic shock Qualified Code(s): A40.8 - Other streptococcal sepsis; R65.21 - Severe sepsis with septic shock; N17.0 - Acute kidney failure with tubular necrosis Is this a current diagnosis for this admission?: Yes (11) Acute kidney injury Is this a current diagnosis for this admission?: Yes (12) Pancytopenia Is this a current diagnosis for this admission?: Yes Plan: Improving - Time Time Spent with patient: 35 or more minutes
[2019-11-13 17:45] LABS: HEMATOCRIT 27.1 % (37.9-51.0); HEMOGLOBIN 9.3 g/dL (13.5-17.0); MEAN CORPUSCULAR HEMOGLOBIN 27.8 pg (27.0-33.4); MEAN CORPUSCULAR HGB CONC 34.4 g/dL (32.0-36.0); MEAN CORPUSCULAR VOLUME 81 fl (80-97); RED BLOOD COUNT 3.35 10^6/uL (4.35-5.55); WHITE BLOOD COUNT 9.5 10^3/uL (4.0-10.5)
[2019-11-13 18:00] LABS: ALBUMIN 3.1 g/dL (3.5-5.0); ALKALINE PHOSPHATASE 146 U/L (38-126); ANION GAP 8 (5-19); ASPARTATE AMINO TRANSFERASE 27 U/L (17-59); BILIRUBIN,DIRECT 0.2 mg/dL (0.0-0.4); BILIRUBIN,TOTAL 0.4 mg/dL (0.2-1.3); BLOOD UREA NITROGEN 15 mg/dL (7-20); CALCIUM 8.5 mg/dL (8.4-10.2); CARBON DIOXIDE 25 mmol/L (22-30); CHLORIDE 106 mmol/L (98-107); GLUCOSE 104 mg/dL (75-110); POTASSIUM 4.3 mmol/L (3.6-5.0); TOTAL PROTEIN 6.4 g/dL (6.3-8.2)
[2019-11-13 18:11] LABS: PLATELET COUNT 91 10^3/uL (150-450)
[2019-11-13 18:14] LABS: ABSOLUTE LYMPHOCYTES# (MANUAL) 0.9 10^3/uL (0.5-4.7); ABSOLUTE MONOCYTES # (MANUAL) 0.8 10^3/uL (0.1-1.4); BAND NEUTROPHILS % (MANUAL) 3 % (3-5); BASOPHILS % (MANUAL) 0 % (0-2); EOSINOPHILS % (MANUAL) 1 % (0-6); LYMPHOCYTES % (MANUAL) 9 % (13-45); METAMYELOCYTES % (MANUAL) 1 % (0-1); MONOCYTES % (MANUAL) 8 % (3-13); SEGMENTED NEUTROPHILS % (MAN) 78 % (42-78); TOTAL CELLS COUNTED 100
[2019-11-13 18:17] LABS: ANISOCYTOSIS 1+; PLATELET COMMENT DECREASED
[2019-11-13] MEDS: DOXEPIN HCL 10 MG CAPSULE PO SCH (21:06)
[2019-11-13] MEDS: ATORVASTATIN CALCIUM 10 MG TABLET PO SCH (21:06)
[2019-11-14] MEDS: IMIPENEM/CILASTATIN SODIUM 500 MG in NORMAL SALINE 100 ML IV SCH ×3 (03:15→17:06)
[2019-11-14] MEDS: CARVEDILOL 12.5 MG TABLET PO SCH ×2 (05:10→18:30)
[2019-11-14] MEDS: TOLTERODINE TARTRATE 1 MG TABLET PO SCH ×2 (05:10→21:39)
[2019-11-14] MEDS: GABAPENTIN 300 MG CAPSULE PO SCH ×2 (05:10→21:39)
[2019-11-14] MEDS: POTASSI CL 20 MEQ/NS 1L 1,000 ML IV PRN (06:37)
--- NOTE | 2019-11-14 09:41 | Progress Note ---
Provider Note Provider Note: [facility] Telephone Advice Consultation Chart reviewed. Patient is a 79-year-old man with metastatic prostate cancer - bone metastasis currently receiving chemotherapy (last on in 10/31) who was admi tted with altered mental status, fever and hypotension. patient had a history of obstructive uropathy presenting with bilateral hydronephrosis s/p bilateral PCNs. It is not clear to me for how long he has had these PCNs in place. Patient was started on vancomycin and cefepime. Blood culture had 1/2 sets with Streptococcus mitis which is a VGS, common cause of endocarditis. Per notes, patient has a heart murmur. His urine from PCN grew E coli ESBL and Pseudomonas. Antibiotic therapy was changed to Imipenem/cilastatin. Patient has clinically improved and wants to go home. Patient had a port in the chest as well. ID consulted for recommendations. PMH: Prostate cancer stage IV Atrial fibrillation Hypertension Heart murmur Allergies lisinopril [Lisinopril] Adverse Reaction (Unknown, Verified 10/23/19 12:58) [id number] Reductase Inhibitor Adverse Reaction (Unknown, Verified 10/23/19 12:58) Medications: Carvedilol Phosphate [Coreg CR 40 mg Ext. Release Capsule] 40 mg PO DAILY 08/16/19 Gabapentin [Neurontin 300 mg Capsule] 300 mg PO Q12 08/16/19 Oxycodone HCl 15 mg PO Q8HP PRN 08/16/19 Sildenafil Citrate [Viagra] 100 mg PO ASDIR PRN 08/16/19 Solifenacin Succinate [Vesicare] 5 mg PO DAILY 08/16/19 Allopurinol [Zyloprim 300 mg Tablet] 300 mg PO DAILY 11/08/19 Apixaban [Eliquis 2.5 mg Tablet] 2.5 mg PO BID 11/08/19 Aspirin [Ecotrin 81 mg EC Tablet] 81 mg PO DAILY 11/08/19 Doxepin HCl [[place] 10 Mg Capsule] 10 mg PO QHS 11/08/19 Finasteride [Proscar 5 mg Tablet] 5 mg PO DAILY 11/08/19 Lidocaine/Prilocaine [Emla Cream] 1 applic TP ASDIR PRN 11/08/19 Losartan/Hydrochlorothiazide [Losartan-Hctz 50-12.5 mg Tab] 1 tab PO DAILY 11/08/19 Multivitamin [Tab-A-Tree (Multiple Vitamin) Tablet] 1 tab PO DAILY 11/08/19 Pravastatin Sodium 40 mg PO QHS 11/08/19 Tamsulosin HCl [Flomax 0.4 mg Cap.sr] 0.4 mg PO DAILY 11/08/19 Vital Signs: Temp Pulse Resp BP Pulse Ox 98.2 F 75 17 148/65 H 97 11/14/19 04:02 11/14/19 07:00 11/14/19 04:02 11/14/19 04:02 11/14/19 04:02 Intake & Output 11/13/19 11/14/19 11/15/19 06:59 06:59 06:59 Intake Total 2600 2200 Output Total 2075 2000 Balance 525 200 Weight 98.5 kg 99.1 kg Weight/Height Weight 99.1 kg Height 5 ft 11 in Laboratories: 11/13/19 17:26 11/13/19 17:23 MCV 81 fl (80-97) 11/13/19 17:26 MCH 27.8 pg (27.0-33.4) 11/13/19 17:26 MCHC 34.4 g/dL (32.0-36.0) 11/13/19 17:26 RDW 18.0 % (11.5-14.0) H 11/13/19 17:26 Seg Neutrophils % Not Reportable 11/13/19 17:26 VBG pH 7.45 (7.30-7.42) H 11/08/19 09:10 VBG pCO2 38.4 mmHg (35-63) 11/08/19 09:10 VBG HCO3 25.9 mmol/L (20-32) 11/08/19 09:10 VBG Base Excess 1.8 mmol/L 11/08/19 09:10 Chloride 106 mmol/L (98-107) 11/13/19 17:23 Carbon Dioxide 25 mmol/L (22-30) 11/13/19 17:23 Anion Gap 8 (5-19) 11/13/19 17:23 Est GFR ( Amer) 57 (>60) L 11/13/19 17:23 Glucose 104 mg/dL (75-110) 11/13/19 17:23 Calcium 8.5 mg/dL (8.4-10.2) 11/13/19 17:23 Phosphorus 3.9 mg/dL (2.5-4.5) 11/08/19 15:30 Magnesium 1.6 mg/dL (1.6-2.3) 11/08/19 15:30 Total Bilirubin 0.4 mg/dL (0.2-1.3) 11/13/19 17:23 AST 27 U/L (17-59) 11/13/19 17:23 Alkaline Phosphatase 146 U/L (38-126) H 11/13/19 17:23 Ammonia < 8.7 umol/L (9-33) L 11/08/19 15:30 Total Protein 6.4 g/dL (6.3-8.2) 11/13/19 17: Albumin 3.1 g/dL (3.5-5.0) L 11/13/19 17:23 Triglycerides 72 mg/dL (<150) 11/09/19 04:00 Cholesterol 92.57 mg/dL (0-200) 11/09/19 04:00 LDL Cholesterol Direct 33 mg/dL (<100) 11/09/19 04:00 VLDL Cholesterol 14.0 mg/dL (10-31) 11/09/19 04:00 HDL Cholesterol 35 mg/dL (>40) L 11/09/19 04:00 Amylase 56 U/L (30-110) 11/08/19 15:30 Lipase 49.2 U/L (23-300) 11/08/19 15:30 TSH 0.61 uIU/mL (0.47-4.68) 11/08/19 15:30 Free T4 0.94 ng/dL (0.78-2.19) 11/08/19 15:30 Urine Color YELLOW 11/08/19 16:28 Urine Appearance SLIGHTLY-CLOUDY 11/08/19 16:28 Urine pH 6.0 (5.0-9.0) 11/08/19 16:28 Ur Specific [place] 1.011 11/08/19 16:28 Urine Protein 100 mg/dL (NEGATIVE) H 11/08/19 16:28 Urine Glucose (UA) NEGATIVE mg/dL (NEGATIVE) 11/08/19 16:28 Urine Ketones TRACE mg/dL (NEGATIVE) H 11/08/19 16:28 Urine Blood LARGE (NEGATIVE) H 11/08/19 16:28 Urine Nitrite NEGATIVE (NEGATIVE) 11/08/19 16:28 Ur Leukocyte Esterase MODERATE (NEGATIVE) H 11/08/19 16:28 Urine WBC (Auto) 51 /HPF 11/08/19 16:28 Urine RBC (Auto) 24 /HPF 11/08/19 16:28 Blood Type O POSITIVE 11/09/19 10:50 Antibody Screen NEGATIVE 11/09/19 10:50 11/08/19 09:10 Blood Blood Culture - Final NO GROWTH IN 5 DAYS 11/08/19 11/08/19 11/08/19 09:10 15:30 15:30 Creatine Kinase 76 107 CK-MB (CK-2) Troponin I NT-Pro-B Natriuret Pep 8200 H 11/08/19 11/08/19 11/08/19 15:30 21:28 21:28 Creatine Kinase 151 CK-MB (CK-2) 1.82 1.10 Troponin I 0.033 0.035 NT-Pro-B Natriuret Pep 11/09/19 11/09/19 03:25 03:25 Creatine Kinase 176 H CK-MB (CK-2) 1.35 Troponin I 0.029 NT-Pro-B Natriuret Pep Microbiology: Blood culture 11/08/19 Streptococcus mitis (Pen MAGDALENA 0.03) 11/11/19 NGTD Urine culture PCN 11/08/19 Pseudomonas aeruginosa, E coli ESBL Radiology: Chest X-Ray 11/08/19 10:25 IMPRESSION: NO ACUTE RADIOGRAPHIC FINDING IN THE CHEST. Head CT 11/08/19 10:25 IMPRESSION: CHRONIC CHANGES OF ATROPHY AND MICROVASCULAR ISCHEMIA. NO ACUTE PROCESS. EVIDENCE OF ACUTE STROKE: NO. Head MRI 11/11/19 00:00 IMPRESSION: No acute intracranial hemorrhage, mass, or evidence of acute infarct. Mild chronic microvascular ischemic change with zone of encephalomalacia about the right frontal lobe towards the vertex. Additional remote lacunar infarct within the right croft radiata. Moderate generalized atrophy. Elongated focus of signal abnormality located about the right pterygoid musculature with concomitant confluent enhancement. This appears more conspicuous than compared to the previous MR dated 04/29/2019 as well as 06/23/2017. The etiology of this finding is indeterminate as it did not demonstrate any FDG avidity on the previous PET/CT dated 10/06/2019. However, a schwannoma is a primary consideration given the uniform enhancement and hyperintense T2/FLAIR signal characteristics of the lesion. Assessment and Recommendations: Patient with metastatic prostate cancer with obstructive uropathy s/p bilateral PCNs admitted with sepsis secondary to Streptococcus mitis bacteremia, found with positive urine culture with Pseudomonas and E coli ESBL. I believe that the most important process we have to assess is the bacteremia with Streptococcus mitis which is one of the most common causes of endocarditis. Patient has a heart murmur, meaning already abnormal heart valve and high risk for endocarditis. Source, however can be from mucositis or the port. Mucositis more likely, as the blood culture from the port was negative. For this, will recommend a TTE to rule out endocarditis and determine duration of therapy (2 vs 4 weeks). With negative culture from the port we can salvage the port. In terms of positive urine culture, this is more difficult to assess as this patient has had this PCNs and they can be colonized with MDROs as Pseudomonas and E coli ESBL. Patient improved while on cefepime, more likely due to colonization of the PCN with these organisms and him responding to vancomycin and cefepime for Streptococcus bacteremia. Due to high suspicion for colonization, I would'nt recommend a prolonged course with imipenem (max 7 days). After completion of 7 days, would transition patient to ceftriaxone to complete the rest of the course for bacteremia after TTE is done (min 2 weeks). Ertapenem doesn't have Pseudomonal coverage. Please call if questions. Riana Luna MD [facility] Infectious Disease [phone]
[2019-11-14] MEDS: ALLOPURINOL 300 MG TABLET PO SCH (10:15)
[2019-11-14] MEDS: HYDROCHLOROTHIAZIDE 12.5 MG TABLET PO SCH (10:15)
[2019-11-14] MEDS: MULTIVITAMIN TABLET PO SCH (10:16)
[2019-11-14] MEDS: FINASTERIDE 5 MG TABLET PO SCH (10:16)
[2019-11-14] MEDS: TAMSULOSIN HCL 0.4 MG CAP.SR.24H PO SCH (10:19)
--- NOTE | 2019-11-14 20:57 | PDOC PROGRESS REPORT ---
Subjective Progress Note for:: 11/14/19 Subjective:: Patient seen by the bedside, the ID note was reviewed, because he has Streptococcus mitis septicemia, I the recommend LAURA, Streptococcus mitis a member of the Streptococcus viridans is notorious for causing endocarditis, ID felt LAURA should be done if the LAURA is positive for vegetations patient may require antibiotic for 4 weeks if negative for vegetations may require for 2 weeks this was explained to the patient. Reason For Visit: BRONCHITIS,UTI,HYPOTENSION,STAGE 4 CA, Physical Exam Vital Signs: Temp Pulse Resp BP Pulse Ox 97.7 F 80 20 162/76 H 99 11/14/19 19:48 11/14/19 19:48 11/14/19 19:48 11/14/19 19:48 11/14/19 19:48 Intake & Output 11/13/19 11/14/19 11/15/19 06:59 06:59 06:59 Intake Total 2600 2200 850 Output Total 2075 2000 720 Balance 525 200 130 Weight 98.5 kg 99.1 kg General appearance: PRESENT: no acute distress Eye exam: PRESENT: PERRLA Respiratory exam: PRESENT: clear to auscultation heatehr Cardiovascular exam: PRESENT: +S1, +S2 GI/Abdominal exam: PRESENT: soft Neurological exam: PRESENT: alert, CN II-XII grossly intact Results Laboratory Results: 11/13/19 17:26 11/13/19 17:23 11/08/19 11/08/19 11/08/19 09:10 15:30 15:30 Creatine Kinase 76 107 CK-MB (CK-2) Troponin I NT-Pro-B Natriuret Pep 8200 H 11/08/19 11/08/19 11/08/19 15:30 21:28 21:28 Creatine Kinase 151 CK-MB (CK-2) 1.82 1.10 Troponin I 0.033 0.035 NT-Pro-B Natriuret Pep 11/09/19 11/09/19 03:25 03:25 Creatine Kinase 176 H CK-MB (CK-2) 1.35 Troponin I 0.029 NT-Pro-B Natriuret Pep Impressions: Chest X-Ray 11/08/19 10:25 IMPRESSION: NO ACUTE RADIOGRAPHIC FINDING IN THE CHEST. Head CT 11/08/19 10:25 IMPRESSION: CHRONIC CHANGES OF ATROPHY AND MICROVASCULAR ISCHEMIA. NO ACUTE PROCESS. EVIDENCE OF ACUTE STROKE: NO. Head MRI 11/11/19 00:00 IMPRESSION: No acute intracranial hemorrhage, mass, or evidence of acute infarct. Mild chronic microvascular ischemic change with zone of encephalomalacia about the right frontal lobe towards the vertex. Additional remote lacunar infarct within the right croft radiata. Moderate generalized atrophy. Elongated focus of signal abnormality located about the right pterygoid musculature with concomitant confluent enhancement. This appears more conspicuous than compared to the previous MR dated 04/29/2019 as well as 06/23/2017. The etiology of this finding is indeterminate as it did not demonstrate any FDG avidity on the previous PET/CT dated 10/06/2019. However, a schwannoma is a primary consideration given the uniform enhancement and hyperintense T2/FLAIR signal characteristics of the lesion. copyright 2010 [employer]- All Rights Reserved Assessment & Plan - Diagnosis (1) Neutropenic fever Is this a current diagnosis for this admission?: Yes (2) Hypotension Qualifiers: Hypotension type: other hypotension type Qualified Code(s): I95.89 - Other hypotension Is this a current diagnosis for this admission?: Yes (3) Adenocarcinoma of prostate, stage 4 Is this a current diagnosis for this admission?: Yes (4) Obstructive uropathy Is this a current diagnosis for this admission?: Yes (5) Acute kidney injury Is this a current diagnosis for this admission?: Yes (6) Metabolic encephalopathy Is this a current diagnosis for this admission?: Yes (7) UTI due to extended-spectrum beta lactamase (ESBL) producing Escherichia coli Is this a current diagnosis for this admission?: Yes (8) Pseudomonas urinary tract infection Is this a current diagnosis for this admission?: Yes (9) Infection due to Streptococcus mitis group Is this a current diagnosis for this admission?: Yes Plan: Start intravenous ertapenem (10) Sepsis Qualifiers: Sepsis type: Streptococcus, other Sepsis acute organ dysfunction status: with acute organ dysfunction Severe sepsis acute organ dysfunction type: acute renal failure Acute renal failure type: with acute tubular necrosis Severe sepsis shock status: with septic shock Qualified Code(s): A40.8 - Other streptococcal sepsis; R65.21 - Severe sepsis with septic shock; N17.0 - Acute kidney failure with tubular necrosis Is this a current diagnosis for this admission?: Yes (11) Acute kidney injury Is this a current diagnosis for this admission?: Yes (12) Pancytopenia Is this a current diagnosis for this admission?: Yes Plan: Improving - Time Time Spent with patient: 35 or more minutes
[2019-11-14 21:27] LABS: HEMATOCRIT 26.5 % (37.9-51.0); MEAN CORPUSCULAR HEMOGLOBIN 27.4 pg (27.0-33.4); MEAN CORPUSCULAR VOLUME 81 fl (80-97); PLATELET COUNT 120 10^3/uL (150-450); RED BLOOD COUNT 3.29 10^6/uL (4.35-5.55); RED CELL DISTRIBUTION WIDTH 17.5 % (11.5-14.0); WHITE BLOOD COUNT 9.1 10^3/uL (4.0-10.5)
[2019-11-14 21:38] LABS: ALKALINE PHOSPHATASE 135 U/L (38-126); ANION GAP 5 (5-19); ASPARTATE AMINO TRANSFERASE 23 U/L (17-59); BILIRUBIN,DIRECT 0.2 mg/dL (0.0-0.4); BILIRUBIN,TOTAL 0.4 mg/dL (0.2-1.3); BLOOD UREA NITROGEN 14 mg/dL (7-20); CALCIUM 8.3 mg/dL (8.4-10.2); CARBON DIOXIDE 27 mmol/L (22-30); CHLORIDE 107 mmol/L (98-107); GLUCOSE 121 mg/dL (75-110); POTASSIUM 4.1 mmol/L (3.6-5.0); TOTAL PROTEIN 6.1 g/dL (6.3-8.2)
[2019-11-14] MEDS: ATORVASTATIN CALCIUM 10 MG TABLET PO SCH (21:39)
[2019-11-14] MEDS: ERTAPENEM SODIUM 1 GM in NORMAL SALINE 50 ML IV SCH (21:39)
[2019-11-14] MEDS: DOXEPIN HCL 10 MG CAPSULE PO SCH (21:42)
[2019-11-14 21:47] LABS: ABSOLUTE MONOCYTES # (MANUAL) 0.6 10^3/uL (0.1-1.4); BAND NEUTROPHILS % (MANUAL) 3 % (3-5); BASOPHILS % (MANUAL) 0 % (0-2); EOSINOPHILS % (MANUAL) 0 % (0-6); LYMPHOCYTES % (MANUAL) 10 % (13-45); MONOCYTES % (MANUAL) 7 % (3-13); NUCLEATED RED BLOOD CELLS 1 /100 WBC (0); SEGMENTED NEUTROPHILS % (MAN) 79 % (42-78); TOTAL CELLS COUNTED 100
[2019-11-14 21:48] LABS: ANISOCYTOSIS 1+; OVALOCYTES SLIGHT; PLATELET COMMENT DECREASED
[2019-11-15] MEDS: GABAPENTIN 300 MG CAPSULE PO SCH ×3 (07:12→18:08)
[2019-11-15] MEDS: CARVEDILOL 12.5 MG TABLET PO SCH ×3 (07:12→18:08)
[2019-11-15] MEDS: TOLTERODINE TARTRATE 1 MG TABLET PO SCH ×3 (07:12→18:08)
--- NOTE | 2019-11-15 08:09 | PDOC PROGRESS REPORT ---
Subjective Progress Note for:: 11/15/19 Subjective:: Patient is ready for his LAURA today. He has questions about outpatient treatment after discharge. He denies dyspnea or pain. Still feels very weak. Reason For Visit: BRONCHITIS,UTI,HYPOTENSION,STAGE 4 CA, Physical Exam Vital Signs: Temp Pulse Resp BP Pulse Ox 98.6 F 86 19 146/74 H 98 11/15/19 00:27 11/15/19 07:00 11/15/19 00:27 11/15/19 00:27 11/15/19 00:27 Intake & Output 11/14/19 11/15/19 11/16/19 06:59 06:59 06:59 Intake Total 2200 1900 Output Total 1999 1820 Balance 200 80 Weight 99.1 kg 97 kg General appearance: PRESENT: no acute distress, well-developed, well-nourished Head exam: PRESENT: normocephalic Respiratory exam: PRESENT: clear to auscultation heather, unlabored Cardiovascular exam: PRESENT: RRR Extremities exam: PRESENT: other - Left ankle with 1+ edema. No edema in right ankle Neurological exam: PRESENT: alert, awake Psychiatric exam: PRESENT: appropriate affect Skin exam: PRESENT: normal color Results Laboratory Results: 11/14/19 11/14/19 21:10 21:10 WBC 9.1 RBC 3.29 L Hgb 9.0 L Hct 26.5 L MCV 81 MCH 27.4 MCHC 34.0 RDW 17.5 H Plt Count 120 L Seg Neutrophils % Not Reportable Sodium 139.1 Potassium 4.1 Chloride 107 Carbon Dioxide 27 Anion Gap 5 BUN 14 Creatinine 1.46 H Est GFR ( Amer) 56 L Glucose 121 H Calcium 8.3 L Total Bilirubin 0.4 AST 23 Alkaline Phosphatase 135 H Total Protein 6.1 L Albumin 3.0 L 11/08/19 11/08/19 11/08/19 09:10 15:30 15:30 Creatine Kinase 76 107 CK-MB (CK-2) Troponin I NT-Pro-B Natriuret Pep 8200 H 11/08/19 11/08/19 11/08/19 15:30 21:28 21:28 Creatine Kinase 151 CK-MB (CK-2) 1.82 1.10 Troponin I 0.033 0.035 NT-Pro-B Natriuret Pep 11/09/19 11/09/19 03:25 03:25 Creatine Kinase 176 H CK-MB (CK-2) 1.35 Troponin I 0.029 NT-Pro-B Natriuret Pep Impressions: Chest X-Ray 11/08/19 10:25 IMPRESSION: NO ACUTE RADIOGRAPHIC FINDING IN THE CHEST. Head CT 11/08/19 10:25 IMPRESSION: CHRONIC CHANGES OF ATROPHY AND MICROVASCULAR ISCHEMIA. NO ACUTE PROCESS. EVIDENCE OF ACUTE STROKE: NO. Head MRI 11/11/19 00:00 IMPRESSION: No acute intracranial hemorrhage, mass, or evidence of acute infarct. Mild chronic microvascular ischemic change with zone of encephalomalacia about the right frontal lobe towards the vertex. Additional remote lacunar infarct within the right croft radiata. Moderate generalized atrophy. Elongated focus of signal abnormality located about the right pterygoid musculature with concomitant confluent enhancement. This appears more conspicuous than compared to the previous MR dated 04/29/2019 as well as 06/23/2017. The etiology of this finding is indeterminate as it did not demonstrate any FDG avidity on the previous PET/CT dated 10/06/2019. However, a schwannoma is a primary consideration given the uniform enhancement and hyperintense T2/FLAIR signal characteristics of the lesion. copyright 2010 [employer]- All Rights Reserved Assessment & Plan - Diagnosis (1) Adenocarcinoma of prostate, stage 4 Is this a current diagnosis for this admission?: Yes Plan: His blood counts have now recovered after chemo. Further treatment as outpatient, after infection has completely resolved. (2) Infection due to Streptococcus mitis group Is this a current diagnosis for this admission?: Yes Plan: Agree with LAURA and plans for IV antibiotics. (3) Neutropenic fever Is this a current diagnosis for this admission?: Yes Plan: Resolved. No further neutropenia. - Time Time Spent with patient: 15-24 minutes
[2019-11-15 08:26] LABS: HEMATOCRIT 25.3 % (37.9-51.0); HEMOGLOBIN 8.5 g/dL (13.5-17.0); MEAN CORPUSCULAR HEMOGLOBIN 27.2 pg (27.0-33.4); MEAN CORPUSCULAR HGB CONC 33.6 g/dL (32.0-36.0); MEAN CORPUSCULAR VOLUME 81 fl (80-97); PLATELET COUNT 135 10^3/uL (150-450); RED BLOOD COUNT 3.12 10^6/uL (4.35-5.55); RED CELL DISTRIBUTION WIDTH 17.5 % (11.5-14.0)
[2019-11-15 08:38] LABS: ALBUMIN 2.7 g/dL (3.5-5.0); ALKALINE PHOSPHATASE 124 U/L (38-126); ANION GAP 7 (5-19); ASPARTATE AMINO TRANSFERASE 25 U/L (17-59); BILIRUBIN,DIRECT 0.2 mg/dL (0.0-0.4); BILIRUBIN,TOTAL 0.4 mg/dL (0.2-1.3); BLOOD UREA NITROGEN 15 mg/dL (7-20); CARBON DIOXIDE 27 mmol/L (22-30); CHLORIDE 106 mmol/L (98-107); GLUCOSE 83 mg/dL (75-110); POTASSIUM 3.7 mmol/L (3.6-5.0); TOTAL PROTEIN 5.6 g/dL (6.3-8.2)
[2019-11-15 08:54] LABS: ABSOLUTE LYMPHOCYTES# (MANUAL) 1.4 10^3/uL (0.5-4.7); ABSOLUTE MONOCYTES # (MANUAL) 1.1 10^3/uL (0.1-1.4); ANISOCYTOSIS 1+; BAND NEUTROPHILS % (MANUAL) 4 % (3-5); BASOPHILS % (MANUAL) 0 % (0-2); EOSINOPHILS % (MANUAL) 0 % (0-6); HYPOCHROMASIA 1+; LYMPHOCYTES % (MANUAL) 14 % (13-45); MONOCYTES % (MANUAL) 11 % (3-13); PLATELET COMMENT DECREASED; SEGMENTED NEUTROPHILS % (MAN) 71 % (42-78); TOTAL CELLS COUNTED 100
[2019-11-15] MEDS: MULTIVITAMIN TABLET PO SCH (10:53)
[2019-11-15] MEDS: HYDROCHLOROTHIAZIDE 12.5 MG TABLET PO SCH (10:53)
[2019-11-15] MEDS: TAMSULOSIN HCL 0.4 MG CAP.SR.24H PO SCH (10:53)
[2019-11-15] MEDS: FINASTERIDE 5 MG TABLET PO SCH (10:53)
[2019-11-15] MEDS: ALLOPURINOL 300 MG TABLET PO SCH (10:54)
[2019-11-15] MEDS: ERTAPENEM SODIUM 1 GM in NORMAL SALINE 50 ML IV SCH (21:24)
[2019-11-15] MEDS: ATORVASTATIN CALCIUM 10 MG TABLET PO SCH (21:24)
[2019-11-15] MEDS: DOXEPIN HCL 10 MG CAPSULE PO SCH (21:24)
--- NOTE | 2019-11-15 23:42 | PDOC PROGRESS REPORT ---
Subjective Progress Note for:: 11/15/19 Subjective:: Patient seen by the bedside, he was scheduled to have LAURA done today for some unknown reason scheduling was not possible to get the procedure done . Repeat blood culture was negative, he could be discharged home on IV antibiotic,outpatient, and will discuss with discharge planning on the logistics of home IV infusion antibiotic Reason For Visit: BRONCHITIS,UTI,HYPOTENSION,STAGE 4 CA, Physical Exam Vital Signs: Temp Pulse Resp BP Pulse Ox 97.6 F 71 18 130/79 H 99 11/15/19 19:53 11/15/19 19:53 11/15/19 19:53 11/15/19 19:53 11/15/19 19:53 Intake & Output 11/14/19 11/15/19 11/16/19 06:59 06:59 06:59 Intake Total 2200 1900 600 Output Total 2000 1820 1600 Balance 200 80 -1000 Weight 99.1 kg 97 kg 97 kg General appearance: PRESENT: no acute distress Eye exam: PRESENT: PERRLA Respiratory exam: PRESENT: clear to auscultation heather Cardiovascular exam: PRESENT: +S1, +S2 GI/Abdominal exam: PRESENT: soft Neurological exam: PRESENT: alert, CN II-XII grossly intact Results Laboratory Results: 11/15/19 07:20 11/15/19 07:20 11/15/19 11/15/19 07:20 07:20 WBC 10.0 RBC 3.12 L Hgb 8.5 L Hct 25.3 L MCV 81 MCH 27.2 MCHC 33.6 RDW 17.5 H Plt Count 135 L Seg Neutrophils % Not Reportable Sodium 139.9 Potassium 3.7 Chloride 106 Carbon Dioxide 27 Anion Gap 7 BUN 15 Creatinine 1.40 H Est GFR ( Amer) 59 L Glucose 83 Calcium 8.0 L Total Bilirubin 0.4 AST 25 Alkaline Phosphatase 124 Total Protein 5.6 L Albumin 2.7 L 11/13/19 10:55 Nephrostomy - Right Urine Culture - Final NO GROWTH 2 DAYS 11/08/19 11/08/19 11/08/19 09:10 15:30 15:30 Creatine Kinase 76 107 CK-MB (CK-2) Troponin I NT-Pro-B Natriuret Pep 8200 H 11/08/19 11/08/19 11/08/19 15:30 21:28 21:28 Creatine Kinase 151 CK-MB (CK-2) 1.82 1.10 Troponin I 0.033 0.035 NT-Pro-B Natriuret Pep 11/09/19 11/09/19 03:25 03:25 Creatine Kinase 176 H CK-MB (CK-2) 1.35 Troponin I 0.029 NT-Pro-B Natriuret Pep Impressions: Chest X-Ray 11/08/19 10:25 IMPRESSION: NO ACUTE RADIOGRAPHIC FINDING IN THE CHEST. Head CT 11/08/19 10:25 IMPRESSION: CHRONIC CHANGES OF ATROPHY AND MICROVASCULAR ISCHEMIA. NO ACUTE PROCESS. EVIDENCE OF ACUTE STROKE: NO. Head MRI 11/11/19 00:00 IMPRESSION: No acute intracranial hemorrhage, mass, or evidence of acute infarct. Mild chronic microvascular ischemic change with zone of encephalomalacia about the right frontal lobe towards the vertex. Additional remote lacunar infarct within the right croft radiata. Moderate generalized atrophy. Elongated focus of signal abnormality located about the right pterygoid musculature with concomitant confluent enhancement. This appears more conspicuous than compared to the previous MR dated 04/29/2019 as well as 06/23/2017. The etiology of this finding is indeterminate as it did not demonstrate any FDG avidity on the previous PET/CT dated 10/06/2019. However, a schwannoma is a primary consideration given the uniform enhancement and hyperintense T2/FLAIR signal characteristics of the lesion. copyright 2010 [employer]- All Rights Reserved Assessment & Plan - Diagnosis (1) Neutropenic fever Is this a current diagnosis for this admission?: Yes (2) Hypotension Qualifiers: Hypotension type: other hypotension type Qualified Code(s): I95.89 - Other hypotension Is this a current diagnosis for this admission?: Yes (3) Adenocarcinoma of prostate, stage 4 Is this a current diagnosis for this admission?: Yes (4) Obstructive uropathy Is this a current diagnosis for this admission?: Yes (5) Acute kidney injury Is this a current diagnosis for this admission?: Yes (6) Metabolic encephalopathy Is this a current diagnosis for this admission?: Yes (7) UTI due to extended-spectrum beta lactamase (ESBL) producing Escherichia coli Is this a current diagnosis for this admission?: Yes (8) Pseudomonas urinary tract infection Is this a current diagnosis for this admission?: Yes (9) Infection due to Streptococcus mitis group Is this a current diagnosis for this admission?: Yes (10) Sepsis Qualifiers: Sepsis type: Streptococcus, other Sepsis acute organ dysfunction status: with acute organ dysfunction Severe sepsis acute organ dysfunction type: acute renal failure Acute renal failure type: with acute tubular necrosis Severe sepsis shock status: with septic shock Qualified Code(s): A40.8 - Other streptococcal sepsis; R65.21 - Severe sepsis with septic shock; N17.0 - Acute kidney failure with tubular necrosis Is this a current diagnosis for this admission?: Yes (11) Acute kidney injury Is this a current diagnosis for this admission?: Yes (12) Pancytopenia Is this a current diagnosis for this admission?: Yes - Time Time Spent with patient: 25-34 minutes - Plan Summary Plan Summary: Continue antibiotic and other treatment
[2019-11-16] MEDS: GABAPENTIN 300 MG CAPSULE PO SCH ×2 (05:55→17:15)
[2019-11-16] MEDS: TOLTERODINE TARTRATE 1 MG TABLET PO SCH ×2 (05:55→17:15)
[2019-11-16] MEDS: CARVEDILOL 12.5 MG TABLET PO SCH ×2 (05:56→17:15)
--- NOTE | 2019-11-16 08:15 | PDOC PROGRESS REPORT ---
Subjective Progress Note for:: 11/15/19 Subjective:: Was asked to evaluate patient for LAURA Reason For Visit: BRONCHITIS,UTI,HYPOTENSION,STAGE 4 CA, Physical Exam Vital Signs: Temp Pulse Resp BP Pulse Ox 98.7 F 90 18 120/70 97 11/16/19 03:13 11/16/19 03:13 11/16/19 03:13 11/16/19 03:13 11/16/19 03:13 Intake & Output 11/15/19 11/16/19 11/17/19 06:59 06:59 06:59 Intake Total 1900 650 Output Total 1820 2351 Balance 80 -1701 Weight 97 kg 97 kg Results Laboratory Results: 11/15/19 07:20 11/15/19 07:20 11/15/19 11/15/19 07:20 07:20 WBC 10.0 RBC 3.12 L Hgb 8.5 L Hct 25.3 L MCV 81 MCH 27.2 MCHC 33.6 RDW 17.5 H Plt Count 135 L Seg Neutrophils % Not Reportable Sodium 139.9 Potassium 3.7 Chloride 106 Carbon Dioxide 27 Anion Gap 7 BUN 15 Creatinine 1.40 H Est GFR ( Amer) 59 L Glucose 83 Calcium 8.0 L Total Bilirubin 0.4 AST 25 Alkaline Phosphatase 124 Total Protein 5.6 L Albumin 2.7 L 11/13/19 10:55 Nephrostomy - Right Urine Culture - Final NO GROWTH 2 DAYS 11/08/19 11/08/19 11/08/19 09:10 15:30 15:30 Creatine Kinase 76 107 CK-MB (CK-2) Troponin I NT-Pro-B Natriuret Pep 8200 H 11/08/19 11/08/19 11/08/19 15:30 21:28 21:28 Creatine Kinase 151 CK-MB (CK-2) 1.82 1.10 Troponin I 0.033 0.035 NT-Pro-B Natriuret Pep 11/09/19 11/09/19 03:25 03:25 Creatine Kinase 176 H CK-MB (CK-2) 1.35 Troponin I 0.029 NT-Pro-B Natriuret Pep Impressions: Chest X-Ray 11/08/19 10:25 IMPRESSION: NO ACUTE RADIOGRAPHIC FINDING IN THE CHEST. Head CT 11/08/19 10:25 IMPRESSION: CHRONIC CHANGES OF ATROPHY AND MICROVASCULAR ISCHEMIA. NO ACUTE PROCESS. EVIDENCE OF ACUTE STROKE: NO. Head MRI 11/11/19 00:00 IMPRESSION: No acute intracranial hemorrhage, mass, or evidence of acute infarct. Mild chronic microvascular ischemic change with zone of encephalomalacia about the right frontal lobe towards the vertex. Additional remote lacunar infarct within the right croft radiata. Moderate generalized atrophy. Elongated focus of signal abnormality located about the right pterygoid musculature with concomitant confluent enhancement. This appears more conspicuous than compared to the previous MR dated 04/29/2019 as well as 06/23/2017. The etiology of this finding is indeterminate as it did not demonstrate any FDG avidity on the previous PET/CT dated 10/06/2019. However, a schwannoma is a primary consideration given the uniform enhancement and hyperintense T2/FLAIR signal characteristics of the lesion. copyright 2010 [employer]- All Rights Reserved Assessment & Plan - Notes Notes: Tried to schedule patient for LAURA. As endoscopy lab was very busy I was informed that LAURA could not be performed today. I have informed referring physician.
[2019-11-16] MEDS: FINASTERIDE 5 MG TABLET PO SCH (09:34)
[2019-11-16] MEDS: HYDROCHLOROTHIAZIDE 12.5 MG TABLET PO SCH (09:34)
[2019-11-16] MEDS: MULTIVITAMIN TABLET PO SCH (09:34)
[2019-11-16] MEDS: ALLOPURINOL 300 MG TABLET PO SCH (09:34)
[2019-11-16] MEDS: TAMSULOSIN HCL 0.4 MG CAP.SR.24H PO SCH (09:34)
--- NOTE | 2019-11-16 17:31 | PDOC PROGRESS REPORT ---
Subjective Progress Note for:: 11/16/19 Subjective:: Patient was seen by the bedside with family in the room, he has Streptococcus mitis septicemia, he was supposed to have LAURA to rule out endocarditis because Streptococcus mitis is family of enterococcus viridans, the repeat blood culture that was done yesterday was negative for any bacteria yield. Patient need IV antibiotic for 2 weeks because of the bacteremia he also have polymicrobial UTI that could be partly due to colonization, he has ESBL E. coli in the urine. Patient options include to continue the antibiotic in the hospital setting, he has had appropriate IV antibiotic for the last 6 days, he has 8 days left to complete 14 days of appropriate IV antibiotic, the other option is to be discharged home on IV antibiotic, patient spouse is very reluctant about this option because she does not feel comfortable to administer the IV antibiotic to her the other option is outpatient to go home and come back on a daily basis to outpatient infusion center for the antibiotic, this other option is full of potential problems because the patient is not able to drive himself safely at this time the last option is for patient to be discharged to a [facility] home for IV antibiotic Reason For Visit: BRONCHITIS,UTI,HYPOTENSION,STAGE 4 CA, Physical Exam Vital Signs: Temp Pulse Resp BP Pulse Ox 98.3 F 86 14 153/80 H 4 L 11/16/19 15:52 11/16/19 15:52 11/16/19 15:52 11/16/19 15:52 11/16/19 15:52 Intake & Output 11/15/19 11/16/19 11/17/19 06:59 06:59 06:59 Intake Total 1900 650 720 Output Total 1820 2351 300 Balance 80 -1701 420 Weight 97 kg 97 kg General appearance: PRESENT: no acute distress Eye exam: PRESENT: PERRLA Respiratory exam: PRESENT: clear to auscultation heather Cardiovascular exam: PRESENT: +S1, +S2 GI/Abdominal exam: PRESENT: soft Neurological exam: PRESENT: alert Results Laboratory Results: 11/15/19 07:20 11/15/19 07:20 11/08/19 11/08/19 11/08/19 09:10 15:30 15:30 Creatine Kinase 76 107 CK-MB (CK-2) Troponin I NT-Pro-B Natriuret Pep 8200 H 11/08/19 11/08/1911/08/19 15:30 21:28 21:28 Creatine Kinase 151 CK-MB (CK-2) 1.82 1.10 Troponin I 0.033 0.035 NT-Pro-B Natriuret Pep 11/09/19 11/09/19 03:25 03:25 Creatine Kinase 176 H CK-MB (CK-2) 1.35 Troponin I 0.029 NT-Pro-B Natriuret Pep Impressions: Chest X-Ray 11/08/19 10:25 IMPRESSION: NO ACUTE RADIOGRAPHIC FINDING IN THE CHEST. Head CT 11/08/19 10:25 IMPRESSION: CHRONIC CHANGES OF ATROPHY AND MICROVASCULAR ISCHEMIA. NO ACUTE PROCESS. EVIDENCE OF ACUTE STROKE: NO. Head MRI 11/11/19 00:00 IMPRESSION: No acute intracranial hemorrhage, mass, or evidence of acute infarct. Mild chronic microvascular ischemic change with zone of encephalomalacia about the right frontal lobe towards the vertex. Additional remote lacunar infarct within the right croft radiata. Moderate generalized atrophy. Elongated focus of signal abnormality located about the right pterygoid musculature with concomitant confluent enhancement. This appears more conspicuous than compared to the previous MR dated 04/29/2019 as well as 06/23/2017. The etiology of this finding is indeterminate as it did not demonstrate any FDG avidity on the previous PET/CT dated 10/06/2019. However, a schwannoma is a primary consideration given the uniform enhancement and hyperintense T2/FLAIR signal characteristics of the lesion. copyright 2010 [employer]- All Rights Reserved Assessment & Plan - Diagnosis (1) Neutropenic fever Is this a current diagnosis for this admission?: Yes (2) Hypotension Qualifiers: Hypotension type: other hypotension type Qualified Code(s): I95.89 - Other hypotension Is this a current diagnosis for this admission?: Yes (3) Adenocarcinoma of prostate, stage 4 Is this a current diagnosis for this admission?: Yes (4) Obstructive uropathy Is this a current diagnosis for this admission?: Yes (5) Acute kidney injury Is this a current diagnosis for this admission?: Yes (6) Metabolic encephalopathy Is this a current diagnosis for this admission?: Yes (7) UTI due to extended-spectrum beta lactamase (ESBL) producing Escherichia coli Is this a current diagnosis for this admission?: Yes (8) Pseudomonas urinary tract infection Is this a current diagnosis for this admission?: Yes (9) Infection due to Streptococcus mitis group Is this a current diagnosis for this admission?: Yes (10) Sepsis Qualifiers: Sepsis type: Streptococcus, other Sepsis acute organ dysfunction status: with acute organ dysfunction Severe sepsis acute organ dysfunction type: acute renal failure Acute renal failure type: with acute tubular necrosis Severe sepsis shock status: with septic shock Qualified Code(s): A40.8 - Other streptococcal sepsis; R65.21 - Severe sepsis with septic shock; N17.0 - Acute kidney failure with tubular necrosis Is this a current diagnosis for this admission?: Yes (11) Acute kidney injury Is this a current diagnosis for this admission?: Yes (12) Pancytopenia Is this a current diagnosis for this admission?: Yes - Time Time Spent with patient: 35 or more minutes - Plan Summary Plan Summary: Patient will continue IV antibiotic
[2019-11-16 18:28] LABS: HEMATOCRIT 27.5 % (37.9-51.0); HEMOGLOBIN 9.5 g/dL (13.5-17.0); MEAN CORPUSCULAR HEMOGLOBIN 27.6 pg (27.0-33.4); MEAN CORPUSCULAR HGB CONC 34.5 g/dL (32.0-36.0); MEAN CORPUSCULAR VOLUME 80 fl (80-97); PLATELET COUNT 202 10^3/uL (150-450); RED BLOOD COUNT 3.43 10^6/uL (4.35-5.55); RED CELL DISTRIBUTION WIDTH 17.7 % (11.5-14.0); WHITE BLOOD COUNT 9.3 10^3/uL (4.0-10.5)
[2019-11-16 18:52] LABS: ALBUMIN 3.3 g/dL (3.5-5.0); ALKALINE PHOSPHATASE 143 U/L (38-126); ANION GAP 9 (5-19); ASPARTATE AMINO TRANSFERASE 24 U/L (17-59); BILIRUBIN,DIRECT 0.2 mg/dL (0.0-0.4); BILIRUBIN,TOTAL 0.5 mg/dL (0.2-1.3); BLOOD UREA NITROGEN 13 mg/dL (7-20); CALCIUM 8.8 mg/dL (8.4-10.2); CARBON DIOXIDE 29 mmol/L (22-30); CHLORIDE 101 mmol/L (98-107); GLUCOSE 124 mg/dL (75-110); POTASSIUM 3.8 mmol/L (3.6-5.0); TOTAL PROTEIN 6.5 g/dL (6.3-8.2)
[2019-11-16 19:05] LABS: ABSOLUTE LYMPHOCYTES# (MANUAL) 1.4 10^3/uL (0.5-4.7); ABSOLUTE MONOCYTES # (MANUAL) 0.7 10^3/uL (0.1-1.4); ANISOCYTOSIS 1+; BAND NEUTROPHILS % (MANUAL) 5 % (3-5); BASOPHILS % (MANUAL) 0 % (0-2); EOSINOPHILS % (MANUAL) 1 % (0-6); LYMPHOCYTES % (MANUAL) 15 % (13-45); MONOCYTES % (MANUAL) 7 % (3-13); PLATELET COMMENT ADEQUATE; SEGMENTED NEUTROPHILS % (MAN) 72 % (42-78); TOTAL CELLS COUNTED 100
[2019-11-16] MEDS: ERTAPENEM SODIUM 1 GM in NORMAL SALINE 50 ML IV SCH (21:24)
[2019-11-16] MEDS: ATORVASTATIN CALCIUM 10 MG TABLET PO SCH (21:24)
[2019-11-16] MEDS: DOXEPIN HCL 10 MG CAPSULE PO SCH (21:24)
[2019-11-17] MEDS: TOLTERODINE TARTRATE 1 MG TABLET PO SCH ×2 (05:04→17:33)
[2019-11-17] MEDS: GABAPENTIN 300 MG CAPSULE PO SCH ×2 (05:04→17:34)
[2019-11-17] MEDS: CARVEDILOL 12.5 MG TABLET PO SCH ×2 (05:04→17:34)
[2019-11-17 05:11] LABS: HEMATOCRIT 25.1 % (37.9-51.0); HEMOGLOBIN 8.7 g/dL (13.5-17.0); MEAN CORPUSCULAR HEMOGLOBIN 27.7 pg (27.0-33.4); MEAN CORPUSCULAR HGB CONC 34.7 g/dL (32.0-36.0); MEAN CORPUSCULAR VOLUME 80 fl (80-97); PLATELET COUNT 217 10^3/uL (150-450); RED BLOOD COUNT 3.13 10^6/uL (4.35-5.55); RED CELL DISTRIBUTION WIDTH 17.5 % (11.5-14.0); WHITE BLOOD COUNT 9.4 10^3/uL (4.0-10.5)
[2019-11-17 05:40] LABS: ABSOLUTE MONOCYTES # (MANUAL) 0.5 10^3/uL (0.1-1.4); ANISOCYTOSIS 1+; BAND NEUTROPHILS % (MANUAL) 10 % (3-5); BASOPHILS % (MANUAL) 0 % (0-2); EOSINOPHILS % (MANUAL) 0 % (0-6); HYPOCHROMASIA SLIGHT; LYMPHOCYTES % (MANUAL) 11 % (13-45); MONOCYTES % (MANUAL) 5 % (3-13); POLYCHROMASIA 1+; SEGMENTED NEUTROPHILS % (MAN) 74 % (42-78); TOTAL CELLS COUNTED 100
[2019-11-17 05:41] LABS: ALBUMIN 2.9 g/dL (3.5-5.0); ALKALINE PHOSPHATASE 132 U/L (38-126); ANION GAP 8 (5-19); ASPARTATE AMINO TRANSFERASE 26 U/L (17-59); BILIRUBIN,DIRECT 0.2 mg/dL (0.0-0.4); BILIRUBIN,TOTAL 0.4 mg/dL (0.2-1.3); BLOOD UREA NITROGEN 16 mg/dL (7-20); CALCIUM 8.4 mg/dL (8.4-10.2); CARBON DIOXIDE 29 mmol/L (22-30); CHLORIDE 102 mmol/L (98-107); GLUCOSE 100 mg/dL (75-110); PLATELET COMMENT ADEQUATE; POTASSIUM 3.7 mmol/L (3.6-5.0)
[2019-11-17] MEDS: HYDROCHLOROTHIAZIDE 12.5 MG TABLET PO SCH (10:31)
[2019-11-17] MEDS: FINASTERIDE 5 MG TABLET PO SCH (10:31)
[2019-11-17] MEDS: MULTIVITAMIN TABLET PO SCH (10:31)
[2019-11-17] MEDS: ALLOPURINOL 300 MG TABLET PO SCH (10:31)
[2019-11-17] MEDS: TAMSULOSIN HCL 0.4 MG CAP.SR.24H PO SCH (10:31)
[2019-11-17] MEDS: APIXABAN 2.5 MG TABLET PO SCH ×2 (13:03→17:33)
--- NOTE | 2019-11-17 14:45 | PDOC PROGRESS REPORT ---
Subjective Progress Note for:: 11/17/19 Subjective:: Patient seen by the bedside, he continues to respond to present line of treatment, the platelet count is normalized, started back on Eliquis also order SABINE pearson Reason For Visit: BRONCHITIS,UTI,HYPOTENSION,STAGE 4 CA, Physical Exam Vital Signs: Temp Pulse Resp BP Pulse Ox 98.9 F 80 17 144/76 H 97 11/17/19 07:44 11/17/19 07:44 11/17/19 07:44 11/17/19 07:44 11/17/19 07:44 Intake & Output 11/16/19 11/17/19 11/18/19 06:59 06:59 06:59 Intake Total 650 1130 360 Output Total 2351 2025 300 Balance -9179 -337 60 Weight 97 kg 99.8 kg General appearance: PRESENT: no acute distress Eye exam: PRESENT: PERRLA Respiratory exam: PRESENT: clear to auscultation heather Cardiovascular exam: PRESENT: +S1, +S2 GI/Abdominal exam: PRESENT: soft Neurological exam: PRESENT: alert Results Laboratory Results: 11/17/19 04:50 11/17/19 04:50 11/16/19 11/16/19 11/17/19 18:05 18:05 04:50 WBC 9.3 9.4 RBC 3.43 L 3.13 L Hgb 9.5 L 8.7 L Hct 27.5 L 25.1 L MCV 80 80 MCH 27.6 27.7 MCHC 34.5 34.7 RDW 17.7 H 17.5 H Plt Count 202 217 Seg Neutrophils % Not Reportable Not Reportable Sodium 138.9 Potassium 3.8 Chloride 101 Carbon Dioxide 29 Anion Gap 9 BUN 13 Creatinine 1.43 H Est GFR ( Amer) 58 L Glucose 124 H Calcium 8.8 Total Bilirubin 0.5 AST 24 Alkaline Phosphatase 143 H Total Protein 6.5 Albumin 3.3 L 11/17/19 04:50 WBC RBC Hgb Hct MCV MCH MCHC RDW Plt Count Seg Neutrophils % Sodium 138.5 Potassium 3.7 Chloride 102 Carbon Dioxide 29 Anion Gap 8 BUN 16 Creatinine 1.54 H Est GFR ( Amer) 53 L Glucose 100 Calcium 8.4 Total Bilirubin 0.4 AST 26 Alkaline Phosphatase 132 H Total Protein 6.0 L Albumin 2.9 L 11/08/19 11/08/19 11/08/19 09:10 15:30 15:30 Creatine Kinase 76 107 CK-MB (CK-2) Troponin I NT-Pro-B Natriuret Pep 8200 H 11/08/19 11/08/19 11/08/19 15:30 21:28 21:28 Creatine Kinase 151 CK-MB (CK-2) 1.82 1.10 Troponin I 0.033 0.035 NT-Pro-B Natriuret Pep 11/09/19 11/09/19 03:25 03:25 Creatine Kinase 176 H CK-MB (CK-2) 1.35 Troponin I 0.029 NT-Pro-B Natriuret Pep Impressions: Chest X-Ray 11/08/19 10:25 IMPRESSION: NO ACUTE RADIOGRAPHIC FINDING IN THE CHEST. Head CT 11/08/19 10:25 IMPRESSION: CHRONIC CHANGES OF ATROPHY AND MICROVASCULAR ISCHEMIA. NO ACUTE PROCESS. EVIDENCE OF ACUTE STROKE: NO. Head MRI 11/11/19 00:00 IMPRESSION: No acute intracranial hemorrhage, mass, or evidence of acute infarct. Mild chronic microvascular ischemic change with zone of encephalomalacia about the right frontal lobe towards the vertex. Additional remote lacunar infarct within the right croft radiata. Moderate generalized atrophy. Elongated focus of signal abnormality located about the right pterygoid musculature with concomitant confluent enhancement. This appears more conspicuous than compared to the previous MR dated 04/29/2019 as well as 06/23/2017. The etiology of this finding is indeterminate as it did not demonstrate any FDG avidity on the previous PET/CT dated 10/06/2019. However, a schwannoma is a primary consideration given the uniform enhancement and hyperintense T2/FLAIR signal characteristics of the lesion. copyright 2010 [employer]- All Rights Reserved Assessment & Plan - Diagnosis (1) Neutropenic fever Is this a current diagnosis for this admission?: Yes (2) Hypotension Qualifiers: Hypotension type: other hypotension type Qualified Code(s): I95.89 - Other hypotension Is this a current diagnosis for this admission?: Yes (3) Adenocarcinoma of prostate, stage 4 Is this a current diagnosis for this admission?: Yes (4) Obstructive uropathy Is this a current diagnosis for this admission?: Yes (5) Acute kidney injury Is this a current diagnosis for this admission?: Yes (6) Metabolic encephalopathy Is this a current diagnosis for this admission?: Yes (7) UTI due to extended-spectrum beta lactamase (ESBL) producing Escherichia coli Is this a current diagnosis for this admission?: Yes (8) Pseudomonas urinary tract infection Is this a current diagnosis for this admission?: Yes (9) Infection due to Streptococcus mitis group Is this a current diagnosis for this admission?: Yes (10) Sepsis Qualifiers: Sepsis type: Streptococcus, other Sepsis acute organ dysfunction status: with acute organ dysfunction Severe sepsis acute organ dysfunction type: acute renal failure Acute renal failure type: with acute tubular necrosis Severe sepsis shock status: with septic shock Qualified Code(s): A40.8 - Other streptococcal sepsis; R65.21 - Severe sepsis with septic shock; N17.0 - Acute kidney failure with tubular necrosis Is this a current diagnosis for this admission?: Yes (11) Acute kidney injury Is this a current diagnosis for this admission?: Yes (12) Pancytopenia Is this a current diagnosis for this admission?: Yes - Time Time Spent with patient: 15-24 minutes
[2019-11-17] MEDS: DOXEPIN HCL 10 MG CAPSULE PO SCH (22:23)
[2019-11-17] MEDS: ERTAPENEM SODIUM 1 GM in NORMAL SALINE 50 ML IV SCH (22:23)
[2019-11-17] MEDS: ATORVASTATIN CALCIUM 10 MG TABLET PO SCH (22:23)
[2019-11-18] MEDS: GABAPENTIN 300 MG CAPSULE PO SCH ×2 (05:05→17:29)
[2019-11-18] MEDS: CARVEDILOL 12.5 MG TABLET PO SCH ×2 (05:05→17:30)
[2019-11-18] MEDS: TOLTERODINE TARTRATE 1 MG TABLET PO SCH ×2 (05:05→17:29)
--- NOTE | 2019-11-18 07:34 | PDOC PROGRESS REPORT ---
Subjective Progress Note for:: 11/18/19 Subjective:: No acute events overnight, issue has been how to get him IV antibiotics at home, unfortunately patient is not safe to drive himself back and forth to the hospital and cannot drive, and cannot administer the antibiotics at home. Infectious diseases recommended ceftriaxone to complete at least a 2-week course. Also recommended a LAURA but this has not been able to be done yet. But cardiology has been following. Reason For Visit: BRONCHITIS,UTI,HYPOTENSION,STAGE 4 CA, Physical Exam Vital Signs: Temp Pulse Resp BP Pulse Ox 97.9 F 85 20 139/66 H 97 11/18/19 04:43 11/18/19 04:43 11/18/19 04:43 11/18/19 04:43 11/18/19 04:43 Intake & Output 11/17/19 11/18/19 11/19/19 06:59 06:59 06:59 Intake Total 1130 410 Output Total 2024 2225 Balance -895 -1815 Weight 99.8 kg 99.4 kg General appearance: PRESENT: no acute distress, well-developed, well-nourished Head exam: PRESENT: atraumatic, normocephalic Eye exam: PRESENT: conjunctiva pink, EOMI, PERRLA. ABSENT: scleral icterus Ear exam: PRESENT: normal external ear exam Mouth exam: PRESENT: moist, tongue midline Neck exam: ABSENT: carotid bruit, JVD, lymphadenopathy, thyromegaly Respiratory exam: PRESENT: clear to auscultation heather. ABSENT: rales, rhonchi, wheezes Cardiovascular exam: PRESENT: RRR. ABSENT: diastolic murmur, rubs, systolic murmur Pulses: PRESENT: normal dorsalis pedis pul Vascular exam: PRESENT: normal capillary refill GI/Abdominal exam: PRESENT: normal bowel sounds, soft. ABSENT: distended, guarding, mass, organolmegaly, rebound, tenderness Rectal exam: PRESENT: deferred Extremities exam: PRESENT: full ROM. ABSENT: calf tenderness, clubbing, pedal edema Neurological exam: PRESENT: alert, awake, oriented to person, oriented to place, oriented to time, oriented to situation, CN II-XII grossly intact. ABSENT: motor sensory deficit Psychiatric exam: PRESENT: appropriate affect, normal mood. ABSENT: homicidal ideation, suicidal ideation Skin exam: PRESENT: dry, intact, warm. ABSENT: cyanosis, rash Results Laboratory Results: 11/17/19 04:50 11/17/19 04:50 11/08/19 11/08/19 11/08/19 09:10 15:30 15:30 Creatine Kinase 76 107 CK-MB (CK-2) Troponin I NT-Pro-B Natriuret Pep 8200 H 11/08/19 11/08/19 11/08/19 15:30 21:28 21:28 Creatine Kinase 151 CK-MB (CK-2) 1.82 1.10 Troponin I 0.033 0.035 NT-Pro-B Natriuret Pep 11/09/19 11/09/19 03:25 03:25 Creatine Kinase 176 H CK-MB (CK-2) 1.35 Troponin I 0.029 NT-Pro-B Natriuret Pep Impressions: Chest X-Ray 11/08/19 10:25 IMPRESSION: NO ACUTE RADIOGRAPHIC FINDING IN THE CHEST. Head CT 11/08/19 10:25 IMPRESSION: CHRONIC CHANGES OF ATROPHY AND MICROVASCULAR ISCHEMIA. NO ACUTE PROCESS. EVIDENCE OF ACUTE STROKE: NO. Head MRI 11/11/19 00:00 IMPRESSION: No acute intracranial hemorrhage, mass, or evidence of acute infarct. Mild chronic microvascular ischemic change with zone of encephalomalacia about the right frontal lobe towards the vertex. Additional remote lacunar infarct within the right croft radiata. Moderate generalized atrophy. Elongated focus of signal abnormality located about the right pterygoid musculature with concomitant confluent enhancement. This appears more conspicuous than compared to the previous MR dated 04/29/2019 as well as 06/23/2017. The etiology of this finding is indeterminate as it did not demonstrate any FDG avidity on the previous PET/CT dated 10/06/2019. However, a schwannoma is a primary consideration given the uniform enhancement and hyperintense T2/FLAIR signal characteristics of the lesion. copyright 2010 [employer]- All Rights Reserved Assessment & Plan - Diagnosis (1) Adenocarcinoma of prostate, stage 4 Is this a current diagnosis for this admission?: Yes Plan: Status post chemotherapy, we will follow him up in our office in about 2 weeks, let antibiotics complete, and we can decide on next steps of care along with the help of Dr. Clements from [place] (2) Pancytopenia Is this a current diagnosis for this admission?: Yes Plan: resolved, patient is doing better now should be stable thereafter. (3) Sepsis Qualifiers: Sepsis type: sepsis due to unspecified organism Sepsis acute organ dysfunction status: with acute organ dysfunction Severe sepsis acute organ dysfunction type: encephalopathy Severe sepsis shock status: without septic shock Qualified Code(s): A41.9 - Sepsis, unspecified organism; R65.20 - Severe sepsis without septic shock; G93.40 - Encephalopathy, unspecified Is this a current diagnosis for this admission?: Yes Plan: Improved, antibiotic plan as above - Time Time Spent with patient: 35 or more minutes Disposition: We will sign off, gave instructions for [facility] designer to make appointment for us in about 2 to 3 weeks time.
[2019-11-18] MEDS: HYDROCHLOROTHIAZIDE 12.5 MG TABLET PO SCH (12:11)
[2019-11-18] MEDS: FINASTERIDE 5 MG TABLET PO SCH (12:11)
[2019-11-18] MEDS: MULTIVITAMIN TABLET PO SCH (12:12)
[2019-11-18] MEDS: TAMSULOSIN HCL 0.4 MG CAP.SR.24H PO SCH (12:12)
[2019-11-18] MEDS: APIXABAN 2.5 MG TABLET PO SCH ×2 (12:12→17:30)
[2019-11-18] MEDS: ALLOPURINOL 300 MG TABLET PO SCH (12:13)
--- NOTE | 2019-11-18 20:49 | PDOC PROGRESS REPORT ---
Subjective Progress Note for:: 11/18/19 Subjective:: Patient seen by the bedside continue IV antibiotic for few more days hopefully discharge home on Reason For Visit: BRONCHITIS,UTI,HYPOTENSION,STAGE 4 CA, Physical Exam Vital Signs: Temp Pulse Resp BP Pulse Ox 97.4 F 71 16 133/73 H 96 11/18/19 17:31 11/18/19 17:31 11/18/19 17:31 11/18/19 17:31 11/18/19 17:31 Intake & Output 11/17/19 11/18/19 11/19/19 06:59 06:59 06:59 Intake Total 1130 410 100 Output Total 20248 640 Balance -793 -1815 -540 Weight 99.8 kg 99.4 kg General appearance: PRESENT: no acute distress Eye exam: PRESENT: PERRLA Respiratory exam: PRESENT: clear to auscultation heather Cardiovascular exam: PRESENT: +S1, +S2 GI/Abdominal exam: PRESENT: soft Results Laboratory Results: 11/17/19 04:50 11/17/19 04:50 11/13/19 10:55 Blood Blood Culture - Final NO GROWTH IN 5 DAYS 11/13/19 09:42 Blood Blood Culture - Final NO GROWTH IN 5 DAYS 11/08/19 11/08/19 11/08/19 09:10 15:30 15:30 Creatine Kinase 76 107 CK-MB (CK-2) Troponin I NT-Pro-B Natriuret Pep 8200 H 11/08/19 11/08/19 11/08/19 15:30 21:28 21:28 Creatine Kinase 151 CK-MB (CK-2) 1.82 1.10 Troponin I 0.033 0.035 NT-Pro-B Natriuret Pep 11/09/19 11/09/19 03:25 03:25 Creatine Kinase 176 H CK-MB (CK-2) 1.35 Troponin I 0.029 NT-Pro-B Natriuret Pep Impressions: Chest X-Ray 11/08/19 10:25 IMPRESSION: NO ACUTE RADIOGRAPHIC FINDING IN THE CHEST. Head CT 11/08/19 10:25 IMPRESSION: CHRONIC CHANGES OF ATROPHY AND MICROVASCULAR ISCHEMIA. NO ACUTE PROCESS. EVIDENCE OF ACUTE STROKE: NO. Head MRI 11/11/19 00:00 IMPRESSION: No acute intracranial hemorrhage, mass, or evidence of acute infarct. Mild chronic microvascular ischemic change with zone of encephalomalacia about the right frontal lobe towards the vertex. Additional remote lacunar infarct within the right croft radiata. Moderate generalized atrophy. Elongated focus of signal abnormality located about the right pterygoid musculature with concomitant confluent enhancement. This appears more conspicuous than compared to the previous MR dated 04/29/2019 as well as 06/23/2017. The etiology of this finding is indeterminate as it did not demonstrate any FDG avidity on the previous PET/CT dated 10/06/2019. However, a schwannoma is a primary consideration given the uniform enhancement and hyperintense T2/FLAIR signal characteristics of the lesion. copyright 2010 [employer]- All Rights Reserved Assessment & Plan - Diagnosis (1) Neutropenic fever Is this a current diagnosis for this admission?: Yes (2) Hypotension Qualifiers: Hypotension type: other hypotension type Qualified Code(s): I95.89 - Other hypotension Is this a current diagnosis for this admission?: Yes (3) Adenocarcinoma of prostate, stage 4 Is this a current diagnosis for this admission?: Yes (4) Obstructive uropathy Is this a current diagnosis for this admission?: Yes (5) Acute kidney injury Is this a current diagnosis for this admission?: Yes (6) Metabolic encephalopathy Is this a current diagnosis for this admission?: Yes (7) UTI due to extended-spectrum beta lactamase (ESBL) producing Escherichia coli Is this a current diagnosis for this admission?: Yes (8) Pseudomonas urinary tract infection Is this a current diagnosis for this admission?: Yes (9) Infection due to Streptococcus mitis group Is this a current diagnosis for this admission?: Yes (10) Sepsis Qualifiers: Sepsis type: Streptococcus, other Sepsis acute organ dysfunction status: with acute organ dysfunction Severe sepsis acute organ dysfunction type: acute renal failure Acute renal failure type: with acute tubular necrosis Severe sepsis shock status: with septic shock Qualified Code(s): A40.8 - Other streptococcal sepsis; R65.21 - Severe sepsis with septic shock; N17.0 - Acute kidney failure with tubular necrosis Is this a current diagnosis for this admission?: Yes (11) Acute kidney injury Is this a current diagnosis for this admission?: Yes (12) Pancytopenia Is this a current diagnosis for this admission?: Yes - Time Time Spent with patient: 25-34 minutes - Plan Summary Plan Summary: Continue treatment
[2019-11-18] MEDS: ATORVASTATIN CALCIUM 10 MG TABLET PO SCH (21:38)
[2019-11-18] MEDS: ERTAPENEM SODIUM 1 GM in NORMAL SALINE 50 ML IV SCH (21:38)
[2019-11-18] MEDS: DOXEPIN HCL 10 MG CAPSULE PO SCH (21:38)
[2019-11-19] MEDS: GABAPENTIN 300 MG CAPSULE PO SCH ×2 (06:00→17:37)
[2019-11-19] MEDS: CARVEDILOL 12.5 MG TABLET PO SCH ×2 (06:00→17:37)
[2019-11-19] MEDS: TOLTERODINE TARTRATE 1 MG TABLET PO SCH ×2 (06:00→17:37)
[2019-11-19] MEDS: MULTIVITAMIN TABLET PO SCH (11:26)
[2019-11-19] MEDS: HYDROCHLOROTHIAZIDE 12.5 MG TABLET PO SCH (11:26)
[2019-11-19] MEDS: TAMSULOSIN HCL 0.4 MG CAP.SR.24H PO SCH (11:26)
[2019-11-19] MEDS: APIXABAN 2.5 MG TABLET PO SCH ×2 (11:26→17:37)
[2019-11-19] MEDS: FINASTERIDE 5 MG TABLET PO SCH (11:27)
[2019-11-19] MEDS: ALLOPURINOL 300 MG TABLET PO SCH (11:28)
--- NOTE | 2019-11-19 15:02 | PDOC PROGRESS REPORT ---
Subjective Progress Note for:: 11/19/19 Subjective:: Patient seen by the bedside, he will continue present treatment, he will be discharged home on Reason For Visit: BRONCHITIS,UTI,HYPOTENSION,STAGE 4 CA, Physical Exam Vital Signs: Temp Pulse Resp BP Pulse Ox 98.4 F 77 16 110/58 L 98 11/19/19 12:17 11/19/19 14:00 11/19/19 12:17 11/19/19 12:17 11/19/19 12:17 Intake & Output 11/18/19 11/19/19 11/20/19 06:59 06:59 06:59 Intake Total 410 740 480 Output Total 2225 1890 425 Balance -1815 -1150 55 Weight 99.4 kg 98.5 kg General appearance: PRESENT: no acute distress Eye exam: PRESENT: PERRLA Respiratory exam: PRESENT: clear to auscultation heather Cardiovascular exam: PRESENT: +S1, +S2 GI/Abdominal exam: PRESENT: soft Neurological exam: PRESENT: alert Results Laboratory Results: 11/17/19 04:50 11/17/19 04:50 11/13/19 10:55 Blood Blood Culture - Final NO GROWTH IN 5 DAYS 11/08/19 11/08/19 11/08/19 09:10 15:30 15:30 Creatine Kinase 76 107 CK-MB (CK-2) Troponin I NT-Pro-B Natriuret Pep 8200 H 11/08/19 11/08/19 11/08/19 15:30 21:28 21:28 Creatine Kinase 151 CK-MB (CK-2) 1.82 1.10 Troponin I 0.033 0.035 NT-Pro-B Natriuret Pep 11/09/19 11/09/19 03:25 03:25 Creatine Kinase 176 H CK-MB (CK-2) 1.35 Troponin I 0.029 NT-Pro-B Natriuret Pep Impressions: Chest X-Ray 11/08/19 10:25 IMPRESSION: NO ACUTE RADIOGRAPHIC FINDING IN THE CHEST. Head CT 11/08/19 10:25 IMPRESSION: CHRONIC CHANGES OF ATROPHY AND MICROVASCULAR ISCHEMIA. NO ACUTE PROCESS. EVIDENCE OF ACUTE STROKE: NO. Head MRI 11/11/19 00:00 IMPRESSION: No acute intracranial hemorrhage, mass, or evidence of acute infarct. Mild chronic microvascular ischemic change with zone of encephalomalacia about the right frontal lobe towards the vertex. Additional remote lacunar infarct within the right croft radiata. Moderate generalized atrophy. Elongated focus of signal abnormality located about the right pterygoid musculature with concomitant confluent enhancement. This appears more conspicuous than compared to the previous MR dated 04/29/2019 as well as 06/23/2017. The etiology of this finding is indeterminate as it did not demonstrate any FDG avidity on the previous PET/CT dated 10/06/2019. However, a schwannoma is a primary consideration given the uniform enhancement and hyperintense T2/FLAIR signal characteristics of the lesion. copyright 2010 [employer]- All Rights Reserved Assessment & Plan - Diagnosis (1) Neutropenic fever Is this a current diagnosis for this admission?: Yes (2) Hypotension Qualifiers: Hypotension type: other hypotension type Qualified Code(s): I95.89 - Other hypotension Is this a current diagnosis for this admission?: Yes (3) Adenocarcinoma of prostate, stage 4 Is this a current diagnosis for this admission?: Yes (4) Obstructive uropathy Is this a current diagnosis for this admission?: Yes (5) Acute kidney injury Is this a current diagnosis for this admission?: Yes (6) Metabolic encephalopathy Is this a current diagnosis for this admission?: Yes (7) UTI due to extended-spectrum beta lactamase (ESBL) producing Escherichia coli Is this a current diagnosis for this admission?: Yes (8) Pseudomonas urinary tract infection Is this a current diagnosis for this admission?: Yes (9) Infection due to Streptococcus mitis group Is this a current diagnosis for this admission?: Yes (10) Sepsis Qualifiers: Sepsis type: Streptococcus, other Sepsis acute organ dysfunction status: with acute organ dysfunction Severe sepsis acute organ dysfunction type: acute renal failure Acute renal failure type: with acute tubular necrosis Severe sepsis shock status: with septic shock Qualified Code(s): A40.8 - Other streptococcal sepsis; R65.21 - Severe sepsis with septic shock; N17.0 - Acute kidney failure with tubular necrosis Is this a current diagnosis for this admission?: Yes (11) Acute kidney injury Is this a current diagnosis for this admission?: Yes (12) Pancytopenia Is this a current diagnosis for this admission?: Yes - Time Time Spent with patient: Less than 15 minutes
[2019-11-19] MEDS: DOXEPIN HCL 10 MG CAPSULE PO SCH (21:24)
[2019-11-19] MEDS: ERTAPENEM SODIUM 1 GM in NORMAL SALINE 50 ML IV SCH (21:24)
[2019-11-19] MEDS: ATORVASTATIN CALCIUM 10 MG TABLET PO SCH (21:24)
[2019-11-19] MEDS ORDERED: OXYCODONE HCL IR 5 MG TABLET PO PRN (22:12)
[2019-11-20] MEDS: GABAPENTIN 300 MG CAPSULE PO SCH ×2 (06:24→17:37)
[2019-11-20] MEDS: CARVEDILOL 12.5 MG TABLET PO SCH ×2 (06:24→17:37)
[2019-11-20] MEDS: TOLTERODINE TARTRATE 1 MG TABLET PO SCH ×2 (06:24→17:37)
[2019-11-20] MEDS: ALLOPURINOL 300 MG TABLET PO SCH (09:09)
[2019-11-20] MEDS: HYDROCHLOROTHIAZIDE 12.5 MG TABLET PO SCH (09:09)
[2019-11-20] MEDS: TAMSULOSIN HCL 0.4 MG CAP.SR.24H PO SCH (09:09)
[2019-11-20] MEDS: APIXABAN 2.5 MG TABLET PO SCH ×2 (09:10→17:37)
[2019-11-20] MEDS: MULTIVITAMIN TABLET PO SCH (09:10)
[2019-11-20] MEDS: FINASTERIDE 5 MG TABLET PO SCH (09:10)
--- NOTE | 2019-11-20 13:30 | PDOC PROGRESS REPORT ---
Subjective Progress Note for:: 11/20/19 Subjective:: Patient seen by the bedside, hopefully discharge home tomorrow continue antibiotic for 1 more day Reason For Visit: BRONCHITIS,UTI,HYPOTENSION,STAGE 4 CA, Physical Exam Vital Signs: Temp Pulse Resp BP Pulse Ox 98.1 F 72 16 113/61 94 11/20/19 12:45 11/20/19 12:45 11/20/19 12:45 11/20/19 12:45 11/20/19 12:45 Intake & Output 11/19/19 11/20/19 11/21/19 06:59 06:59 06:59 Intake Total 740 1060 Output Total 1890 2125 Balance -1150 -1065 Weight 98.5 kg 97.1 kg General appearance: PRESENT: no acute distress, well-developed, well-nourished Head exam: PRESENT: atraumatic, normocephalic Eye exam: PRESENT: conjunctiva pink, EOMI, PERRLA Ear exam: PRESENT: normal external ear exam Mouth exam: PRESENT: moist, tongue midline Neck exam: PRESENT: full ROM. ABSENT: carotid bruit, JVD, lymphadenopathy, thyromegaly Cardiovascular exam: PRESENT: RRR, +S1, +S2 Pulses: PRESENT: normal dorsalis pedis pul, +2 pedal pulses bilateral Vascular exam: PRESENT: normal capillary refill GI/Abdominal exam: PRESENT: normal bowel sounds, soft Rectal exam: PRESENT: deferred Neurological exam: PRESENT: alert, awake, oriented to person, oriented to place, oriented to time, oriented to situation, CN II-XII grossly intact Psychiatric exam: PRESENT: appropriate affect, normal mood Skin exam: PRESENT: dry, intact, warm. ABSENT: cyanosis, rash Results Laboratory Results: 11/17/19 04:50 11/17/19 04:50 11/08/19 11/08/19 11/08/19 09:10 15:30 15:30 Creatine Kinase 76 107 CK-MB (CK-2) Troponin I NT-Pro-B Natriuret Pep 8200 H 11/08/19 11/08/19 11/08/19 15:30 21:28 21:28 Creatine Kinase 151 CK-MB (CK-2) 1.82 1.10 Troponin I 0.033 0.035 NT-Pro-B Natriuret Pep 11/09/19 11/09/19 03:25 03:25 Creatine Kinase 176 H CK-MB (CK-2) 1.35 Troponin I 0.029 NT-Pro-B Natriuret Pep Impressions: Chest X-Ray 11/08/19 10:25 IMPRESSION: NO ACUTE RADIOGRAPHIC FINDING IN THE CHEST. Head CT 11/08/19 10:25 IMPRESSION: CHRONIC CHANGES OF ATROPHY AND MICROVASCULAR ISCHEMIA. NO ACUTE PROCESS. EVIDENCE OF ACUTE STROKE: NO. Head MRI 11/11/19 00:00 IMPRESSION: No acute intracranial hemorrhage, mass, or evidence of acute infarct. Mild chronic microvascular ischemic change with zone of encephalomalacia about the right frontal lobe towards the vertex. Additional remote lacunar infarct within the right croft radiata. Moderate generalized atrophy. Elongated focus of signal abnormality located about the right pterygoid musculature with concomitant confluent enhancement. This appears more conspicuous than compared to the previous MR dated 04/29/2019 as well as 06/23/2017. The etiology of this finding is indeterminate as it did not demonstrate any FDG avidity on the previous PET/CT dated 10/06/2019. However, a schwannoma is a primary consideration given the uniform enhancement and hyperintense T2/FLAIR signal characteristics of the lesion. copyright 2010 [employer]- All Rights Reserved Assessment & Plan - Diagnosis (1) Neutropenic fever Is this a current diagnosis for this admission?: Yes (2) Hypotension Qualifiers: Hypotension type: other hypotension type Qualified Code(s): I95.89 - Other hypotension Is this a current diagnosis for this admission?: Yes (3) Adenocarcinoma of prostate, stage 4 Is this a current diagnosis for this admission?: Yes (4) Obstructive uropathy Is this a current diagnosis for this admission?: Yes (5) Acute kidney injury Is this a current diagnosis for this admission?: Yes (6) Metabolic encephalopathy Is this a current diagnosis for this admission?: Yes (7) UTI due to extended-spectrum beta lactamase (ESBL) producing Escherichia coli Is this a current diagnosis for this admission?: Yes (8) Pseudomonas urinary tract infection Is this a current diagnosis for this admission?: Yes (9) Infection due to Streptococcus mitis group Is this a current diagnosis for this admission?: Yes (10) Sepsis Qualifiers: Sepsis type: Streptococcus, other Sepsis acute organ dysfunction status: with acute organ dysfunction Severe sepsis acute organ dysfunction type: acute renal failure Acute renal failure type: with acute tubular necrosis Severe sepsis shock status: with septic shock Qualified Code(s): A40.8 - Other streptococcal sepsis; R65.21 - Severe sepsis with septic shock; N17.0 - Acute kidney failure with tubular necrosis Is this a current diagnosis for this admission?: Yes (11) Acute kidney injury Is this a current diagnosis for this admission?: Yes (12) Pancytopenia Is this a current diagnosis for this admission?: Yes - Time Time Spent with patient: 15-24 minutes Level of Care: IMCU
[2019-11-20] MEDS: DOXEPIN HCL 10 MG CAPSULE PO SCH (22:08)
[2019-11-20] MEDS: ERTAPENEM SODIUM 1 GM in NORMAL SALINE 50 ML IV SCH (22:08)
[2019-11-20] MEDS: ATORVASTATIN CALCIUM 10 MG TABLET PO SCH (22:08)
[2019-11-21] MEDS: CARVEDILOL 12.5 MG TABLET PO SCH (06:46)
[2019-11-21] MEDS: TOLTERODINE TARTRATE 1 MG TABLET PO SCH (06:46)
[2019-11-21] MEDS: GABAPENTIN 300 MG CAPSULE PO SCH (06:46)
[2019-11-21] MEDS: HYDROCHLOROTHIAZIDE 12.5 MG TABLET PO SCH (10:48)
[2019-11-21] MEDS: FINASTERIDE 5 MG TABLET PO SCH (10:48)
[2019-11-21] MEDS: MULTIVITAMIN TABLET PO SCH (10:49)
[2019-11-21] MEDS: APIXABAN 2.5 MG TABLET PO SCH (10:49)
[2019-11-21] MEDS: ALLOPURINOL 300 MG TABLET PO SCH (10:49)
[2019-11-21] MEDS: TAMSULOSIN HCL 0.4 MG CAP.SR.24H PO SCH (10:49)
[2019-11-21] MEDS ORDERED: ERTAPENEM SODIUM 1 GM in NORMAL SALINE 50 ML IV ONE (14:00)
[2019-11-21 14:41] VITALS: BP 124/61
--- NOTE | 2019-11-21 14:45 | PDOC DISCHARGE SUMMARY ---
Impression - Admit/DC Date/PCP Admission Date/Primary Care Provider: 11/08/19 12:45 LEO GARCIA MD Discharge Date: 11/21/19 - Discharge Diagnosis (1) Neutropenic fever Is this a current diagnosis for this admission?: Yes (2) Hypotension Is this a current diagnosis for this admission?: Yes (3) Adenocarcinoma of prostate, stage 4 Is this a current diagnosis for this admission?: Yes (4) Obstructive uropathy Is this a current diagnosis for this admission?: Yes (5) Acute kidney injury Is this a current diagnosis for this admission?: Yes (6) Metabolic encephalopathy Is this a current diagnosis for this admission?: Yes (7) UTI due to extended-spectrum beta lactamase (ESBL) producing Escherichia coli Is this a current diagnosis for this admission?: Yes (8) Pseudomonas urinary tract infection Is this a current diagnosis for this admission?: Yes (9) Infection due to Streptococcus mitis group Is this a current diagnosis for this admission?: Yes (10) Sepsis Is this a current diagnosis for this admission?: Yes (11) Acute kidney injury Is this a current diagnosis for this admission?: Yes (12) Pancytopenia Is this a current diagnosis for this admission?: Yes - Additional Information Resuscitation Status: Full Code Referrals: KYLAH LOGAN MD [ACTIVE STAFF] - 12/31/19 3:30 pm (Arrive for 30 minutes early to fill out paperwork.) LEO GARCIA MD [Primary Care Provider] - 12/02/19 10:00 am Home Medications: Carvedilol Phosphate [Coreg CR 40 mg Ext. Release Capsule] 40 mg PO DAILY 08/16/19 Gabapentin [Neurontin 300 mg Capsule] 300 mg PO Q12 08/16/19 Oxycodone HCl 15 mg PO Q8HP PRN 08/16/19 Sildenafil Citrate [Viagra] 100 mg PO ASDIR PRN 08/16/19 Solifenacin Succinate [Vesicare] 5 mg PO DAILY 08/16/19 Allopurinol [Zyloprim 300 mg Tablet] 300 mg PO DAILY 11/08/19 Apixaban [Eliquis 2.5 mg Tablet] 2.5 mg PO BID 11/08/19 Doxepin HCl [Sinequan 10 mg Capsule] 10 mg PO QHS 11/08/19 Finasteride [Proscar 5 mg Tablet] 5 mg PO DAILY 11/08/19 Lidocaine/Prilocaine [Emla Cream] 1 applic TP ASDIR PRN 11/08/19 Losartan/Hydrochlorothiazide [Losartan-Hctz 50-12.5 mg Tab] 1 tab PO DAILY 11/08/19 Multivitamin [Tab-A-Tree (Multiple Vitamin) Tablet] 1 tab PO DAILY 11/08/19 Pravastatin Sodium 40 mg PO QHS 11/08/19 Tamsulosin HCl [Flomax 0.4 mg Cap.sr] 0.4 mg PO DAILY 11/08/19 Oxycodone HCl [Oxy-Ir 5 mg Tablet] 15 mg PO Q8HP PRN tablet 11/21/19 History of Present Illiness History of Present Illness: TRAVIS REYNOSO is a 79 year old male, He has a history of stage IV prostate cancer on active chemotherapy, last chemotherapy was last week he goes to [facility] oncology, history of obstructive uropathy with bilateral nephrostomy tube, he was brought to the emergency room for evaluation of altered mental status, he was found to be hypotensive, febrile,. The hemogram demonstrated absolute neutropenia, 400, I saw patient on the floor, he is very stuporous, difficult to arouse.He was found to be hypotensive when he arrived in the ER, the recorded blood pressure was 79 /48, he was treated with IV fluid therapy. Hospital Course Hospital Course: Patient was admitted for the management of sepsis, neutropenic fever, pancytopenia, hypotension, he has history of prostate cancer with bone metastasis. He was empirically treated with IV antibiotic, vancomycin and cefepime on admission, the blood culture grew Streptococcus mitis, a member of the Streptococcus viridans, the source of the bacteria was felt to be from the mouth, he has a mouth mucosal lesion related to the chemotherapy. He also add pancytopenia with anemia requiring blood transfusion. He has a history of obstructive uropathy with indwelling nephrostomy bag bilaterally, the urine culture from the bag grew ESBL E. coli with Pseudomonas. The antibiotic was changed imipenem a member of the Carbapenem class, the ESBL is sensitive to the antibiotic, the antibiotic was changed from the empiric cefepime and vancomycin to intravenous imipenem, this cover all the organisms cultured including Streptococcus mitis, ESBL E. coli and Pseudomonas. He was also seen in consultation by oncology Dr. Logan because of history of prostate cancer, is treating oncologist was from [place] but the oncologist out of [place] was trying to set him up with the oncologist in [place] for him to continue receiving his chemotherapy in [place] to save him traveling time to [place] every time he needs chemotherapy. Hospital course was prolonged because patient needed to receive the IV antibiotic for 2 weeks, he was evaluated remotely by infectious disease based on recommendation from oncology, infectious disease recommended that patient get a LAURA because of the bacteria cultured from the blood, Streptococcus mitis which is known to cause endocarditis, consultation was requested from Dr. Song cardiology for LAURA but logistic reasons in the hospital with this could not be done. Patient is feeling much better the pancytopenia is resolved, patient is normal showing signs of sepsis syndrome, blood pressure has normalized patient be discharged home today Physical Exam Vital Signs: Temp Pulse Resp BP Pulse Ox 99.0 F 77 18 127/63 H 100 11/21/19 11:36 11/21/19 11:36 11/21/19 11:36 11/21/19 11:36 11/21/19 11:36 Intake & Output 11/20/19 11/21/19 11/22/19 06:59 06:59 06:59 Intake Total 1310 980 Output Total 1875 1820 Balance -565 -840 Weight 97.1 kg 98.5 kg General appearance: PRESENT: no acute distress Eye exam: PRESENT: PERRLA Respiratory exam: PRESENT: clear to auscultation heather Cardiovascular exam: PRESENT: +S1, +S2 GI/Abdominal exam: PRESENT: soft Neurological exam: PRESENT: alert Results Laboratory Results: WBC 9.4 10^3/uL (4.0-10.5) 11/17/19 04:50 RBC 3.13 10^6/uL (4.35-5.55) L 11/17/19 04:50 Hgb 8.7 g/dL (13.5-17.0) L 11/17/19 04:50 Hct 25.1 % (37.9-51.0) L 11/17/19 04:50 MCV 80 fl (80-97) 11/17/19 04:50 MCH 27.7 pg (27.0-33.4) 11/17/19 04:50 MCHC 34.7 g/dL (32.0-36.0) 11/17/19 04:50 RDW 17.5 % (11.5-14.0) H 11/17/19 04:50 Plt Count 217 10^3/uL (150-450) 11/17/19 04:50 Lymph % (Auto) Not Reportable 11/17/19 04:50 [place] % (Auto) Not Reportable 11/17/19 04:50 Eos % (Auto) Not Reportable 11/17/19 04:50 Baso % (Auto) Not Reportable 11/17/19 04:50 Absolute Neuts (auto) Not Reportable 11/17/19 04:50 Absolute Lymphs (auto) Not Reportable 11/17/19 04:50 Absolute Monos (auto) Not Reportable 11/17/19 04:50 Absolute Eos (auto) Not Reportable 11/17/19 04:50 Absolute Basos (auto) Not Reportable 11/17/19 04:50 Total Counted 100 11/17/19 04:50 Seg Neutrophils % Not Reportable 11/17/19 04:50 Seg Neuts % (Manual) 74 % (42-78) 11/17/19 04:50 Band Neutrophils % 10 % (3-5) H 11/17/19 04:50 Lymphocytes % (Manual) 11 % (13-45) L 11/17/19 04:50 Atypical Lymphs % 1 % (0) 11/14/19 21:10 Monocytes % (Manual) 5 % (3-13) 11/17/19 04:50 Eosinophils % (Manual) 0 % (0-6) 11/17/19 04:50 Basophils % (Manual) 0 % (0-2) 11/17/19 04:50 Metamyelocytes % 1 % (0-1) 11/13/19 17:26 Abs Neuts (Manual) 7.9 10^3/uL (1.7-8.2) 11/17/19 04:50 Abs Lymphs (Manual) 1.0 10^3/uL (0.5-4.7) 11/17/19 04:50 Abs Monocytes (Manual) 0.5 10^3/uL (0.1-1.4) 11/17/19 04:50 Absolute Eos (Manual) 0.0 10^3/uL (0.0-0.6) 11/17/19 04:50 Abs Basophils (Manual) 0.0 10^3/uL (0.0-0.2) 11/17/19 04:50 Nucleated RBCs 1 /100 WBC (0) 11/14/19 21:10 Dohle Bodies PRESENT 11/10/19 05:50 Platelet Comment ADEQUATE 11/17/19 04:50 Polychromasia 1+ 11/17/19 04:50 Hypochromasia SLIGHT 11/17/19 04:50 Poikilocytosis 1+ 11/10/19 05:50 Basophilic Stippling PRESENT 11/08/19 09:10 Anisocytosis 1+ 11/17/19 04:50 Microcytosis SLIGHT 11/17/19 04:50 Ovalocytes SLIGHT 11/14/19 21:10 PT 19.2 SEC (11.4-15.4) H 11/08/19 15:30 INR 1.60 11/08/19 15:30 APTT 42.8 SEC (23.5-35.8) H 11/08/19 15:30 VBG pH 7.45 (7.30-7.42) H 11/08/19 09:10 VBG pCO2 38.4 mmHg (35-63) 11/08/19 09:10 VBG HCO3 25.9 mmol/L (20-32) 11/08/19 09:10 VBG Base Excess 1.8 mmol/L 11/08/19 09:10 Sodium 138.5 mmol/L (137-145) 11/17/19 04:50 Potassium 3.7 mmol/L (3.6-5.0) 11/17/19 04:50 Chloride 102 mmol/L (98-107) 11/17/19 04:50 Carbon Dioxide 29 mmol/L (22-30) 11/17/19 04:50 Anion Gap 8 (5-19) 11/17/19 04:50 BUN 16 mg/dL (7-20) 11/17/19 04:50 Creatinine 1.54 mg/dL (0.52-1.25) H 11/17/19 04:50 Est GFR ( Amer) 53 (>60) L 11/17/19 04:50 Est GFR (MDRD) Non-Af 44 (>60) L 11/17/19 04:50 Glucose 100 mg/dL (75-110) 11/17/19 04:50 Lactic Acid (Sepsis) 1.4 mmol/L (0.7-2.1) 11/08/19 15:30 Calcium 8.4 mg/dL (8.4-10.2) 11/17/19 04:50 Phosphorus 3.9 mg/dL (2.5-4.5) 11/08/19 15:30 Magnesium 1.6 mg/dL (1.6-2.3) 11/08/19 15:30 Total Bilirubin 0.4 mg/dL (0.2-1.3) 11/17/19 04:50 Direct Bilirubin 0.2 mg/dL (0.0-0.4) 11/17/19 04:50 Neonat Total Bilirubin Not Reportable 11/17/19 04:50 Neonat Direct Bilirubin Not Reportable 11/17/19 04:50 Neonat Indirect Bili Not Reportable 11/17/19 04:50 AST 26 U/L (17-59) 11/17/19 04:50 ALT 17 U/L (<50) 11/17/19 04:50 Alkaline Phosphatase 132 U/L (38-126) H 11/17/19 04:50 Ammonia < 8.7 umol/L (9-33) L 11/08/19 15:30 Creatine Kinase 176 U/L (55-170) H 11/09/19 03:25 CK-MB (CK-2) 1.35 ng/mL (<4.55) 11/09/19 03:25 Troponin I 0.029 ng/mL 11/09/19 03:25 NT-Pro-B Natriuret Pep 8200 pg/mL (<450) H 11/08/19 15:30 Total Protein 6.0 g/dL (6.3-8.2) L 11/17/19 04:50 Albumin 2.9 g/dL (3.5-5.0) L 11/17/19 04:50 Triglycerides 72 mg/dL (<150) 11/09/19 04:00 Cholesterol 92.57 mg/dL (0-200) 11/09/19 04:00 LDL Cholesterol Direct 33 mg/dL (<100) 11/09/19 04:00 VLDL Cholesterol 14.0 mg/dL (10-31) 11/09/19 04:00 HDL Cholesterol 35 mg/dL (>40) L 11/09/19 04:00 Amylase 56 U/L (30-110) 11/08/19 15:30 Lipase 49.2 U/L (23-300) 11/08/19 15:30 TSH 0.61 uIU/mL (0.47-4.68) 11/08/19 15:30 Free T4 0.94 ng/dL (0.78-2.19) 11/08/19 15:30 Urine Color YELLOW 11/08/19 16:28 Urine Appearance SLIGHTLY-CLOUDY 11/08/19 16:28 Urine pH 6.0 (5.0-9.0) 11/08/19 16:28 Ur Specific [place] 1.011 11/08/19 16:28 Urine Protein 100 mg/dL (NEGATIVE) H 11/08/19 16:28 Urine Glucose (UA) NEGATIVE mg/dL (NEGATIVE) 11/08/19 16:28 Urine Ketones TRACE mg/dL (NEGATIVE) H 11/08/19 16:28 Urine Blood LARGE (NEGATIVE) H 11/08/19 16:28 Urine Nitrite NEGATIVE (NEGATIVE) 11/08/19 16:28 Urine Bilirubin NEGATIVE (NEGATIVE) 11/08/19 16:28 Urine Urobilinogen NEGATIVE mg/dL (<2.0) 11/08/19 16:28 Ur Leukocyte Esterase MODERATE (NEGATIVE) H 11/08/19 16:28 Urine WBC (Auto) 51 /HPF 11/08/19 16:28 Urine RBC (Auto) 24 /HPF 11/08/19 16:28 Urine Bacteria (Auto) 1+ /HPF 11/08/19 16:28 Urine WBC Clumps OCC /HPF 11/08/19 16:28 Amorphous Sediment Auto TRACE /HPF 11/08/19 10:21 Urine Mucus (Auto) RARE /LPF 11/08/19 16:28 Urine Ascorbic Acid NEGATIVE (NEGATIVE) 11/08/19 16:28 Salicylates < 1.0 mg/dL (2.0-20.0) L 11/08/19 09:10 Slides for Path Review PATHOLOGIST REVIEWED 11/08/19 09:10 Blood Type O POSITIVE 11/09/19 10:50 Antibody Screen NEGATIVE 11/09/19 10:50 Crossmatch See Detail 11/09/19 10:50 11/08/19 11/08/19 11/08/19 15:30 15:30 21:28 CK-MB (CK-2) 1.82 1.10 Troponin I 0.033 0.035 NT-Pro-B Natriuret Pep 8200 H 11/09/19 03:25 CK-MB (CK-2) 1.35 Troponin I 0.029 NT-Pro-B Natriuret Pep Impressions: Chest X-Ray 11/08/19 10:25 IMPRESSION: NO ACUTE RADIOGRAPHIC FINDING IN THE CHEST. Head CT 11/08/19 10:25 IMPRESSION: CHRONIC CHANGES OF ATROPHY AND MICROVASCULAR ISCHEMIA. NO ACUTE PROCESS. EVIDENCE OF ACUTE STROKE: NO. Head MRI 11/11/19 00:00 IMPRESSION: No acute intracranial hemorrhage, mass, or evidence of acute infarct. Mild chronic microvascular ischemic change with zone of encephalomalacia about the right frontal lobe towards the vertex. Additional remote lacunar infarct within the right croft radiata. Moderate generalized atrophy. Elongated focus of signal abnormality located about the right pterygoid musculature with concomitant confluent enhancement. This appears more conspicuous than compared to the previous MR dated 04/29/2019 as well as 06/23/2017. The etiology of this finding is indeterminate as it did not demonstrate any FDG avidity on the previous PET/CT dated 10/06/2019. However, a schwannoma is a primary consideration given the uniform enhancement and hyperintense T2/FLAIR signal characteristics of the lesion. copyright 2010 [employer]- All Rights Reserved Stroke Is this a Stroke Patient?: No Acute Heart Failure - Is this a Heart Failure Patient?: No
[2019-11-21] MEDS ORDERED: ERTAPENEM SODIUM 1 GM in NORMAL SALINE 50 ML IV SCH (22:00)
== END 2019-11-21 15:40 | disposition home health service (06) | DRG 871 ==
LOC: ER 08:38 → EH 12:45 → 3N 14:30
PROVIDERS: ADMIT Internal Medicine; ATTEND Internal Medicine
PROC: 30233N1 Transfusion of Nonautologous Red Blood Cells into Peripheral Vein, Percutaneous Approach (ICD-10-PCS; principal; 2019-11-09)
DX: A41.9 Sepsis, unspecified organism (principal); G93.41 Metabolic encephalopathy; R65.21 Severe sepsis with septic shock; N17.9 Acute kidney failure, unspecified; N13.8 Other obstructive and reflux uropathy; N39.0 Urinary tract infection, site not specified; Z16.12 Extended spectrum beta lactamase (ESBL) resistance; I69.354 Hemiplegia and hemiparesis following cerebral infarction affecting left non-dominant side; C79.51 Secondary malignant neoplasm of bone; D70.3 Neutropenia due to infection; R50.81 Fever presenting with conditions classified elsewhere; C61 Malignant neoplasm of prostate; I48.91 Unspecified atrial fibrillation; I10 Essential (primary) hypertension; K21.9 Gastro-esophageal reflux disease without esophagitis; E78.00 Pure hypercholesterolemia, unspecified; F43.10 Post-traumatic stress disorder, unspecified; B96.1 Klebsiella pneumoniae [K. pneumoniae] as the cause of diseases classified elsewhere; B95.4 Other streptococcus as the cause of diseases classified elsewhere; B96.5 Pseudomonas (aeruginosa) (mallei) (pseudomallei) as the cause of diseases classified elsewhere
CPT/HCPCS: 36415; 36430; 36591; 70450; 70553; 71045; 80048; 80053; 80061; 80076; 80307; 81001; 82140; 82150; 82550; 82553; 82803; 83605; 83690; 83735; 83880; 84100; 84439; 84443; 84484; 85025; 85610; 85730; 86850; 86900; 86901; 86920; 87040; 87077; 87086; 87088; 87186; 93005; 93010; 96361; 96365; 96367; 99291; A9576; J0692; J0743; J1335; J3370; J3480; J3490; J7030; J7050; J7060; J7120; P9016

== ENCOUNTER 2019-12-27 11:23 | Emergency (ER) | payer MEDICARE ==
--- NOTE | 2019-12-27 13:10 | ER Document Report ---
ED Medical Screen (RME) - General Chief Complaint: Other Stated Complaint: OSTOMY BAG ISSUE Time Seen by Provider: 12/27/19 12:54 Primary Care Provider: LEO GARCIA MD [Primary Care Provider] - Follow up as needed TRAVEL OUTSIDE OF THE [place] IN LAST 30 DAYS: No - HPI Notes: 12/27/19 13:10 79-year-old male with history of renal carcinoma who has bilateral nephrostomy tubes to the ER with complaints of 3 days of his left nephrostomy tube leaking. He denies any change in his urine. He denies any fevers or chills. He denies any pain. He denies any blood in his urine. He states he would like for us to evaluate him to make the leaking stopped. I performed a medical screening exam on the patient determined that he will need further evaluation by main side ER attending. I have placed initial orders to cellulose insulation helper in his care today. - Related Data Allergies/Adverse Reactions: lisinopril [Lisinopril] Adverse Reaction (Unknown, Verified 10/23/19 12:58) Yxcutnc-Avn-Mth Reductase Inhibitor Adverse Reaction (Unknown, Verified 10/23/19 12:58) Past Medical History - Past Medical History Cardiac Medical History: Reports: Hx Atrial Fibrillation, Hx Hypercholesterolemia, Hx Hypertension, Hx Heart Murmur Pulmonary Medical History: Reports: Hx Bronchitis Neurological Medical History: Denies: Hx Parkinson's Disease Endocrine Medical History: Reports: Hx Diabetes Mellitus Type 2 Renal/ Medical History: Reports: Hx Benign Prostatic Hyperplasia. Denies: Hx Peritoneal Dialysis Malignancy Medical History: Reports Hx Prostate Cancer GI Medical History: Reports: Hx Gastroesophageal Reflux Disease Musculoskeltal Medical History: Reports Hx Arthritis, Denies Hx Systemic Lupus Erythematosus Psychiatric Medical History: Reports: Hx Depression, Hx Post Traumatic Stress Disorder Infectious Medical History: Denies: Hx HIV Past Surgical History: Reports: Hx Kidney (Renal Surgery), Other - Prostate biopsy, port placement - Immunizations Immunizations up to date: Yes Hx Diphtheria, Pertussis, Tetanus Vaccination: Yes Doctor's Discharge - Discharge Referrals: LEO GARCIA MD [Primary Care Provider] - Follow up as needed
--- NOTE | 2019-12-27 17:19 | ER Document Report ---
ED General - General Chief Complaint: Other Stated Complaint: OSTOMY BAG ISSUE Time Seen by Provider: 12/27/19 12:54 Primary Care Provider: LEO GARCIA MD [Primary Care Provider] - Follow up as needed Notes: Patient is a 79-year-old male who presents the emergency department with a chief complaint of his nephrostomy tubes leaking. His nephrostomy tube is draining at the junction where the port is. He denies any fever, body aches, like a draining, or any other symptoms at this time. TRAVEL OUTSIDE OF THE [place] IN LAST 30 DAYS: No - Related Data Allergies/Adverse Reactions: lisinopril [Lisinopril] Adverse Reaction (Unknown, Verified 10/23/19 12:58) Rmfsben-Ick-Kpe Reductase Inhibitor Adverse Reaction (Unknown, Verified 10/23/19 12:58) Past Medical History - Social History Smoking Status: Former Smoker Frequency of alcohol use: Rare Drug Abuse: None Family History: Reviewed & Not Pertinent Patient has suicidal ideation: No Patient has homicidal ideation: No - Past Medical History Cardiac Medical History: Reports: Hx Atrial Fibrillation, Hx Hypercholesterolemia, Hx Hypertension, Hx Heart Murmur Pulmonary Medical History: Reports: Hx Bronchitis Neurological Medical History: Denies: Hx Parkinson's Disease Endocrine Medical History: Reports: Hx Diabetes Mellitus Type 2 Renal/ Medical History: Reports: Hx Benign Prostatic Hyperplasia. Denies: Hx Peritoneal Dialysis Malignancy Medical History: Reports Hx Prostate Cancer GI Medical History: Reports: Hx Gastroesophageal Reflux Disease Musculoskeletal Medical History: Reports Hx Arthritis, Denies Hx Systemic Lupus Erythematosus Psychiatric Medical History: Reports: Hx Depression, Hx Post Traumatic Stress Disorder Infectious Medical History: Denies: Hx HIV Past Surgical History: Reports: Hx Kidney (Renal Surgery), Other - Prostate biopsy, port placement - Immunizations Immunizations up to date: Yes Hx Diphtheria, Pertussis, Tetanus Vaccination: Yes Physical Exam - Vital signs Vitals: Temp Pulse Resp BP Pulse Ox 97.5 F 75 18 122/59 L 100 12/27/19 12:55 12/27/19 12:55 12/27/19 12:55 12/27/19 12:55 12/27/19 12:55 Course - Vital Signs Vital signs: Temp Pulse Resp BP Pulse Ox 97.5 F 75 18 122/59 L 100 12/27/19 12:55 12/27/19 12:55 12/27/19 12:55 12/27/19 12:55 12/27/19 12:55 Discharge - Discharge Referrals: LEO GARCIA MD [Primary Care Provider] - Follow up as needed
--- NOTE | 2019-12-27 17:29 | ER Document Report ---
ED General - General Chief Complaint: Other Stated Complaint: OSTOMY BAG ISSUE Time Seen by Provider: 12/27/19 12:54 Primary Care Provider: LEO GARCIA MD [Primary Care Provider] - Follow up as needed Notes: Patient is a 79-year-old male who presents the emergency department with a chief complaint of his nephrostomy tubes leaking. His nephrostomy tube is draining at the junction where the port is. He denies any fever, body aches, like a draining, or any other symptoms at this time. TRAVEL OUTSIDE OF THE [place] IN LAST 30 DAYS: No - Related Data Allergies/Adverse Reactions: lisinopril [Lisinopril] Adverse Reaction (Unknown, Verified 10/23/19 12:58) Zvazflw-Iep-Fvw Reductase Inhibitor Adverse Reaction (Unknown, Verified 10/23/19 12:58) Past Medical History - Social History Smoking Status: Former Smoker Frequency of alcohol use: Rare Drug Abuse: None Family History: Reviewed & Not Pertinent Patient has suicidal ideation: No Patient has homicidal ideation: No - Past Medical History Cardiac Medical History: Reports: Hx Atrial Fibrillation, Hx Hypercholesterolemia, Hx Hypertension, Hx Heart Murmur Pulmonary Medical History: Reports: Hx Bronchitis Neurological Medical History: Denies: Hx Parkinson's Disease Endocrine Medical History: Reports: Hx Diabetes Mellitus Type 2 Renal/ Medical History: Reports: Hx Benign Prostatic Hyperplasia. Denies: Hx Peritoneal Dialysis Malignancy Medical History: Reports Hx Prostate Cancer GI Medical History: Reports: Hx Gastroesophageal Reflux Disease Musculoskeletal Medical History: Reports Hx Arthritis, Denies Hx Systemic Lupus Erythematosus Psychiatric Medical History: Reports: Hx Depression, Hx Post Traumatic Stress Disorder Infectious Medical History: Denies: Hx HIV Past Surgical History: Reports: Hx Kidney (Renal Surgery), Other - Prostate biopsy, port placement - Immunizations Immunizations up to date: Yes Hx Diphtheria, Pertussis, Tetanus Vaccination: Yes Review of Systems - Review of Systems Notes: REVIEW OF SYSTEMS: CONSTITUTIONAL : Denies recent illness. Denies recent unintentional weight loss. Denies fever, chills, or sweats. EENT: Denies eye, ear, throat, or mouth pain, discharge, or symptoms. Denies nasal or sinus congestion. CARDIOVASCULAR: Denies chest pain. RESPIRATORY: Denies shortness of breath, cough, congestion, difficulty letty athing, or wheezing. GASTROINTESTINAL: Denies nausea, vomiting, and diarrhea. Denies abdominal pain. Denies constipation. GENITOURINARY: See HPI. MUSCULOSKELETAL: Denies neck and back pain. Denies joint pain or swelling. SKIN: Denies rash, itchiness, or lesions HEMATOLOGIC : Denies easy bruising or bleeding. LYMPHATIC: Denies swollen, painful, enlarged glands. NEUROLOGICAL: Denies no numbness or tingling denies weakness. Denies headache. Denies altered mental status. Denies alteration in speech. PSYCHIATRIC: Denies stress, anxiety, alteration in sleep patterns, or depression. All other systems reviewed and negative. Physical Exam - Vital signs Vitals: Temp Pulse Resp BP Pulse Ox 97.5 F 75 18 122/59 L 100 12/27/19 12:55 12/27/19 12:55 12/27/19 12:55 12/27/19 12:55 12/27/19 12:55 - Notes Notes: PHYSICAL EXAMINATION: GENERAL: Appears well, healthy, well-nourished, no acute distress. HEAD: Normocephalic, atraumatic. EYES: PERRL, conjunctiva normal, all extraocular movements intact, sclera nonicteric ENT: Moist mucous membranes. NECK: Supple, no noticeable swelling, redness, rash. Normal range of motion. LUNGS: Equal breath sounds bilaterally and clear to auscultation. No wheezes rales or rhonchi. CARDIOVASCULAR: S1-S2, regular rate, regular rhythm. Radial pulses 2+, normal. ABDOMEN: Normoactive bowel sounds. Soft, nontender, no guarding, no rebound tenderness, and no masses palpated. EXTREMITIES: Normal strength and range of motion, no pitting or edema. No cyanosis. NEUROLOGICAL: Moves all extremities upon command. Strength 5/5 in all extremities. PSYCH: Normal mood, normal affect. SKIN: Warm, dry. No rash, lesions, ulcerations noted. Normal skin turgor. BACK: Bilateral nephrostomy tubes noted. Course - Re-evaluation Re-evalutation: 12/27/19 18:02 Patient's was able to bring the supplies over the emergency department, and I was able to inject his catheter. He tolerated this well. Patient was thankful for the care. He will follow-up with his mechanical detailer on Monday. I have a very low suspicion for sepsis, urosepsis, urinary tract infection, or any life-threatening etiology at this time. - Vital Signs Vital signs: Temp Pulse Resp BP Pulse Ox 97.8 F 91 18 121/96 H 100 12/27/19 18:15 12/27/19 18:15 12/27/19 18:15 12/27/19 18:15 12/27/19 18:15 Discharge - Discharge Clinical Impression: Leakage of nephrostomy catheter, initial encounter Condition: Stable Disposition: HOME, SELF-CARE Additional Instructions: You were seen today in the emergency department for a leaking nephrostomy catheter. The bag and tubing were changed here in the emergency department. Please follow-up with your mechanical detailer on Monday in regards to this visit. Referrals: LEO GARCIA MD [Primary Care Provider] - Follow up as needed
[2019-12-27 18:22] VITALS: BP 121/96
== END 2019-12-27 18:15 | disposition home or self-care (01) ==
LOC: ER 11:23
DX: T83.032A Leakage of nephrostomy catheter, initial encounter (principal); Y73.8 Miscellaneous gastroenterology and urology devices associated with adverse incidents, not elsewhere classified; I10 Essential (primary) hypertension; E11.9 Type 2 diabetes mellitus without complications; Z87.891 Personal history of nicotine dependence
CPT/HCPCS: 99283

== ENCOUNTER → 2020-02-11 | Outpatient (CLI) | payer MEDICARE, OTHER ==
--- NOTE | 2020-02-11 17:02 | RADIOLOGY REPORT (SQ) ---
EXAM DESCRIPTION: PET CT SKULL/THIGH COMPLETED DATE/TIME: 02/11/2020 1:49 pm REASON FOR STUDY: PROSTATE CA C61 MALIGNANT NEOPLASM OF PROSTATE C7A.1 MALIGNANT POORLY DIFFERENTI ATED NEUROENDOCRINE TUMORS COMPARISON: PET-CT 10/06/2019 CT abdomen pelvis 08/16/2019 RADIONUCLIDE AND DOSE: 10.5 mCi F18 FDG The route of agent administration: Intravenous FASTING BLOOD SUGAR: 124 mg/dl CONTRAST TYPE AND DOSE: No CT contrast given. TECHNIQUE: Blood glucose level was verified. Above dose of FDG was injected intravenously. 2-D seg mented attenuation correction images were obtained from the base of the skull to the midthighs. Nonc ontrast CT images were obtained for attenuation correction and fusion with emission images. CT image s were performed without oral or intravenous contrast and are not sensitive for parenchymal lesions. A series of overlapping emission PET images were obtained. Images reviewed and manipulated at [facility] work station by the radiologist. Images stored on PACS. LIMITATIONS: None. FINDINGS: HEAD AND NECK: No areas of abnormal metabolic activity in the soft tissues of the head and neck. No increased uptake over the nasopharynx/pterygoid regions CHEST: No areas of abnormal metabolic activity in the chest. ABDOMEN AND PELVIS: No areas of abnormal metabolic activity in the abdomen or pelvis. Expected physi ologic activity is present in the genitourinary system and bowel. PROXIMAL LOWER EXTREMITIES: Punctate focus of increased uptake in the anterior right thigh skin, ques tion skin contamination from patient's nephrostomy leg bag, with SUV of 7.4 BONES: No abnormal metabolic activity in the visualized skeleton. ADDITIONAL CT FINDINGS: Bilateral nephrostomy catheters. Next OTHER: Liver background activity 1.6 SUV. Blood pool background activity 1.5 SUV IMPRESSION: Focal increased uptake over the anterior right thigh skin, could be contamination from p atient's leg bag for nephrostomy catheter Otherwise unremarkable study TECHNICAL DOCUMENTATION: JOB ID: [id number] 2010 [employer]- All Rights Reserved Reading location - IP/workstation name: [email or web address]
== END ==
LOC: RAD 08:40
PROVIDERS: ATTEND Internal Medicine
DX: C7A.1 Malignant poorly differentiated neuroendocrine tumors (principal)
CPT/HCPCS: 78815; A9552

== ENCOUNTER → 2020-05-05 | Outpatient (CLI) | payer MEDICARE, OTHER ==
--- NOTE | 2020-05-05 13:42 | RADIOLOGY REPORT (SQ) ---
EXAM DESCRIPTION: PET CT SKULL/THIGH IMAGES COMPLETED DATE/TIME: 05/05/2020 12:10 pm REASON FOR STUDY: C7A.1 MALIGNANT POORLY DIFFERENTIATED NEUROENDOCRINE TUMORS C7A.1 MALIGNANT POORL Y DIFFERENTIATED NEUROENDOCRINE TUMORS COMPARISON: 02/11/2020 RADIONUCLIDE AND DOSE: 8.25 mCi F18 FDG The route of agent administration: Intravenous FASTING BLOOD SUGAR: 143 mg/dl CONTRAST TYPE AND DOSE: No CT contrast given. TECHNIQUE: Blood glucose level was verified. Above dose of FDG was injected intravenously. 2-D seg mented attenuation correction images were obtained from the base of the skull to the midthighs. Nonc ontrast CT images were obtained for attenuation correction and fusion with emission images. CT image s were performed without oral or intravenous contrast and are not sensitive for parenchymal lesions. A series of overlapping emission PET images were obtained. Images reviewed and manipulated at [facility] work station by the radiologist. Images stored on PACS. LIMITATIONS: Motion. FINDINGS: HEAD AND NECK: No areas of abnormal metabolic activity in the soft tissues of the head and neck. CHEST: No areas of abnormal metabolic activity in the chest. ABDOMEN AND PELVIS: No areas of abnormal metabolic activity in the abdomen or pelvis. Expected physi ologic activity is present in the genitourinary system and bowel. PROXIMAL LOWER EXTREMITIES: No areas of abnormal metabolic activity in the soft tissues of the lower extremities. BONES: No abnormal metabolic activity in the visualized skeleton. ADDITIONAL CT FINDINGS: Right-sided port. Bilateral nephrostomies. Umbilical hernia containing nond ilated small bowel. OTHER: No other significant findings. IMPRESSION: Negative PET. TECHNICAL DOCUMENTATION: JOB ID: [id number] 2010 [employer]- All Rights Reserved Reading location - IP/workstation name: [email or web address]
== END ==
LOC: RAD 09:22
PROVIDERS: ATTEND Internal Medicine
DX: C7A.1 Malignant poorly differentiated neuroendocrine tumors (principal)
CPT/HCPCS: 78815; A9552

== ENCOUNTER → 2020-07-23 | Outpatient (CLI) | payer MEDICARE, OTHER ==
--- NOTE | 2020-07-24 09:13 | RADIOLOGY REPORT (SQ) ---
EXAM DESCRIPTION: MRI HEAD WITHOUT IMAGES COMPLETED DATE/TIME: 07/23/2020 7:42 pm REASON FOR STUDY: C74.1 MALIGNANT POORLY DIFFERENTIATED NEUROENDOCRINE TUMORS C7A.1 MALIGNANT POORL Y DIFFERENTIATED NEUROENDOCRINE TUMORS COMPARISON: MRI of the brain without and with contrast from 11/11/2019 an MRI of the brain without c ontrast from 04/29/2019. TECHNIQUE: Multiplanar imaging includes non-contrasted T1, T2, FLAIR, and diffusion with ADC map seq uences. Images stored on PACS. LIMITATIONS: None. FINDINGS: The midline structures including the sella turcica, craniocervical junction and corpus amara losum are normal in appearance. There is no restricted diffusion on the DWI. The confluent areas of high T2/FLAIR signal within the supratentorial periventricular and subcortical white matter are unchanged. There is no acute intracranial hemorrhage, extra-axial fluid collection , mass effect or midline shift. The isnger-white matter differentiation is preserved. The caliber of the ventricles is concordant with the degree of sulcation. There is no effacement of the cerebral blanco lci or basal subarachnoid cisterns. The intracranial vascular flow voids are preserved. There is no susceptibility artifact on the gradi ent sequence. The internal auditory canals and cerebellopontine angles are normal in appearance. There is no abnormality of the intraorbital structures. There is no pathologic marrow signal abnormality. IMPRESSION: No acute intracranial abnormality and no interval change. EVIDENCE OF ACUTE STROKE: NO. TECHNICAL DOCUMENTATION: JOB ID: [id number] 2010 [employer]- All Rights Reserved Reading location - IP/workstation name: [email or web address]
== END ==
LOC: RAD 16:09
PROVIDERS: ATTEND Internal Medicine
DX: C7A.1 Malignant poorly differentiated neuroendocrine tumors (principal)
CPT/HCPCS: 70551

== ENCOUNTER 2020-09-24 17:25 | Inpatient (IN) | payer MEDICARE ==
[2020-09-24] MEDS ORDERED: NORMAL SALINE 1000 ML 1,000 ML IV ONE (18:04)
--- NOTE | 2020-09-24 18:06 | ER Document Report ---
ED Medical Screen (RME) - General Chief Complaint: Low Blood Pressure Stated Complaint: DIRECT ADMIT Time Seen by Provider: 09/24/20 17:59 Primary Care Provider: KYLAH BANUELOS MD [Primary Care Provider] - Follow up as needed TRAVEL OUTSIDE OF THE [place] IN LAST 30 DAYS: No - HPI Notes: 09/24/20 18:05 79-year-old male to the emergency department from Dr. العلي's office for concerns for possible sepsis. He thinks that the patient may have a kidney infection. He was at his office with hypotension. His blood pressure is 90/44 here in the emergency department. I performed a brief medical screening exam on the patient determined that the patient needs further evaluation and management by main side provider. I have placed initial orders to help expedite care. - Related Data Allergies/Adverse Reactions: lisinopril [Lisinopril] Adverse Reaction (Unknown, Verified 09/24/20 17:53) Ymnpzgh-Kjm-Gkg Reductase Inhibitor Adverse Reaction (Unknown, Verified 09/24/20 17:53) Home Medications: cipro. dronabinol. eliquis. zofran. oxycodone. finasteride. gabapentin. allopurinol. solifenacin. donepezil. bumetanide. coreg Past Medical History - Social History Chew tobacco use (# tins/day): No Frequency of alcohol use: Occasional Drug Abuse: None - Past Medical History Cardiac Medical History: Reports: Hx Atrial Fibrillation, Hx Hy percholesterolemia, Hx Hypertension, Hx Heart Murmur Pulmonary Medical History: Reports: Hx Bronchitis Neurological Medical History: Denies: Hx Parkinson's Disease Endocrine Medical History: Reports: Hx Diabetes Mellitus Type 2 Renal/ Medical History: Reports: Hx Benign Prostatic Hyperplasia. Denies: Hx Peritoneal Dialysis Malignancy Medical History: Reports Hx Prostate Cancer GI Medical History: Reports: Hx Gastroesophageal Reflux Disease Musculoskeltal Medical History: Reports Hx Arthritis, Denies Hx Systemic Lupus Erythematosus Psychiatric Medical History: Reports: Hx Depression, Hx Post Traumatic Stress Disorder Infectious Medical History: Denies: Hx HIV Past Surgical History: Reports: Hx Kidney (Renal Surgery), Other - Prostate biop sy, port placement - Immunizations Immunizations up to date: Yes Hx Diphtheria, Pertussis, Tetanus Vaccination: Yes Physical Exam - Vital signs Vitals: Temp Pulse Resp BP Pulse Ox 98.1 F 79 16 90/44 L 100 09/24/20 17:35 09/24/20 17:35 09/24/20 17:35 09/24/20 17:35 09/24/20 17:35 Course - Vital Signs Vital signs: Temp Pulse Resp BP Pulse Ox 98.1 F 79 16 90/44 L 100 09/24/20 17:53 09/24/20 17:35 09/24/20 17:35 09/24/20 17:35 09/24/20 17:35 Doctor's Discharge - Discharge Referrals: KYLAH BANUELOS MD [Primary Care Provider] - Follow up as needed
[2020-09-24] MEDS ORDERED: MEROPENEM 1 GM VIAL IV ONE (18:27)
--- NOTE | 2020-09-24 19:01 | RADIOLOGY REPORT (SQ) ---
EXAM DESCRIPTION: CHEST SINGLE VIEW IMAGES COMPLETED DATE/TIME: 09/24/2020 6:32 pm REASON FOR STUDY: WEAK//HYPOTENSION COMPARISON: 09/15/2020 EXAM PARAMETERS: NUMBER OF VIEWS: One view. TECHNIQUE: Single frontal radiographic view of the chest acquired. RADIATION DOSE: NA LIMITATIONS: None. FINDINGS: LUNGS AND PLEURA: No opacities, masses or pneumothorax. No pleural effusion. MEDIASTINUM AND HILAR STRUCTURES: No masses. Contour normal. HEART AND VASCULAR STRUCTURES: Heart normal in size. Normal vasculature. BONES: No acute findings. HARDWARE: None in the chest. OTHER: No other significant finding. IMPRESSION: NO ACUTE RADIOGRAPHIC FINDING IN THE CHEST. TECHNICAL DOCUMENTATION: JOB ID: [id number] 2010 [employer]- All Rights Reserved Reading location - IP/workstation name: [email or web address]
[2020-09-24 19:10] LABS: ABSOLUTE EOSINOPHILS # (AUTO) 0.1 10^3/uL (0.0-0.6); ABSOLUTE LYMPHOCYTES (AUTO) 1.1 10^3/uL (0.5-4.7); ABSOLUTE MONOCYTES (AUTO) 0.7 10^3/uL (0.1-1.4); ABSOLUTE NEUT (AUTO) 4.9 10^3/uL (1.7-8.2); BASOPHILS % (AUTO) 0.4 % (0-2); HEMATOCRIT 31.3 % (37.9-51.0); HEMOGLOBIN 10.8 g/dL (13.5-17.0); LYMPHOCYTES % (AUTO) 16.2 % (13-45); MEAN CORPUSCULAR HEMOGLOBIN 27.9 pg (27.0-33.4); MEAN CORPUSCULAR HGB CONC 34.5 g/dL (32.0-36.0); MEAN CORPUSCULAR VOLUME 81 fl (80-97); MONOCYTES % (AUTO) 10.6 % (3-13); PLATELET COUNT 209 10^3/uL (150-450); RED BLOOD COUNT 3.87 10^6/uL (4.35-5.55); RED CELL DISTRIBUTION WIDTH 17.1 % (11.5-14.0); SEGMENTED NEUTROPHILS % (AUTO) 70.8 % (42-78); TOTAL CELLS COUNTED % (AUTO) 100 %; WHITE BLOOD COUNT 6.9 10^3/uL (4.0-10.5)
[2020-09-24 19:28] LABS: ALBUMIN 3.8 g/dL (3.5-5.0); ALKALINE PHOSPHATASE 99 U/L (38-126); ANION GAP 16 (5-19); ASPARTATE AMINO TRANSFERASE 21 U/L (17-59); BILIRUBIN,DIRECT 0.3 mg/dL (0.0-0.4); BILIRUBIN,TOTAL 0.7 mg/dL (0.2-1.3); BLOOD UREA NITROGEN 95 mg/dL (7-20); CALCIUM 7.2 mg/dL (8.4-10.2); CARBON DIOXIDE 29 mmol/L (22-30); CHLORIDE 88 mmol/L (98-107); GLUCOSE 174 mg/dL (75-110); POTASSIUM 3.1 mmol/L (3.6-5.0); TOTAL PROTEIN 7.1 g/dL (6.3-8.2)
[2020-09-24] MEDS ORDERED: POTASSI CL 20 MEQ/50 ML RIDER 20 MEQ/50 ML RTUPB IV ONE ×2 (19:36→21:15)
[2020-09-24] MEDS ORDERED: POTASSIUM CHLORIDE 10 MEQ TABLET.ER PO ONE (19:36)
[2020-09-24 22:25] LABS: INTERNATIONAL RATION (INR) 1.34; PROTHROMBIN TIME 16.7 SEC (11.4-15.4)
[2020-09-24] MEDS: RINGERS SOLUTION,LACTATED 1,000 ML IV PRN (22:45)
[2020-09-24 22:55] LABS: APPEARANCE,URINE CLEAR; BILIRUBIN,URINE NEGATIVE (NEGATIVE); COLOR,URINE STRAW; GLUCOSE, URINE NEGATIVE (NEGATIVE); KETONES,URINE NEGATIVE (NEGATIVE); PROTEIN,URINE 100 mg/dL (NEGATIVE); UROBILINOGEN,URINE NEGATIVE mg/dL (<2.0)
[2020-09-24] MEDS ORDERED: MEROPENEM 1 GM VIAL IV PRN (23:09)
[2020-09-25] MEDS: RINGERS SOLUTION,LACTATED 1,000 ML IV PRN ×2 (00:28→18:01)
[2020-09-25] MEDS: APIXABAN 2.5 MG TABLET PO SCH ×3 (00:29→18:00)
[2020-09-25] MEDS: MEROPENEM 1 GM in NORMAL SALINE 50 ML IV SCH ×3 (02:00→22:59)
[2020-09-25] MEDS ORDERED: MEROPENEM 1 GM VIAL ONE (05:06)
[2020-09-25 08:13] LABS: ABSOLUTE EOSINOPHILS # (AUTO) 0.1 10^3/uL (0.0-0.6); ABSOLUTE LYMPHOCYTES (AUTO) 0.9 10^3/uL (0.5-4.7); ABSOLUTE MONOCYTES (AUTO) 0.6 10^3/uL (0.1-1.4); ABSOLUTE NEUT (AUTO) 3.8 10^3/uL (1.7-8.2); BASOPHILS % (AUTO) 0.3 % (0-2); EOSINOPHILS % (AUTO) 2.6 % (0-6); HEMATOCRIT 27.4 % (37.9-51.0); HEMOGLOBIN 9.5 g/dL (13.5-17.0); LYMPHOCYTES % (AUTO) 17.1 % (13-45); MEAN CORPUSCULAR HGB CONC 34.8 g/dL (32.0-36.0); MEAN CORPUSCULAR VOLUME 81 fl (80-97); MONOCYTES % (AUTO) 10.7 % (3-13); PLATELET COUNT 206 10^3/uL (150-450); RED CELL DISTRIBUTION WIDTH 17.5 % (11.5-14.0); SEGMENTED NEUTROPHILS % (AUTO) 69.3 % (42-78); TOTAL CELLS COUNTED % (AUTO) 100 %; WHITE BLOOD COUNT 5.4 10^3/uL (4.0-10.5)
[2020-09-25 08:31] LABS: ALBUMIN 3.2 g/dL (3.5-5.0); ALKALINE PHOSPHATASE 80 U/L (38-126); ANION GAP 11 (5-19); ASPARTATE AMINO TRANSFERASE 18 U/L (17-59); BILIRUBIN,DIRECT 0.3 mg/dL (0.0-0.4); BILIRUBIN,TOTAL 0.7 mg/dL (0.2-1.3); CALCIUM 7.2 mg/dL (8.4-10.2); CARBON DIOXIDE 30 mmol/L (22-30); CHLORIDE 95 mmol/L (98-107); GLUCOSE 159 mg/dL (75-110); POTASSIUM 3.2 mmol/L (3.6-5.0); TOTAL PROTEIN 6.2 g/dL (6.3-8.2)
[2020-09-25 08:33] LABS: BLOOD UREA NITROGEN 73 mg/dL (7-20)
--- NOTE | 2020-09-25 08:47 | EKG REPORT ---
SEVERITY:- ABNORMAL ECG - ATRIAL FIBRILLATION, V-RATE 57-86 NONSPECIFIC INTRAVENTRICULAR CONDUCTION DELAY : Confirmed by: Wally Hensley MD 25-Sep-2020 08:46:19
[2020-09-25] MEDS ORDERED: ACETAMINOPHEN 325 MG TABLET PO PRN (17:43)
--- NOTE | 2020-09-25 20:33 | PDOC H&P ---
History of Present Illness Admission Date/PCP: 09/24/20 19:37 JACLYN FUNEZ History of Present Illness: TRAVIS REYNOSO is a 79 year old male He has a history of neuroendocrine tumor, malignant neoplasm of the prostate gland, type 2 diabetes mellitus, he came to the office with his family for evaluation of extreme fatigue, excessive somnolence, severe deconditioning, he recently was discharged from [place] for what sounds like septic shock. He was evaluated in the office the blood pressure recorded was 78 systolic, he has bilateral nephrostomy tube drainage due to obstructive uropathy. Because of the extremely low blood pressure he was referred to the ER, he was seen and evaluated, inpatient care recommended.The serum creatinine was 3.93 patient was lethargic. I do not have record from [place] I am not exactly sure what the diagnosis was on discharge from [facility] Past Medical History Cardiac Medical History: Reports: Atrial Fibrillation, Hyperlipidema, Hypertension, Heart Murmur Pulmonary Medical History: Reports: Bronchitis Endocrine Medical History: Reports: Diabetes Mellitus Type 2 GI Medical History: Reports: Gastroesophageal Reflux Disease Musculoskeltal Medical History: Reports: Arthritis Psychiatric Medical History: Reports: Depression, Post Traumatic Stress Disorder Hematology: Reports: Anemia Past Surgical History Past Surgical History: Reports: Other - Prostate biopsy, port placement Social History Smoking Status: Former Smoker Electronic Cigarette use?: No Frequency of Alcohol Use: Rare Hx Recreational Drug Use: No Drugs: None Hx Prescription Drug Abuse: Yes Family History Family History: Reviewed & Not Pertinent Parental Family History Reviewed: Yes Children Family History Reviewed: Yes Sibling(s) Family History Reviewed.: Yes Medication/Allergy Home Medications: Carvedilol Phosphate [Coreg CR 40 mg Ext. Release Capsule] 40 mg PO DAILY 08/16/19 Gabapentin [Neurontin 300 mg Capsule] 300 mg PO Q8 08/16/19 Allopurinol [Zyloprim 300 mg Tablet] 150 mg PO QHS 11/08/19 Apixaban [Eliquis 2.5 mg Tablet] 2.5 mg PO BID 11/08/19 Finasteride [Proscar 5 mg Tablet] 5 mg PO DAILY 11/08/19 Lidocaine/Prilocaine [Emla Cream] 1 applic TP ASDIR PRN 11/08/19 Pravastatin Sodium 40 mg PO QHS 11/08/19 Tamsulosin HCl [Flomax 0.4 mg Cap.sr] 0.4 mg PO DAILY 11/08/19 Aspirin [Adult Low Dose Aspirin EC] 81 mg PO DAILY 09/24/20 Bumetanide [Bumex 1 mg Tablet] 2 mg PO DAILY 09/24/20 Ciprofloxacin HCl [Cipro 500 mg Tablet] 500 mg PO Q12 MDD FOR 11 DAYS 09/24/20 Clotrimazole/Betamethasone Dip [Lotrisone Cream 15 gm] 1 applic TOP BID 09/24/20 Donepezil HCl [Aricept 5 mg Tablet] 5 mg PO DAILY 09/24/20 Dronabinol [Marinol 2.5 mg Capsule] 5 mg PO BID 09/24/20 Multivit,Tx with Iron,Minerals [Thera-M] 1 tab PO WSUPPER 09/24/20 Ondansetron [Zofran Odt 4 mg Tablet] 4 mg PO Q8HP PRN 09/24/20 Oxycodone HCl [Oxy-Ir 5 mg Tablet] 15 mg PO Q4HP PRN 09/24/20 Prochlorperazine Maleate [Compazine 10 mg Tablet] 10 mg PO Q6HP PRN 09/24/20 Sitagliptin Phosphate [Januvia 50 mg Tablet] 50 mg PO DAILY 09/24/20 Allergies/Adverse Reactions: lisinopril [Lisinopril] Adverse Reaction (Unknown, Verified 09/24/20 17:53) Lrsoyia-Eir-Ucb Reductase Inhibitor Adverse Reaction (Unknown, Verified 09/24/20 17:53) Review of Systems Constitutional: PRESENT: fatigue Eyes: ABSENT: visual disturbances Ears: ABSENT: hearing changes Cardiovascular: ABSENT: as per HPI, chest pain, dyspnea on exertion, edema, orthropnea, palpitations, other Respiratory: ABSENT: cough, hemoptysis Gastrointestinal: ABSENT: abdominal pain, constipation, diarrhea, hematemesis, hematochezia, nausea, vomiting Genitourinary: ABSENT: dysuria, hematuria Musculoskeletal: ABSENT: joint swelling Integumentary: ABSENT: rash, wounds Neurological: PRESENT: confusion Psychiatric: ABSENT: anxiety, depression, homidical ideation, suicidal ideation Hematologic/Lymphatic: ABSENT: easy bleeding, easy bruising, lymphadenopathy Physical Exam Vital Signs: Temp Pulse Resp BP Pulse Ox 98.3 F 92 19 98/52 L 98 09/25/20 16:41 09/25/20 16:41 09/25/20 16:41 09/25/20 16:41 09/25/20 16:41 Intake & Output 09/24/20 09/25/20 09/26/20 06:59 06:59 06:59 Intake Total 3150 1020 Output Total 800 2300 Balance 2350 -1280 Weight 104.6 kg General appearance: PRESENT: obese Head exam: PRESENT: atraumatic, normocephalic Eye exam: PRESENT: PERRLA Neck exam: PRESENT: full ROM Respiratory exam: PRESENT: clear to auscultation heather Cardiovascular exam: PRESENT: RRR, +S1, +S2 Pulses: PRESENT: normal dorsalis pedis pul, +2 pedal pulses bilateral Vascular exam: PRESENT: normal capillary refill GI/Abdominal exam: PRESENT: normal bowel sounds, soft Rectal exam: PRESENT: deferred Neurological exam: PRESENT: alert, CN II-XII grossly intact. ABSENT: motor sensory deficit Psychiatric exam: PRESENT: appropriate affect, normal mood Skin exam: PRESENT: dry, intact, warm. ABSENT: cyanosis, rash Results Laboratory Results: 09/25/20 07:40 09/25/20 07:40 09/24/20 09/24/20 09/24/20 18:55 20:30 22:36 WBC RBC Hgb Hct MCV MCH MCHC RDW Plt Count Seg Neutrophils % Sodium Potassium Chloride Carbon Dioxide Anion Gap BUN Creatinine Est GFR ( Amer) Glucose Lactic Acid 0.6 L Calcium Total Bilirubin AST Alkaline Phosphatase Total Protein Albumin Urine Color Cancelled Urine Appearance Cancelled Urine pH Cancelled Ur Specific [place] Cancelled Urine Protein Cancelled Urine Glucose (UA) Cancelled Urine Ketones Cancelled Urine Blood Cancelled Urine RBC (Auto) Cancelled Blood Type O POSITIVE Antibody Screen NEGATIVE 09/24/20 09/25/20 09/25/20 22:36 00:59 07:40 WBC 5.4 RBC 3.40 L Hgb 9.5 L Hct 27.4 L MCV 81 MCH 28.0 MCHC 34.8 RDW 17.5 H Plt Count 206 Seg Neutrophils % 69.3 Sodium Potassium Chloride Carbon Dioxide Anion Gap BUN Creatinine Est GFR ( Amer) Glucose Lactic Acid 1.0 Calcium Total Bilirubin AST Alkaline Phosphatase Total Protein Albumin Urine Color STRAW Urine Appearance CLEAR Urine pH 6.0 Ur Specific [place] 1.010 Urine Protein 100 H Urine Glucose (UA) NEGATIVE Urine Ketones NEGATIVE Urine Blood MODERATE H Urine RBC (Auto) 28 Blood Type Antibody Screen 09/25/20 09/25/20 07:40 07:40 WBC RBC Hgb Hct MCV MCH MCHC RDW Plt Count Seg Neutrophils % Sodium 135.6 L Potassium 3.2 L Chloride 95 L Carbon Dioxide 30 Anion Gap 11 BUN 73 H D Creatinine 2.70 H Est GFR ( Amer) 28 L Glucose 159 H Lactic Acid 0.8 Calcium 7.2 L Total Bilirubin 0.7 AST 18 Alkaline Phosphatase 80 Total Protein 6.2 L Albumin 3.2 L Urine Color Urine Appearance Urine pH Ur Specific [place] Urine Protein Urine Glucose (UA) Urine Ketones Urine Blood Urine RBC (Auto) Blood Type Antibody Screen Impressions: Chest X-Ray 09/24/20 00:00 IMPRESSION: NO ACUTE RADIOGRAPHIC FINDING IN THE CHEST. Assessment & Plan - Diagnosis (1) Hypotension Qualifiers: Hypotension type: unspecified hypotension type Qualified Code(s): I95.9 - Hypotension, unspecified Is this a current diagnosis for this admission?: Yes Plan: The blood pressure is low this is probably from combination of factors including dehydration,sepsis,The potential source of sepsis is the urine.He will be treated with IV fluid to restore blood pressure (2) Urinary tract infection Qualifiers: Urinary tract infection type: site unspecified Hematuria presence: without hematuria Qualified Code(s): N39.0 - Urinary tract infection, site not specified Is this a current diagnosis for this admission?: Yes Plan: He has urinary tract infection, patient to be treated with meropenem (4) T2DM (type 2 diabetes mellitus) Qualifiers: Diabetes mellitus retirement insulin use: without retirement use Diabetes mellitus complication status: with neurologic complications Diabetes mellitus complication detail: with polyneuropathy Qualified Code(s): E11.42 - Type 2 diabetes mellitus with diabetic polyneuropathy Is this a current diagnosis for this admission?: Yes - Time Time Spent: Greater than 70 Minutes Medications reviewed and adjusted accordingly: Yes Anticipated Discharge Disposition: Home, Self Care Anticipated Discharge Timeframe: within 72 hours - Inpatient Certification Based on my medical assessment, after consideration of the patient's comorbidities, presenting symptoms, or acuity I expect that the services needed warrant INPATIENT care.: Yes I certify that my determination is in accordance with my understanding of Medicare's requirements for reasonable and necessary INPATIENT services [42 CFR 412.3e].: Yes
--- NOTE | 2020-09-25 20:37 | PDOC PROGRESS REPORT ---
Subjective Progress Note for:: 09/25/20 Subjective:: Patient was admitted yesterday, he feels better today, Reason For Visit: HYPOTENSION,MULTIPLE CO-MORBIDITIES Physical Exam Vital Signs: Temp Pulse Resp BP Pulse Ox 98.3 F 92 19 98/52 L 98 09/25/20 16:41 09/25/20 16:41 09/25/20 16:41 09/25/20 16:41 09/25/20 16:41 Intake & Output 09/24/20 09/25/20 09/26/20 06:59 06:59 06:59 Intake Total 3150 1020 Output Total 800 2300 Balance 2350 -1280 Weight 104.6 kg General appearance: PRESENT: no acute distress Eye exam: PRESENT: PERRLA Respiratory exam: PRESENT: clear to auscultation heather Cardiovascular exam: PRESENT: +S1, +S2 GI/Abdominal exam: PRESENT: soft Neurological exam: PRESENT: alert, CN II-XII grossly intact Results Laboratory Results: 09/25/20 07:40 09/25/20 07:40 09/24/20 09/24/20 09/24/20 18:55 20:30 22:36 WBC RBC Hgb Hct MCV MCH MCHC RDW Plt Count Seg Neutrophils % Sodium Potassium Chloride Carbon Dioxide Anion Gap BUN Creatinine Est GFR ( Amer) Glucose Lactic Acid 0.6 L Calcium Total Bilirubin AST Alkaline Phosphatase Total Protein Albumin Urine Color Cancelled Urine Appearance Cancelled Urine pH Cancelled Ur Specific [place] Cancelled Urine Protein Cancelled Urine Glucose (UA) Cancelled Urine Ketones Cancelled Urine Blood Cancelled Urine RBC (Auto) Cancelled Blood Type O POSITIVE Antibody Screen NEGATIVE 09/24/20 09/25/20 09/25/20 22:36 00:59 07:40 WBC 5.4 RBC 3.40 L Hgb 9.5 L Hct 27.4 L MCV 81 MCH 28.0 MCHC 34.8 RDW 17.5 H Plt Count 206 Seg Neutrophils % 69.3 Sodium Potassium Chloride Carbon Dioxide Anion Gap BUN Creatinine Est GFR ( Amer) Glucose Lactic Acid 1.0 Calcium Total Bilirubin AST Alkaline Phosphatase Total Protein Albumin Urine Color STRAW Urine Appearance CLEAR Urine pH 6.0 Ur Specific [place] 1.010 Urine Protein 100 H Urine Glucose (UA) NEGATIVE Urine Ketones NEGATIVE Urine Blood MODERATE H Urine RBC (Auto) 28 Blood Type Antibody Screen 09/25/20 09/25/20 07:40 07:40 WBC RBC Hgb Hct MCV MCH MCHC RDW Plt Count Seg Neutrophils % Sodium 135.6 L Potassium 3.2 L Chloride 95 L Carbon Dioxide 30 Anion Gap 11 BUN 73 H D Creatinine 2.70 H Est GFR ( Amer) 28 L Glucose 159 H Lactic Acid 0.8 Calcium 7.2 L Total Bilirubin 0.7 AST 18 Alkaline Phosphatase 80 Total Protein 6.2 L Albumin 3.2 L Urine Color Urine Appearance Urine pH Ur Specific [place] Urine Protein Urine Glucose (UA) Urine Ketones Urine Blood Urine RBC (Auto) Blood Type Antibody Screen Impressions: Chest X-Ray 09/24/20 00:00 IMPRESSION: NO ACUTE RADIOGRAPHIC FINDING IN THE CHEST. Assessment & Plan - Diagnosis (1) Hypotension Qualifiers: Hypotension type: unspecified hypotension type Qualified Code(s): I95.9 - Hypotension, unspecified Is this a current diagnosis for this admission?: Yes Plan: The blood pressure has improved (2) Urinary tract infection Qualifiers: Urinary tract infection type: site unspecified Hematuria presence: without hematuria Qualified Code(s): N39.0 - Urinary tract infection, site not specified Is this a current diagnosis for this admission?: Yes Plan: Continue IV antibiotic (4) T2DM (type 2 diabetes mellitus) Qualifiers: Diabetes mellitus longterm insulin use: without keno terminal operator use Diabetes mellitus complication status: with neurologic complications Diabetes mellitus complication detail: with polyneuropathy Qualified Code(s): E11.42 - Type 2 diabetes mellitus with diabetic polyneuropathy Is this a current diagnosis for this admission?: Yes - Time Time Spent with patient: 25-34 minutes Level of Care: IMCU Medications reviewed and adjusted accordingly: Yes Anticipated discharge: Home Anticipated DC Timeframe: within 72 hours - Inpatient Certification Based on my medical assessment, after consideration of the patient's comorbidities, presenting symptoms, or acuity I expect that the services needed warrant INPATIENT care.: Yes I certify that my determination is in accordance with my understanding of Medicare's requirements for reasonable and necessary INPATIENT services [42 CFR 412.3e].: Yes
[2020-09-26] MEDS: RINGERS SOLUTION,LACTATED 1,000 ML IV PRN ×2 (04:05→22:54)
[2020-09-26 06:47] LABS: HEMATOCRIT 27.7 % (37.9-51.0); HEMOGLOBIN 9.6 g/dL (13.5-17.0); MEAN CORPUSCULAR HEMOGLOBIN 27.8 pg (27.0-33.4); MEAN CORPUSCULAR HGB CONC 34.8 g/dL (32.0-36.0); MEAN CORPUSCULAR VOLUME 80 fl (80-97); PLATELET COUNT 215 10^3/uL (150-450); RED BLOOD COUNT 3.46 10^6/uL (4.35-5.55); RED CELL DISTRIBUTION WIDTH 17.4 % (11.5-14.0); WHITE BLOOD COUNT 4.9 10^3/uL (4.0-10.5)
[2020-09-26 07:00] LABS: ANION GAP 10 (5-19); CALCIUM 7.5 mg/dL (8.4-10.2); CARBON DIOXIDE 30 mmol/L (22-30); CHLORIDE 97 mmol/L (98-107); GLUCOSE 165 mg/dL (75-110); POTASSIUM 3.2 mmol/L (3.6-5.0)
[2020-09-26 07:14] LABS: BLOOD UREA NITROGEN 49 mg/dL (7-20)
[2020-09-26] MEDS: APIXABAN 2.5 MG TABLET PO SCH ×2 (09:36→17:41)
[2020-09-26] MEDS: MEROPENEM 1 GM in NORMAL SALINE 50 ML IV SCH ×2 (09:40→22:52)
[2020-09-26] MEDS ORDERED: POTASSIUM CHLORIDE 10 MEQ TABLET.ER PO ONE (15:03)
--- NOTE | 2020-09-26 15:05 | PDOC PROGRESS REPORT ---
Subjective Progress Note for:: 09/26/20 Subjective:: Patient seen at the bedside, the blood pressure is fluctuating Reason For Visit: HYPOTENSION,MULTIPLE CO-MORBIDITIES Physical Exam Vital Signs: Temp Pulse Resp BP Pulse Ox 97.8 F 81 18 89/48 L 99 09/26/20 08:36 09/26/20 14:00 09/26/20 07:46 09/26/20 07:46 09/26/20 07:46 Intake & Output 09/25/20 09/26/20 09/27/20 06:59 06:59 05:59 Intake Total 3150 2070 50 Output Total 800 3075 Balance 2350 -1005 50 Weight 104.6 kg 101.5 kg General appearance: PRESENT: no acute distress Eye exam: PRESENT: PERRLA Respiratory exam: PRESENT: clear to auscultation heather Cardiovascular exam: PRESENT: +S1, +S2 GI/Abdominal exam: PRESENT: soft Neurological exam: PRESENT: alert Results Laboratory Results: 09/26/20 06:36 09/26/20 06:36 09/26/20 09/26/20 06:36 06:36 WBC 4.9 RBC 3.46 L Hgb 9.6 L Hct 27.7 L MCV 80 MCH 27.8 MCHC 34.8 RDW 17.4 H Plt Count 215 Sodium 137.2 Potassium 3.2 L Chloride 97 L Carbon Dioxide 30 Anion Gap 10 BUN 49 H D Creatinine 1.78 H Est GFR ( Amer) 45 L Glucose 165 H Calcium 7.5 L 09/24/20 22:35 Catheterized Urine Urine Culture - Final NO GROWTH 2 DAYS Impressions: Chest X-Ray 09/24/20 00:00 IMPRESSION: NO ACUTE RADIOGRAPHIC FINDING IN THE CHEST. Assessment & Plan - Diagnosis (1) Hypotension Qualifiers: Hypotension type: unspecified hypotension type Qualified Code(s): I95.9 - Hypotension, unspecified Is this a current diagnosis for this admission?: Yes Plan: Continue IV fluid start midodrine (2) Urinary tract infection Qualifiers: Urinary tract infection type: site unspecified Hematuria presence: without hematuria Qualified Code(s): N39.0 - Urinary tract infection, site not specified Is this a current diagnosis for this admission?: Yes Plan: Continue IV antibiotic (4) T2DM (type 2 diabetes mellitus) Qualifiers: Diabetes mellitus middle or intermediate school principal insulin use: without middle or intermediate school principal use Diabetes mellitus complication status: with neurologic complications Diabetes mellitus complication detail: with polyneuropathy Qualified Code(s): E11.42 - Type 2 diabetes mellitus with diabetic polyneuropathy Is this a current diagnosis for this admission?: Yes - Time Time Spent with patient: 25-34 minutes Level of Care: IMCU Medications reviewed and adjusted accordingly: Yes Anticipated discharge: Home Anticipated DC Timeframe: within 72 hours
[2020-09-26] MEDS: ASPIRIN 81 MG TABLET, ENT COATED PO SCH (15:55)
[2020-09-26] MEDS: MIDODRINE HCL 5 MG TABLET PO SCH ×2 (15:55→17:41)
[2020-09-26] MEDS: DONEPEZIL HCL 5 MG TABLET PO SCH (15:56)
[2020-09-26] MEDS: TAMSULOSIN HCL 0.4 MG CAP.SR.24H PO SCH (15:56)
[2020-09-26] MEDS: FINASTERIDE 5 MG TABLET PO SCH (15:56)
[2020-09-26 16:10] LABS: ALBUMIN 3.3 g/dL (3.5-5.0); ALKALINE PHOSPHATASE 82 U/L (38-126); ANION GAP 10 (5-19); ASPARTATE AMINO TRANSFERASE 17 U/L (17-59); BILIRUBIN,DIRECT 0.1 mg/dL (0.0-0.4); BILIRUBIN,TOTAL 0.5 mg/dL (0.2-1.3); BLOOD UREA NITROGEN 40 mg/dL (7-20); CALCIUM 7.7 mg/dL (8.4-10.2); CARBON DIOXIDE 31 mmol/L (22-30); CHLORIDE 96 mmol/L (98-107); GLUCOSE 157 mg/dL (75-110); POTASSIUM 3.2 mmol/L (3.6-5.0); TOTAL PROTEIN 6.3 g/dL (6.3-8.2)
[2020-09-26] MEDS ORDERED: MULTIVITAMINS W-IRON TABLET, CHEWABLE PO SCH (17:00)
[2020-09-26] MEDS ORDERED: MULTIVITAMINS W-IRON TABLET, CHEWABLE PO ONE (17:30)
[2020-09-26] MEDS: DRONABINOL 2.5 MG CAPSULE PO SCH (17:41)
[2020-09-26] MEDS: CLOTRIMAZOLE/BETAMETHASONE DIP CREAM 15 GM TOP SCH (17:41)
[2020-09-26] MEDS: OXYCODONE HCL IR 5 MG TABLET PO PRN (17:43)
[2020-09-26] MEDS ORDERED: MULTIVITAMINS W-IRON TABLET, CHEWABLE ONE (17:47)
[2020-09-26] MEDS: ONDANSETRON 4 MG TAB.RAPDIS PO PRN (17:54)
[2020-09-26] MEDS: ALLOPURINOL 300 MG TABLET PO SCH (22:53)
[2020-09-27 06:47] LABS: ALBUMIN 3.4 g/dL (3.5-5.0); ALKALINE PHOSPHATASE 81 U/L (38-126); ANION GAP 10 (5-19); ASPARTATE AMINO TRANSFERASE 18 U/L (17-59); BILIRUBIN,DIRECT 0.1 mg/dL (0.0-0.4); BILIRUBIN,TOTAL 0.7 mg/dL (0.2-1.3); BLOOD UREA NITROGEN 30 mg/dL (7-20); CALCIUM 7.9 mg/dL (8.4-10.2); CARBON DIOXIDE 28 mmol/L (22-30); CHLORIDE 99 mmol/L (98-107); GLUCOSE 133 mg/dL (75-110); POTASSIUM 3.7 mmol/L (3.6-5.0); TOTAL PROTEIN 6.2 g/dL (6.3-8.2)
[2020-09-27] MEDS: ONDANSETRON 4 MG TAB.RAPDIS PO PRN ×2 (08:10→17:17)
[2020-09-27] MEDS: TAMSULOSIN HCL 0.4 MG CAP.SR.24H PO SCH (10:41)
[2020-09-27] MEDS: MIDODRINE HCL 5 MG TABLET PO SCH ×3 (10:41→17:17)
[2020-09-27] MEDS: APIXABAN 2.5 MG TABLET PO SCH ×2 (10:41→17:17)
[2020-09-27] MEDS: FINASTERIDE 5 MG TABLET PO SCH (10:41)
[2020-09-27] MEDS: DRONABINOL 2.5 MG CAPSULE PO SCH ×2 (10:41→17:16)
[2020-09-27] MEDS: DONEPEZIL HCL 5 MG TABLET PO SCH (10:41)
[2020-09-27] MEDS: ASPIRIN 81 MG TABLET, ENT COATED PO SCH (10:41)
[2020-09-27] MEDS: MEROPENEM 1 GM in NORMAL SALINE 50 ML IV SCH ×2 (10:42→21:22)
[2020-09-27] MEDS: OXYCODONE HCL IR 5 MG TABLET PO PRN ×2 (10:44→15:03)
[2020-09-27] MEDS: CLOTRIMAZOLE/BETAMETHASONE DIP CREAM 15 GM TOP SCH ×2 (10:45→17:24)
[2020-09-27] MEDS: RINGERS SOLUTION,LACTATED 1,000 ML IV PRN ×2 (10:58→22:29)
--- NOTE | 2020-09-27 13:35 | PDOC PROGRESS REPORT ---
Subjective Progress Note for:: 09/27/20 Subjective:: Patient seen by the bedside, showing improvement Reason For Visit: HYPOTENSION,MULTIPLE CO-MORBIDITIES Physical Exam Vital Signs: Temp Pulse Resp BP Pulse Ox 97.9 F 83 17 116/53 L 99 09/27/20 11:04 09/27/20 11:04 09/27/20 11:04 09/27/20 11:04 09/27/20 11:04 Intake & Output 09/26/20 09/27/20 09/28/20 07:59 06:59 06:59 Intake Total 1530 Output Total 225 Balance 1305 Weight General appearance: PRESENT: no acute distress Eye exam: PRESENT: PERRLA Respiratory exam: PRESENT: clear to auscultation heather Cardiovascular exam: PRESENT: +S1, +S2 GI/Abdominal exam: PRESENT: soft Neurological exam: PRESENT: alert Results Laboratory Results: 09/26/20 06:36 09/27/20 06:07 09/26/20 09/27/20 15:25 06:07 Sodium 136.5 L 136.7 L Potassium 3.2 L 3.7 Chloride 96 L 99 Carbon Dioxide 31 H 28 Anion Gap 10 10 BUN 40 H 30 H Creatinine 1.74 H 1.47 H Est GFR ( Amer) 46 L 56 L Glucose 157 H 133 H Calcium 7.7 L 7.9 L Total Bilirubin 0.5 0.7 AST 17 18 Alkaline Phosphatase 82 81 Total Protein 6.3 6.2 L Albumin 3.3 L 3.4 L 09/24/20 22:35 Catheterized Urine Urine Culture - Final NO GROWTH 2 DAYS Impressions: Chest X-Ray 09/24/20 00:00 IMPRESSION: NO ACUTE RADIOGRAPHIC FINDING IN THE CHEST. Assessment & Plan - Diagnosis (1) Hypotension Qualifiers: Hypotension type: unspecified hypotension type Qualified Code(s): I95.9 - Hypotension, unspecified Is this a current diagnosis for this admission?: Yes Plan: resolved (2) Urinary tract infection Qualifiers: Urinary tract infection type: site unspecified Hematuria presence: without hematuria Qualified Code(s): N39.0 - Urinary tract infection, site not specified Is this a current diagnosis for this admission?: Yes Plan: Continue IV antibiotic (4) T2DM (type 2 diabetes mellitus) Qualifiers: Diabetes mellitus manager long term care insulin use: without penitentiary use Diabetes mellitus complication status: with neurologic complications Diabetes mellitus complication detail: with polyneuropathy Qualified Code(s): E11.42 - Type 2 diabetes mellitus with diabetic polyneuropathy Is this a current diagnosis for this admission?: Yes - Time Time Spent with patient: 25-34 minutes Level of Care: IMCU Medications reviewed and adjusted accordingly: Yes
--- NOTE | 2020-09-27 15:32 | RADIOLOGY REPORT (SQ) ---
EXAM DESCRIPTION: KUB/ABDOMEN (SINGLE VIEW) IMAGES COMPLETED DATE/TIME: 09/27/2020 2:16 pm REASON FOR STUDY: vomiting COMPARISON: CT abdomen and pelvis, 09/14/2020. NUMBER OF VIEWS: One view. TECHNIQUE: Supine radiographic image of the abdomen acquired. LIMITATIONS: None. FINDINGS: BOWEL GAS PATTERN: Moderate stool in the colon. No dilated loops. CALCIFICATIONS: No suspicious calcifications. SOFT TISSUES: Bilateral nephrostomy tubes remain in place. No gross mass or suggestion of organomega ly. HARDWARE: None in the abdomen. BONES: No acute fracture. No worrisome bone lesions. OTHER: No other significant finding. IMPRESSION: Bilateral nephrostomy tubes remain in place. Moderate constipation. No evidence of bow el obstruction. TECHNICAL DOCUMENTATION: JOB ID: [id number] 2010 [employer]- All Rights Reserved Reading location - IP/workstation name: [email or web address]
--- NOTE | 2020-09-27 16:46 | CDI QUERY ---
CDI Query CDI Review: Dear Provider, Please clarify and document in progress notes and D/C summary if you agree with the following findings: SEPSIS due to UTI? SEPSIS SYNDROME? UTI w/ SIRS only? OTHER? Clinical data: states "hypotension possibly due to sepsis" UTI HYPOTENSION IVF's lethargic Thanks, Yazmin Medina, CDI [phone]
--- NOTE | 2020-09-27 16:50 | CDI QUERY ---
CDI Query CDI Review: Dear Provider, Please clarify and document in progress notes and D/C summary if you agree with the following findings: ACUTE RENAL FAILURE, with ATN? ACUTE RENAL FAILURE? CKD STAGE ? OTHER? Clinical findings: Cr 2.70 / 1.47 IVF's UTI Thanks, Yazmin Medina, CDI [phone]
[2020-09-27] MEDS: MULTIVITAMIN TABLET PO SCH (17:17)
[2020-09-27] MEDS: ALLOPURINOL 300 MG TABLET PO SCH (21:22)
[2020-09-28 06:37] LABS: ALBUMIN 3.3 g/dL (3.5-5.0); ALKALINE PHOSPHATASE 81 U/L (38-126); ANION GAP 10 (5-19); ASPARTATE AMINO TRANSFERASE 19 U/L (17-59); BILIRUBIN,DIRECT 0.2 mg/dL (0.0-0.4); BILIRUBIN,TOTAL 0.7 mg/dL (0.2-1.3); BLOOD UREA NITROGEN 21 mg/dL (7-20); CALCIUM 8.1 mg/dL (8.4-10.2); CARBON DIOXIDE 28 mmol/L (22-30); CHLORIDE 99 mmol/L (98-107); GLUCOSE 138 mg/dL (75-110); POTASSIUM 3.8 mmol/L (3.6-5.0); TOTAL PROTEIN 6.2 g/dL (6.3-8.2)
[2020-09-28] MEDS: MIDODRINE HCL 5 MG TABLET PO SCH ×3 (10:16→17:34)
[2020-09-28] MEDS: MEROPENEM 1 GM in NORMAL SALINE 50 ML IV SCH ×2 (10:17→21:24)
[2020-09-28] MEDS: ASPIRIN 81 MG TABLET, ENT COATED PO SCH (10:17)
[2020-09-28] MEDS: APIXABAN 2.5 MG TABLET PO SCH ×2 (10:17→17:34)
[2020-09-28] MEDS: TAMSULOSIN HCL 0.4 MG CAP.SR.24H PO SCH (10:17)
[2020-09-28] MEDS: DRONABINOL 2.5 MG CAPSULE PO SCH ×2 (10:17→17:34)
[2020-09-28] MEDS: FINASTERIDE 5 MG TABLET PO SCH (10:17)
[2020-09-28] MEDS: DONEPEZIL HCL 5 MG TABLET PO SCH (10:18)
[2020-09-28] MEDS: CLOTRIMAZOLE/BETAMETHASONE DIP CREAM 15 GM TOP SCH ×2 (10:18→17:23)
[2020-09-28] MEDS: OXYCODONE HCL IR 5 MG TABLET PO PRN (10:29)
[2020-09-28] MEDS: MULTIVITAMIN TABLET PO SCH (17:34)
--- NOTE | 2020-09-28 19:22 | RADIOLOGY REPORT (SQ) ---
EXAM DESCRIPTION: CT ABD/PELVIS WITH IV ONLY IMAGES COMPLETED DATE/TIME: 09/28/2020 7:04 pm REASON FOR STUDY: lower abdominal pain COMPARISON: None. TECHNIQUE: CT scan of the abdomen and pelvis performed using helical scanning technique with dynamic intravenous contrast injection. No oral contrast. Images reviewed with lung, soft tissue, and bone windows. Reconstructed coronal and sagittal MPR images reviewed. Delayed images for evaluation of the urinary system also acquired. All images stored on PACS. All CT scanners at this facility use dose modulation, iterative reconstruction, and/or weight based d osing when appropriate to reduce radiation dose to as low as reasonably achievable (ALARA). [facility]: Dose Right [facility]: CareDose [facility]: Dose Right [facility]: Teradose 4D [facility]: Mosa Records CONTRAST TYPE AND DOSE: contrast/concentration: Isovue 350.00 mmol/ml; Total Contrast Delivered: 99. 0 ml; Total Saline Delivered: 44.2 ml RENAL FUNCTION: BUN 21 creatinine 1.3 RADIATION DOSE: CT Rad equipment meets quality standard of care and radiation dose reduction techniq ues were employed. CTDIvol: NaN - NaN mGy. DLP: 0 mGy-cm.. LIMITATIONS: None. FINDINGS: LOWER CHEST: Minimal ground-glass opacification in the lower lobes. No focal consolidatio n. LIVER: Normal size. No masses. No dilated ducts. SPLEEN: Normal size. No focal lesions. PANCREAS: No masses. No significant calcifications. No adjacent inflammation or peripancreatic fluid collections. Pancreatic duct not dilated. GALLBLADDER: No identified stones by CT criteria. No inflammatory changes to suggest cholecystitis. ADRENAL GLANDS: No significant masses or asymmetry. RIGHT KIDNEY AND URETER: No solid masses. No significant calcifications. No hydronephrosis or hyd roureter. Percutaneous nephrostomy catheter in place. LEFT KIDNEY AND URETER: No solid masses. No significant calcifications. No hydronephrosis or hydr oureter. Percutaneous nephrostomy catheter in place. AORTA AND VESSELS: No aneurysm. No dissection. Renal arteries, SMA, celiac without stenosis. RETROPERITONEUM: No retroperitoneal adenopathy, hemorrhage or masses. BOWEL AND PERITONEAL CAVITY: Sigmoid diverticulosis. No acute inflammation. No obvious bowel mass. APPENDIX: Normal. PELVIS: Urinary bladder is not filled. Appears to be thick-walled. ABDOMINAL WALL: No masses. No hernias. BONES: No significant or acute findings. OTHER: No other significant finding. IMPRESSION: Bilateral percutaneous nephrostomies. Apparent thickening of the wall of the bladder. Diverticulosis coli. Mild chronic interstitial changes in the lower lobes. TECHNICAL DOCUMENTATION: JOB ID: [id number] Quality ID # [id number]: Final reports with documentation of one or more dose reduction techniques (e.g., Au tomated exposure control, adjustment of the mA and/or kV according to patient size, use of iterative reconstruction technique) 2010 [employer]- All Rights Reserved Reading location - IP/workstation name: [email or web address]
--- NOTE | 2020-09-28 19:42 | PDOC PROGRESS REPORT ---
Subjective Progress Note for:: 09/28/20 Subjective:: Patient was seen by the bedside, the and the nurse are concerned about patient's ability to ambulate Reason For Visit: HYPOTENSION,MULTIPLE CO-MORBIDITIES Physical Exam Vital Signs: Temp Pulse Resp BP Pulse Ox 97.7 F 94 18 148/79 H 98 09/28/20 16:29 09/28/20 16:29 09/28/20 16:29 09/28/20 16:29 09/28/20 16:29 Intake & Output 09/27/20 09/28/20 09/29/20 06:59 06:59 06:59 Intake Total 3130 1780 Output Total 1125 1600 Balance 2004 180 Weight 102.6 kg General appearance: PRESENT: no acute distress Eye exam: PRESENT: PERRLA Respiratory exam: PRESENT: clear to auscultation heather Cardiovascular exam: PRESENT: +S1, +S2 GI/Abdominal exam: PRESENT: soft Neurological exam: PRESENT: alert Results Laboratory Results: 09/26/20 06:36 09/28/20 05:55 09/28/20 05:55 Sodium 136.9 L Potassium 3.8 Chloride 99 Carbon Dioxide 28 Anion Gap 10 BUN 21 H Creatinine 1.31 H Est GFR ( Amer) > 60 Glucose 138 H Calcium 8.1 L Total Bilirubin 0.7 AST 19 Alkaline Phosphatase 81 Total Protein 6.2 L Albumin 3.3 L Impressions: Chest X-Ray 09/24/20 00:00 IMPRESSION: NO ACUTE RADIOGRAPHIC FINDING IN THE CHEST. KUB X-Ray 09/27/20 00:00 IMPRESSION: Bilateral nephrostomy tubes remain in place. Moderate constipation . No evidence of bowel obstruction. Abdomen/Pelvis CT 09/28/20 00:00 IMPRESSION: Bilateral percutaneous nephrostomies. Apparent thickening of the wall of the bladder. Diverticulosis coli. Mild chronic interstitial changes in the lower lobes. Assessment & Plan - Diagnosis (1) Hypotension Qualifiers: Hypotension type: unspecified hypotension type Qualified Code(s): I95.9 - Hypotension, unspecified Is this a current diagnosis for this admission?: Yes Plan: improved (2) Urinary tract infection Qualifiers: Urinary tract infection type: site unspecified Hematuria presence: without hematuria Qualified Code(s): N39.0 - Urinary tract infection, site not specified Is this a current diagnosis for this admission?: Yes (4) T2DM (type 2 diabetes mellitus) Qualifiers: Diabetes mellitus group home insulin use: without group home use Diabetes mellitus complication status: with neurologic complications Diabetes mellitus complication detail: with polyneuropathy Qualified Code(s): E11.42 - Type 2 diabetes mellitus with diabetic polyneuropathy Is this a current diagnosis for this admission?: Yes (5) Acute kidney injury Is this a current diagnosis for this admission?: Yes Plan: This most likely prerenal azotemia improved with hydration - Time Time Spent with patient: 25-34 minutes Level of Care: IMCU Medications reviewed and adjusted accordingly: Yes Anticipated discharge: Home - Inpatient Certification Based on my medical assessment, after consideration of the patient's comorbidities, presenting symptoms, or acuity I expect that the services needed warrant INPATIENT care.: Yes I certify that my determination is in accordance with my understanding of Medicare's requirements for reasonable and necessary INPATIENT services [42 CFR 412.3e].: Yes
[2020-09-28] MEDS: ALLOPURINOL 300 MG TABLET PO SCH (21:24)
[2020-09-29] MEDS: RINGERS SOLUTION,LACTATED 1,000 ML IV PRN ×2 (01:56→13:35)
[2020-09-29] MEDS: OXYCODONE HCL IR 5 MG TABLET PO PRN ×5 (01:58→18:27)
[2020-09-29] MEDS: MEROPENEM 1 GM in NORMAL SALINE 50 ML IV SCH ×2 (09:18→21:28)
[2020-09-29] MEDS: DONEPEZIL HCL 5 MG TABLET PO SCH (10:13)
[2020-09-29] MEDS: FINASTERIDE 5 MG TABLET PO SCH (10:13)
[2020-09-29] MEDS: MIDODRINE HCL 5 MG TABLET PO SCH ×3 (10:13→17:30)
[2020-09-29] MEDS: DRONABINOL 2.5 MG CAPSULE PO SCH ×2 (10:13→17:30)
[2020-09-29] MEDS: TAMSULOSIN HCL 0.4 MG CAP.SR.24H PO SCH (10:13)
[2020-09-29] MEDS: APIXABAN 2.5 MG TABLET PO SCH ×2 (10:13→17:30)
[2020-09-29] MEDS: ASPIRIN 81 MG TABLET, ENT COATED PO SCH (10:13)
[2020-09-29] MEDS: CLOTRIMAZOLE/BETAMETHASONE DIP CREAM 15 GM TOP SCH ×2 (10:14→17:37)
[2020-09-29 14:37] LABS: ALBUMIN 3.1 g/dL (3.5-5.0); ALKALINE PHOSPHATASE 71 U/L (38-126); ANION GAP 6 (5-19); ASPARTATE AMINO TRANSFERASE 20 U/L (17-59); BILIRUBIN,DIRECT 0.1 mg/dL (0.0-0.4); BILIRUBIN,TOTAL 0.6 mg/dL (0.2-1.3); BLOOD UREA NITROGEN 14 mg/dL (7-20); CARBON DIOXIDE 29 mmol/L (22-30); CHLORIDE 100 mmol/L (98-107); GLUCOSE 149 mg/dL (75-110); POTASSIUM 3.6 mmol/L (3.6-5.0); TOTAL PROTEIN 6.1 g/dL (6.3-8.2)
[2020-09-29 14:42] LABS: ABSOLUTE EOSINOPHILS # (AUTO) 0.2 10^3/uL (0.0-0.6); ABSOLUTE LYMPHOCYTES (AUTO) 1.1 10^3/uL (0.5-4.7); ABSOLUTE MONOCYTES (AUTO) 0.5 10^3/uL (0.1-1.4); ABSOLUTE NEUT (AUTO) 2.9 10^3/uL (1.7-8.2); BASOPHILS % (AUTO) 0.5 % (0-2); EOSINOPHILS % (AUTO) 3.4 % (0-6); HEMATOCRIT 26.7 % (37.9-51.0); HEMOGLOBIN 9.5 g/dL (13.5-17.0); LYMPHOCYTES % (AUTO) 22.7 % (13-45); MEAN CORPUSCULAR HEMOGLOBIN 28.3 pg (27.0-33.4); MEAN CORPUSCULAR HGB CONC 35.5 g/dL (32.0-36.0); MEAN CORPUSCULAR VOLUME 80 fl (80-97); MONOCYTES % (AUTO) 11.2 % (3-13); PLATELET COUNT 192 10^3/uL (150-450); RED BLOOD COUNT 3.34 10^6/uL (4.35-5.55); RED CELL DISTRIBUTION WIDTH 17.1 % (11.5-14.0); SEGMENTED NEUTROPHILS % (AUTO) 62.2 % (42-78); TOTAL CELLS COUNTED % (AUTO) 100 %; WHITE BLOOD COUNT 4.7 10^3/uL (4.0-10.5)
[2020-09-29] MEDS: MULTIVITAMIN TABLET PO SCH (17:30)
[2020-09-29] MEDS: ONDANSETRON 4 MG TAB.RAPDIS PO PRN (18:14)
[2020-09-29] MEDS: ALLOPURINOL 300 MG TABLET PO SCH (21:27)
--- NOTE | 2020-09-29 22:05 | PDOC PROGRESS REPORT ---
Subjective Progress Note for:: 09/29/20 Subjective:: Patient seen by the bedside,Kidney function is improved with hydration Reason For Visit: HYPOTENSION,MULTIPLE CO-MORBIDITIES Physical Exam Vital Signs: Temp Pulse Resp BP Pulse Ox 97.5 F 113 H 18 144/95 H 100 09/29/20 19:32 09/29/20 19:32 09/29/20 19:32 09/29/20 19:32 09/29/20 19:32 Intake & Output 09/28/20 09/29/20 09/30/20 06:59 06:59 06:59 Intake Total 3130 2090 1500 Output Total 1125 2325 1225 Balance 2004 275 Weight 102.6 kg 102.7 kg General appearance: PRESENT: no acute distress Eye exam: PRESENT: PERRLA Respiratory exam: PRESENT: clear to auscultation heather Cardiovascular exam: PRESENT: +S1, +S2 GI/Abdominal exam: PRESENT: soft Neurological exam: PRESENT: alert, CN II-XII grossly intact Results Laboratory Results: 09/29/20 13:55 09/29/20 13:55 09/29/20 09/29/20 13:55 13:55 WBC 4.7 RBC 3.34 L Hgb 9.5 L Hct 26.7 L MCV 80 MCH 28.3 MCHC 35.5 RDW 17.1 H Plt Count 192 Seg Neutrophils % 62.2 Sodium 134.8 L Potassium 3.6 Chloride 100 Carbon Dioxide 29 Anion Gap 6 BUN 14 Creatinine 1.13 Est GFR ( Amer) > 60 Glucose 149 H Calcium 8.0 L Total Bilirubin 0.6 AST 20 Alkaline Phosphatase 71 Total Protein 6.1 L Albumin 3.1 L 09/24/20 20:30 Blood Blood Culture - Final NO GROWTH IN 5 DAYS 09/24/20 18:55 Blood Blood Culture - Final NO GROWTH IN 5 DAYS Impressions: Chest X-Ray 09/24/20 00:00 IMPRESSION: NO ACUTE RADIOGRAPHIC FINDING IN THE CHEST. KUB X-Ray 09/27/20 00:00 IMPRESSION: Bilateral nephrostomy tubes remain in place. Moderate constipation. No evidence of bowel obstruction. Abdomen/Pelvis CT 09/28/20 00:00 IMPRESSION: Bilateral percutaneous nephrostomies. Apparent thickening of the wall of the bladder. Diverticulosis coli. Mild chronic interstitial changes in the lower lobes. Assessment & Plan - Diagnosis (1) Hypotension Qualifiers: Hypotension type: unspecified hypotension type Qualified Code(s): I95.9 - Hypotension, unspecified Is this a current diagnosis for this admission?: Yes Plan: improved (2) Urinary tract infection Qualifiers: Urinary tract infection type: site unspecified Hematuria presence: without hematuria Qualified Code(s): N39.0 - Urinary tract infection, site not specified Is this a current diagnosis for this admission?: Yes (3) Malignant neoplasm of prostate Is this a current diagnosis for this admission?: Yes (4) T2DM (type 2 diabetes mellitus) Qualifiers: Diabetes mellitus residential insulin use: without residential use Diabetes mellitus complication status: with neurologic complications Diabetes mellitus complication detail: with polyneuropathy Qualified Code(s): E11.42 - Type 2 diabetes mellitus with diabetic polyneuropathy Is this a current diagnosis for this admission?: Yes (5) Acute kidney injury Is this a current diagnosis for this admission?: Yes Plan: This most likely prerenal azotemia improved with hydration - Time Time Spent with patient: 15-24 minutes Level of Care: IMCU Medications reviewed and adjusted accordingly: Yes Anticipated discharge: Home
[2020-09-30] MEDS: OXYCODONE HCL IR 5 MG TABLET PO PRN ×3 (03:54→16:46)
[2020-09-30 05:13] LABS: ABSOLUTE EOSINOPHILS # (AUTO) 0.2 10^3/uL (0.0-0.6); ABSOLUTE LYMPHOCYTES (AUTO) 1.1 10^3/uL (0.5-4.7); ABSOLUTE MONOCYTES (AUTO) 0.6 10^3/uL (0.1-1.4); ABSOLUTE NEUT (AUTO) 2.8 10^3/uL (1.7-8.2); BASOPHILS % (AUTO) 0.8 % (0-2); EOSINOPHILS % (AUTO) 4.4 % (0-6); HEMATOCRIT 26.9 % (37.9-51.0); HEMOGLOBIN 9.4 g/dL (13.5-17.0); LYMPHOCYTES % (AUTO) 23.6 % (13-45); MEAN CORPUSCULAR HGB CONC 34.9 g/dL (32.0-36.0); MEAN CORPUSCULAR VOLUME 80 fl (80-97); MONOCYTES % (AUTO) 11.8 % (3-13); PLATELET COUNT 185 10^3/uL (150-450); RED BLOOD COUNT 3.35 10^6/uL (4.35-5.55); RED CELL DISTRIBUTION WIDTH 16.7 % (11.5-14.0); SEGMENTED NEUTROPHILS % (AUTO) 59.4 % (42-78); TOTAL CELLS COUNTED % (AUTO) 100 %; WHITE BLOOD COUNT 4.7 10^3/uL (4.0-10.5)
[2020-09-30 05:29] LABS: ALBUMIN 3.1 g/dL (3.5-5.0); ALKALINE PHOSPHATASE 72 U/L (38-126); ANION GAP 7 (5-19); ASPARTATE AMINO TRANSFERASE 21 U/L (17-59); BILIRUBIN,DIRECT 0.1 mg/dL (0.0-0.4); BILIRUBIN,TOTAL 0.6 mg/dL (0.2-1.3); BLOOD UREA NITROGEN 13 mg/dL (7-20); CALCIUM 8.1 mg/dL (8.4-10.2); CARBON DIOXIDE 29 mmol/L (22-30); CHLORIDE 100 mmol/L (98-107); GLUCOSE 113 mg/dL (75-110); POTASSIUM 3.7 mmol/L (3.6-5.0); TOTAL PROTEIN 5.9 g/dL (6.3-8.2)
[2020-09-30] MEDS: MIDODRINE HCL 5 MG TABLET PO SCH ×3 (09:29→18:09)
[2020-09-30] MEDS: DONEPEZIL HCL 5 MG TABLET PO SCH (09:29)
[2020-09-30] MEDS: APIXABAN 2.5 MG TABLET PO SCH ×2 (09:29→18:09)
[2020-09-30] MEDS: TAMSULOSIN HCL 0.4 MG CAP.SR.24H PO SCH (09:29)
[2020-09-30] MEDS: MEROPENEM 1 GM in NORMAL SALINE 50 ML IV SCH ×2 (09:29→21:36)
[2020-09-30] MEDS: ASPIRIN 81 MG TABLET, ENT COATED PO SCH (09:29)
[2020-09-30] MEDS: FINASTERIDE 5 MG TABLET PO SCH (09:29)
[2020-09-30] MEDS: DRONABINOL 2.5 MG CAPSULE PO SCH ×2 (09:29→18:09)
[2020-09-30] MEDS: CLOTRIMAZOLE/BETAMETHASONE DIP CREAM 15 GM TOP SCH ×2 (09:38→17:45)
[2020-09-30] MEDS: RINGERS SOLUTION,LACTATED 1,000 ML IV PRN (13:40)
--- NOTE | 2020-09-30 15:34 | PDOC PROGRESS REPORT ---
Subjective Progress Note for:: 09/30/20 Subjective:: Patient seen by the bedside, the plan is for patient to go to rehab Reason For Visit: HYPOTENSION,MULTIPLE CO-MORBIDITIES Physical Exam Vital Signs: Temp Pulse Resp BP Pulse Ox 98.0 F 66 16 114/66 100 09/30/20 11:21 09/30/20 14:00 09/30/20 11:21 09/30/20 11:21 09/30/20 11:21 Intake & Output 09/29/20 09/30/20 10/01/20 06:59 06:59 06:59 Intake Total 2090 1550 1286 Output Total 2325 1625 200 Balance -235 -75 1086 Weight 102.7 kg 101.5 kg General appearance: PRESENT: no acute distress Eye exam: PRESENT: PERRLA Cardiovascular exam: PRESENT: +S1, +S2 GI/Abdominal exam: PRESENT: soft Neurological exam: PRESENT: alert Results Laboratory Results: 09/30/20 04:45 09/30/20 04:45 09/29/20 09/29/20 09/30/20 13:55 13:55 04:45 WBC 4.7 4.7 RBC 3.34 L 3.35 L Hgb 9.5 L 9.4 L Hct 26.7 L 26.9 L MCV 80 80 MCH 28.3 28.0 MCHC 35.5 34.9 RDW 17.1 H 16.7 H Plt Count 192 185 Seg Neutrophils % 62.2 59.4 Sodium 134.8 L Potassium 3.6 Chloride 100 Carbon Dioxide 29 Anion Gap 6 BUN 14 Creatinine 1.13 Est GFR ( Amer) > 60 Glucose 149 H Calcium 8.0 L Total Bilirubin 0.6 AST 20 Alkaline Phosphatase 71 Total Protein 6.1 L Albumin 3.1 L 09/30/20 04:45 WBC RBC Hgb Hct MCV MCH MCHC RDW Plt Count Seg Neutrophils % Sodium 135.6 L Potassium 3.7 Chloride 100 Carbon Dioxide 29 Anion Gap 7 BUN 13 Creatinine 1.17 Est GFR ( Amer) > 60 Glucose 113 H Calcium 8.1 L Total Bilirubin 0.6 AST 21 Alkaline Phosphatase 72 Total Protein 5.9 L Albumin 3.1 L 09/24/20 20:30 Blood Blood Culture - Final NO GROWTH IN 5 DAYS 09/24/20 18:55 Blood Blood Culture - Final NO GROWTH IN 5 DAYS Impressions: Chest X-Ray 09/24/20 00:00 IMPRESSION: NO ACUTE RADIOGRAPHIC FINDING IN THE CHEST. KUB X-Ray 09/27/20 00:00 IMPRESSION: Bilateral nephrostomy tubes remain in place. Moderate constipation. No evidence of bowel obstruction. Abdomen/Pelvis CT 09/28/20 00:00 IMPRESSION: Bilateral percutaneous nephrostomies. Apparent thickening of the wall of the bladder. Diverticulosis coli. Mild chronic interstitial changes in the lower lobes. Assessment & Plan - Diagnosis (1) Hypotension Qualifiers: Hypotension type: unspecified hypotension type Qualified Code(s): I95.9 - Hypotension, unspecified Is this a current diagnosis for this admission?: Yes Plan: Resolved (2) Urinary tract infection Qualifiers: Urinary tract infection type: site unspecified Hematuria presence: without hematuria Qualified Code(s): N39.0 - Urinary tract infection, site not specified Is this a current diagnosis for this admission?: Yes (3) Malignant neoplasm of prostate Is this a current diagnosis for this admission?: Yes (4) T2DM (type 2 diabetes mellitus) Qualifiers: Diabetes mellitus watermelon inspector insulin use: without watermelon inspector use Diabetes mellitus complication status: with neurologic complications Diabetes mellitus complication detail: with polyneuropathy Qualified Code(s): E11.42 - Type 2 diabetes mellitus with diabetic polyneuropathy Is this a current diagnosis for this admission?: Yes (5) Acute kidney injury Is this a current diagnosis for this admission?: Yes Plan: resolved - Time Time Spent with patient: 15-24 minutes Level of Care: IMCU Medications reviewed and adjusted accordingly: Yes Anticipated discharge: SNF Anticipated DC Timeframe: when bed available
[2020-09-30] MEDS: MULTIVITAMIN TABLET PO SCH (18:09)
[2020-09-30] MEDS: ALLOPURINOL 300 MG TABLET PO SCH (21:34)
[2020-10-01] MEDS: RINGERS SOLUTION,LACTATED 1,000 ML IV PRN ×2 (01:47→14:38)
[2020-10-01] MEDS: TAMSULOSIN HCL 0.4 MG CAP.SR.24H PO SCH (10:22)
[2020-10-01] MEDS: OXYCODONE HCL IR 5 MG TABLET PO PRN ×3 (10:22→20:01)
[2020-10-01] MEDS: MIDODRINE HCL 5 MG TABLET PO SCH ×3 (10:23→17:58)
[2020-10-01] MEDS: DRONABINOL 2.5 MG CAPSULE PO SCH ×2 (10:23→17:57)
[2020-10-01] MEDS: DONEPEZIL HCL 5 MG TABLET PO SCH (10:23)
[2020-10-01] MEDS: FINASTERIDE 5 MG TABLET PO SCH (10:24)
[2020-10-01] MEDS: APIXABAN 2.5 MG TABLET PO SCH ×2 (10:24→17:58)
[2020-10-01] MEDS: ASPIRIN 81 MG TABLET, ENT COATED PO SCH (10:24)
[2020-10-01] MEDS: MEROPENEM 1 GM in NORMAL SALINE 50 ML IV SCH ×2 (10:25→21:38)
[2020-10-01] MEDS: CLOTRIMAZOLE/BETAMETHASONE DIP CREAM 15 GM TOP SCH ×2 (10:25→17:58)
[2020-10-01] MEDS: MULTIVITAMIN TABLET PO SCH (17:58)
[2020-10-01] MEDS: ONDANSETRON 4 MG TAB.RAPDIS PO PRN (18:01)
--- NOTE | 2020-10-01 20:11 | PDOC PROGRESS REPORT ---
Subjective Progress Note for:: 10/01/20 Subjective:: Patient is alert,no new complaints Reason For Visit: HYPOTENSION,MULTIPLE CO-MORBIDITIES Physical Exam Vital Signs: Temp Pulse Resp BP Pulse Ox 98.1 F 94 17 98/61 L 100 10/01/20 15:52 10/01/20 15:52 10/01/20 15:52 10/01/20 15:52 10/01/20 15:52 Intake & Output 09/30/20 10/01/20 10/02/20 06:59 06:59 06:59 Intake Total 1550 2336 1050 Output Total 1625 755 250 Balance -75 1581 800 Weight 101.5 kg 103.3 kg 103.3 kg General appearance: PRESENT: no acute distress Eye exam: PRESENT: PERRLA Respiratory exam: PRESENT: clear to auscultation heather Cardiovascular exam: PRESENT: +S1, +S2 GI/Abdominal exam: PRESENT: soft Neurological exam: PRESENT: alert Results Laboratory Results: 09/30/20 04:45 09/30/20 04:45 Impressions: Chest X-Ray 09/24/20 00:00 IMPRESSION: NO ACUTE RADIOGRAPHIC FINDING IN THE CHEST. KUB X-Ray 09/27/20 00:00 IMPRESSION: Bilateral nephrostomy tubes remain in place. Moderate constipation. No evidence of bowel obstruction. Abdomen/Pelvis CT 09/28/20 00:00 IMPRESSION: Bilateral percutaneous nephrostomies. Apparent thickening of the wall of the bladder. Diverticulosis coli. Mild chronic interstitial changes in the lower lobes. Assessment & Plan - Diagnosis (1) Hypotension Qualifiers: Hypotension type: unspecified hypotension type Qualified Code(s): I95.9 - Hypotension, unspecified Is this a current diagnosis for this admission?: Yes Plan: Resolved (2) Urinary tract infection Qualifiers: Urinary tract infection type: site unspecified Hematuria presence: without hematuria Qualified Code(s): N39.0 - Urinary tract infection, site not specified Is this a current diagnosis for this admission?: Yes (3) Malignant neoplasm of prostate Is this a current diagnosis for this admission?: Yes (4) T2DM (type 2 diabetes mellitus) Qualifiers: Diabetes mellitus alf insulin use: without alf use Diabetes mellitus complication status: with neurologic complications Diabetes mellitus complication detail: with polyneuropathy Qualified Code(s): E11.42 - Type 2 d iabetes mellitus with diabetic polyneuropathy Is this a current diagnosis for this admission?: Yes (5) Acute kidney injury Is this a current diagnosis for this admission?: Yes Plan: resolved - Time Time Spent with patient: Less than 15 minutes Level of Care: IMCU Medications reviewed and adjusted accordingly: Yes Anticipated discharge: Home
[2020-10-01] MEDS: ALLOPURINOL 300 MG TABLET PO SCH (21:37)
[2020-10-02] MEDS: RINGERS SOLUTION,LACTATED 1,000 ML IV PRN ×2 (00:51→12:40)
[2020-10-02] MEDS: OXYCODONE HCL IR 5 MG TABLET PO PRN ×3 (04:43→16:18)
[2020-10-02] MEDS: MIDODRINE HCL 5 MG TABLET PO SCH ×2 (13:07→16:34)
[2020-10-02] MEDS: FINASTERIDE 5 MG TABLET PO SCH (13:07)
[2020-10-02] MEDS: TAMSULOSIN HCL 0.4 MG CAP.SR.24H PO SCH (13:07)
[2020-10-02] MEDS: ASPIRIN 81 MG TABLET, ENT COATED PO SCH (13:07)
[2020-10-02] MEDS: APIXABAN 2.5 MG TABLET PO SCH (13:07)
[2020-10-02] MEDS: DONEPEZIL HCL 5 MG TABLET PO SCH (13:08)
[2020-10-02] MEDS: DRONABINOL 2.5 MG CAPSULE PO SCH (13:08)
[2020-10-02] MEDS: MEROPENEM 1 GM in NORMAL SALINE 50 ML IV SCH (13:20)
[2020-10-02] MEDS: CLOTRIMAZOLE/BETAMETHASONE DIP CREAM 15 GM TOP SCH (13:22)
--- NOTE | 2020-10-02 15:06 | Progress Note ---
Provider Note Provider Note: This morning shortly before noon, overhead FLOORPERSON/stroke alert was called. I went to the scene to assess patient. Patient's primary nurse and patient informed me that the stroke alert was called because patient was experiencing some abnormal sensation on the left side of his lip and thoughts he may be having another stroke. 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 Patient volunteers that besides the mild paresthesia on his left side of his lip, he is not experiencing any other neurological deficits. Vital signs were stable with BP of 125/58 and heart rates between 79 and 85, SPO2 100% on room air. On my assessment, only notable deficits where 4/5 weakness in his left arm and left leg and very mild leftward deviation of left lip. Rest of his neuro exam was unrevealing. I discussed with patient's primary nurse to see if patient's very mild left lip deviation was new and she states that he appears the same as he did this morning before the episode. I believe patient's neurological deficits on exam are all from his old stroke and there is no overt sign currently pointing towards any new stroke. Patient is talking very clearly and not slurring his words. Stroke alert/FLOORPERSON dismissed. Will defer to primary attending for further care.
--- NOTE | 2020-10-02 15:21 | PDOC TRANSFER SUMMARY ---
Impression - Admit/DC Date/PCP Admission Date/Primary Care Provider: 09/24/20 19:37 JACLYN FUNEZ Discharge Date: 10/02/20 - Discharge Diagnosis (1) Hypotension Is this a current diagnosis for this admission?: Yes (2) Urinary tract infection Is this a current diagnosis for this admission?: Yes (3) Malignant neoplasm of prostate Is this a current diagnosis for this admission?: Yes (4) T2DM (type 2 diabetes mellitus) Is this a current diagnosis for this admission?: Yes (5) Acute kidney injury Is this a current diagnosis for this admission?: Yes - Additional Information Referrals: KYLAH BANUELOS MD [ACTIVE STAFF] - Follow up as needed Home Medications: Gabapentin [Neurontin 300 mg Capsule] 300 mg PO Q8 08/16/19 Allopurinol [Zyloprim 300 mg Tablet] 150 mg PO QHS 11/08/19 Apixaban [Eliquis 2.5 mg Tablet] 2.5 mg PO BID 11/08/19 Lidocaine/Prilocaine [Emla Cream] 1 applic TP ASDIR PRN 11/08/19 Pravastatin Sodium 40 mg PO QHS 11/08/19 Tamsulosin HCl [Flomax 0.4 mg Cap.sr] 0.4 mg PO DAILY 11/08/19 Clotrimazole/Betamethasone Dip [Lotrisone Cream 15 gm] 1 applic TOP BID 09/24/20 Donepezil HCl [Aricept 5 mg Tablet] 5 mg PO DAILY 09/24/20 Dronabinol [Marinol 2.5 mg Capsule] 5 mg PO BID 09/24/20 Multivit,Tx with Iron,Minerals [Thera-M] 1 tab PO WSUPPER 09/24/20 Oxycodone HCl [Oxy-Ir 5 mg Tablet] 15 mg PO Q4HP PRN 09/24/20 Prochlorperazine Maleate [Compazine 10 mg Tablet] 10 mg PO Q6HP PRN 09/24/20 Sitagliptin Phosphate [Januvia 50 mg Tablet] 50 mg PO DAILY 09/24/20 Acetaminophen [Tylenol 325 mg Tablet] 650 mg PO Q4HP PRN tablet 10/02/20 Finasteride [Proscar 5 mg Tablet] 5 mg PO DAILY tablet 10/02/20 Midodrine HCl [Proamatine 5 mg Tablet] 5 mg PO TID tablet 10/02/20 Ondansetron [Zofran Odt 4 mg Tablet] 4 mg PO Q8HP PRN tab.rapdis 10/02/20 Tamsulosin HCl [Flomax 0.4 mg Cap.sr] 0.4 mg PO DAILY cap.sr.24h 10/02/20 History of Present Illiness History of Present Illness: TRAVIS REYNOSO is a 79 year old male He has a history of neuroendocrine tumor, malignant neoplasm of the prostate gland, type 2 diabetes mellitus, he came to the office with his family for evaluation of extreme fatigue, excessive somnolence, severe deconditioning, he recently was discharged from [facility] for what sounds like septic shock. He was evaluated in the office the blood pressure recorded was 78 systolic, he has bilateral nephrostomy tube drainage due to obstructive uropathy. Because of the extremely low blood pressure he was referred to the ER, he was seen and evaluated, inpatient care recommended.The serum creatinine was 3.93 patient was lethargic. I do not have record from [facility] I am not exactly sure what the diagnosis was on discharge from [facility] Hospital Course Hospital Course: Patient was admitted for the management of hypotension, acute kidney injury and urinary tract infection. He was treated with intravenous normal saline, IV antibiotic meropenem. He has underlining chronic kidney disease with superimposed acute kidney injury with hydration the kidney function was normalized. The low blood pressure was poorly responsive to fluid therapy, midodrine was added to drug regimen to maintain adequate hemodynamics. Patient is deconditioned with muscular weakness, is being transferred to nursing for rehabilitation and physical therapy Physical Exam Vital Signs: Temp Pulse Resp BP Pulse Ox 98.2 F 85 16 123/58 L 100 10/02/20 08:03 10/02/20 12:03 10/02/20 08:03 10/02/20 12:03 10/02/20 12:03 Intake & Output 10/01/20 10/02/20 10/03/20 06:59 06:59 06:59 Intake Total 2336 2100 1000 Output Total 755 625 Balance 1581 1475 1000 Weight 103.3 kg 105.9 kg General appearance: PRESENT: no acute distress Eye exam: PRESENT: PERRLA Respiratory exam: PRESENT: clear to auscultation heather Cardiovascular exam: PRESENT: +S1, +S2 GI/Abdominal exam: PRESENT: soft Neurological exam: PRESENT: alert Results Laboratory Results: WBC 4.7 10^3/uL (4.0-10.5) 09/30/20 04:45 RBC 3.35 10^6/uL (4.35-5.55) L 09/30/20 04:45 Hgb 9.4 g/dL (13.5-17.0) L 09/30/20 04:45 Hct 26.9 % (37.9-51.0) L 09/30/20 04:45 MCV 80 fl (80-97) 09/30/20 04:45 MCH 28.0 pg (27.0-33.4) 09/30/20 04:45 MCHC 34.9 g/dL (32.0-36.0) 09/30/20 04:45 RDW 16.7 % (11.5-14.0) H 09/30/20 04:45 Plt Count 185 10^3/uL (150-450) 09/30/20 04:45 Lymph % (Auto) 23.6 % (13-45) 09/30/20 04:45 Pepin % (Auto) 11.8 % (3-13) 09/30/20 04:45 Eos % (Auto) 4.4 % (0-6) 09/30/20 04:45 Baso % (Auto) 0.8 % (0-2) 09/30/20 04:45 Absolute Neuts (auto) 2.8 10^3/uL (1.7-8.2) 09/30/20 04:45 Absolute Lymphs (auto) 1.1 10^3/uL (0.5-4.7) 09/30/20 04:45 Absolute Monos (auto) 0.6 10^3/uL (0.1-1.4) 09/30/20 04:45 Absolute Eos (auto) 0.2 10^3/uL (0.0-0.6) 09/30/20 04:45 Absolute Basos (auto) 0.0 10^3/uL (0.0-0.2) 09/30/20 04:45 Seg Neutrophils % 59.4 % (42-78) 09/30/20 04:45 PT 16.7 SEC (11.4-15.4) H 09/24/20 18:55 INR 1.34 09/24/20 18:55 Sodium 135.6 mmol/L (137-145) L 09/30/20 04:45 Potassium 3.7 mmol/L (3.6-5.0) 09/30/20 04:45 Chloride 100 mmol/L (98-107) 09/30/20 04:45 Carbon Dioxide 29 mmol/L (22-30) 09/30/20 04:45 Anion Gap 7 (5-19) 09/30/20 04:45 BUN 13 mg/dL (7-20) 09/30/20 04:45 Creatinine 1.17 mg/dL (0.52-1.25) 09/30/20 04:45 Est GFR ( Amer) > 60 (>60) 09/30/20 04:45 Est GFR (MDRD) Non-Af > 60 (>60) 09/30/20 04:45 Glucose 113 mg/dL (75-110) H 09/30/20 04:45 Lactic Acid 0.8 mmol/L (0.7-2.1) 09/25/20 07:40 Calcium 8.1 mg/dL (8.4-10.2) L 09/30/20 04:45 Magnesium 2.3 mg/dL (1.6-2.3) 09/24/20 18:55 Total Bilirubin 0.6 mg/dL (0.2-1.3) 09/30/20 04:45 Direct Bilirubin 0.1 mg/dL (0.0-0.4) 09/30/20 04:45 Neonat Total Bilirubin Not Reportable 09/30/20 04:45 Neonat Direct Bilirubin Not Reportable 09/30/20 04:45 Neonat Indirect Bili Not Reportable 09/30/20 04:45 AST 21 U/L (17-59) 09/30/20 04:45 ALT 8 U/L (<50) 09/30/20 04:45 Alkaline Phosphatase 72 U/L (38-126) 09/30/20 04:45 Total Protein 5.9 g/dL (6.3-8.2) L 09/30/20 04:45 Albumin 3.1 g/dL (3.5-5.0) L 09/30/20 04:45 Urine Color STRAW 09/24/20 22:36 Urine Appearance CLEAR 09/24/20 22:36 Urine pH 6.0 (5.0-9.0) 09/24/20 22:36 Ur Specific [place] 1.010 09/24/20 22:36 Urine Protein 100 mg/dL (NEGATIVE) H 09/24/20 22:36 Urine Glucose (UA) NEGATIVE mg/dL (NEGATIVE) 09/24/20 22:36 Urine Ketones NEGATIVE mg/dL (NEGATIVE) 09/24/20 22:36 Urine Blood MODERATE (NEGATIVE) H 09/24/20 22:36 Urine Nitrite (Reflex) NEGATIVE (NEGATIVE) 09/24/20 22:36 Urine Bilirubin NEGATIVE (NEGATIVE) 09/24/20:36 Urine Urobilinogen NEGATIVE mg/dL (<2.0) 09/24/20 22:36 Leukocyte Esterase Rfl LARGE (NEGATIVE) H 09/24/20 22:36 Urine RBC (Auto) 28 /HPF 09/24/20 22:36 U Hyaline Cast (Auto) Cancelled 09/24/20 20:30 Urine Bacteria (Auto) TRACE /HPF 09/24/20 22:36 Urine Red Cell Clumps Cancelled 09/24/20 20:30 Urine WBC (Reflex) 12 /HPF 09/24/20 22:36 Urine WBC Clumps Cancelled 09/24/20 20:30 Squamous Epi Cells Auto Cancelled 09/24/20 20:30 U Non-Squamous Epis Auto Cancelled 09/24/20 20:30 Calcium Carbonate Cryst Cancelled 09/24/20 20:30 Calcium Phosphate Cryst Cancelled 09/24/20 20:30 Calcium Oxalate Cr Auto Cancelled 09/24/20 20:30 Leucine Crystals Cancelled 09/24/20 20:30 Cystine Crystals Cancelled 09/24/20 20:30 Uric Acid Cryst (Auto) Cancelled 09/24/20 20:30 Triple Phos Cryst (Auto) Cancelled 09/24/20 20:30 Tyrosine Crystals Cancelled 09/24/20 20:30 Amorphous Sediment Auto Cancelled 09/24/20 20:30 Cellular Casts Cancelled 09/24/20 20:30 Epithelial Casts (Auto) Cancelled 09/24/20 20:30 Fatty Casts Cancelled 09/24/20 20:30 Granular Casts (Auto) Cancelled 10/29/20 20:30 Waxy Casts (Auto) Cancelled 09/24/20 20:30 Broad Casts Cancelled 09/24/20 20:30 RBC Casts (Auto) Cancelled 09/24/20 20:30 WBC Casts (Auto) Cancelled 09/24/20 20:30 Urine Mucus (Auto) RARE /LPF 09/24/20 22:36 U Trichomonas (Auto) Cancelled 09/24/20 20:30 Ur Yeast w Hyphae Cancelled 09/24/20 20:30 Urine Yeast (Budding) Cancelled 09/24/20 20:30 Urine Ascorbic Acid NEGATIVE (NEGATIVE) 09/24/20 22:36 COVID-19 Source See comment 09/30/20 13:58 COVID-19 (CHANA) Not Detected (Not Detect) 09/30/20 13:58 Blood Type O POSITIVE 09/24/20 18:55 Antibody Screen NEGATIVE 09/24/20 18:55 Impressions: Chest X-Ray 09/24/20 00:00 IMPRESSION: NO ACUTE RADIOGRAPHIC FINDING IN THE CHEST. KUB X-Ray 09/27/20 00:00 IMPRESSION: Bilateral nephrostomy tubes remain in place. Moderate co nstipation. No evidence of bowel obstruction. Abdomen/Pelvis CT 09/28/20 00:00 IMPRESSION: Bilateral percutaneous nephrostomies. Apparent thickening of the wall of the bladder. Diverticulosis coli. Mild chronic interstitial changes in the lower lobes. Stroke Is this a Stroke Patient?: No Acute Heart Failure Is this a Heart Failure Patient?: No
[2020-10-02 16:58] VITALS: BP 119/64
== END 2020-10-02 17:53 | disposition home or self-care (01) | DRG 872 ==
LOC: ER 17:25 → EH 19:37 → 3W 09-25 03:25
PROVIDERS: ADMIT Internal Medicine; ATTEND Internal Medicine
DX: A41.9 Sepsis, unspecified organism (principal); N17.9 Acute kidney failure, unspecified; N39.0 Urinary tract infection, site not specified; I95.9 Hypotension, unspecified; Z20.828 Contact with and (suspected) exposure to other viral communicable diseases; C61 Malignant neoplasm of prostate; E78.5 Hyperlipidemia, unspecified; F43.10 Post-traumatic stress disorder, unspecified; E86.0 Dehydration; E11.42 Type 2 diabetes mellitus with diabetic polyneuropathy; Z79.899 Other long term (current) drug therapy; Z79.01 Long term (current) use of anticoagulants; Z87.891 Personal history of nicotine dependence; Z88.8 Allergy status to other drugs, medicaments and biological substances; Z79.82 Long term (current) use of aspirin
CPT/HCPCS: 36415; 71045; 74018; 74177; 80048; 80053; 81001; 83605; 83735; 85025; 85027; 85610; 86850; 86900; 86901; 87040; 87070; 87086; 87635; 93005; 93010; 96374; 99285; A9270-GY; C9803; J1642; J2185; J3480; J3490; J7030; J7120; S0119

== ENCOUNTER 2020-11-19 17:45 | Inpatient (IN) | payer MEDICARE, OTHER ==
[2020-11-19] MEDS ORDERED: ACETAMINOPHEN 650 MG SUPP.RECT PR ONE (18:01)
[2020-11-19 18:30] LABS: ABSOLUTE LYMPHOCYTES (AUTO) 0.6 10^3/uL (0.5-4.7); ABSOLUTE MONOCYTES (AUTO) 0.8 10^3/uL (0.1-1.4); ABSOLUTE NEUT (AUTO) 7.6 10^3/uL (1.7-8.2); BASOPHILS % (AUTO) 0.1 % (0-2); EOSINOPHILS % (AUTO) 0.2 % (0-6); HEMATOCRIT 24.5 % (37.9-51.0); HEMOGLOBIN 8.3 g/dL (13.5-17.0); LYMPHOCYTES % (AUTO) 7.2 % (13-45); MEAN CORPUSCULAR HEMOGLOBIN 27.2 pg (27.0-33.4); MEAN CORPUSCULAR HGB CONC 33.9 g/dL (32.0-36.0); MEAN CORPUSCULAR VOLUME 80 fl (80-97); MONOCYTES % (AUTO) 8.4 % (3-13); PLATELET COUNT 193 10^3/uL (150-450); RED BLOOD COUNT 3.05 10^6/uL (4.35-5.55); RED CELL DISTRIBUTION WIDTH 18.1 % (11.5-14.0); SEGMENTED NEUTROPHILS % (AUTO) 84.1 % (42-78); TOTAL CELLS COUNTED % (AUTO) 100 %; WHITE BLOOD COUNT 9.1 10^3/uL (4.0-10.5)
[2020-11-19] MEDS ORDERED: NORMAL SALINE 1000 ML 1,000 ML IV ONE (18:42)
[2020-11-19 18:44] LABS: APPEARANCE,URINE TURBID; BILIRUBIN,URINE NEGATIVE (NEGATIVE); GLUCOSE, URINE NEGATIVE (NEGATIVE); KETONES,URINE NEGATIVE (NEGATIVE); LEUKOCYTE ESTERASE,URINE LARGE (NEGATIVE); NITRITE,URINE NEGATIVE (NEGATIVE); PROTEIN,URINE 100 mg/dL (NEGATIVE); URINE SPECIFIC GRAVITY 1.011; UROBILINOGEN,URINE NEGATIVE mg/dL (<2.0)
[2020-11-19 18:46] LABS: COLOR,URINE DARK YELLOW
[2020-11-19 18:47] LABS: ALBUMIN 3.3 g/dL (3.5-5.0); ALKALINE PHOSPHATASE 104 U/L (38-126); ANION GAP 9 (5-19); ASPARTATE AMINO TRANSFERASE 26 U/L (17-59); BILIRUBIN,DIRECT 0.2 mg/dL (0.0-0.4); BILIRUBIN,TOTAL 0.9 mg/dL (0.2-1.3); BLOOD UREA NITROGEN 43 mg/dL (7-20); CALCIUM 7.5 mg/dL (8.4-10.2); CARBON DIOXIDE 31 mmol/L (22-30); CHLORIDE 97 mmol/L (98-107); CREATINE KINASE 329 U/L (55-170); GLUCOSE 169 mg/dL (75-110); POTASSIUM 3.4 mmol/L (3.6-5.0); TOTAL PROTEIN 6.5 g/dL (6.3-8.2)
--- NOTE | 2020-11-19 18:53 | ER Document Report ---
ED Medical Screen (RME) - General Chief Complaint: Fever Stated Complaint: WEAKNESS TRAVEL OUTSIDE OF THE [place] IN LAST 30 DAYS: No - HPI Notes: 11/19/20 18:49 80-year-old male with a history of nephrostomies, multiple UTIs, urinary issues presents via EMS for fever of over 102. Patient is unsure when this fever started. Reports he is feeling weak has become progressively worse over the last day or so. Patient did vomit family did call EMS. In route lactic was done and it was 0.6. Will initiate work-up for fevers. Patient is orientated to person place and time. Denies any trauma. Denies any abdominal pain. does follow with Dr. العلي I have greeted and performed a rapid initial assessment of this patient. A comprehensive ED assessment and evaluation of the patient, analysis of test results and completion of the medical decision making process will be conducted by additional ED providers. PHYSICAL EXAMINATION: GENERAL: Chronically ill malnourished, in mild distress CV: s1, s2 tachycardia LUNGS: No respiratory distress The patient was evaluated during a global COVID-19 pandemic and that diagnosis was suspected/considered upon their initial presentation. Their evaluation, treatment and testing was consistent with current guidelines for patients who present with complaints or symptoms and may be related to COVID-19. - Related Data Allergies/Adverse Reactions: lisinopril [Lisinopril] Adverse Reaction (Unknown, Verified 09/24/20 17:53) Cialpyu-Nwz-Dsa Reductase Inhibitor Adverse Reaction (Unknown, Verified 09/24/20 17:53) Past Medical History - Social History Chew tobacco use (# tins/day): No Frequency of alcohol use: None Drug Abuse: None - Past Medical History Cardiac Medical History: Reports: Hx Atrial Fibrillation, Hx Hypercholesterolemia, Hx Hypertension, Hx Heart Murmur Pulmonary Medical History: Reports: Hx Bronchitis Neurological Medical History: Denies: Hx Parkinson's Disease Endocrine Medical History: Reports: Hx Diabetes Mellitus Type 2 Renal/ Medical History: Reports: Hx Benign Prostatic Hyperplasia. Denies: Hx Peritoneal Dialysis Malignancy Medical History: Reports Hx Prostate Cancer GI Medical History: Reports: Hx Gastroesophageal Reflux Disease Musculoskeltal Medical History: Reports Hx Arthritis, Denies Hx Systemic Lupus Erythematosus Psychiatric Medical History: Reports: Hx Depression, Hx Post Traumatic Stress Disorder Infectious Medical History: Denies: Hx HIV Past Surgical History: Reports: Hx Kidney (Renal Surgery), Other - Prostate biopsy, port placement - Immunizations Immunizations up to date: Yes Hx Diphtheria, Pertussis, Tetanus Vaccination: Yes Physical Exam - Vital signs Vitals: Temp 102.9 F H 11/19/20 17:46 Course - Vital Signs Vital signs: Temp Pulse Resp BP Pulse Ox 102.9 F H 11/19/20 17:46 - Laboratory Results Result Diagrams: 11/19/20 18:20 11/19/20 18:20 Laboratory Results Interpreted: 11/19/20 11/19/20 11/19/20 18:20 18:20 18:30 RBC 3.05 L Hgb 8.3 L Hct 24.5 L RDW 18.1 H Lymph % (Auto) 7.2 L Seg Neutrophils % 84.1 H Potassium 3.4 L Chloride 97 L Carbon Dioxide 31 H BUN 43 H Creatinine 3.38 H Est GFR ( Amer) 21 L Est GFR (MDRD) Non-Af 18 L Glucose 169 H Calcium 7.5 L Creatine Kinase 329 H Albumin 3.3 L Urine Protein 100 H Urine Blood MODERATE H Ur Leukocyte Esterase LARGE H
[2020-11-19 18:59] LABS: CREATINE KINASE MB 0.92 ng/mL (<4.55); TROPONIN I 0.03 ng/mL
--- NOTE | 2020-11-19 19:01 | EKG REPORT ---
SEVERITY:- ABNORMAL ECG - ATRIAL FIBRILLATION, V-RATE 91-134 BORDERLINE LEFT AXIS DEVIATION BORDERLINE T WAVE ABNORMALITIES : Confirmed by: Wally Hensley MD 19-Nov-2020 19:00:32
--- NOTE | 2020-11-19 19:34 | RADIOLOGY REPORT (SQ) ---
EXAM DESCRIPTION: CHEST SINGLE VIEW IMAGES COMPLETED DATE/TIME: 11/19/2020 7:20 pm REASON FOR STUDY: fever COMPARISON: 09/24/2020 EXAM PARAMETERS: NUMBER OF VIEWS: One view. TECHNIQUE: Single frontal radiographic view of the chest acquired. RADIATION DOSE: NA LIMITATIONS: None. FINDINGS: LUNGS AND PLEURA: Cannot exclude ill-defined opacification in the left base. MEDIASTINUM AND HILAR STRUCTURES: No masses. Contour normal. HEART AND VASCULAR STRUCTURES: Heart normal in size. Normal vasculature. BONES: No acute findings. HARDWARE: Injection port on the right. OTHER: No other significant finding. IMPRESSION: Cannot exclude a limited left lower lobe pneumonia. TECHNICAL DOCUMENTATION: JOB ID: [id number] [employer]- All Rights Reserved Reading location - IP/workstation name: [email or web address]
--- NOTE | 2020-11-19 20:58 | RADIOLOGY REPORT (SQ) ---
EXAM DESCRIPTION: CHEST SINGLE VIEW CLINICAL HISTORY: 80 years Male, Fever, poss sepsis COMPARISON: Portable view of the chest obtained earlier in the evening at 7:16 PM. FINDINGS: Lungs: Lung volumes have improved and there is better aeration. No focal consolidation. No pneumothorax or pleural effusion. Mediastinum: Heart size is mildly enlarged. Right chest port remains in place with the tip of the catheter in the upper right atrium. Vascular calcifications. Bones: Osseous structures are normal. IMPRESSION: Improved lung volumes and aeration. No acute process.
[2020-11-19 23:10] LABS: INTERNATIONAL RATION (INR) 1.27; PROTHROMBIN TIME 16.1 SEC (11.4-15.4)
[2020-11-19 23:15] LABS: VENOUS BLOOD BASE EXCESS 2.7 mmol/L; VENOUS BLOOD HCO3 28.7 mmol/L (20-32); VENOUS BLOOD PCO2 51.2 mmHg (35-63); VENOUS BLOOD PH 7.37 (7.30-7.42)
--- NOTE | 2020-11-19 23:15 | ER Document Report ---
ED Fever - General Chief Complaint: Fever Stated Complaint: WEAKNESS Time Seen by Provider: 11/19/20 19:59 Mode of Arrival: Medic Information source: Patient, Emergency Med Personnel TRAVEL OUTSIDE OF THE [place] IN LAST 30 DAYS: No - HPI Notes: Fever weakness and fatigue at home getting gradually worse over the past 2 or 3 days. Denies vomiting or diarrhea. Has a history of recurrent UTIs. Has a history of obstructive uropathy secondary to prostate cancer. Patient is fairly lethargic and cannot provide much more history at this time. - Related Data Allergies/Adverse Reactions: lisinopril [Lisinopril] Adverse Reaction (Unknown, Verified 09/24/20 17:53) Bnhspkf-Ewh-Klm Reductase Inhibitor Adverse Reaction (Unknown, Verified 09/24/20 17:53) Past Medical History - General Information source: [facility] Records Cannot obtain history due to: Altered mental status - Patient is somewhat drowsy and lethargic. - Social History Smoking Status: Unknown if Ever Smoked Chew tobacco use (# tins/day): No Frequency of alcohol use: None Drug Abuse: None Family History: Reviewed & Not Pertinent Patient has homicidal ideation: No - Medical History Medical History: Other Notes: Past medical history as documented in the electronic health record is reviewed. - Past Medical History Cardiac Medical History: Reports: Hx Atrial Fibrillation, Hx Hypercholes terolemia, Hx Hypertension, Hx Heart Murmur Pulmonary Medical History: Reports: Hx Bronchitis Neurological Medical History: Denies: Hx Parkinson's Disease Endocrine Medical History: Reports: Hx Diabetes Mellitus Type 2 Renal/ Medical History: Reports: Hx Benign Prostatic Hyperplasia. Denies: Hx Peritoneal Dialysis Malignancy Medical History: Reports Hx Prostate Cancer GI Medical History: Reports: Hx Gastroesophageal Reflux Disease Musculoskeletal Medical History: Reports Hx Arthritis, Denies Hx Systemic Lupus Erythematosus Psychiatric Medical History: Reports: Hx Depression, Hx Post Traumatic Stress Disorder Infectious Medical History: Denies: Hx HIV Past Surgical History: Reports: Hx Kidney (Renal Surgery), Other - Prostate biopsy, port placement - Immunizations Immunizations up to date: Yes Hx Diphtheria, Pertussis, Tetanus Vaccination: Yes Review of Systems - Review of Systems -: Yes ROS unobtainable due to patient's medical condition Physical Exam - Vital signs Vitals: Temp 102.9 F H 11/19/20 17:46 - Notes Notes: General: This is a well-developed moderately ill-appearing and chronically ill- appearing elderly male who is hypotensive but otherwise in no acute distress. Vital signs and nursing chief complaint are reviewed. HEENT: Somewhat dry mucous membranes otherwise normal to inspection. Neck: Supple nontender no adenopathy. Lungs: Clear to auscultation all bradley. Heart: Regular rate and rhythm no murmur. Abdomen: Soft nontender no mass organomegaly rigidity or guarding. Extremities: No acute edema. Skin: Warm and dry without rashes. Neuro: The patient is somewhat lethargic. He is oriented to person. He does not answer to place or time. He has no focal neuro deficits. Course - Re-evaluation Re-evalutation: 11/20/20 02:38 Patient received sepsis doses of fluids given his hypotension and fever. Even though his lactic acid was in the normal range infection is certainly a possibility in his case. Ultimately he was found to have a urinary tract infection. He did not have a peripheral leukocytosis. I inadvertently contacted the hospitalist service about admitting this patient but they subsequently discovered that he was a patient of the group that covers its own admissions. I subsequently contacted Dr. Monroe and he accepted the patient for admission. He asked me to start Rocephin 1 g IV. - Vital Signs Vital signs: Temp Pulse Resp BP Pulse Ox 102.8 F H 22 H 104/57 L 100 11/20/20 00:52 11/20/20 01:01 11/20/20 01:00 11/20/20 00:01 - Laboratory Results Result Diagrams: 11/19/20 18:20 11/19/20 18:20 Laboratory Results Interpreted: 11/19/20 11/19/20 11/19/20 18:20 18:20 18:20 RBC 3.05 L Hgb 8.3 L Hct 24.5 L RDW 18.1 H Lymph % (Auto) 7.2 L Seg Neutrophils % 84.1 H PT 16.1 H Potassium 3.4 L Chloride 97 L Carbon Dioxide 31 H BUN 43 H Creatinine 3.38 H Est GFR ( Amer) 21 L Est GFR (MDRD) Non-Af 18 L Glucose 169 H Calcium 7.5 L Creatine Kinase 329 H Albumin 3.3 L Urine Protein Urine Blood Ur Leukocyte Esterase 11/19/20 18:30 RBC Hgb Hct RDW Lymph % (Auto) Seg Neutrophils % PT Potassium Chloride Carbon Dioxide BUN Creatinine Est GFR ( Amer) Est GFR (MDRD) Non-Af Glucose Calcium Creatine Kinase Albumin Urine Protein 100 H Urine Blood MODERATE H Ur Leukocyte Esterase LARGE H Critical Laboratory Results Reviewed: No Critical Results - Radiology Results Critical Radiology Results Reviewed: No Critical Results Discharge - Discharge Clinical Impression: Acute kidney injury superimposed on chronic kidney disease UTI (urinary tract infection) Qualifiers: Urinary tract infection type: catheter-associated UTI Indwelling urinary cathet er type: unspecified Encounter type: initial encounter Qualified Code(s): T83.511A - Infection and inflammatory reaction due to indwelling urethral catheter, initial encounter Condition: Serious Disposition: ADMITTED INPATIENT Admitting Provider: Mabel Unit Admitted: [facility]
[2020-11-20] MEDS ORDERED: CEFTRIAXONE 1 GM/D5W RTU 1 GM/50 ML RTUPB IV ONE (00:03)
[2020-11-20] MEDS ORDERED: ACETAMINOPHEN 325 MG TABLET PO ONE (00:52)
[2020-11-20] MEDS ORDERED: NORMAL SALINE 1000 ML 1,000 ML IV PRN (08:26)
[2020-11-20] MEDS ORDERED: GLUCAGON,HUMAN RECOMB 1 MG INJ IM PRN (08:30)
[2020-11-20] MEDS ORDERED: DEXTROSE 40% GEL 15 GM TUBE PO PRN (08:30)
[2020-11-20] MEDS ORDERED: DEXTROSE 50%-WATER SYRINGE 12.5 GM/25 ML DOSE IV PRN (08:30)
[2020-11-20] MEDS ORDERED: DEXTROSE 40% GEL 15 GM TUBE X 2 PO PRN (08:30)
[2020-11-20] MEDS ORDERED: DEXTROSE 50%-WATER SYRINGE 25 GM/50 ML DOSE IV PRN (08:30)
[2020-11-20] MEDS: INSULIN REG, HUMAN 100 UNIT/ML 3 ML VIAL (PYX) SUBCUT SCH ×4 (08:54→23:15)
[2020-11-20] MEDS: CEFTRIAXONE 1 GM/D5W RTU 1 GM/50 ML RTUPB IV SCH (09:46)
--- NOTE | 2020-11-20 09:54 | EKG REPORT ---
SEVERITY:- ABNORMAL ECG - ATRIAL FIBRILLATION, V-RATE 86-127 BORDERLINE LEFT AXIS DEVIATION BORDERLINE T ABNORMALITIES, INFERIOR LEADS BORDERLINE PROLONGED QT INTERVAL : Confirmed by: Wally Hensley MD 20-Nov-2020 09:54:05
[2020-11-20] MEDS: DILTIAZEM HCL 30 MG TABLET PO SCH ×2 (11:09→17:31)
[2020-11-20] MEDS ORDERED: CARVEDILOL PHOSPHATE 40 MG PO SCH (12:45)
--- NOTE | 2020-11-20 13:06 | PDOC H&P ---
History of Present Illness Admission Date/PCP: 11/19/20 23:23 LEO GARCIA MD Patient complains of: Fever, generalized weakness History of Present Illness: TRAVIS REYNOSO is a 80 year old male patient of Dr. Garcia who presented to the ED via ES with complain about fever and generalized weakness fr couple of days. Patient reported recurrent urinary tract infection. He reported associated nausea and vomiting that prompted his family to activate EMS. He denied any abdominal pain or diarrhea. 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 He denied any chest pain or difficulty with breathing. His initial evaluation in the ED was significant for negative COVID- 19 test, hypotension, leukocytosis with left shift, and renal indices suggestive of acute on chronic kidney disease. He was advised hospitalization for further evaluation and management. His morbidities are as listed below. Past Medical History Cardiac Medical History: Reports: Atrial Fibrillation, Hyperlipidema, H ypertension, Heart Murmur Pulmonary Medical History: Reports: Bronchitis Endocrine Medical History: Reports: Diabetes Mellitus Type 2 GI Medical History: Reports: Gastroesophageal Reflux Disease Musculoskeltal Medical History: Reports: Arthritis Psychiatric Medical History: Reports: Depression, Post Traumatic Stress Disorder Hematology: Reports: Anemia Infectious Medical History: Denies: HIV Past Surgical History Past Surgical History: Reports: Other - Prostate biopsy, port placement Social History Smoking Status: Unknown if Ever Smoked Electronic Cigarette use?: No Frequency of Alcohol Use: Rare Hx Recreational Drug Use: No Drugs: None Hx Prescription Drug Abuse: Yes - Advance Directive Resuscitation Status: Full Code Family History Family History: Reviewed & Not Pertinent Parental Family History Reviewed: Yes Children Family History Reviewed: Yes Sibling(s) Family History Reviewed.: Yes Medication/Allergy Home Medications: Gabapentin [Neurontin 300 mg Capsule] 300 mg PO Q8 08/16/19 Allopurinol [Zyloprim 300 mg Tablet] 300 mg PO QHS 11/08/19 Apixaban [Eliquis 2.5 mg Tablet] 2.5 mg PO BID 11/08/19 Pravastatin Sodium 40 mg PO QHS 11/08/19 Donepezil HCl [Aricept 5 mg Tablet] 5 mg PO QHS 09/24/20 Sitagliptin Phosphate [Januvia 50 mg Tablet] 50 mg PO DAILY 09/24/20 Finasteride [Proscar 5 mg Tablet] 5 mg PO DAILY tablet 10/02/20 Acetaminophen [Tylenol 325 mg Tablet] 650 mg PO Q4HP PRN 11/20/20 Bumetanide 2 mg PO QAM 11/20/20 Carvedilol Phosphate [Carvedilol ER] 40 mg PO DAILY 11/20/20 Doxepin HCl [Sinequan 10 Mg Capsule] 10 mg PO QHS 11/20/20 Duloxetine HCl [Cymbalta 30 mg Capsule.dr] 60 mg PO DAILY 11/20/20 Hydrochlorothiazide [Hydrodiuril 12.5 mg Tablet] 12.5 mg PO QAM 11/20/20 Losartan Potassium [Cozaar 50 mg Tablet] 50 mg PO DAILY 11/20/20 Mirabegron [Myrbetriq] 25 mg PO DAILY 11/20/20 Oxycodone HCl [Oxy-Ir 5 mg Tablet] 15 mg PO Q8HP PRN 11/20/20 Quetiapine Fumarate [Seroquel 25 mg Tablet] 50 mg PO QHS 11/20/20 Allergies/Adverse Reactions: lisinopril [Lisinopril] Adverse Reaction (Unknown, Verified 09/24/20 17:53) Gbnaidc-Ufo-Eud Reductase Inhibitor Adverse Reaction (Unknown, Verified 09/24/20 17:53) Review of Systems Constitutional: PRESENT: fatigue, fever(s), weakness. ABSENT: chills, headache(s) Eyes: ABSENT: visual disturbances Ears: ABSENT: hearing changes Cardiovascular: ABSENT: chest pain, dyspnea on exertion, edema, orthropnea, palpitations Respiratory: ABSENT: cough, hemoptysis Gastrointestinal: PRESENT: nausea, vomiting. ABSENT: abdominal pain, c onstipation, diarrhea, hematemesis, hematochezia Genitourinary: ABSENT: dysuria, hematuria Musculoskeletal: ABSENT: joint swelling Integumentary: ABSENT: rash, wounds Neurological: ABSENT: abnormal gait, abnormal speech, confusion, dizziness, focal weakness, syncope Psychiatric: ABSENT: anxiety, depression, homidical ideation, suicidal ideation Endocrine: ABSENT: cold intolerance, heat intolerance, polydipsia, polyuria Hematologic/Lymphatic: ABSENT: easy bleeding, easy bruising, lymphadenopathy Allergic/Immunologic: ABSENT: seasonal rhinorrhea Physical Exam Vital Signs: Temp Pulse Resp BP Pulse Ox 103.2 F H 136 H 19 105/40 L 95 11/20/20 11:19 11/20/20 11:19 11/20/20 11:19 11/20/20 11:19 11/20/20 11:19 Intake & Output 11/19/20 11/20/20 11/21/20 06:59 06:59 06:59 Intake Total 1050 Output Total 750 Balance 300 Weight 99.4 kg General appearance: PRESENT: no acute distress, obese, other - acutely ill looking Head exam: PRESENT: atraumatic, normocephalic Eye exam: PRESENT: conjunctiva pink, EOMI, PERRLA. ABSENT: scleral icterus Ear exam: PRESENT: normal external ear exam Mouth exam: PRESENT: moist, tongue midline Neck exam: PRESENT: full ROM. ABSENT: carotid bruit, JVD, lymphadenopathy, thyromegaly Respiratory exam: PRESENT: clear to auscultation heather Cardiovascular exam: PRESENT: +S1, +S2, tachycardia. ABSENT: diastolic murmur, rubs, systolic murmur Vascular exam: PRESENT: normal capillary refill. ABSENT: pallor GI/Abdominal exam: PRESENT: normal bowel sounds, soft. ABSENT: distended, guarding, mass, organolmegaly, rebound, tenderness Rectal exam: PRESENT: deferred Extremities exam: ABSENT: pedal edema Neurological exam: PRESENT: alert, awake, oriented to person, oriented to place, oriented to time, oriented to situation, CN II-XII grossly intact. ABSENT: motor sensory deficit Psychiatric exam: PRESENT: appropriate affect, normal mood. ABSENT: homicidal ideation, suicidal ideation Skin exam: PRESENT: dry, warm, other - nephrostomies sites on his back are secured and satisfactorily dressed. ABSENT: cyanosis, rash Results Laboratory Results: 11/19/20 18:20 11/19/20 18:20 11/19/20 11/19/20 11/19/20 18:20 18:20 18:20 WBC 9.1 RBC 3.05 L Hgb 8.3 L Hct 24.5 L MCV 80 MCH 27.2 MCHC 33.9 RDW 18.1 H Plt Count 193 Seg Neutrophils % 84.1 H VBG pH VBG pCO2 VBG HCO3 VBG Base Excess Sodium 137.0 Potassium 3.4 L Chloride 97 L Carbon Dioxide 31 H Anion Gap 9 BUN 43 H Creatinine 3.38 H Est GFR ( Amer) 21 L Glucose 169 H Lactic Acid Calcium 7.5 L Total Bilirubin 0.9 AST 26 Alkaline Phosphatase 104 Total Protein 6.5 Albumin 3.3 L Lipase 35.8 Urine Color Urine Appearance Urine pH Ur Specific Harmony Urine Protein Urine Glucose (UA) Urine Ketones Urine Blood Urine Nitrite Ur Leukocyte Esterase Urine WBC (Auto) Urine RBC (Auto) 11/19/20 11/19/20 11/19/20 18:20 18:30 23:02 WBC RBC Hgb Hct MCV MCH MCHC RDW Plt Count Seg Neutrophils % VBG pH 7.37 VBG pCO2 51.2 VBG HCO3 28.7 VBG Base Excess 2.7 Sodium Potassium Chloride Carbon Dioxide Anion Gap BUN Creatinine Est GFR ( Amer) Glucose Lactic Acid 0.9 Calcium Total Bilirubin AST Alkaline Phosphatase Total Protein Albumin Lipase Urine Color DARK YELLOW Urine Appearance TURBID Urine pH 6.0 Ur Specific Harmony 1.011 Urine Protein 100 H Urine Glucose (UA) NEGATIVE Urine Ketones NEGATIVE Urine Blood MODERATE H Urine Nitrite NEGATIVE Ur Leukocyte Esterase LARGE H Urine WBC (Auto) >182 Urine RBC (Auto) 67 11/19/20 11/20/20 23:02 02:39 WBC RBC Hgb Hct MCV MCH MCHC RDW Plt Count Seg Neutrophils % VBG pH VBG pCO2 VBG HCO3 VBG Base Excess Sodium Potassium Chloride Carbon Dioxide Anion Gap BUN Creatinine Est GFR ( Amer) Glucose Lactic Acid 1.3 1.0 Calcium Total Bilirubin AST Alkaline Phosphatase Total Protein Albumin Lipase Urine Color Urine Appearance Urine pH Ur Specific Harmony Urine Protein Urine Glucose (UA) Urine Ketones Urine Blood Urine Nitrite Ur Leukocyte Esterase Urine WBC (Auto) Urine RBC (Auto) 11/19/20 18:20 Blood Blood Culture (PCR) - Final Klebsiella Pneumoniae 11/19/20 11/19/20 18:20 18:20 Creatine Kinase 329 H CK-MB (CK-2) 0.92 Troponin I 0.030 Impressions: Chest X-Ray 11/19/20 20:03 IMPRESSION: Improved lung volumes and aeration. No acute process. Assessment & Plan - Diagnosis (1) Sepsis associated hypotension Is this a current diagnosis for this admission?: Yes Plan: See covering admitting attending physician orders for details about care plan. (2) Urinary tract infection Qualifiers: Urinary tract infection type: catheter-associated UTI Indwelling urinary catheter type: nephrostomy catheter Encounter type: initial encounter Qualified Code(s): T83.512A - Infection and inflammatory reaction due to nephrostomy catheter, initial encounter; N39.0 - Urinary tract infection, site not specified Is this a current diagnosis for this admission?: Yes Plan: See covering admitting attending physician orders for details about care plan. (3) Acute kidney injury superimposed on chronic kidney disease Is this a current diagnosis for this admission?: Yes Plan: See covering admitting attending physician orders for details about care plan. (4) Chronic atrial fibrillation Is this a current diagnosis for this admission?: Yes Plan: See covering admitting attending physician orders for details about care plan. (5) Chronic diastolic heart failure Is this a current diagnosis for this admission?: Yes Plan: See covering admitting attending physician orders for details about care plan. (6) Hypokalemia Is this a current diagnosis for this admission?: Yes Plan: See covering admitting attending physician orders for details about care plan. (7) T2DM (type 2 diabetes mellitus) Qualifiers: Diabetes mellitus critical care unit nurse insulin use: without critical care unit nurse use Diabetes mellitus complication status: with neurologic complications Diabetes mellitus complication detail: with polyneuropathy Qualified Code(s): E11.42 - Type 2 diabetes mellitus with diabetic polyneuropathy Is this a current diagnosis for this admission?: Yes Plan: See covering admitting attending physician orders for details about care plan. (8) HTN (hypertension) Qualifiers: Hypertension type: essential hypertension Qualified Code(s): I10 - Essential (primary) hypertension Is this a current diagnosis for this admission?: Yes Plan: See covering admitting attending physician orders for details about care plan. (9) HLD (hyperlipidemia) Qualifiers: Hyperlipidemia type: unspecified Qualified Code(s): E78.5 - Hyperlipidemia, unspecified Is this a current diagnosis for this admission?: Yes Plan: See covering admitting attending physician orders for details about care plan. (10) GERD (gastroesophageal reflux disease) Qualifiers: Esophagitis presence: esophagitis presence not specified Qualified Code(s): K21.9 - Gastro-esophageal reflux disease without esophagitis Is this a current diagnosis for this admission?: Yes Plan: See covering admitting attending physician orders for details about care plan. (11) History of prostate cancer Is this a current diagnosis for this admission?: No Plan: See covering admitting attending physician orders for details about care plan. (12) Obstructive uropathy Is this a current diagnosis for this admission?: Yes Plan: See covering admitting attending physician orders for details about care plan. - Time Time Spent: 50 to 70 Minutes Medications reviewed and adjusted accordingly: Yes Anticipated Discharge Disposition: Home with Home Health Anticipated Discharge Timeframe: within 72 hours - Inpatient Certification Based on my medical assessment, after consideration of the patient's comor bidities, presenting symptoms, or acuity I expect that the services needed warrant INPATIENT care.: Yes I certify that my determination is in accordance with my understanding of Medicare's requirements for reasonable and necessary INPATIENT services [42 CFR 412.3e].: Yes Medical Necessity: Significant Comorbidiites Make Outpatient Treatment Too Risky, Need Close Monitoring Due to Risk of Patient Decompensation, Need For IV Fluids, Need For Continuous Telemetry Monitoring, Need for IV Antibiotics, Risk of Complication if Not Cared For in Hospital, Risk of Diagnosis Which Will Require Inpatient Eval/Care/Monitoring Post Hospital Care: D/C Education Teacher Documentation - Plan Summary Plan Summary: See covering admitting attending physician orders for details about care plan.
[2020-11-20] MEDS: ACETAMINOPHEN 325 MG TABLET PO PRN ×2 (13:30→17:32)
[2020-11-20] MEDS: GABAPENTIN 300 MG CAPSULE PO SCH ×2 (13:30→23:14)
[2020-11-20 14:40] LABS: ANION GAP 8 (5-19); BLOOD UREA NITROGEN 46 mg/dL (7-20); CARBON DIOXIDE 29 mmol/L (22-30); CHLORIDE 102 mmol/L (98-107); GLUCOSE 163 mg/dL (75-110)
[2020-11-20 14:44] LABS: CALCIUM 6.7 mg/dL (8.4-10.2)
[2020-11-20] MEDS ORDERED: AZTREONAM 1 GM in DEXTROSE 5%-WATER 50 ML IV ONE (15:00)
[2020-11-20] MEDS ORDERED: NORMAL SALINE 250 ML IV ONE (15:30)
[2020-11-20] MEDS: APIXABAN 2.5 MG TABLET PO SCH (17:32)
[2020-11-20] MEDS: NORMAL SALINE 1000 ML 1,000 ML IV PRN (17:33)
[2020-11-20] MEDS ORDERED: MAGNESIUM SULFATE 1 GM in D5W 100 ML IV ONE (20:30)
[2020-11-20] MEDS ORDERED: MAGNESIUM SULFATE/D5W 1 GM/100 ML RTUPB IV ONE (20:35)
[2020-11-20] MEDS ORDERED: NORMAL SALINE 500 ML IV ONE (20:45)
[2020-11-20] MEDS ORDERED: (PENDING PHARMACY ID) (Pravastatin Sodium [Pravastatin Sodium] 40 MG Tablet) PO SCH (22:00)
[2020-11-20] MEDS: DONEPEZIL HCL 5 MG TABLET PO SCH (23:14)
[2020-11-20] MEDS: DOXEPIN HCL 10 MG CAPSULE PO SCH (23:15)
[2020-11-20] MEDS: ATORVASTATIN CALCIUM 10 MG TABLET PO SCH (23:15)
[2020-11-20] MEDS: POTASSIUM CHLORIDE 10 MEQ TABLET.ER PO SCH (23:15)
[2020-11-20] MEDS: AZTREONAM 0.5 GM in DEXTROSE 5%-WATER 50 ML IV SCH (23:16)
[2020-11-21] MEDS: POTASSIUM CHLORIDE 10 MEQ TABLET.ER PO SCH (01:25)
[2020-11-21] MEDS: DILTIAZEM HCL 30 MG TABLET PO SCH ×4 (01:25→21:15)
[2020-11-21] MEDS: ACETAMINOPHEN 325 MG TABLET PO PRN ×3 (04:18→21:13)
[2020-11-21] MEDS: GABAPENTIN 300 MG CAPSULE PO SCH ×3 (05:12→21:14)
[2020-11-21] MEDS: AZTREONAM 0.5 GM in DEXTROSE 5%-WATER 50 ML IV SCH ×3 (05:12→22:00)
[2020-11-21 07:07] LABS: HEMATOCRIT 22.3 % (37.9-51.0); MEAN CORPUSCULAR HGB CONC 33.1 g/dL (32.0-36.0); MEAN CORPUSCULAR VOLUME 82 fl (80-97); PLATELET COUNT 163 10^3/uL (150-450); RED BLOOD COUNT 2.74 10^6/uL (4.35-5.55); RED CELL DISTRIBUTION WIDTH 18.1 % (11.5-14.0); WHITE BLOOD COUNT 9.9 10^3/uL (4.0-10.5)
[2020-11-21 07:36] LABS: ABSOLUTE LYMPHOCYTES# (MANUAL) 0.1 10^3/uL (0.5-4.7); ABSOLUTE MONOCYTES # (MANUAL) 0.2 10^3/uL (0.1-1.4); BASOPHILS % (MANUAL) 0 % (0-2); EOSINOPHILS % (MANUAL) 2 % (0-6); LYMPHOCYTES % (MANUAL) 1 % (13-45); MONOCYTES % (MANUAL) 2 % (3-13); SEGMENTED NEUTROPHILS % (MAN) 95 % (42-78); TOTAL CELLS COUNTED 100
[2020-11-21 07:37] LABS: ANISOCYTOSIS 2+; OVALOCYTES SLIGHT; PLATELET COMMENT ADEQUATE
[2020-11-21 07:38] LABS: HEMOGLOBIN 7.4 g/dL (13.5-17.0)
[2020-11-21 07:42] LABS: ALBUMIN 2.7 g/dL (3.5-5.0); ALKALINE PHOSPHATASE 90 U/L (38-126); ANION GAP 10 (5-19); ASPARTATE AMINO TRANSFERASE 25 U/L (17-59); BILIRUBIN,DIRECT 0.5 mg/dL (0.0-0.4); BILIRUBIN,TOTAL 0.8 mg/dL (0.2-1.3); BLOOD UREA NITROGEN 50 mg/dL (7-20); CARBON DIOXIDE 25 mmol/L (22-30); CHLORIDE 105 mmol/L (98-107); GLUCOSE 113 mg/dL (75-110); TOTAL PROTEIN 5.6 g/dL (6.3-8.2)
[2020-11-21] MEDS: INSULIN REG, HUMAN 100 UNIT/ML 3 ML VIAL (PYX) SUBCUT SCH ×4 (07:52→23:02)
[2020-11-21 07:58] LABS: CALCIUM 6.5 mg/dL (8.4-10.2)
[2020-11-21] MEDS ORDERED: INFLUENZA QUAD (6MOS+) 2020-21 VAC 0.5 ML SYR IM ONE (08:00)
[2020-11-21] MEDS ORDERED: BUMETANIDE 2 MG PO SCH (08:00)
[2020-11-21] MEDS: BUMETANIDE 1 MG TABLET PO SCH (08:09)
[2020-11-21] MEDS: DULOXETINE HCL 30 MG CAPSULE.DR PO SCH (09:55)
[2020-11-21] MEDS: FINASTERIDE 5 MG TABLET PO SCH (09:55)
[2020-11-21] MEDS: APIXABAN 2.5 MG TABLET PO SCH ×2 (09:55→17:19)
[2020-11-21] MEDS: CEFTRIAXONE 1 GM/D5W RTU 1 GM/50 ML RTUPB IV SCH (09:55)
[2020-11-21] MEDS: CARVEDILOL 12.5 MG TABLET PO SCH ×2 (11:23→21:14)
[2020-11-21] MEDS ORDERED: VANCOMYCIN HCL 0 MG in DEXTROSE 5%-WATER 250 ML IV NR (12:00)
--- NOTE | 2020-11-21 12:22 | PDOC PROGRESS REPORT ---
Subjective Date:: 11/21/20 Subjective:: patient denied any chest pain or difficulty with breathing. Blood pressure have been low and his medications including Bumex and Carvedalol are on hold at present. Ongoing blood transfusion due to persistently low hemoglobin. Reason For Visit: RECURRENT UTI,PROBABLE SEPSIS,VONNIE ON CKD, Physical Exam Vital Signs: Temp Pulse Resp BP Pulse Ox 99.3 F 118 H 18 126/62 H 94 11/21/20 11:34 11/21/20 11:34 11/21/20 11:34 11/21/20 11:34 11/21/20 11:34 Intake & Output 11/20/20 11/21/20 11/22/20 06:59 06:59 06:59 Intake Total 1050 1958 50 Output Total 750 1480 Balance 300 478 50 Weight 99.4 kg 99.6 kg General appearance: PRESENT: no acute distress Head exam: PRESENT: atraumatic, normocephalic Eye exam: PRESENT: conjunctiva pale Mouth exam: PRESENT: dry mucosa Respiratory exam: PRESENT: clear to auscultation heather Cardiovascular exam: PRESENT: RRR, +S1, +S2. ABSENT: diastolic murmur, rubs, systolic murmur Vascular exam: PRESENT: pallor GI/Abdominal exam: PRESENT: normal bowel sounds, soft. ABSENT: tenderness Extremities exam: ABSENT: pedal edema Neurological exam: PRESENT: alert, awake Psychiatric exam: ABSENT: agitated, anxious Skin exam: PRESENT: dry, warm, other - bilateral urostomy tubes in site with satisfactory dressing on his back Results Laboratory Results: 11/21/20 05:20 11/21/20 05:20 11/20/20 11/21/20 11/21/20 13:54 05:20 05:20 WBC 9.9 RBC 2.74 L Hgb 7.4 L Hct 22.3 L MCV 82 MCH 27.0 MCHC 33.1 RDW 18.1 H Plt Count 163 Seg Neutrophils % Not Reportable Sodium 138.5 140.2 Potassium 3.0 L* 4.0 D Chloride 102 105 Carbon Dioxide 29 25 Anion Gap 8 10 BUN 46 H 50 H Creatinine 3.21 H 3.25 H Est GFR ( Amer) 23 L 22 L Glucose 163 H 113 H Calcium 6.7 L* 6.5 L* Magnesium 1.5 L Total Bilirubin 0.8 AST 25 Alkaline Phosphatase 90 Total Protein 5.6 L Albumin 2.7 L Blood Type Antibody Screen 11/21/20 08:28 WBC RBC Hgb Hct MCV MCH MCHC RDW Plt Count Seg Neutrophils % Sodium Potassium Chloride Carbon Dioxide Anion Gap BUN Creatinine Est GFR ( Amer) Glucose Calcium Magnesium Total Bilirubin AST Alkaline Phosphatase Total Protein Albumin Blood Type O POSITIVE Antibody Screen NEGATIVE 11/19/20 18:20 Blood Blood Culture (PCR) - Final Klebsiella Pneumoniae 11/19/20 11/19/20 18:20 18:20 Creatine Kinase 329 H CK-MB (CK-2) 0.92 Troponin I 0.030 Impressions: Chest X-Ray 11/19/20 20:03 IMPRESSION: Improved lung volumes and aeration. No acute process. Assessment & Plan - Diagnosis (1) Sepsis associated hypotension Is this a current diagnosis for this admission?: Yes (2) Urinary tract infection Qualifiers: Urinary tract infection type: catheter-associated UTI Indwelling urinary catheter type: nephrostomy catheter Encounter type: initial encounter Qualified Code(s): T83.512A - Infection and inflammatory reaction due to nephrostomy catheter, initial encounter; N39.0 - Urinary tract infection, site not specified Is this a current diagnosis for this admission?: Yes (3) Acute kidney injury superimposed on chronic kidney disease Is this a current diagnosis for this admission?: Yes (4) Chronic atrial fibrillation Is this a current diagnosis for this admission?: Yes (5) Chronic diastolic heart failure Is this a current diagnosis for this admission?: Yes (6) Hypokalemia Is this a current diagnosis for this admission?: Yes (7) T2DM (type 2 diabetes mellitus) Qualifiers: Diabetes mellitus roasterman insulin use: without fdc use Diabetes mellitus complication status: with neurologic complications Diabetes mellitus complication detail: with polyneuropathy Qualified Code(s): E11.42 - Type 2 diabetes mellitus with diabetic polyneuropathy Is this a current diagnosis for this admission?: Yes (8) HTN (hypertension) Qualifiers: Hypertension type: essential hypertension Qualified Code(s): I10 - Essential (primary) hypertension Is this a current diagnosis for this admission?: Yes (9) HLD (hyperlipidemia) Qualifiers: Hyperlipidemia type: unspecified Qualified Code(s): E78.5 - Hyperlipidemia, unspecified Is this a current diagnosis for this admission?: Yes (10) GERD (gastroesophageal reflux disease) Qualifiers: Esophagitis presence: esophagitis presence not specified Qualified Code(s): K21.9 - Gastro-esophageal reflux disease without esophagitis Is this a current diagnosis for this admission?: Yes (11) History of prostate cancer Is this a current diagnosis for this admission?: No (12) Obstructive uropathy Is this a current diagnosis for this admission?: Yes (13) Anemia, chronic renal failure Qualifiers: Chronic kidney disease stage: stage 4 (severe) Qualified Code(s): N18.4 - Chronic kidney disease, stage 4 (severe); D63.1 - Anemia in chronic kidney disease Is this a current diagnosis for this admission?: Yes Plan: Patient will receive 2 units PRBC. (14) Hypocalcemia Is this a current diagnosis for this admission?: Yes Plan: Patient will receive calcium replacement therapy. - Time Time Spent with patient: 25-34 minutes Level of Care: IMCU Medications reviewed and adjusted accordingly: Yes Anticipated discharge: Home with Homehealth, SNF Anticipated DC Timeframe: within 72 hours - Inpatient Certification Based on my medical assessment, after consideration of the patient's comorbid ities, presenting symptoms, or acuity I expect that the services needed warrant INPATIENT care.: Yes I certify that my determination is in accordance with my understanding of Medicare's requirements for reasonable and necessary INPATIENT services [42 CFR 412.3e].: Yes Medical Necessity: Significant Comorbidiites Make Outpatient Treatment Too Risky, Need Close Monitoring Due to Risk of Patient Decompensation, Need For Continuous Telemetry Monitoring, Need for IV Antibiotics, Risk of Complication if Not Cared For in Hospital, Risk of Diagnosis Which Will Require Inpatient Eval/Care/Monitoring Post Hospital Care: D/C Drafter Landscape Documentation - Plan Summary Plan Summary: Start on IV Vancomycin in view of his urine culture findings pending definite organism sensitivity report.
[2020-11-21] MEDS ORDERED: CALCIUM GLUCONATE 6,666 MG in DEXTROSE 5%-WATER 500 ML IV ONE (16:00)
[2020-11-21] MEDS ORDERED: VANCOMYCIN HCL 1,250 MG in DEXTROSE 5%-WATER 250 ML IV SCH (18:00)
[2020-11-21] MEDS: DONEPEZIL HCL 5 MG TABLET PO SCH (21:15)
[2020-11-21] MEDS: DOXEPIN HCL 10 MG CAPSULE PO SCH (21:15)
[2020-11-21] MEDS: ATORVASTATIN CALCIUM 10 MG TABLET PO SCH (21:15)
[2020-11-21] MEDS: NORMAL SALINE 1000 ML 1,000 ML IV PRN (22:01)
[2020-11-22 03:57] LABS: HEMATOCRIT 26.5 % (37.9-51.0); HEMOGLOBIN 8.8 g/dL (13.5-17.0); MEAN CORPUSCULAR HEMOGLOBIN 26.8 pg (27.0-33.4); MEAN CORPUSCULAR HGB CONC 33.2 g/dL (32.0-36.0); MEAN CORPUSCULAR VOLUME 81 fl (80-97); PLATELET COUNT 149 10^3/uL (150-450); RED BLOOD COUNT 3.28 10^6/uL (4.35-5.55); RED CELL DISTRIBUTION WIDTH 17.5 % (11.5-14.0); WHITE BLOOD COUNT 9.3 10^3/uL (4.0-10.5)
[2020-11-22 04:49] LABS: ABSOLUTE LYMPHOCYTES# (MANUAL) 0.6 10^3/uL (0.5-4.7); ABSOLUTE MONOCYTES # (MANUAL) 0.7 10^3/uL (0.1-1.4); BASOPHILS % (MANUAL) 0 % (0-2); EOSINOPHILS % (MANUAL) 2 % (0-6); LYMPHOCYTES % (MANUAL) 6 % (13-45); MONOCYTES % (MANUAL) 7 % (3-13); SEGMENTED NEUTROPHILS % (MAN) 85 % (42-78); TOTAL CELLS COUNTED 100
[2020-11-22 04:50] LABS: ANISOCYTOSIS SLIGHT; OVALOCYTES SLIGHT; PLATELET COMMENT ADEQUATE; POIKILOCYTOSIS SLIGHT; SCHISTOCYTES SLIGHT; TEAR DROP CELLS SLIGHT; TOXIC GRANULATION 1+
[2020-11-22] MEDS: DILTIAZEM HCL 30 MG TABLET PO SCH ×3 (05:50→21:29)
[2020-11-22] MEDS: AZTREONAM 0.5 GM in DEXTROSE 5%-WATER 50 ML IV SCH ×3 (05:52→21:29)
[2020-11-22] MEDS: GABAPENTIN 300 MG CAPSULE PO SCH ×3 (05:52→21:30)
[2020-11-22] MEDS: VANCOMYCIN HCL 1,250 MG in DEXTROSE 5%-WATER 250 ML IV SCH (06:43)
[2020-11-22] MEDS: INSULIN REG, HUMAN 100 UNIT/ML 3 ML VIAL (PYX) SUBCUT SCH ×4 (09:05→21:30)
[2020-11-22] MEDS: APIXABAN 2.5 MG TABLET PO SCH ×2 (09:19→17:27)
[2020-11-22] MEDS: FINASTERIDE 5 MG TABLET PO SCH (09:19)
[2020-11-22] MEDS: CARVEDILOL 12.5 MG TABLET PO SCH ×2 (09:19→21:29)
[2020-11-22] MEDS: DULOXETINE HCL 30 MG CAPSULE.DR PO SCH (09:19)
[2020-11-22] MEDS: BUMETANIDE 1 MG TABLET PO SCH (09:20)
[2020-11-22] MEDS: CEFTRIAXONE 1 GM/D5W RTU 1 GM/50 ML RTUPB IV SCH (09:20)
[2020-11-22] MEDS: NORMAL SALINE 1000 ML 1,000 ML IV PRN (09:21)
--- NOTE | 2020-11-22 10:13 | PDOC PROGRESS REPORT ---
Subjective Date:: 11/22/20 Subjective:: patient reported that he is feeling much better this morning. No chest pain or difficulty with breathing. No reported fever or chills. No nausea, vomiting or abdominal pain. Reason For Visit: RECURRENT UTI,PROBABLE SEPSIS,VONNIE ON CKD, Physical Exam Vital Signs: Temp Pulse Resp BP Pulse Ox 99.1 F 78 18 110/70 98 11/22/20 09:32 11/22/20 08:58 11/22/20 03:22 11/22/20 03:22 11/22/20 03:22 Intake & Output 11/21/20 11/22/20 11/23/20 06:59 06:59 06:59 Intake Total 2958 1170 1566.66 Output Total 1480 1325 Balance 1478 -155 1566.66 Weight 99.6 kg 102.9 kg Physical Exam: General appearance: PRESENT: no acute distress Head exam: PRESENT: atraumatic, normocephalic Eye exam: PRESENT: conjunctiva pink ABSENT: pallor, sclera icterus Mouth exam: PRESENT: mosit mucosa Respiratory exam: PRESENT: clear to auscultation haether Cardiovascular exam: PRESENT: RRR, +S1, +S2. ABSENT: diastolic murmur, rubs, systolic murmur GI/Abdominal exam: PRESENT: normal bowel sounds, soft. ABSENT: tenderness Extremities exam: ABSENT: pedal edema Neurological exam: PRESENT: alert, awake Psychiatric exam: ABSENT: agitated, anxious Skin exam: PRESENT: dry, warm, other - bilateral urostomy tubes in site with satisfactory dressing on his back Results Laboratory Results: 11/22/20 00:15 11/21/20 05:20 11/21/20 11/22/20 08:28 00:15 WBC 9.3 RBC 3.28 L Hgb 8.8 L Hct 26.5 L MCV 81 MCH 26.8 L MCHC 33.2 RDW 17.5 H Plt Count 149 L Seg Neutrophils % Not Reportable Blood Type O POSITIVE Antibody Screen NEGATIVE 11/19/20 18:20 Blood Blood Culture (PCR) - Final Klebsiella Pneumoniae 11/19/20 11/19/20 18:20 18:20 Creatine Kinase 329 H CK-MB (CK-2) 0.92 Troponin I 0.030 Impressions: Chest X-Ray 11/19/20 20:03 IMPRESSION: Improved lung volumes and aeration. No acute process. Assessment & Plan - Diagnosis (1) Sepsis associated hypotension Is this a current diagnosis for this admission?: Yes (2) Urinary tract infection Qualifiers: Urinary tract infection type: catheter-associated UTI Indwelling urinary catheter type: nephrostomy catheter Encounter type: initial encounter Qualified Code(s): T83.512A - Infection and inflammatory reaction due to nephrostomy catheter, initial encounter; N39.0 - Urinary tract infection, site not specified Is this a current diagnosis for this admission?: Yes (3) Acute kidney injury superimposed on chronic kidney disease Is this a current diagnosis for this admission?: Yes (4) Chronic atrial fibrillation Is this a current diagnosis for this admission?: Yes (5) Chronic diastolic heart failure Is this a current diagnosis for this admission?: Yes (6) Hypokalemia Is this a current diagnosis for this admission?: Yes (7) T2DM (type 2 diabetes mellitus) Qualifiers: Diabetes mellitus moth exterminator insulin use: without moth exterminator use Diabetes mellitus complication status: with neurologic complications Diabetes mellitus complication detail: with polyneuropathy Qualified Code(s): E11.42 - Type 2 diabetes mellitus with diabetic polyneuropathy Is this a current diagnosis for this admission?: Yes (8) HTN (hypertension) Qualifiers: Hypertension type: essential hypertension Qualified Code(s): I10 - Essential (primary) hypertension Is this a current diagnosis for this admission?: Yes (9) HLD (hyperlipidemia) Qualifiers: Hyperlipidemia type: unspecified Qualified Code(s): E78.5 - Hyperlipidemia, unspecified Is this a current diagnosis for this admission?: Yes (10) GERD (gastroesophageal reflux disease) Qualifiers: Esophagitis presence: esophagitis presence not specified Qualified Code(s): K21.9 - Gastro-esophageal reflux disease without esophagitis Is this a current diagnosis for this admission?: Yes (11) History of prostate cancer Is this a current diagnosis for this admission?: No (12) Obstructive uropathy Is this a current diagnosis for this admission?: Yes (13) Anemia, chronic renal failure Qualifiers: Chronic kidney disease stage: stage 4 (severe) Qualified Code(s): N18.4 - Chronic kidney disease, stage 4 (severe); D63.1 - Anemia in chronic kidney disease Is this a current diagnosis for this admission?: Yes (14) Hypocalcemia Is this a current diagnosis for this admission?: Yes - Time Time Spent with patient: 25-34 minutes Level of Care: IMCU Medications reviewed and adjusted accordingly: Yes Anticipated discharge: Home with Homehealth Anticipated DC Timeframe: within 72 hours - Inpatient Certification Based on my medical assessment, after consideration of the patient's comorbidities, presenting symptoms, or acuity I expect that the services needed warrant INPATIENT care.: Yes I certify that my determination is in accordance with my understanding of Medicare's requirements for reasonable and necessary INPATIENT services [42 CFR 412.3e].: Yes Medical Necessity: Significant Comorbidiites Make Outpatient Treatment Too Risky, Need Close Monitoring Due to Risk of Patient Decompensation, Need For Continuous Telemetry Monitoring, Need for IV Antibiotics, Risk of Complication if Not Cared For in Hospital, Risk of Diagnosis Which Will Require Inpatient Ev al/Care/Monitoring Post Hospital Care: D/C Engrosser Documentation - Plan Summary Plan Summary: Continue current medication management. Obtain CMP.
[2020-11-22] MEDS: DOXEPIN HCL 10 MG CAPSULE PO SCH (21:29)
[2020-11-22] MEDS: DONEPEZIL HCL 5 MG TABLET PO SCH (21:29)
[2020-11-22] MEDS: ATORVASTATIN CALCIUM 10 MG TABLET PO SCH (21:29)
[2020-11-22] MEDS: ACETAMINOPHEN 325 MG TABLET PO PRN (21:46)
[2020-11-23] MEDS: DILTIAZEM HCL 30 MG TABLET PO SCH ×3 (05:35→21:22)
[2020-11-23] MEDS: GABAPENTIN 300 MG CAPSULE PO SCH ×3 (05:36→21:22)
[2020-11-23] MEDS: AZTREONAM 0.5 GM in DEXTROSE 5%-WATER 50 ML IV SCH (05:36)
[2020-11-23] MEDS: INSULIN REG, HUMAN 100 UNIT/ML 3 ML VIAL (PYX) SUBCUT SCH ×3 (08:02→17:16)
[2020-11-23] MEDS: CARVEDILOL 12.5 MG TABLET PO SCH ×2 (10:11→21:22)
[2020-11-23] MEDS: BUMETANIDE 1 MG TABLET PO SCH (10:11)
[2020-11-23] MEDS: APIXABAN 2.5 MG TABLET PO SCH ×2 (10:11→17:32)
[2020-11-23] MEDS: DULOXETINE HCL 30 MG CAPSULE.DR PO SCH (10:11)
[2020-11-23] MEDS: FINASTERIDE 5 MG TABLET PO SCH (10:11)
--- NOTE | 2020-11-23 10:39 | CDI QUERY ---
<PRESTON FORD - Last Filed: 11/23/20 10:38> CDI Query CDI Review: We are seeking further clarification of documentation to reflect the severity of illness of your patient. Per Progress Notes: 11/19/20 18:20 Blood Blood Culture (PCR) - Final Klebsiella Pneumoniae Diagnosis (1) Sepsis associated hypotension Is this a current diagnosis for this admission?: Yes Based on your medical judgement, can you further clarify in the Progress Notes and carry through to the Discharge Summary: Klebsiella Pneumoniae Sepsis Not Klebsiella Pneumonia Sepsis Unable to determine Other Thank you for your consideration. RIP BañuelosN RN [employer] Physician Advisor <JACLYN FUNEZ - Last Filed: 11/23/20 10:56> CDI Query Agree with Query: Yes - I agreed with K.pneumoniae sepsis since is rhe only organism growing from the blood culture. Dr. العلي can add this to the current diagnosis list. Thanks.
[2020-11-23] MEDS: CEFTRIAXONE 1 GM/D5W RTU 1 GM/50 ML RTUPB IV SCH (10:41)
[2020-11-23] MEDS: NORMAL SALINE 1000 ML 1,000 ML IV PRN (10:41)
--- NOTE | 2020-11-23 20:46 | PDOC PROGRESS REPORT ---
Subjective Date:: 11/23/20 Subjective:: Patient was admitted for the management of sepsis due to Klebsiella septicemia, the blood culture grew Klebsiella pneumonia sensitive to ceftriaxone urine culture from the cystostomy bag grew polymicrobial species including Klebsiella pneumonia, Enterococcus faecalis, MRSA. I saw him today by the bedside with his , the said on the day of admission he was moribund. Patient is frustrated because of frequent hospital admission is usually related to infection especially UTI part of the organisms in the cystostomy bag could be from colonization rather than true infection but the Klebsiella in the bag and the blood suggests this is probably a true infection Reason For Visit: RECURRENT UTI,PROBABLE SEPSIS,VONNIE ON CKD, Physical Exam Vital Signs: Temp Pulse Resp BP Pulse Ox 98.1 F 87 18 120/78 99 11/23/20 12:00 11/23/20 19:00 11/23/20 12:00 11/23/20 12:00 11/23/20 12:00 Intake & Output 11/22/20 11/23/20 11/24/20 06:59 06:59 06:59 Intake Total 1170 5286.66 310 Output Total 1325 3510 1400 Balance -155 1776.66 -1090 Weight 102.9 kg 102.3 kg General appearance: PRESENT: no acute distress Eye exam: PRESENT: PERRLA Respiratory exam: PRESENT: clear to auscultation heather Cardiovascular exam: PRESENT: +S1, +S2 GI/Abdominal exam: PRESENT: soft Neurological exam: PRESENT: alert Results Laboratory Results: 11/22/20 00:15 11/21/20 05:20 11/19/20 18:30 Cystostomy Tube Urine Culture - Final Klebsiella Pneumoniae Klebsiella Pneumoniae#2 Enterococcus Faecalis(Group D) Mrsa (Meth Resis Staph Aureus) 11/19/20 11/19/20 18:20 18:20 Creatine Kinase 329 H CK-MB (CK-2) 0.92 Troponin I 0.030 Impressions: Chest X-Ray 11/19/20 20:03 IMPRESSION: Improved lung volumes and aeration. No acute process. Assessment & Plan - Diagnosis (1) Klebsiella pneumoniae sepsis Is this a current diagnosis for this admission?: Yes Plan: Patient presently on ceftriaxone vancomycin aztreonam, DC aztreonam continue ceftriaxone and vancomycin, the MRSA in the urine is is probably colonization, MRSA is not a uropathogen, MRSA in the urine is a manifestation of a distant source. (2) Obstructive uropathy Is this a current diagnosis for this admission?: Yes (3) Acute kidney injury Is this a current diagnosis for this admission?: Yes Plan: Follow kidney function on IV fluid, this is probably from sepsis - Time Time Spent with patient: 35 or more minutes Level of Care: IMCU Medications reviewed and adjusted accordingly: Yes Anticipated discharge: Home Anticipated DC Timeframe: Other
[2020-11-23] MEDS: DOXEPIN HCL 10 MG CAPSULE PO SCH (21:21)
[2020-11-23] MEDS: ATORVASTATIN CALCIUM 10 MG TABLET PO SCH (21:22)
[2020-11-23] MEDS: DONEPEZIL HCL 5 MG TABLET PO SCH (21:22)
[2020-11-23] MEDS: ACETAMINOPHEN 325 MG TABLET PO PRN (21:47)
[2020-11-23 22:37] LABS: ABSOLUTE EOSINOPHILS # (AUTO) 0.2 10^3/uL (0.0-0.6); ABSOLUTE LYMPHOCYTES (AUTO) 0.7 10^3/uL (0.5-4.7); ABSOLUTE MONOCYTES (AUTO) 0.8 10^3/uL (0.1-1.4); ABSOLUTE NEUT (AUTO) 3.6 10^3/uL (1.7-8.2); BASOPHILS % (AUTO) 0.3 % (0-2); EOSINOPHILS % (AUTO) 4.2 % (0-6); HEMATOCRIT 25.6 % (37.9-51.0); HEMOGLOBIN 8.6 g/dL (13.5-17.0); LYMPHOCYTES % (AUTO) 12.7 % (13-45); MEAN CORPUSCULAR HEMOGLOBIN 27.1 pg (27.0-33.4); MEAN CORPUSCULAR HGB CONC 33.7 g/dL (32.0-36.0); MEAN CORPUSCULAR VOLUME 80 fl (80-97); MONOCYTES % (AUTO) 15.2 % (3-13); PLATELET COUNT 154 10^3/uL (150-450); RED BLOOD COUNT 3.19 10^6/uL (4.35-5.55); RED CELL DISTRIBUTION WIDTH 16.9 % (11.5-14.0); SEGMENTED NEUTROPHILS % (AUTO) 67.6 % (42-78); TOTAL CELLS COUNTED % (AUTO) 100 %; WHITE BLOOD COUNT 5.3 10^3/uL (4.0-10.5)
[2020-11-23] MEDS: RINGERS SOLUTION,LACTATED 1,000 ML IV PRN (22:54)
[2020-11-23 22:59] LABS: ALBUMIN 2.8 g/dL (3.5-5.0); ALKALINE PHOSPHATASE 116 U/L (38-126); ANION GAP 7 (5-19); ASPARTATE AMINO TRANSFERASE 32 U/L (17-59); BILIRUBIN,DIRECT 0.3 mg/dL (0.0-0.4); BILIRUBIN,TOTAL 0.6 mg/dL (0.2-1.3); BLOOD UREA NITROGEN 38 mg/dL (7-20); CALCIUM 7.4 mg/dL (8.4-10.2); CARBON DIOXIDE 29 mmol/L (22-30); CHLORIDE 99 mmol/L (98-107); GLUCOSE 112 mg/dL (75-110); POTASSIUM 3.2 mmol/L (3.6-5.0); TOTAL PROTEIN 5.7 g/dL (6.3-8.2)
[2020-11-24] MEDS: INSULIN REG, HUMAN 100 UNIT/ML 3 ML VIAL (PYX) SUBCUT SCH ×5 (01:24→21:26)
[2020-11-24] MEDS: VANCOMYCIN HCL 1,250 MG in DEXTROSE 5%-WATER 250 ML IV SCH (06:50)
[2020-11-24] MEDS: GABAPENTIN 300 MG CAPSULE PO SCH ×3 (06:51→21:26)
[2020-11-24] MEDS: DILTIAZEM HCL 30 MG TABLET PO SCH ×3 (06:51→21:26)
[2020-11-24 08:29] LABS: ABSOLUTE EOSINOPHILS # (AUTO) 0.2 10^3/uL (0.0-0.6); ABSOLUTE LYMPHOCYTES (AUTO) 0.6 10^3/uL (0.5-4.7); ABSOLUTE MONOCYTES (AUTO) 0.8 10^3/uL (0.1-1.4); ABSOLUTE NEUT (AUTO) 3.2 10^3/uL (1.7-8.2); BASOPHILS % (AUTO) 0.2 % (0-2); EOSINOPHILS % (AUTO) 4.7 % (0-6); HEMATOCRIT 25.2 % (37.9-51.0); HEMOGLOBIN 8.5 g/dL (13.5-17.0); LYMPHOCYTES % (AUTO) 12.1 % (13-45); MEAN CORPUSCULAR HGB CONC 33.7 g/dL (32.0-36.0); MEAN CORPUSCULAR VOLUME 80 fl (80-97); MONOCYTES % (AUTO) 16.2 % (3-13); PLATELET COUNT 143 10^3/uL (150-450); RED BLOOD COUNT 3.15 10^6/uL (4.35-5.55); RED CELL DISTRIBUTION WIDTH 16.9 % (11.5-14.0); SEGMENTED NEUTROPHILS % (AUTO) 66.8 % (42-78); TOTAL CELLS COUNTED % (AUTO) 100 %; WHITE BLOOD COUNT 4.9 10^3/uL (4.0-10.5)
[2020-11-24] MEDS: BUMETANIDE 1 MG TABLET PO SCH (10:51)
[2020-11-24] MEDS: DULOXETINE HCL 30 MG CAPSULE.DR PO SCH (10:51)
[2020-11-24] MEDS: CARVEDILOL 12.5 MG TABLET PO SCH ×2 (10:52→21:36)
[2020-11-24] MEDS: CEFTRIAXONE 1 GM/D5W RTU 1 GM/50 ML RTUPB IV SCH (10:52)
[2020-11-24] MEDS: APIXABAN 2.5 MG TABLET PO SCH ×2 (10:52→18:28)
[2020-11-24] MEDS: FINASTERIDE 5 MG TABLET PO SCH (10:52)
[2020-11-24] MEDS ORDERED: POLYETHYLENE GLYCOL 3350 POWDER 17 GM/1 PACKET PO PRN (14:54)
[2020-11-24] MEDS: RINGERS SOLUTION,LACTATED 1,000 ML IV PRN ×2 (15:21→21:21)
[2020-11-24] MEDS: NYSTATIN/DEXAMETH/DIPHEN SUSP 120 ML PO SCH (18:28)
[2020-11-24] MEDS: DOCUSATE SODIUM 100 MG CAPSULE PO SCH (18:28)
[2020-11-24] MEDS: FLUCONAZOLE 100 MG TABLET PO SCH (18:29)
--- NOTE | 2020-11-24 21:15 | PDOC PROGRESS REPORT ---
Subjective Date:: 11/24/20 Subjective:: Patient was admitted for the management of sepsis due to Klebsiella septicemia, the blood culture grew Klebsiella pneumonia sensitive to ceftriaxone urine culture from the cystostomy bag grew polymicrobial species including Klebsiella pneumonia, Enterococcus faecalis, MRSA. I saw him today by the bedside with his , the said on the day of admission he was moribund. Patient is frustrated because of frequent hospital admission is usually related to infection especially UTI part of the organisms in the cystostomy bag could be from colonization rather than true infection but the Klebsiella in the bag and the blood suggests this is probably a true infection. Reason For Visit: RECURRENT UTI,PROBABLE SEPSIS,VONNIE ON CKD, Physical Exam Vital Signs: Temp Pulse Resp BP Pulse Ox 100.0 F 92 18 128/75 H 99 11/24/20 16:56 11/24/20 19:00 11/24/20 16:56 11/24/20 16:56 11/24/20 16:56 Intake & Output 11/23/20 11/24/20 11/25/20 06:59 06:59 06:59 Intake Total 5286.66 1532 1990 Output Total 3510 2800 1575 Balance 1776.66 -1268 415 Weight 102.3 kg 102.5 kg General appearance: PRESENT: no acute distress Eye exam: PRESENT: PERRLA Respiratory exam: PRESENT: clear to auscultation heather Cardiovascular exam: PRESENT: +S1, +S2 GI/Abdominal exam: PRESENT: soft Neurological exam: PRESENT: alert Results Laboratory Results: 11/24/20 06:25 11/24/20 06:25 11/23/20 11/23/20 11/24/20 21:30 21:30 06:25 WBC 5.3 4.9 RBC 3.19 L 3.15 L Hgb 8.6 L 8.5 L Hct 25.6 L 25.2 L MCV 80 80 MCH 27.1 27.0 MCHC 33.7 33.7 RDW 16.9 H 16.9 H Plt Count 154 143 L Seg Neutrophils % 67.6 66.8 Sodium 135.0 L Potassium 3.2 L Chloride 99 Carbon Dioxide 29 Anion Gap 7 BUN 38 H Creatinine 2.18 H Est GFR ( Amer) 35 L Glucose 112 H Calcium 7.4 L Total Bilirubin 0.6 AST 32 Alkaline Phosphatase 116 Total Protein 5.7 L Albumin 2.8 L 11/24/20 06:25 WBC RBC Hgb Hct MCV MCH MCHC RDW Plt Count Seg Neutrophils % Sodium Potassium Chloride Carbon Dioxide Anion Gap BUN Creatinine 1.91 H Est GFR ( Amer) 41 L Glucose Calcium Total Bilirubin AST Alkaline Phosphatase Total Protein Albumin 11/19/20 11/19/20 18:20 18:20 Creatine Kinase 329 H CK-MB (CK-2) 0.92 Troponin I 0.030 Impressions: Chest X-Ray 11/19/20 20:03 IMPRESSION: Improved lung volumes and aeration. No acute process. Assessment & Plan - Diagnosis (1) Klebsiella pneumoniae sepsis Is this a current diagnosis for this admission?: Yes Plan: Patient presently on ceftriaxone vancomycin aztreonam, DC aztreonam continue ceftriaxone and vancomycin, the MRSA in the urine is is probably colonization, MRSA is not a uropathogen, MRSA in the urine is a manifestation of a distant source. (2) Obstructive uropathy Is this a current diagnosis for this admission?: Yes (3) Acute kidney injury Is this a current diagnosis for this admission?: Yes - Time Time Spent with patient: 25-34 minutes Level of Care: TELE Medications reviewed and adjusted accordingly: Yes Anticipated discharge: Home - Inpatient Certification I certify that my determination is in accordance with my understanding of [facility]'s requirements for reasonable and necessary INPATIENT services [42 CFR 412.3e].: Yes
[2020-11-24] MEDS: DOXEPIN HCL 10 MG CAPSULE PO SCH (21:26)
[2020-11-24] MEDS: DONEPEZIL HCL 5 MG TABLET PO SCH (21:26)
[2020-11-24] MEDS: ATORVASTATIN CALCIUM 10 MG TABLET PO SCH (21:26)
[2020-11-25 00:28] LABS: ALBUMIN 2.8 g/dL (3.5-5.0); ALKALINE PHOSPHATASE 119 U/L (38-126); ANION GAP 5 (5-19); ASPARTATE AMINO TRANSFERASE 30 U/L (17-59); BILIRUBIN,DIRECT 0.3 mg/dL (0.0-0.4); BILIRUBIN,TOTAL 0.5 mg/dL (0.2-1.3); BLOOD UREA NITROGEN 29 mg/dL (7-20); CALCIUM 7.2 mg/dL (8.4-10.2); CARBON DIOXIDE 31 mmol/L (22-30); CHLORIDE 97 mmol/L (98-107); GLUCOSE 126 mg/dL (75-110); TOTAL PROTEIN 5.8 g/dL (6.3-8.2)
[2020-11-25] MEDS: DILTIAZEM HCL 30 MG TABLET PO SCH ×3 (05:19→21:09)
[2020-11-25] MEDS: GABAPENTIN 300 MG CAPSULE PO SCH ×3 (05:19→21:09)
[2020-11-25] MEDS ORDERED: VANCOMYCIN HCL 1,250 MG in DEXTROSE 5%-WATER 250 ML IV SCH (06:00)
[2020-11-25] MEDS: RINGERS SOLUTION,LACTATED 1,000 ML IV PRN (07:30)
[2020-11-25 07:41] LABS: ALBUMIN 2.8 g/dL (3.5-5.0); ALKALINE PHOSPHATASE 114 U/L (38-126); ANION GAP 8 (5-19); ASPARTATE AMINO TRANSFERASE 32 U/L (17-59); BILIRUBIN,DIRECT 0.3 mg/dL (0.0-0.4); BILIRUBIN,TOTAL 0.6 mg/dL (0.2-1.3); BLOOD UREA NITROGEN 30 mg/dL (7-20); CALCIUM 7.2 mg/dL (8.4-10.2); CARBON DIOXIDE 27 mmol/L (22-30); CHLORIDE 99 mmol/L (98-107); GLUCOSE 117 mg/dL (75-110); POTASSIUM 3.2 mmol/L (3.6-5.0); TOTAL PROTEIN 5.8 g/dL (6.3-8.2)
[2020-11-25] MEDS: INSULIN REG, HUMAN 100 UNIT/ML 3 ML VIAL (PYX) SUBCUT SCH ×4 (07:41→21:10)
[2020-11-25] MEDS: DULOXETINE HCL 30 MG CAPSULE.DR PO SCH (09:13)
[2020-11-25] MEDS: FINASTERIDE 5 MG TABLET PO SCH (09:13)
[2020-11-25] MEDS: APIXABAN 2.5 MG TABLET PO SCH ×2 (09:13→17:37)
[2020-11-25] MEDS: DOCUSATE SODIUM 100 MG CAPSULE PO SCH ×2 (09:13→17:37)
[2020-11-25] MEDS: BUMETANIDE 1 MG TABLET PO SCH (09:13)
[2020-11-25] MEDS: CEFTRIAXONE 1 GM/D5W RTU 1 GM/50 ML RTUPB IV SCH (09:14)
[2020-11-25] MEDS: NYSTATIN/DEXAMETH/DIPHEN SUSP 120 ML PO SCH ×3 (09:14→17:37)
[2020-11-25] MEDS: CARVEDILOL 12.5 MG TABLET PO SCH ×2 (09:14→21:09)
[2020-11-25] MEDS: FLUCONAZOLE 100 MG TABLET PO SCH (17:37)
--- NOTE | 2020-11-25 20:49 | PDOC PROGRESS REPORT ---
Subjective Date:: 11/25/20 Subjective:: Patient seen by the bedside Reason For Visit: RECURRENT UTI,PROBABLE SEPSIS,VONNIE ON CKD, Physical Exam Vital Signs: Temp Pulse Resp BP Pulse Ox 98.8 F 83 18 117/63 100 11/25/20 15:55 11/25/20 15:55 11/25/20 15:55 11/25/20 15:55 11/25/20 12:08 Intake & Output 11/24/20 11/25/20 11/26/20 06:59 06:59 06:59 Intake Total 1532 2590 1660 Output Total 2800 2975 1375 Balance -1268 -385 285 Weight 102.5 kg 101.8 kg General appearance: PRESENT: no acute distress Eye exam: PRESENT: PERRLA Respiratory exam: PRESENT: clear to auscultation heather Cardiovascular exam: PRESENT: +S1, +S2 GI/Abdominal exam: PRESENT: soft Results Laboratory Results: 11/24/20 06:25 11/25/20 06:25 11/24/20 11/25/20 23:50 06:25 Sodium 132.9 L 134.3 L Potassium 3.0 L* 3.2 L Chloride 97 L 99 Carbon Dioxide 31 H 27 Anion Gap 5 8 BUN 29 H 30 H Creatinine 1.76 H 1.60 H Est GFR ( Amer) 45 L 51 L Glucose 126 H 117 H Calcium 7.2 L 7.2 L Total Bilirubin 0.5 0.6 AST 30 32 Alkaline Phosphatase 119 114 Total Protein 5.8 L 5.8 L Albumin 2.8 L 2.8 L 11/19/20 11/19/20 18:20 18:20 Creatine Kinase 329 H CK-MB (CK-2) 0.92 Troponin I 0.030 Impressions: Chest X-Ray 11/19/20 20:03 IMPRESSION: Improved lung volumes and aeration. No acute process. Assessment & Plan - Diagnosis (1) Klebsiella pneumoniae sepsis Is this a current diagnosis for this admission?: Yes Plan: Patient presently on ceftriaxone vancomycin aztreonam, DC aztreonam continue ceftriaxone and vancomycin, the MRSA in the urine is is probably colonization, MRSA is not a uropathogen, MRSA in the urine is a manifestation of a distant source. (2) Obstructive uropathy Is this a current diagnosis for this admission?: Yes (3) Acute kidney injury Is this a current diagnosis for this admission?: Yes Plan: Improving replace potassium - Time Time Spent with patient: 25-34 minutes Level of Care: TELE Medications reviewed and adjusted accordingly: Yes Anticipated discharge: Home
[2020-11-25] MEDS: DOXEPIN HCL 10 MG CAPSULE PO SCH (21:09)
[2020-11-25] MEDS: DONEPEZIL HCL 5 MG TABLET PO SCH (21:09)
[2020-11-25] MEDS: ATORVASTATIN CALCIUM 10 MG TABLET PO SCH (21:09)
[2020-11-25] MEDS ORDERED: POTASSI CL 20 MEQ/50 ML RIDER 20 MEQ/50 ML RTUPB IV ONE (21:30)
[2020-11-26] MEDS: DILTIAZEM HCL 30 MG TABLET PO SCH ×3 (05:48→21:20)
[2020-11-26] MEDS: VANCOMYCIN HCL 1,500 MG in DEXTROSE 5%-WATER 250 ML IV SCH (05:48)
[2020-11-26] MEDS: GABAPENTIN 300 MG CAPSULE PO SCH ×3 (05:48→21:21)
[2020-11-26] MEDS: INSULIN REG, HUMAN 100 UNIT/ML 3 ML VIAL (PYX) SUBCUT SCH ×4 (08:36→21:26)
[2020-11-26] MEDS: BUMETANIDE 1 MG TABLET PO SCH (08:36)
[2020-11-26] MEDS: DULOXETINE HCL 30 MG CAPSULE.DR PO SCH (11:08)
[2020-11-26] MEDS: DOCUSATE SODIUM 100 MG CAPSULE PO SCH ×2 (11:08→18:35)
[2020-11-26] MEDS: APIXABAN 2.5 MG TABLET PO SCH ×2 (11:08→18:35)
[2020-11-26] MEDS: CARVEDILOL 12.5 MG TABLET PO SCH ×2 (11:09→21:20)
[2020-11-26] MEDS: NYSTATIN/DEXAMETH/DIPHEN SUSP 120 ML PO SCH ×3 (11:09→18:36)
[2020-11-26] MEDS: CEFTRIAXONE 1 GM/D5W RTU 1 GM/50 ML RTUPB IV SCH (11:09)
[2020-11-26] MEDS: FINASTERIDE 5 MG TABLET PO SCH (11:09)
[2020-11-26 12:21] LABS: ABSOLUTE EOSINOPHILS # (AUTO) 0.3 10^3/uL (0.0-0.6); ABSOLUTE LYMPHOCYTES (AUTO) 0.9 10^3/uL (0.5-4.7); ABSOLUTE MONOCYTES (AUTO) 0.6 10^3/uL (0.1-1.4); ABSOLUTE NEUT (AUTO) 4.7 10^3/uL (1.7-8.2); BASOPHILS % (AUTO) 0.6 % (0-2); EOSINOPHILS % (AUTO) 4.3 % (0-6); HEMATOCRIT 26.6 % (37.9-51.0); LYMPHOCYTES % (AUTO) 13.5 % (13-45); MEAN CORPUSCULAR HEMOGLOBIN 26.4 pg (27.0-33.4); MEAN CORPUSCULAR HGB CONC 33.6 g/dL (32.0-36.0); MEAN CORPUSCULAR VOLUME 79 fl (80-97); MONOCYTES % (AUTO) 9.4 % (3-13); PLATELET COUNT 149 10^3/uL (150-450); RED BLOOD COUNT 3.39 10^6/uL (4.35-5.55); RED CELL DISTRIBUTION WIDTH 16.9 % (11.5-14.0); SEGMENTED NEUTROPHILS % (AUTO) 72.2 % (42-78); TOTAL CELLS COUNTED % (AUTO) 100 %; WHITE BLOOD COUNT 6.6 10^3/uL (4.0-10.5)
[2020-11-26 12:39] LABS: ALBUMIN 2.8 g/dL (3.5-5.0); ALKALINE PHOSPHATASE 112 U/L (38-126); ANION GAP 9 (5-19); ASPARTATE AMINO TRANSFERASE 32 U/L (17-59); BILIRUBIN,DIRECT 0.2 mg/dL (0.0-0.4); BILIRUBIN,TOTAL 0.5 mg/dL (0.2-1.3); BLOOD UREA NITROGEN 25 mg/dL (7-20); CALCIUM 7.1 mg/dL (8.4-10.2); CARBON DIOXIDE 26 mmol/L (22-30); CHLORIDE 98 mmol/L (98-107); GLUCOSE 137 mg/dL (75-110); POTASSIUM 3.1 mmol/L (3.6-5.0); TOTAL PROTEIN 5.9 g/dL (6.3-8.2)
--- NOTE | 2020-11-26 17:27 | PDOC PROGRESS REPORT ---
Subjective Date:: 11/26/20 Subjective:: Patient seen by the bedside, he has Klebsiella pneumonia septicemia, the blood w ork from today demonstrated hypokalemia, replaced Reason For Visit: RECURRENT UTI,PROBABLE SEPSIS,VONNIE ON CKD, Physical Exam Vital Signs: Temp Pulse Resp BP Pulse Ox 98.3 F 88 17 133/58 H 100 11/26/20 16:28 11/26/20 16:28 11/26/20 16:28 11/26/20 16:28 11/26/20 16:28 Intake & Output 11/25/20 11/26/20 11/27/20 06:59 06:59 06:59 Intake Total 2590 1660 240 Output Total 2975 2275 450 Balance -385 -615 -210 Weight 101.8 kg 101.5 kg General appearance: PRESENT: no acute distress Eye exam: PRESENT: PERRLA Respiratory exam: PRESENT: clear to auscultation heather Cardiovascular exam: PRESENT: +S1, +S2 GI/Abdominal exam: PRESENT: soft Neurological exam: PRESENT: alert Results Laboratory Results: 11/26/20 12:09 11/26/20 12:09 11/26/20 11/26/20 12:09 12:09 WBC 6.6 RBC 3.39 L Hgb 9.0 L Hct 26.6 L MCV 79 L MCH 26.4 L MCHC 33.6 RDW 16.9 H Plt Count 149 L Seg Neutrophils % 72.2 Sodium 132.9 L Potassium 3.1 L Chloride 98 Carbon Dioxide 26 Anion Gap 9 BUN 25 H Creatinine 1.40 H Est GFR ( Amer) 59 L Glucose 137 H Calcium 7.1 L Total Bilirubin 0.5 AST 32 Alkaline Phosphatase 112 Total Protein 5.9 L Albumin 2.8 L 11/19/20 11/19/20 18:20 18:20 Creatine Kinase 329 H CK-MB (CK-2) 0.92 Troponin I 0.030 Impressions: Chest X-Ray 11/19/20 20:03 IMPRESSION: Improved lung volumes and aeration. No acute process. Assessment & Plan - Diagnosis (1) Klebsiella pneumoniae sepsis Is this a current diagnosis for this admission?: Yes Plan: Patient presently on ceftriaxone vancomycin aztreonam, DC aztreonam continue ceftriaxone and vancomycin, the MRSA in the urine is is probably colonization, MRSA is not a uropathogen, MRSA in the urine is a manifestation of a distant source. (2) Obstructive uropathy Is this a current diagnosis for this admission?: Yes (3) Acute kidney injury Is this a current diagnosis for this admission?: Yes Plan: The kidney function continues to improve - Time Time Spent with patient: 25-34 minutes Level of Care: IMCU Medications reviewed and adjusted accordingly: Yes Anticipated discharge: Home Anticipated DC Timeframe: within 36 hours
[2020-11-26] MEDS: FLUCONAZOLE 100 MG TABLET PO SCH (18:35)
[2020-11-26] MEDS: POTASSI CL 20 MEQ/50 ML RIDER 20 MEQ/50 ML RTUPB IV SCH ×2 (18:36→21:21)
[2020-11-26] MEDS: DOXEPIN HCL 10 MG CAPSULE PO SCH (21:20)
[2020-11-26] MEDS: DONEPEZIL HCL 5 MG TABLET PO SCH (21:21)
[2020-11-26] MEDS: ATORVASTATIN CALCIUM 10 MG TABLET PO SCH (21:21)
[2020-11-27] MEDS: VANCOMYCIN HCL 1,500 MG in DEXTROSE 5%-WATER 250 ML IV SCH (06:49)
[2020-11-27] MEDS: DILTIAZEM HCL 30 MG TABLET PO SCH ×3 (06:50→21:58)
[2020-11-27] MEDS: GABAPENTIN 300 MG CAPSULE PO SCH ×3 (06:50→21:58)
[2020-11-27 07:27] LABS: ABSOLUTE EOSINOPHILS # (AUTO) 0.2 10^3/uL (0.0-0.6); ABSOLUTE MONOCYTES (AUTO) 0.5 10^3/uL (0.1-1.4); ABSOLUTE NEUT (AUTO) 4.2 10^3/uL (1.7-8.2); BASOPHILS % (AUTO) 0.4 % (0-2); EOSINOPHILS % (AUTO) 3.6 % (0-6); HEMOGLOBIN 9.1 g/dL (13.5-17.0); LYMPHOCYTES % (AUTO) 16.5 % (13-45); MEAN CORPUSCULAR HEMOGLOBIN 27.4 pg (27.0-33.4); MEAN CORPUSCULAR VOLUME 78 fl (80-97); MONOCYTES % (AUTO) 8.6 % (3-13); PLATELET COUNT 181 10^3/uL (150-450); RED BLOOD COUNT 3.32 10^6/uL (4.35-5.55); RED CELL DISTRIBUTION WIDTH 16.5 % (11.5-14.0); SEGMENTED NEUTROPHILS % (AUTO) 70.9 % (42-78); TOTAL CELLS COUNTED % (AUTO) 100 %; WHITE BLOOD COUNT 5.9 10^3/uL (4.0-10.5)
[2020-11-27 07:50] LABS: VANCOMYCIN,TROUGH 14.2 ug/mL (5.0-20.0)
[2020-11-27 07:53] LABS: ALBUMIN 2.9 g/dL (3.5-5.0); ALKALINE PHOSPHATASE 118 U/L (38-126); ANION GAP 7 (5-19); ASPARTATE AMINO TRANSFERASE 33 U/L (17-59); BILIRUBIN,DIRECT 0.3 mg/dL (0.0-0.4); BILIRUBIN,TOTAL 0.5 mg/dL (0.2-1.3); BLOOD UREA NITROGEN 24 mg/dL (7-20); CALCIUM 7.4 mg/dL (8.4-10.2); CARBON DIOXIDE 29 mmol/L (22-30); CHLORIDE 99 mmol/L (98-107); GLUCOSE 107 mg/dL (75-110); POTASSIUM 3.6 mmol/L (3.6-5.0)
[2020-11-27] MEDS: APIXABAN 2.5 MG TABLET PO SCH ×2 (10:13→18:19)
[2020-11-27] MEDS: BUMETANIDE 1 MG TABLET PO SCH (10:13)
[2020-11-27] MEDS: DOCUSATE SODIUM 100 MG CAPSULE PO SCH ×2 (10:13→18:19)
[2020-11-27] MEDS: CARVEDILOL 12.5 MG TABLET PO SCH ×2 (10:15→21:58)
[2020-11-27] MEDS: DULOXETINE HCL 30 MG CAPSULE.DR PO SCH (10:15)
[2020-11-27] MEDS: FINASTERIDE 5 MG TABLET PO SCH (10:15)
[2020-11-27] MEDS: INSULIN REG, HUMAN 100 UNIT/ML 3 ML VIAL (PYX) SUBCUT SCH ×4 (10:16→22:05)
[2020-11-27] MEDS: NYSTATIN/DEXAMETH/DIPHEN SUSP 120 ML PO SCH ×3 (10:18→18:20)
[2020-11-27] MEDS: ACETAMINOPHEN 325 MG TABLET PO PRN (13:36)
[2020-11-27] MEDS: FLUCONAZOLE 100 MG TABLET PO SCH (18:19)
--- NOTE | 2020-11-27 21:44 | PDOC PROGRESS REPORT ---
Subjective Date:: 11/27/20 Subjective:: Patient seen by the bedside, he has Klebsiella sepsis, improving, the is co ncerned about post discharge care especially because of his balance problem and fall risk he will need to have a wheelchair consult discharge planning to arrange for wheelchair Reason For Visit: RECURRENT UTI,PROBABLE SEPSIS,VONNIE ON CKD, Physical Exam Vital Signs: Temp Pulse Resp BP Pulse Ox 97.7 F 69 18 114/51 L 100 11/27/20 20:15 11/27/20 20:15 11/27/20 20:15 11/27/20 20:15 11/27/20 20:15 Intake & Output 11/26/20 11/27/20 11/28/20 06:59 06:59 06:59 Intake Total 1124 056 8245 Output Total 1412 2000 1025 Balance -615 -1082 -8 Weight 101.5 kg 100.1 kg General appearance: PRESENT: no acute distress Eye exam: PRESENT: PERRLA Respiratory exam: PRESENT: clear to auscultation heather Cardiovascular exam: PRESENT: +S1, +S2 GI/Abdominal exam: PRESENT: soft Neurological exam: PRESENT: alert Results Laboratory Results: 11/27/20 06:47 11/27/20 06:47 11/27/20 11/27/20 11/27/20 06:47 06:47 06:47 WBC 5.9 RBC 3.32 L Hgb 9.1 L Hct 26.0 L MCV 78 L MCH 27.4 MCHC 35.0 RDW 16.5 H Plt Count 181 Seg Neutrophils % 70.9 Sodium 134.6 L Potassium 3.6 Chloride 99 Carbon Dioxide 29 Anion Gap 7 BUN 24 H Creatinine Cancelled 1.54 H Est GFR ( Amer) Cancelled 53 L Est GFR (Non-Af Amer) Cancelled Glucose 107 Calcium 7.4 L Total Bilirubin 0.5 AST 33 Alkaline Phosphatase 118 Total Protein 6.0 L Albumin 2.9 L 11/19/20 11/19/20 18:20 18:20 Creatine Kinase 329 H CK-MB (CK-2) 0.92 Troponin I 0.030 Impressions: Chest X-Ray 11/19/20 20:03 IMPRESSION: Improved lung volumes and aeration. No acute process. Assessment & Plan - Diagnosis (1) Klebsiella pneumoniae sepsis Is this a current diagnosis for this admission?: Yes Plan: Patient presently on ceftriaxone vancomycin aztreonam, DC aztreonam continue ceftriaxone and vancomycin, the MRSA in the urine is is probably colonization, MRSA is not a uropathogen, MRSA in the urine is a manifestation of a distant so urce. (2) Obstructive uropathy Is this a current diagnosis for this admission?: Yes (3) Acute kidney injury Is this a current diagnosis for this admission?: Yes Plan: The kidney function continues to improve - Time Time Spent with patient: 35 or more minutes Level of Care: IMCU Medications reviewed and adjusted accordingly: Yes Anticipated discharge: Home Anticipated DC Timeframe: within 72 hours
[2020-11-27] MEDS: ATORVASTATIN CALCIUM 10 MG TABLET PO SCH (21:58)
[2020-11-27] MEDS: DOXEPIN HCL 10 MG CAPSULE PO SCH (21:58)
[2020-11-27] MEDS: DONEPEZIL HCL 5 MG TABLET PO SCH (21:58)
[2020-11-27] MEDS: RINGERS SOLUTION,LACTATED 1,000 ML IV PRN (22:06)
[2020-11-28] MEDS: DILTIAZEM HCL 30 MG TABLET PO SCH ×3 (06:56→21:50)
[2020-11-28] MEDS: GABAPENTIN 300 MG CAPSULE PO SCH ×3 (06:56→21:50)
[2020-11-28] MEDS: RINGERS SOLUTION,LACTATED 1,000 ML IV PRN ×2 (06:57→18:04)
[2020-11-28] MEDS: VANCOMYCIN HCL 1,500 MG in DEXTROSE 5%-WATER 250 ML IV SCH (06:57)
[2020-11-28] MEDS: INSULIN REG, HUMAN 100 UNIT/ML 3 ML VIAL (PYX) SUBCUT SCH ×4 (08:21→21:50)
[2020-11-28] MEDS: BUMETANIDE 1 MG TABLET PO SCH (08:41)
[2020-11-28 09:13] LABS: ABSOLUTE EOSINOPHILS # (AUTO) 0.2 10^3/uL (0.0-0.6); ABSOLUTE LYMPHOCYTES (AUTO) 0.9 10^3/uL (0.5-4.7); ABSOLUTE MONOCYTES (AUTO) 0.4 10^3/uL (0.1-1.4); ABSOLUTE NEUT (AUTO) 4.6 10^3/uL (1.7-8.2); BASOPHILS % (AUTO) 0.4 % (0-2); HEMATOCRIT 25.7 % (37.9-51.0); HEMOGLOBIN 8.9 g/dL (13.5-17.0); LYMPHOCYTES % (AUTO) 14.4 % (13-45); MEAN CORPUSCULAR HGB CONC 34.5 g/dL (32.0-36.0); MEAN CORPUSCULAR VOLUME 78 fl (80-97); MONOCYTES % (AUTO) 6.3 % (3-13); PLATELET COUNT 182 10^3/uL (150-450); RED BLOOD COUNT 3.28 10^6/uL (4.35-5.55); RED CELL DISTRIBUTION WIDTH 16.5 % (11.5-14.0); SEGMENTED NEUTROPHILS % (AUTO) 75.9 % (42-78); TOTAL CELLS COUNTED % (AUTO) 100 %
[2020-11-28 09:31] LABS: ALKALINE PHOSPHATASE 117 U/L (38-126); ANION GAP 8 (5-19); ASPARTATE AMINO TRANSFERASE 28 U/L (17-59); BILIRUBIN,DIRECT 0.3 mg/dL (0.0-0.4); BILIRUBIN,TOTAL 0.5 mg/dL (0.2-1.3); BLOOD UREA NITROGEN 20 mg/dL (7-20); CALCIUM 7.3 mg/dL (8.4-10.2); CARBON DIOXIDE 29 mmol/L (22-30); CHLORIDE 98 mmol/L (98-107); GLUCOSE 139 mg/dL (75-110); POTASSIUM 3.3 mmol/L (3.6-5.0); TOTAL PROTEIN 6.1 g/dL (6.3-8.2)
[2020-11-28] MEDS: DULOXETINE HCL 30 MG CAPSULE.DR PO SCH (09:33)
[2020-11-28] MEDS: APIXABAN 2.5 MG TABLET PO SCH ×2 (09:33→17:40)
[2020-11-28] MEDS: CARVEDILOL 12.5 MG TABLET PO SCH ×2 (09:33→21:50)
[2020-11-28] MEDS: FINASTERIDE 5 MG TABLET PO SCH (09:33)
[2020-11-28] MEDS: DOCUSATE SODIUM 100 MG CAPSULE PO SCH ×2 (09:33→17:40)
[2020-11-28] MEDS: NYSTATIN/DEXAMETH/DIPHEN SUSP 120 ML PO SCH ×3 (09:43→17:40)
[2020-11-28] MEDS: FLUCONAZOLE 100 MG TABLET PO SCH (17:40)
--- NOTE | 2020-11-28 18:25 | PDOC PROGRESS REPORT ---
Subjective Date:: 11/28/20 Subjective:: Patient is alert improving Reason For Visit: RECURRENT UTI,PROBABLE SEPSIS,VONNIE ON CKD, Physical Exam Vital Signs: Temp Pulse Resp BP Pulse Ox 98.1 F 72 19 126/65 H 98 11/28/20 16:41 11/28/20 16:41 11/28/20 16:41 11/28/20 16:41 11/28/20 16:41 Intake & Output 11/27/20 11/28/20 11/29/20 06:59 06:59 06:59 Intake Total 912 1590 Output Total 1999 2024 600 Balance -1082 227 990 Weight 100.1 kg 99.3 kg 99.3 kg General appearance: PRESENT: no acute distress Eye exam: PRESENT: PERRLA Respiratory exam: PRESENT: clear to auscultation heather Cardiovascular exam: PRESENT: +S1, +S2 GI/Abdominal exam: PRESENT: soft Results Laboratory Results: 11/28/20 08:50 11/28/20 08:50 11/28/20 11/28/20 08:50 08:50 WBC 6.0 RBC 3.28 L Hgb 8.9 L Hct 25.7 L MCV 78 L MCH 27.0 MCHC 34.5 RDW 16.5 H Plt Count 182 Seg Neutrophils % 75.9 Sodium 134.8 L Potassium 3.3 L Chloride 98 Carbon Dioxide 29 Anion Gap 8 BUN 20 Creatinine 1.37 H Est GFR ( Amer) > 60 Glucose 139 H Calcium 7.3 L Total Bilirubin 0.5 AST 28 Alkaline Phosphatase 117 Total Protein 6.1 L Albumin 3.0 L 11/19/20 11/19/20 18:20 18:20 Creatine Kinase 329 H CK-MB (CK-2) 0.92 Troponin I 0.030 Impressions: Chest X-Ray 11/19/20 20:03 IMPRESSION: Improved lung volumes and aeration. No acute process. Assessment & Plan - Diagnosis (1) Klebsiella pneumoniae sepsis Is this a current diagnosis for this admission?: Yes Plan: Patient presently on ceftriaxone vancomycin aztreonam, DC aztreonam continue ceftriaxone and vancomycin, the MRSA in the urine is is probably colonization, MRSA is not a uropathogen, MRSA in the urine is a manifestation of a distant source. (2) Obstructive uropathy Is this a current diagnosis for this admission?: Yes (3) Acute kidney injury Is this a current diagnosis for this admission?: Yes Plan: The kidney function continues to improve - Time Time Spent with patient: 35 or more minutes Level of Care: MEDICAL Anticipated discharge: Home Anticipated DC Timeframe: within 36 hours
[2020-11-28] MEDS: ATORVASTATIN CALCIUM 10 MG TABLET PO SCH (21:50)
[2020-11-28] MEDS: DOXEPIN HCL 10 MG CAPSULE PO SCH (21:50)
[2020-11-28] MEDS: DONEPEZIL HCL 5 MG TABLET PO SCH (21:50)
[2020-11-29] MEDS: RINGERS SOLUTION,LACTATED 1,000 ML IV PRN ×2 (05:54→19:00)
[2020-11-29] MEDS: VANCOMYCIN HCL 1,500 MG in DEXTROSE 5%-WATER 250 ML IV SCH (06:24)
[2020-11-29] MEDS: GABAPENTIN 300 MG CAPSULE PO SCH ×3 (06:26→22:47)
[2020-11-29] MEDS: DILTIAZEM HCL 30 MG TABLET PO SCH ×3 (06:26→22:47)
[2020-11-29 06:58] LABS: VANCOMYCIN,TROUGH 17.3 ug/mL (5.0-20.0)
[2020-11-29] MEDS: INSULIN REG, HUMAN 100 UNIT/ML 3 ML VIAL (PYX) SUBCUT SCH ×4 (08:00→22:48)
[2020-11-29] MEDS: BUMETANIDE 1 MG TABLET PO SCH (09:12)
[2020-11-29] MEDS: DOCUSATE SODIUM 100 MG CAPSULE PO SCH ×2 (10:41→17:13)
[2020-11-29] MEDS: APIXABAN 2.5 MG TABLET PO SCH ×2 (10:41→17:15)
[2020-11-29] MEDS: FINASTERIDE 5 MG TABLET PO SCH (10:41)
[2020-11-29] MEDS: CARVEDILOL 12.5 MG TABLET PO SCH ×2 (10:42→22:47)
[2020-11-29] MEDS: DULOXETINE HCL 30 MG CAPSULE.DR PO SCH (10:42)
[2020-11-29] MEDS: NYSTATIN/DEXAMETH/DIPHEN SUSP 120 ML PO SCH ×3 (10:48→18:22)
[2020-11-29] MEDS: ACETAMINOPHEN 325 MG TABLET PO PRN (15:45)
[2020-11-29] MEDS: LOPERAMIDE HCL 2 MG CAPSULE PO PRN (16:15)
--- NOTE | 2020-11-29 18:07 | PDOC PROGRESS REPORT ---
Subjective Date:: 11/29/20 Subjective:: Patient seen by the bedside, he continues to improve, hopefully discharge tomorr ow Reason For Visit: RECURRENT UTI,PROBABLE SEPSIS,VONNIE ON CKD, Physical Exam Vital Signs: Temp Pulse Resp BP Pulse Ox 98.2 F 78 19 131/61 H 97 11/29/20 16:25 11/29/20 16:25 11/29/20 16:25 11/29/20 16:25 11/29/20 16:25 Intake & Output 11/28/20 11/29/20 11/30/20 06:59 06:59 06:59 Intake Total 2252 2590 Output Total 20240 Balance 227 -110 Weight 99.3 kg 99.3 kg General appearance: PRESENT: no acute distress Eye exam: PRESENT: PERRLA Respiratory exam: PRESENT: clear to auscultation heather Cardiovascular exam: PRESENT: +S1, +S2 Results Laboratory Results: 11/28/20 08:50 11/29/20 06:05 11/29/20 06:05 Creatinine 1.37 H Est GFR ( Amer) > 60 11/19/20 11/19/20 18:20 18:20 Creatine Kinase 329 H CK-MB (CK-2) 0.92 Troponin I 0.030 Impressions: Chest X-Ray 11/19/20 20:03 IMPRESSION: Improved lung volumes and aeration. No acute process. Assessment & Plan - Diagnosis (1) Klebsiella pneumoniae sepsis Is this a current diagnosis for this admission?: Yes Plan: Patient presently on ceftriaxone vancomycin aztreonam, DC aztreonam continue ceftriaxone and vancomycin, the MRSA in the urine is is probably colonization, MRSA is not a uropathogen, MRSA in the urine is a manifestation of a distant source. (2) Obstructive uropathy Is this a current diagnosis for this admission?: Yes (3) Acute kidney injury Is this a current diagnosis for this admission?: Yes Plan: The kidney function continues to improve - Time Time Spent with patient: 25-34 minutes Level of Care: MEDICAL Medications reviewed and adjusted accordingly: Yes Anticipated discharge: Home
[2020-11-29 18:27] LABS: ALBUMIN 2.9 g/dL (3.5-5.0); ALKALINE PHOSPHATASE 111 U/L (38-126); ANION GAP 6 (5-19); ASPARTATE AMINO TRANSFERASE 29 U/L (17-59); BILIRUBIN,DIRECT 0.3 mg/dL (0.0-0.4); BILIRUBIN,TOTAL 0.6 mg/dL (0.2-1.3); BLOOD UREA NITROGEN 20 mg/dL (7-20); CALCIUM 7.5 mg/dL (8.4-10.2); CARBON DIOXIDE 29 mmol/L (22-30); CHLORIDE 99 mmol/L (98-107); GLUCOSE 141 mg/dL (75-110); POTASSIUM 3.3 mmol/L (3.6-5.0)
[2020-11-29] MEDS: ATORVASTATIN CALCIUM 10 MG TABLET PO SCH (22:47)
[2020-11-29] MEDS: DONEPEZIL HCL 5 MG TABLET PO SCH (22:47)
[2020-11-29] MEDS: DOXEPIN HCL 10 MG CAPSULE PO SCH (22:47)
[2020-11-30] MEDS: RINGERS SOLUTION,LACTATED 1,000 ML IV PRN (03:51)
[2020-11-30] MEDS: DILTIAZEM HCL 30 MG TABLET PO SCH ×2 (06:44→14:39)
[2020-11-30] MEDS: GABAPENTIN 300 MG CAPSULE PO SCH ×2 (06:44→14:39)
[2020-11-30] MEDS: INSULIN REG, HUMAN 100 UNIT/ML 3 ML VIAL (PYX) SUBCUT SCH ×2 (09:05→11:58)
[2020-11-30] MEDS: APIXABAN 2.5 MG TABLET PO SCH (10:04)
[2020-11-30] MEDS: DOCUSATE SODIUM 100 MG CAPSULE PO SCH (10:04)
[2020-11-30] MEDS: CARVEDILOL 12.5 MG TABLET PO SCH (10:04)
[2020-11-30] MEDS: BUMETANIDE 1 MG TABLET PO SCH (10:04)
[2020-11-30] MEDS: DULOXETINE HCL 30 MG CAPSULE.DR PO SCH (10:04)
[2020-11-30] MEDS: FINASTERIDE 5 MG TABLET PO SCH (10:04)
[2020-11-30] MEDS: NYSTATIN/DEXAMETH/DIPHEN SUSP 120 ML PO SCH ×2 (10:05→14:41)
[2020-11-30 14:54] VITALS: BP 120/78
[2020-11-30] MEDS: LOPERAMIDE HCL 2 MG CAPSULE PO PRN (16:25)
--- NOTE | 2020-11-30 17:51 | PDOC DISCHARGE SUMMARY ---
Impression - Admit/DC Date/PCP Admission Date/Primary Care Provider: 11/19/20 23:23 LEO GARCIA MD Discharge Date: 11/30/20 - Discharge Diagnosis (1) Sepsis Is this a current diagnosis for this admission?: Yes (2) Klebsiella pneumoniae sepsis Is this a current diagnosis for this admission?: Yes (3) Obstructive uropathy Is this a current diagnosis for this admission?: Yes (4) Acute kidney injury Is this a current diagnosis for this admission?: Yes - Additional Information Resuscitation Status: Full Code Referrals: LEO GARCIA MD [Primary Care Provider] - 12/07/20 2:30 pm Home Medications: Gabapentin [Neurontin 300 mg Capsule] 300 mg PO Q8 08/16/19 Allopurinol [Zyloprim 300 mg Tablet] 300 mg PO QHS 11/08/19 Apixaban [Eliquis 2.5 mg Tablet] 2.5 mg PO BID 11/08/19 Pravastatin Sodium 40 mg PO QHS 11/08/19 Donepezil HCl [Aricept 5 mg Tablet] 5 mg PO QHS 09/24/20 Sitagliptin Phosphate [Januvia 50 mg Tablet] 50 mg PO DAILY 09/24/20 Finasteride [Proscar 5 mg Tablet] 5 mg PO DAILY tablet 10/02/20 Acetaminophen [Tylenol 325 mg Tablet] 650 mg PO Q4HP PRN 11/20/20 Bumetanide 2 mg PO QAM 11/20/20 Carvedilol Phosphate [Carvedilol ER] 40 mg PO DAILY 11/20/20 Doxepin HCl [Sinequan 10 mg Capsule] 10 mg PO QHS 11/20/20 Duloxetine HCl [Cymbalta 30 mg Capsule.dr] 60 mg PO DAILY 11/20/20 Hydrochlorothiazide [Hydrodiuril 12.5 mg Tablet] 12.5 mg PO QAM 11/20/20 Losartan Potassium [Cozaar 50 mg Tablet] 50 mg PO DAILY 11/20/20 Mirabegron [Myrbetriq] 25 mg PO DAILY 11/20/20 Oxycodone HCl [Oxy-Ir 5 mg Tablet] 15 mg PO Q8HP PRN 11/20/20 Quetiapine Fumarate [Seroquel 25 mg Tablet] 50 mg PO QHS 11/20/20 Acetaminophen [Tylenol 325 mg Tablet] 650 mg PO Q4HP PRN tablet 11/29/20 Docusate Sodium [Colace 100 mg Capsule] 100 mg PO BID capsule 11/29/20 History of Present Illiness History of Present Illness: TRAVIS REYNOSO is a 80 year old male patient who presented to the ED via ES with complain about fever and generalized weakness for couple of days. Patient reported recurrent urinary tract infection. He reported associated nausea and vomiting that prompted his family to activate EMS. He denied any abdominal pain or diarrhea. 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 He denied any chest pain or difficulty with breathing. His initial evaluation in the ED was significant for negative COVID-19 test, hypotension, leukocytosis with left shift, and renal indices suggestive of acute on chronic kidney disease. He was advised hospitalization for further evaluation and management. . 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, history of recurrent UTI Physical Exam Vital Signs: Temp Pulse Resp BP Pulse Ox 98.3 F 78 16 120/78 100 11/30/20 14:56 11/30/20 14:56 11/30/20 14:56 11/30/20 14:56 11/30/20 14:56 Intake & Output 11/29/20 11/30/20 12/01/20 06:59 06:59 06:59 Intake Total 2590 3095 1000 Output Total 2700 2550 Balance -888 152 8269 Weight 99.3 kg 99.1 kg General appearance: PRESENT: no acute distress Eye exam: PRESENT: PERRLA Respiratory exam: PRESENT: clear to auscultation heather Cardiovascular exam: PRESENT: +S1, +S2 GI/Abdominal exam: PRESENT: soft Neurological exam: PRESENT: alert, CN II-XII grossly intact Results Laboratory Results: WBC 6.0 10^3/uL (4.0-10.5) 11/28/20 08:50 RBC 3.28 10^6/uL (4.35-5.55) L 11/28/20 08:50 Hgb 8.9 g/dL (13.5-17.0) L 11/28/20 08:50 Hct 25.7 % (37.9-51.0) L 11/28/20 08:50 MCV 78 fl (80-97) L 11/28/20 08:50 MCH 27.0 pg (27.0-33.4) 11/28/20 08:50 MCHC 34.5 g/dL (32.0-36.0) 11/28/20 08:50 RDW 16.5 % (11.5-14.0) H 11/28/20 08:50 Plt Count 182 10^3/uL (150-450) 11/28/20 08:50 Lymph % (Auto) 14.4 % (13-45) 11/28/20 08:50 [place] % (Auto) 6.3 % (3-13) 11/28/20 08:50 Eos % (Auto) 3.0 % (0-6) 11/28/20 08:50 Baso % (Auto) 0.4 % (0-2) 11/28/20 08:50 Absolute Neuts (auto) 4.6 10^3/uL (1.7-8.2) 11/28/20 08:50 Absolute Lymphs (auto) 0.9 10^3/uL (0.5-4.7) 11/28/20 08:50 Absolute Monos (auto) 0.4 10^3/uL (0.1-1.4) 11/28/20 08:50 Absolute Eos (auto) 0.2 10^3/uL (0.0-0.6) 11/28/20 08:50 Absolute Basos (auto) 0.0 10^3/uL (0.0-0.2) 11/28/20 08:50 Total Counted 100 11/22/20 00:15 Seg Neutrophils % 75.9 % (42-78) 11/28/20 08:50 Seg Neuts % (Manual) 85 % (42-78) H 11/22/20 00:15 Lymphocytes % (Manual) 6 % (13-45) L 11/22/20 00:15 Monocytes % (Manual) 7 % (3-13) 11/22/20 00:15 Eosinophils % (Manual) 2 % (0-6) 11/22/20 00:15 Basophils % (Manual) 0 % (0-2) 11/22/20 00:15 Abs Neuts (Manual) 7.9 10^3/uL (1.7-8.2) 11/22/20 00:15 Abs Lymphs (Manual) 0.6 10^3/uL (0.5-4.7) 11/22/20 00:15 Abs Monocytes (Manual) 0.7 10^3/uL (0.1-1.4) 11/22/20 00:15 Absolute Eos (Manual) 0.2 10^3/uL (0.0-0.6) 11/22/20 00:15 Abs Basophils (Manual) 0.0 10^3/uL (0.0-0.2) 11/22/20 00:15 Toxic Granulation 1+ 11/22/20 00:15 Platelet Comment ADEQUATE 11/22/20 00:15 Poikilocytosis SLIGHT 11/22/20 00:15 Anisocytosis SLIGHT 11/22/20 00:15 Tear Drop Cells SLIGHT 11/22/20 00:15 Ovalocytes SLIGHT 11/22/20 00:15 Schistocytes SLIGHT 11/22/20 00:15 PT 16.1 SEC (11.4-15.4) H 11/19/20 18:20 INR 1.27 11/19/20 18:20 VBG pH 7.37 (7.30-7.42) 11/19/20 23:02 VBG pCO2 51.2 mmHg (35-63) 11/19/20 23:02 VBG HCO3 28.7 mmol/L (20-32) 11/19/20 23:02 VBG Base Excess 2.7 mmol/L 11/19/20 23:02 Sodium 134.4 mmol/L (137-145) L 11/29/20 17:45 Potassium 3.3 mmol/L (3.6-5.0) L 11/29/20 17:45 Chloride 99 mmol/L (98-107) 11/29/20 17:45 Carbon Dioxide 29 mmol/L (22-30) 11/29/20 17:45 Anion Gap 6 (5-19) 11/29/20 17:45 BUN 20 mg/dL (7-20) 11/29/20 17:45 Creatinine 1.41 mg/dL (0.52-1.25) H 11/29/20 17:45 Est GFR ( Amer) 59 (>60) L 11/29/20 17:45 Est GFR (Non-Af Amer) Cancelled 11/27/20 06:47 Est GFR (MDRD) Non-Af 48 (>60) L 11/29/20 17:45 Glucose 141 mg/dL (75-110) H 11/29/20 17:45 POC Glucose 116 mg/dL (70-110) H 11/30/20 11:47 Lactic Acid 1.0 mmol/L (0.7-2.1) 11/20/20 02:39 Calcium 7.5 mg/dL (8.4-10.2) L 11/29/20 17:45 Magnesium 1.5 mg/dL (1.6-2.3) L 11/20/20 13:54 Total Bilirubin 0.6 mg/dL (0.2-1.3) 11/29/20 17:45 Direct Bilirubin 0.3 mg/dL (0.0-0.4) 11/29/20 17:45 Neonat Total Bilirubin Not Reportable 11/29/20 17:45 Neonat Direct Bilirubin Not Reportable 11/29/20 17:45 Neonat Indirect Bili Not Reportable 11/29/20 17:45 AST 29 U/L (17-59) 11/29/20 17:45 ALT 23 U/L (<50) 11/29/20 17:45 Alkaline Phosphatase 111 U/L (38-126) 11/29/20 17:45 Creatine Kinase 329 U/L (55-170) H 11/19/20 18:20 CK-MB (CK-2) 0.92 ng/mL (<4.55) 11/19/20 18:20 Troponin I 0.030 ng/mL 11/19/20 18:20 Total Protein 6.0 g/dL (6.3-8.2) L 11/29/20 17:45 Albumin 2.9 g/dL (3.5-5.0) L 11/29/20 17:45 Lipase 35.8 U/L (23-300) 11/19/20 18:20 EGFR Cancelled 11/27/20 06:47 Urine Color DARK YELLOW 11/19/20 18:30 Urine Appearance TURBID 11/19/20 18:30 Urine pH 6.0 (5.0-9.0) 11/19/20 18:30 Ur Specific [place] 1.011 11/19/20 18:30 Urine Protein 100 mg/dL (NEGATIVE) H 11/19/20 18:30 Urine Glucose (UA) NEGATIVE mg/dL (NEGATIVE) 11/19/20 18:30 Urine Ketones NEGATIVE mg/dL (NEGATIVE) 11/19/20 18:30 Urine Blood MODERATE (NEGATIVE) H 11/19/20 18:30 Urine Nitrite NEGATIVE (NEGATIVE) 11/19/20 18:30 Urine Bilirubin NEGATIVE (NEGATIVE) 11/19/20 18:30 Urine Urobilinogen NEGATIVE mg/dL (<2.0) 11/19/20 18:30 Ur Leukocyte Esterase LARGE (NEGATIVE) H 11/19/20 18:30 Urine WBC (Auto) >182 /HPF 11/19/20 18:30 Urine RBC (Auto) 67 /HPF 11/19/20 18:30 Urine Bacteria (Auto) 3+ /HPF 11/19/20 18:30 Urine WBC Clumps MANY /HPF 11/19/20 18:30 Urine Ascorbic Acid NEGATIVE (NEGATIVE) 11/19/20 18:30 Jaime Human Metapneumo PCR NOT DETECTED (NOT DETECT) 11/19/20 21:13 Time Trough Drawn 0605 11/29/20 06:05 Vancomycin Trough 17.3 ug/mL (5.0-20.0) 11/29/20 06:05 Adenovirus (PCR) NOT DETECTED (NOT DETECT) 11/19/20 21:13 B. pertussis DNA (PCR) NOT DETECTED (NOT DETECT) 11/19/20 21:13 B.parapertussis DNA PCR NOT DETECTED (NOT DETECT) 11/19/20 21:13 C. pneumoniae DNA (PCR) NOT DETECTED (NOT DETECT) 11/19/20 21:13 Coronavirus OC43 (PCR) NOT DETECTED (NOT DETECT) 11/19/20 21:13 Coronavirus HKU1 (PCR) NOT DETECTED (NOT DETECT) 11/19/20 21:13 Coronavirus 229E (PCR) NOT DETECTED (NOT DETECT) 11/19/20 21:13 Coronavirus NL63 (PCR) NOT DETECTED (NOT DETECT) 11/19/20 21:13 Influenza A (H1) PCR NOT DETECTED (NOT DETECT) 11/19/20 21:13 Influ A (H1N1/09) PCR NOT DETECTED (NOT DETECT) 11/19/20 21:13 Influenza A (H3) PCR NOT DETECTED (NOT DETECT) 11/19/20 21:13 Influenza Type A (PCR) NOT DETECTED (NOT DETECT) 11/19/20 21:13 Influenza Type B (PCR) NOT DETECTED (NOT DETECT) 11/19/20 21:13 M. pneumoniae (PCR) NOT DETECTED (NOT DETECT) 11/19/20 21:13 Parainfluenza 1 (PCR) NOT DETECTED (NOT DETECT) 11/19/20 21:13 Parainfluenza 2 (PCR) NOT DETECTED (NOT DETECT) 11/19/20 21:13 Parainfluenza 3 (PCR) NOT DETECTED (NOT DETECT) 11/19/20 21:13 Parainfluenza 4 (PCR) NOT DETECTED (NOT DETECT) 11/19/20 21:13 RSV (PCR) NOT DETECTED (NOT DETECT) 11/19/20 21:13 Entero/Rhino (PCR) NOT DETECTED (NOT DETECT) 11/19/20 21:13 SARS-CoV-2 (PCR) NOT DETECTED (NOT DETECT) 11/19/20 21:13 Blood Type O POSITIVE 11/21/20 08:28 Antibody Screen NEGATIVE 11/21/20 08:28 Crossmatch See Detail 11/21/20 08:28 11/19/20 18:20 CK-MB (CK-2) 0.92 Troponin I 0.030 Impressions: Chest X-Ray 11/19/20 18:49 IMPRESSION: Cannot exclude a limited left lower lobe pneumonia. Chest X-Ray 11/19/20 20:03 IMPRESSION: Improved lung volumes and aeration. No acute process. Stroke Is this a Stroke Patient?: No Acute Heart Failure Is this a Heart Failure Patient?: No
== END 2020-11-30 16:27 | disposition home health service (06) | DRG 698 ==
LOC: ER 17:45 → EH 23:23 → 5 11-20 04:29
PROVIDERS: ADMIT Internal Medicine; ATTEND Internal Medicine
DX: T83.510A Infection and inflammatory reaction due to cystostomy catheter, initial encounter (principal); A41.59 Other Gram-negative sepsis; I48.20 Chronic atrial fibrillation, unspecified; N17.9 Acute kidney failure, unspecified; I50.32 Chronic diastolic (congestive) heart failure; I13.0 Hypertensive heart and chronic kidney disease with heart failure and stage 1 through stage 4 chronic kidney disease, or unspecified chronic kidney disease; N18.4 Chronic kidney disease, stage 4 (severe); N13.8 Other obstructive and reflux uropathy; Z20.822 Contact with and (suspected) exposure to COVID-19; I11.0 Hypertensive heart disease with heart failure; E87.6 Hypokalemia; K21.9 Gastro-esophageal reflux disease without esophagitis; F32.9 Major depressive disorder, single episode, unspecified; E11.42 Type 2 diabetes mellitus with diabetic polyneuropathy; E11.22 Type 2 diabetes mellitus with diabetic chronic kidney disease; E78.5 Hyperlipidemia, unspecified; E83.51 Hypocalcemia; F43.10 Post-traumatic stress disorder, unspecified; C61 Malignant neoplasm of prostate; Z88.8 Allergy status to other drugs, medicaments and biological substances; Z79.899 Other long term (current) drug therapy; Y84.6 Urinary catheterization as the cause of abnormal reaction of the patient, or of later complication, without mention of misadventure at the time of the procedure; Z93.6 Other artificial openings of urinary tract status; Z93.50 Unspecified cystostomy status; Z87.440 Personal history of urinary (tract) infections
CPT/HCPCS: 0202U; 36415; 36430; 71045; 80048; 80053; 80202; 81001; 82550; 82553; 82565; 82803; 82962; 83605; 83690; 83735; 84484; 85025; 85610; 86850; 86900; 86901; 86920; 87040; 87077; 87086; 87088; 87150; 87186; 93005; 93010; 96360; 96361; 99285; J0610; J0696; J1642; J1815; J3370; J3475; J3480; J3490; J7030; J7040; J7050; J7060; J7120; P9016